=== PATIENT | male | born 1965 | race Caucasian/White ===

== ENCOUNTER → 2017-05-13 14:33 | Outpatient (CLI) | payer BC, SELFPAY ==
--- NOTE | 2017-05-13 14:42 | XR_ITS ---
EXAM: XR lumbar spine min 4V HISTORY: ITS.REASON: LOW BACK PAIN,LUMBAR SPINDYLOSIS ORDERING PHYSICIAN: Fabian John MD PATIENT AGE: 52 years COMPARISON: 10/08/2015 FINDINGS: Interpedicular screws are present at L3 L4 L5 annulus 1 as before with bony hypertrophic changes from the prior fusion. There is minimal lumbar curvature convex left. There are wires present on both sides of the lumbar spine and at the L5-S1 level.. Disc spacers are present at L3-L4 L4-5 and L5-S1. Overall there is been no significant change from 10/08/2015. IMPRESSION: Postsurgical changes as described above overall not significantly changed
--- NOTE | 2017-05-13 14:46 | CT_ITS ---
CT pelvis wo con INDICATION: ITS.REASON: SACROILIAC JOINTS DYSFUNCTION ORDERING PHYSICIAN: Fabian John MD PATIENT AGE: 52 years COMPARISON: Lumbar spine CT of 01/11/2017 TECHNIQUE: Axial images are obtained without contrast. Sagittal and coronal reformatted images are reviewed as well. All CT scans at the facility use one or more dose reduction, viz: automated exposure control; ma/kV adjustment per patient size (including targeted exams where dose is matched to indication; i.e. head); or iterative reconstruction technique. FINDINGS: Postsurgical changes are once again noted at the lumbosacral junction with prior laminectomy and interpedicular screws. Posterior fluid collection is again noted at the lumbosacral junction not significantly changed. There is a wire greater along the posterior aspect of S1 which was present previously connecting to the right and left sides of S1. The sacroiliac joints have an unremarkable appearance. No significant degenerative change or effusion. No lytic or blastic changes. There is a small benign-appearing cystic lesion in the right femoral neck proximally at 10 mm. Minor osteoarthritic changes are present involving both hips. No pelvic mass or abnormal fluid collection. IMPRESSION: 1. Extensive postsurgical changes of the lumbosacral junction as described previously unchanged with a stable fluid collection along the posterior elements at L5 and S1 2. Unremarkable sacroiliac joints. 3. Mild osteoarthritic changes of the hips IMPRESSION:
== END ==
PROVIDERS: Family Provider Internal Medicine; PCP Internal Medicine; Visit Provider Physical Medicine & Rehabilitation
DX: M53.88 Other specified dorsopathies, sacral and sacrococcygeal region (principal); M54.5 Low back pain; M47.816 Spondylosis without myelopathy or radiculopathy, lumbar region
CPT/HCPCS: 72110; 72192

== ENCOUNTER → 2017-05-30 08:40 | Outpatient (CLI) | payer BC, SELFPAY ==
--- NOTE | 2017-05-30 08:45 | NM_ITS ---
NM bone scan whole body CLINICAL INDICATION: Low back pain, prior surgery ITS.REASON: FIXATION HARDWARE IN BACK, LOW BACK PAIN ORDERING PHYSICIAN: Fabian John MD PATIENT AGE: 52 years DOSE: 27.3 mCi technetium MDP FINDINGS: There is mild mid thoracic scoliosis convex right and lumbar scoliosis convex left. There is overall slight increased activity within the lumbar spine which could very well be related to the postsurgical changes. Increased activity noted in the upper sacrum on the frontal view but not demonstrated on the lateral view probably due to summation density and postoperative changes at the S1 level. Degenerative activity is present in the shoulders and sternoclavicular joints as well as the ankles and proximal tibia on the right nonspecific. No evidence of metastatic disease. IMPRESSION: Slight increased activity in the lumbar spine and sacrum likely related to degenerative and postoperative changes. Otherwise negative total body bone scan
== END ==
PROVIDERS: Family Provider Internal Medicine; PCP Internal Medicine; Visit Provider Physical Medicine & Rehabilitation
DX: Z97.8 Presence of other specified devices (principal); M54.5 Low back pain
CPT/HCPCS: 78306; A9503

== ENCOUNTER → 2017-07-04 14:17 | Outpatient (CLI) | payer BC, SELFPAY ==
[2017-07-04 14:54] LABS: Basophils % 0.4 % (0.1-2.0); Eosinophils # 0.1 K/mm3 (0.0-0.4); Eosinophils % 1.8 % (0.1-12.0); Hematocrit 44.9 % (42.0-52.0); Hemoglobin 14.7 g/dL (14.1-18.0); Lymphocytes # 1.7 K/mm3 (0.7-4.5); Lymphocytes % 34.9 K/mm3 (10-50); Mean Corpuscular HGB Conc 32.7 g/dL (31.8-35.4); Mean Corpuscular Hemoglobin 30.4 pg (27.0-31.2); Mean Platelet Volume 7.4 fl (7.4-10.4); Monocytes # 0.3 K/mm3 (0.1-1.0); Monocytes % 5.8 % (1.7-9.3); Neutrophils # 2.8 K/mm3 (1.8-7.8); Neutrophils % 57.1 % (37.0-80.0); Platelet Count 185 K/mm3 (142-424); Red Blood Count 4.83 M/mm3 (4.60-6.20); White Blood Count 4.9 K/mm3 (4.8-10.8)
[2017-07-04 15:21] LABS: Anion Gap 8.7 mEq/L (5-15); Blood Urea Nitrogen 19 mg/dL (7-18); Carbon Dioxide 32 mmol/L (21.0-32.0); Chloride 104 mmol/L (98-107); Creatinine,Serum 1.04 mg/dL (0.70-1.30); Estimated Glomerular Filt Rate 75 ml/min (>60); GFR (African American) 91 ML/MIN (>60); Glucose 92 mg/dL (74-106); Potassium 4.7 mmoL/L (3.5-5.1); Sodium 140 mmol/L (136-145)
== END ==
PROVIDERS: Visit Provider Internal Medicine
DX: Z01.810 Encounter for preprocedural cardiovascular examination (principal); M54.42 Lumbago with sciatica, left side; Z98.890 Other specified postprocedural states
CPT/HCPCS: 36415; 80048; 85025; 93005

== ENCOUNTER → 2017-12-05 09:03 | Outpatient (CLI) | payer BC, SELFPAY ==
[2017-12-07 06:09] LABS: Testosterone,Free 4.6 pg/mL (7.2-24.0)
== END ==
PROVIDERS: PCP Internal Medicine; Visit Provider Internal Medicine
DX: E29.1 Testicular hypofunction (principal)
CPT/HCPCS: 36415; 84402

== ENCOUNTER → 2019-12-21 09:39 | Outpatient (CLI) | payer BC, SELFPAY ==
[2019-12-21 09:47] LABS: Microscopic, Urine URINE MICROSCOPIC (MICROSCOPIC)
--- NOTE | 2019-12-21 10:35 | XR_ITS ---
PROCEDURE: XR CHEST 2V CLINICAL HISTORY: CHEST PAIN COMPARISON: CR CXR CHEST(2 VIEWS-NOT PORTABLE) from 11/11/2014 CT CTAC CTA-CHEST from 01/05/2015 CR CXR CHEST(2 VIEWS-NOT PORTABLE) from 12/01/2015 FINDINGS: The cardiomediastinal silhouette and pulmonary vascularity are within normal limits. No lobar consolidation or collapse. Lungs are clear bilaterally. There is straightening of the thoracic kyphosis and mild thoracic scoliosis convex right. IMPRESSION: No acute findings. Dictated by: Michele Flanagan MD 12/21/2019 11:05 Michele Flanagan MD in [place] 12/21/2019 11:05
[2019-12-21 10:56] LABS: Basophils % 0.4 % (0.1-2.0); Eosinophils # 0.1 K/mm3 (0.0-0.4); Eosinophils % 1.4 % (0.1-12.0); Hematocrit 45.4 % (42.0-52.0); Hemoglobin 14.8 g/dL (14.1-18.0); Lymphocytes # 1.5 K/mm3 (0.7-4.5); Lymphocytes % 30.2 % (10-50); Mean Corpuscular HGB Conc 32.6 g/dL (31.8-35.4); Mean Corpuscular Hemoglobin 30.6 pg (27.0-31.2); Mean Corpuscular Volume 93.8 fl (80-94); Mean Platelet Volume 8.3 fl (7.4-10.4); Monocytes # 0.3 K/mm3 (0.1-1.0); Monocytes % 5.6 % (1.7-9.3); Neutrophils # 3.1 K/mm3 (1.8-7.8); Neutrophils % 62.5 % (37.0-80.0); Platelet Count 182 K/mm3 (142-424); Red Blood Count 4.83 M/mm3 (4.60-6.20); Red Cell Distribution Width 13.8 % (11.5-17.5)
[2019-12-21 11:02] LABS: Appearance,Urine CLEAR (Clear); Bilirubin,Urine Negative (Negative); Blood, Urine Negative (Negative); Color,Urine YELLOW (Yellow); Glucose,Urine (UA) Negative (Negative); Ketones,Urine Negative (Negative); Leukocyte Esterase,Urine Negative (Negative); Nitrate,Urine Negative (Negative); PH,Urine 7.5 (5.0-8.5); Protein,Urine Negative (Negative); Urobilinogen,Urine 0.2 EU/dl (0.2)
[2019-12-21 11:05] LABS: Activated Partial Thrombo Time 26.2 seconds (23.6-34.0); Prothrombin Time 11.1 seconds (9.4-11.8)
[2019-12-21 11:48] LABS: Bacteria,Urine Trace /lpf; Squamous Epithelial Cell,Urine Occasional #/hpf (0-5); WBC,Urine Occasional #/hpf (0-3)
[2019-12-21 12:01] LABS: Alanine Aminotransferase 40 U/L (12-78); Albumin Level 4.4 g/dl (3.5-5.0); Albumin/Globulin Ratio 1.8 (1.1-1.8); Alkaline Phosphatase 68 U/L (38-126); Anion Gap 10.6 mEq/L (5-15); Aspartate Amino Transferase 35 U/L (17-59); Bilirubin,Total 0.9 mg/dl (0.2-1.3); Blood Urea Nitrogen 19 mg/dl (9-20); Calcium 9.8 mg/dl (8.4-10.2); Carbon Dioxide 31 mmol/L (22.0-30.0); Chloride 103 mmol/L (98-107); Estimated Glomerular Filt Rate 88 ml/min (>60); GFR (African American) 107 ML/MIN (>60); Globulin 2.5 g/dL (1.3-3.2); Glucose 100 mg/dl (74-100); Potassium 4.6 mmoL/L (3.5-5.1); Sodium 140 mmol/L (136-145); Total Protein,Serum 6.9 g/dl (6.3-8.2)
--- NOTE | 2019-12-21 12:01 | ECG_ITS ---
APPROVED REPORT Exam: Resting ECG HR:63 bpm ECG Measurements Heart Rate 63 AXES OR 148 P 80 QRSd 82 QRS 69 QT 384 T 57 QTc 392 Conclusion Normal sinus rhythm Normal ECG Electronically signed by : Jeromy Perez, 12/21/2019 18:14:36
== END ==
PROVIDERS: Visit Provider Internal Medicine
DX: R07.9 Chest pain, unspecified; R68.89 Other general symptoms and signs; Z01.818 Encounter for other preprocedural examination; R79.1 Abnormal coagulation profile
CPT/HCPCS: 36415; 71046; 80053; 81001; 85025; 85610; 85730; 93005

== ENCOUNTER → 2020-09-22 11:42 | Outpatient (CLI) | payer BC, SELFPAY ==
[2020-09-22 13:09] LABS: Coronavirus 19 IgG Antibody Negative (Negative)
[2020-09-22 13:10] LABS: Coronavirus 19 IgM Antibody Negative (Negative)
== END ==
PROVIDERS: Visit Provider Internal Medicine
DX: Z11.52 Encounter for screening for COVID-19 (principal)
CPT/HCPCS: 36415; 86328

== ENCOUNTER 2020-10-03 10:30 | Emergency (ER) | payer BC, SELFPAY ==
[2020-10-03] VITALS (7 sets, daily range): BP systolic 132–160; BP diastolic 93–103; PULSE 68–93; RESP 17–25; TEMP 36.8; O2SAT 94–98; BMI 30.4
--- NOTE | 2020-10-03 10:34 | HMH.EDGENADL ---
ED Disposition Clinical Impression: Dizziness Disposition: Home, Self-Care Condition on Discharge: Good Additional Instructions: You were seen in the emergency department for evaluation of dizziness. At this time no further emergent work-up is indicated. If you have worsening symptoms please return to the emergency department. Is important to follow-up with her primary care physician at the know that you were seen in the emergency department. Referrals: Jeromy Perez [Primary Care Provider] - - Critical Care Critical Care Time: No Attestation: On , the high probability of a clinically significant, sudden or life threatening deterioration of the following system(s) required my full and direct attention, intervention and personal management. The time I documented below is in addition to time spent performing reported procedures but includes the following listed in this critical care notation. Medical Decision Making - Cassius Inquiry Pt receiving controlled substance: No Vital Signs: 10/03/20 10:31 10/03/20 12:00 Temperature 98.3 F Temperature Source Oral Pulse Rate 68 Pulse Rate [Right] 93 H Respiratory Rate 18 18 Blood Pressure 139/97 H Blood Pressure [Right Arm] 160/99 H Blood Pressure Mean [Right Arm] 119 02 Sat by Pulse Oximetry 97 95 Oxygen Delivery Method Room Air - Lab Data Lab Results 10/03/20 10:40: WBC 5.9, RBC 5.03, Hgb 14.8, Hct 44.6, MCV 88.6, MCH 29.4, MCHC 33.2, RDW 13.9, Plt Count 199, MPV 8.2, Neut % (Auto) 60.9, Lymph % (Auto) 31.4, [place] % (Auto) 4.8, Eos % (Auto) 2.6, Baso % (Auto) 0.4, Neut # (Auto) 3.6, Lymph # (Auto) 1.9, [place] # (Auto) 0.3, Eos # (Auto) 0.2, Baso # (Auto) 0.0 10/03/20 10:40: Sodium 142, Potassium 3.9, Chloride 103, Carbon Dioxide 32 H, Anion Gap 10.9, BUN 13, Creatinine 0.90, Estimated Creat Clear 150, Estimated GFR 88, Est GFR ( Amer) 106, Glucose 108 H, Calcium 9.0, Total Bilirubin 0.4, AST 28, ALT 23, Alkaline Phosphatase 72, Troponin I < 0.01, Total Protein 7.4, Albumin 4.5, Globulin 2.9, Albumin/Globulin Ratio 1.6 10/03/20 13:43: Troponin I < 0.01 Result diagrams: 10/03/20 10:40 10/03/20 10:40 Orders (Tests/Meds): ED MEDICATIONS Discontinued Medications Generic Name Dose Route Start Last Admin Trade Name Freq PRN Reason Stop Dose Admin Hydrocodone Bitart/Acetaminophen 1 tab 10/03/20 12:06 10/03/20 12:13 Hydrocodone 10mg/Apap 325mg Tab PO 10/03/20 12:07 1 tab ONCE ONE Administration Nitroglycerin 0.4 mg 10/03/20 10:42 Nitroglycerin 0.4mg Sl Tablet SL 10/04/20 10:42 Q5MINP PRN Chest Pain ORDERS Category Date Time Status Troponin I Q3H Lab 10/03/20 16:45 Ordered - ECG Data Tracing #1 ECG initial impression date: 10/03/20 ECG initial impression time: 10:39 ECG normal with no acute: arrhythmias, ischemia, conduction abnormalities, chamber hypertrophy Normal Sinus Rhythm: Yes Medical Decision Narrative: Upon arrival patient is hemodynamically stable afebrile overall nontoxic-appearing. He appears overall well differential diagnosis includes but is not limited to ACS, hypertensive urgency/emergency, arrhythmia, orthostatic hypotension, vasovagal syncope. Patient is currently asymptomatic and symptoms seem to be short-lived he describes a time where he got flushed lightheaded and dizzy more consistent with a vasovagal type event. EKG interpreted dependently overall unremarkable no signs concerning for arrhythmia. His vitals appear to be normal systolic blood pressure 160 he is chest pain-free laboratory work-up was obtained. [place] syncope risk score of -3. Independently overall unremarkable no signs concerning for large cardiomegaly no focal pneumonia no pneumothorax. Laboratory work-up interpreted dependently overall unremarkable no signs concerning for electrolyte abnormality nor anemia. Second troponin was negative patient remained asymptomatic given this no further work-up indicated at th
--- NOTE | 2020-10-03 10:36 | ECG_ITS ---
APPROVED REPORT Exam: Resting ECG HR:91 bpm ECG Measurements Heart Rate 91 AXES NH 148 P 72 QRSd 82 QRS 44 QT 356 T 38 QTc 437 Conclusion Normal sinus rhythm Normal ECG Electronically signed by : Sy Shahid MD 10/03/2020 17:17:11
--- NOTE | 2020-10-03 10:42 | XR_ITS ---
PROCEDURE: XR CHEST 2V CLINICAL HISTORY: chest pain COMPARISON: CR CXR CHEST(2 VIEWS-NOT PORTABLE) from 11/11/2014 CT CTAC CTA-CHEST from 01/05/2015 CR CXR CHEST(2 VIEWS-NOT PORTABLE) from 12/01/2015 CR XR CHEST 2V from 12/21/2019 FINDINGS: The cardiomediastinal silhouette and pulmonary vascularity are within normal limits. The lungs are clear without infiltrates, suspicious nodules, or pleural effusions. No acute bony abnormalities. IMPRESSION: No acute findings. Dictated by: Michele Flanagan MD 10/03/2020 11:16 Michele Flanagan MD in [place] 10/03/2020 11:16
[2020-10-03 10:51] LABS: Basophils % 0.4 % (0.1-2.0); Eosinophils # 0.2 K/mm3 (0.0-0.4); Eosinophils % 2.6 % (0.1-12.0); Hematocrit 44.6 % (42.0-52.0); Hemoglobin 14.8 g/dL (14.1-18.0); Lymphocytes # 1.9 K/mm3 (0.7-4.5); Lymphocytes % 31.4 % (10-50); Mean Corpuscular HGB Conc 33.2 g/dL (31.8-35.4); Mean Corpuscular Hemoglobin 29.4 pg (27.0-31.2); Mean Corpuscular Volume 88.6 fl (80-94); Mean Platelet Volume 8.2 fl (7.4-10.4); Monocytes # 0.3 K/mm3 (0.1-1.0); Monocytes % 4.8 % (1.7-9.3); Neutrophils # 3.6 K/mm3 (1.8-7.8); Neutrophils % 60.9 % (37.0-80.0); Platelet Count 199 K/mm3 (142-424); Red Blood Count 5.03 M/mm3 (4.60-6.20); Red Cell Distribution Width 13.9 % (11.5-17.5); White Blood Count 5.9 K/mm3 (4.8-10.8)
[2020-10-03 10:54] LABS: Chloride 103 mmol/L (98-107); Potassium 3.9 mmoL/L (3.5-5.1); Sodium 142 mmol/L (136-145)
[2020-10-03 10:57] LABS: Alanine Aminotransferase 23 U/L (12-78); Albumin Level 4.5 g/dl (3.5-5.0); Albumin/Globulin Ratio 1.6 (1.1-1.8); Alkaline Phosphatase 72 U/L (38-126); Anion Gap 10.9 mEq/L (5-15); Aspartate Amino Transferase 28 U/L (17-59); Bilirubin,Total 0.4 mg/dl (0.2-1.3); Blood Urea Nitrogen 13 mg/dl (9-20); Carbon Dioxide 32 mmol/L (22.0-30.0); Creatinine Clearance Estimated 150 mL/min (50-200); Estimated Glomerular Filt Rate 88 ml/min (>60); GFR (African American) 106 ML/MIN (>60); Globulin 2.9 g/dL (1.3-3.2); Glucose 108 mg/dl (74-100); Total Protein,Serum 7.4 g/dl (6.3-8.2)
[2020-10-03 11:13] LABS: Troponin I < 0.01 ng/ml (0.00-0.034)
[2020-10-03 14:17] LABS: Troponin I < 0.01 ng/ml (0.00-0.034)
== END 2020-10-03 14:56 | disposition home or self-care (01) ==
PROVIDERS: Emergency Provider Emergency Medicine; PCP Internal Medicine
DX: R42 Dizziness and giddiness (principal); R07.9 Chest pain, unspecified
CPT/HCPCS: 36415; 71046; 80053; 84484; 85025; 93005; 99283

== ENCOUNTER → 2021-03-13 10:05 | Outpatient (CLI) | payer BC, SELFPAY ==
[2021-03-13 10:39] LABS: Basophils % 0.3 % (0.1-2.0); Hematocrit 46.5 % (42.0-52.0); Lymphocytes # 2.2 K/mm3 (0.7-4.5); Lymphocytes % 18.9 % (10-50); Mean Corpuscular HGB Conc 32.2 g/dL (31.8-35.4); Mean Corpuscular Hemoglobin 30.4 pg (27.0-31.2); Mean Corpuscular Volume 94.3 fl (80-94); Mean Platelet Volume 8.6 fl (7.4-10.4); Monocytes # 0.5 K/mm3 (0.1-1.0); Monocytes % 4.1 % (1.7-9.3); Neutrophils # 8.7 K/mm3 (1.8-7.8); Neutrophils % 76.6 % (37.0-80.0); Platelet Count 251 K/mm3 (142-424); Red Blood Count 4.93 M/mm3 (4.60-6.20); Red Cell Distribution Width 13.9 % (11.5-17.5); White Blood Count 11.4 K/mm3 (4.8-10.8)
[2021-03-13 10:52] LABS: Alanine Aminotransferase 23 U/L (12-78); Albumin Level 4.7 g/dl (3.5-5.0); Albumin/Globulin Ratio 1.9 (1.1-1.8); Alkaline Phosphatase 53 U/L (38-126); Anion Gap 13.1 mEq/L (5-15); Aspartate Amino Transferase 25 U/L (17-59); Bilirubin,Total 0.6 mg/dl (0.2-1.3); Blood Urea Nitrogen 26 mg/dl (9-20); Calcium 9.8 mg/dl (8.4-10.2); Carbon Dioxide 29 mmol/L (22.0-30.0); Chloride 102 mmol/L (98-107); Chol/HDL Ratio 4.1 (1-3.5); Cholesterol 272 mg/dl (140-200); Estimated Glomerular Filt Rate 78 ml/min (>60); GFR (African American) 94 ML/MIN (>60); Globulin 2.5 g/dL (1.3-3.2); Glucose 104 mg/dl (74-100); HDL Cholesterol 66 mg/dl (40-60); Potassium 4.1 mmoL/L (3.5-5.1); Sodium 140 mmol/L (136-145); Total Protein,Serum 7.2 g/dl (6.3-8.2); Triglycerides 102 mg/dl (30-150); VLDL Cholesterol 20 mg/dL (0-40)
[2021-03-13 11:03] LABS: Direct LDL Cholesterol 191.04 mg/dL (100-129)
[2021-03-13 11:23] LABS: Prostate Specific Ag, Diagnost 0.215 ng/ml (0.0-4.0)
[2021-03-18 14:18] LABS: Testosterone, Total, LC/MS 177.1 ng/dL (264.0-916.0)
== END ==
PROVIDERS: Visit Provider Internal Medicine
DX: I10 Essential (primary) hypertension (principal); E78.5 Hyperlipidemia, unspecified; E29.1 Testicular hypofunction; N40.1 Benign prostatic hyperplasia with lower urinary tract symptoms
CPT/HCPCS: 36415; 80053; 80061; 84153; 84403; 85025

== ENCOUNTER → 2022-10-01 13:22 | Outpatient (CLI) | payer BC, SELFPAY ==
[2022-10-01 16:06] LABS: Alanine Aminotransferase 25 U/L (12-78); Albumin Level 4.1 g/dl (3.5-5.0); Albumin/Globulin Ratio 1.7 (1.1-1.8); Alkaline Phosphatase 75 U/L (38-126); Aspartate Amino Transferase 29 U/L (17-59); Blood Urea Nitrogen 20 mg/dl (9-20); Calcium 8.5 mg/dl (8.4-10.2); Carbon Dioxide 30 mmol/L (22.0-30.0); Chloride 102 mmol/L (98-107); Chol/HDL Ratio 2.6 (1-3.5); Cholesterol 135 mg/dl (140-200); Creatine Kinase 128 U/L (55-170); Estimated Glomerular Filt Rate 87 ml/min (>60); GFR (African American) 106 ML/MIN (>60); Globulin 2.4 g/dL (1.3-3.2); Glucose 63 mg/dl (74-100); HDL Cholesterol 52 mg/dl (40-60); Sodium 139 mmol/L (136-145); Total Protein,Serum 6.5 g/dl (6.3-8.2); Triglycerides 155 mg/dl (30-150); VLDL Cholesterol 31 mg/dL (0-40)
[2022-10-01 16:17] LABS: Direct LDL Cholesterol 62.45 mg/dL (100-129)
[2022-10-01 16:36] LABS: Thyroid Stimulating Hormone 1.34 uIU/mL (0.465-4.68)
== END ==
PROVIDERS: PCP Internal Medicine; Visit Provider Internal Medicine
DX: M79.10 Myalgia, unspecified site (principal); I10 Essential (primary) hypertension; E78.5 Hyperlipidemia, unspecified; R29.898 Other symptoms and signs involving the musculoskeletal system
CPT/HCPCS: 80053; 80061; 82550; 84443

== ENCOUNTER 2023-08-25 16:12 | Outpatient (CLI) | payer MEDICARE, BC, SELFPAY ==
[2023-08-25 15:42] LABS: Amphetamine/Metha Screen,Urine Negative ng/ml (<1000)
[2023-08-25 15:43] LABS: Barbiturates Screen,Urine Negative ng/ml (<200); Benzodiazepines Screen,Urine Negative ng/ml (<200)
[2023-08-25 15:47] LABS: Cannabinoid Screen,Urine Negative ng/ml (<50); Cocaine Screen,Urine Negative ng/ml (<300)
[2023-08-25 15:48] LABS: Methadone Screen,Urine Negative ng/ml (<300)
[2023-08-25 15:49] LABS: Opiate Screen,Urine Positive ng/ml (<300); Phencyclidine Screen,Urine Negative ng/ml (<25)
== END 2023-08-25 23:59 | disposition home or self-care (01) ==
LOC: LAB.DROPOF 16:12
PROVIDERS: PCP Internal Medicine; Visit Provider Internal Medicine
DX: M54.42 Lumbago with sciatica, left side (principal); Z79.899 Other long term (current) drug therapy
CPT/HCPCS: 80307

== ENCOUNTER 2024-01-27 14:43 | Outpatient (POV) | payer MEDICARE, BC, SELFPAY ==
[2024-01-27 15:20] VITALS: BP 140/87; PULSE 80; RESP 16; O2SAT 94; BMI 32.2
--- NOTE | 2024-01-27 16:03 | EXP.PAIN.OV ---
HPI Data of Consult Patient: new to practice Consult date: 01/27/24 Requesting Physician: Lopez Murray MD Primary Care Provider: Jeromy Perez MD Consult Narrative Reason for consult: Increasing low back pain with lumbar radicular symptoms and previous back s History of present illness: Mr. Martinez is a 58 year old male who has had multiple back surgeries he has had 6 total back surgeries by Dr. Giulia jama at [facility]. He because some increasing low back pain radiating down his left leg. His back does lock up and pop almost every day. He has significant pain in his back down his legs he has had multiple injections including medial branch blocks, RF, epidural steroid injections none of which have given him long-term relief. He has had a spinal cord stimulator which is not functioning appropriately and not giving him any relief. I did talk to him about intrathecal therapy as he has exhausted all other conservative treatments and is no longer surgical candidate. CC: Lopez Murray MD [facility] Disclaimer: The information contained in this section may have been updated after the patient was seen, as this information can be updated by other users. Social History Smoking Status: Never smoker alcohol intake: never current occupational status: other Travel in the last 8 weeks: None Review of Systems Review of Systems Review of systems:: pertinent systems reviewed and negative unless documented below *Musculoskeletal Musculoskeletal: Reports abnormal gait, Reports back pain, Reports limited range of motion, Reports numbness, Reports radiating pain into limb, Reports stiffness and Reports tingling *Neurologic Neurologic: Reports abnormal gait, Reports numbness and Reports tingling Meds Home Medications and Allergies Home Medications ?Medication ?Instructions ?Recorded ?Confirmed ?Type tadalafil 10 mg tablet 10 mg PO DAILY 08/04/23 01/27/24 History baclofen 5 mg tablet 5 mg PO HS #30 tabs 09/13/23 01/27/24 Rx loratadine 10 mg tablet 10 mg PO DAILY #90 tabs 11/23/23 01/27/24 Rx amlodipine 5 mg-benazepril 40 mg 1 cap PO DAILY #90 caps 12/15/23 01/27/24 Rx capsule needle (disp) 23 gauge 23 gauge x #100 ea 12/30/23 01/27/24 Rx 1 (Hypodermic [place]) syringe with needle 3 mL 18 x 1 #2 ea 12/30/23 01/27/24 Rx 1/2 (BD Luer-Michelle Syringe) methylprednisolone 4 mg tablets in See Rx Instructions PO PER PKG DIR 01/04/24 01/27/24 Rx a dose pack #21 tabs rosuvastatin 20 mg tablet 20 mg PO DAILY #90 tabs 01/04/24 01/27/24 Rx testosterone cypionate 200 mg/mL 400 mg (2 mL) IM Q2W #4 mL 01/04/24 01/27/24 Rx intramuscular oil cefdinir 300 mg capsule 300 mg PO BID #20 caps 01/16/24 01/27/24 Rx ibuprofen 800 mg tablet 800 mg PO Q8H PRN fever or pain 01/16/24 01/27/24 Rx #90 tabs hydrocodone 10 mg-acetaminophen See Rx Instructions PO Q6HP PRN 01/24/24 01/27/24 Rx 325 mg tablet pain #150 tabs New Prescriptions to Start Prescriptions: Allergies Allergy/AdvReac Type Severity Reaction Status Date / Time meloxicam (From [employer]) Allergy Mild Verified 01/24/24 11:00 Objective Vital signs: Pulse Resp BP Pulse Ox O2 Del Method 80 16 140/87 94 L Room Air 01/27/24 15:20 01/27/24 15:20 01/27/24 15:20 01/27/24 15:20 01/27/24 15:20 Routine Back/Spine/Pelvis Exam Back/Spine: Present paraspinal tenderness, vertebral tenderness and pain with flexion Pelvis: Present SI joint tenderness Assessment and Plan *Assessment and plan (1) Postlaminectomy syndrome of lumbar region: Status: Acute Category: Medical Code(s): M96.1 - Postlaminectomy syndrome, not elsewhere classified (2) Degenerative joint disease (DJD) of lumbar spine: Status: Acute Qualifiers: Spinal osteoarthritis complication: with radiculopathy Qualified Code(s): M47.26 - Other spondylosis with radiculopathy, lumbar region Category: Medical Code(s): M47.816 - Spondylosis without myelopathy or radiculopathy, lumbar region (3) Lumbar radiculopathy, chronic: Status: Acute Category: Medical Code(s): M54.16 - Radiculopathy, lumbar region Plan This patient has failed all conservative therapy including injections, oral medication, physical therapy. He has not had any recent imaging. Will order new lumbar MRI to discern pathology. Will also send him for psychological evaluation and consideration for intrathecal therapy. Will follow-up with him after his lumbar MRI and psychological evaluation.
== END 2024-01-27 23:59 | disposition home or self-care (01) ==
LOC: SC.PAIN 14:47
PROVIDERS: PCP Internal Medicine; Visit Provider Anesthesiology
DX: M96.1 Postlaminectomy syndrome, not elsewhere classified (principal); M47.26 Other spondylosis with radiculopathy, lumbar region
CPT/HCPCS: 99202; G0463

== ENCOUNTER 2024-03-01 11:30 | Outpatient (CLI) | payer MEDICARE, BC, SELFPAY ==
[2024-03-01 15:19] LABS: Alanine Aminotransferase 42 U/L (12-78); Albumin Level 4.3 g/dl (3.5-5.0); Alkaline Phosphatase 71 U/L (38-126); Anion Gap 9.9 mEq/L (5-15); Aspartate Amino Transferase 38 U/L (17-59); Bilirubin,Total 1.6 mg/dl (0.2-1.3); Blood Urea Nitrogen 20 mg/dl (9-20); Calcium 9.4 mg/dl (8.4-10.2); Carbon Dioxide 30 mmol/L (22.0-30.0); Chloride 103 mmol/L (98-107); Chol/HDL Ratio 2.1 (1-3.5); Cholesterol 148 mg/dl (140-200); Estimated Glomerular Filt Rate 87 ml/min (>60); GFR (African American) 105 ML/MIN (>60); Globulin 2.1 g/dL (1.3-3.2); Glucose 82 mg/dl (74-100); HDL Cholesterol 69 mg/dl (40-60); Potassium 4.9 mmoL/L (3.5-5.1); Sodium 138 mmol/L (136-145); Total Protein,Serum 6.4 g/dl (6.3-8.2); Triglycerides 92 mg/dl (30-150); VLDL Cholesterol 18 mg/dL (0-40)
[2024-03-01 15:29] LABS: Direct LDL Cholesterol 66.06 mg/dL (100-129)
[2024-03-01 15:49] LABS: Prostate Specific Ag Screen 0.3 ng/ml (0.0-4.0)
[2024-03-02 11:24] LABS: Testosterone,Total 190 ng/dL (264-916)
== END 2024-03-01 23:59 | disposition home or self-care (01) ==
LOC: LAB.DROPOF 03-02 08:56
PROVIDERS: PCP Internal Medicine; Visit Provider Internal Medicine
DX: E78.5 Hyperlipidemia, unspecified (principal); R79.89 Other specified abnormal findings of blood chemistry; Z12.5 Encounter for screening for malignant neoplasm of prostate; I10 Essential (primary) hypertension; M54.42 Lumbago with sciatica, left side
CPT/HCPCS: 80053; 80061; 84403; G0103

== ENCOUNTER 2024-03-12 13:38 | Outpatient (POV) | payer MEDICARE, BC, SELFPAY ==
[2024-03-12 16:04] VITALS: BP 158/89; PULSE 89; RESP 14; O2SAT 96; BMI 32.2
--- NOTE | 2024-03-12 16:22 | EXP.PAIN.SOA ---
[facility] Disclaimer: The information contained in this section may have been updated after the patient was seen, as this information can be updated by other users. Social History Smoking Status: Never smoker alcohol intake: never current occupational status: other Travel in the last 8 weeks: None Have you lived/traveled outside [place] in past 30 days?: No Contact w/someone who lives/traveled outside US past 30 days?: No Exposure to someone with infectious disease in past 14 days?: No Do you have a fever (greater than 100.4 F or 38 C)?: No Have you tested positive for COVID-19: No Exposed to someone with COVID-19 in past 14 days?: No Do you have a sore throat?: No Do you have a cough?: No Do you have any weakness?: No Do you have any diarrhea?: No Are you experiencing any unusual bleeding?: No Do you have any muscle aches/pain?: No Do you have any abdominal pain?: No Are you experiencing loss of taste or smell?: No PM Subjective & Objective Subjective Subjective:: Patient is a pleasant 59-year-old male who presents today for follow-up of psychological evaluation. He rates his pain today a 4 out of 10. Patient denies any new trauma or injury. He does state that he continues to have chronic low back pain that is constant and will have occasional sharp stabbing pains at random moments. Patient does have a significant history of lumbar fusion with 6 different surgeries including SI fusion. 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 He states that he will occasionally have sharp shooting pain when he feels like his back locks up in his elbows. Patient does present today wanting to proceed forward with the pump trial. Patient has tried and failed conservative therapy including oral medications, heat and ice, topicals, physical therapy, at home stretching exercise for longer than 12 weeks that was physician guided. He is currently prescribed Irene 10 mg 5 times a day from an outside provider. His Cassius has been reviewed and is appropriate. Review of Systems: General: No recent weight changes, no fever, no sleep disturbances Respiratory: No cough, no shortness of air, no recurring pulmonary infections Cardiovascular/peripheral vascular: No chest pain, no palpitations, no edema, no shortness of breath Gastrointestinal: No new onset incontinence, normal bowel movements reported Genitourinary: No new onset incontinence Musculoskeletal: Low back pain Psychiatric: [Normal mood/affect] Neurological: [Denies weakness in extremities], [denies balance issues] Pain at rest (0-10 scale): 4 Objective Objective:: Physical Exam: General: Alert and oriented x3, no acute distress, pleasant and cooperative Lungs: Respirations even and unlabored, symmetrical chest expansion Eyes: PERRL Musculoskeletal: Flexion and extension of lumbar [spine] somewhat guarded secondary to pain, [antalgic gait noted] Neurological: Speech clear, no gross sensory deficit Has patient had previous pain injection?: No Conservative treatment options previously tried: Home exercise plan Length of treatment: Longer than 12 weeks Meds Home Medications and Allergies Home Medications ?Medication ?Instructions ?Recorded ?Confirmed ?Type baclofen 5 mg tablet 5 mg PO HS #30 tabs 09/13/23 03/12/24 Rx loratadine 10 mg tablet 10 mg PO DAILY #90 tabs 11/23/23 03/12/24 Rx amlodipine 5 mg-benazepril 40 mg 1 cap PO DAILY #90 caps 12/15/23 03/12/24 Rx capsule needle (disp) 23 gauge 23 gauge x #100 ea 12/30/23 03/12/24 Rx 1 (Hypodermic [place]) syringe with needle 3 mL 18 x 1 #2 ea 12/30/23 03/12/24 Rx 1/2 (BD Luer-Michelle Syringe) methylprednisolone 4 mg tablets in See Rx Instructions PO PER PKG DIR 01/04/24 03/12/24 Rx a dose pack #21 tabs rosuvastatin 20 mg tablet 20 mg PO DAILY #90 tabs 01/04/24 03/12/24 Rx cefdinir 300 mg capsule 300 mg PO BID #20 caps 01/16/24 03/12/24 Rx ibuprofen 800 mg tablet 800 mg PO Q8H PRN fever or pain 01/16/24 03/12/24 Rx #90 tabs prednisone 10 mg tablet 10 mg PO DIRECTED #32 tabs 02/13/24 03/12/24 Rx tadalafil 10 mg tablet See Rx Instructions .Route 02/17/24 03/12/24 Rx .COMPLEX #30 tabs hydrocodone 10 mg-acetaminophen See Rx Instructions PO Q6HP PRN 03/02/24 03/12/24 Rx 325 mg tablet pain #150 tabs testosterone cypionate 200 mg/mL 500 mg (2.5 mL) IM Q2W #5 mL 03/02/24 03/12/24 Rx intramuscular oil New Prescriptions to Start Prescriptions: Allergies Allergy/AdvReac Type Severity Reaction Status Date / Time meloxicam (From [email or web address]) Allergy Mild Verified 03/01/24 11:07 Assessment and Plan *Assessment and plan (1) Degenerative joint disease (DJD) of lumbar spine: Status: Acute Qualifiers: Spinal osteoarthritis complication: with radiculopathy Qualified Code(s): M47.26 - Other spondylosis with radiculopathy, lumbar region Category: Medical Code(s): M47.816 - Spondylosis without myelopathy or radiculopathy, lumbar region (2) Postlaminectomy syndrome of lumbar region: Status: Acute Category: Medical Code(s): M96.1 - Postlaminectomy syndrome, not elsewhere classified (3) Lumbar radiculopathy, chronic: Status: Acute Category: Medical Code(s): M54.16 - Radiculopathy, lumbar region Plan Patient was reviewed over his psychological evaluation and was deemed an appropriate candidate for the intrathecal pain pump trial. I did also review over his prior lumbar imaging that did show multilevel degenerative disc disease with lumbar fusion from L3-S1. Patient does have multilevel disc bulge and osteophyte formation. I did review over the risk and benefits of the pump trial and he would like to proceed forward with this plan of care. I will order the patient a compounded cream. Patient will be scheduled for a intrathecal pain pump trial under fluoroscopy. Patient was counseled that we would like to taper down his oral pain medication prior to this procedure. Patient acknowledges understanding and agrees with plan of care. If he does have significant improvement with this trial we will proceed forward with the intrathecal pain pump implant. Patient has been instructed to contact the clinic with any concerns before the next appointment. Dr. Murray has reviewed this note and agrees with this plan of care. This note was dictated using voice recognition software and make contain errors or omissions. All injections are used with Lidocaine, Bupivacaine and Depo Medrol. Occasionally urine drug screen is needed to verify patient's compliance with our office pain contract. This is ordered based off specific treatments related to chronic pain with the potential to abuse certain medications.
== END 2024-03-12 23:59 | disposition home or self-care (01) ==
PROVIDERS: PCP Internal Medicine; Visit Provider Nurse Practitioner Family
DX: M47.26 Other spondylosis with radiculopathy, lumbar region (principal); M96.1 Postlaminectomy syndrome, not elsewhere classified
CPT/HCPCS: 99212; G0463

== ENCOUNTER 2024-03-30 08:05 | Outpatient (CLI) | payer MEDICARE, BC, SELFPAY ==
[2024-03-30 09:10] LABS: Alanine Aminotransferase 30 U/L (12-78); Albumin Level 4.2 g/dl (3.5-5.0); Alkaline Phosphatase 69 U/L (38-126); Aspartate Amino Transferase 23 U/L (17-59); Bilirubin,Direct 0.3 mg/dl (0.0-0.4); Bilirubin,Total 1.3 mg/dl (0.2-1.3); Chol/HDL Ratio 1.9 (1-3.5); Cholesterol 128 mg/dl (140-200); HDL Cholesterol 68 mg/dl (40-60); Triglycerides 63 mg/dl (30-150); VLDL Cholesterol 13 mg/dL (0-40)
[2024-03-31 11:14] LABS: Testosterone,Total 585 ng/dL (264-916)
== END 2024-03-30 23:59 | disposition home or self-care (01) ==
LOC: LAB 08:08
PROVIDERS: Internal Medicine Cardiovascular Disease; PCP Internal Medicine; Visit Provider Internal Medicine
DX: R79.89 Other specified abnormal findings of blood chemistry (principal)
CPT/HCPCS: 36415; 80061; 80076; 84403

== ENCOUNTER 2024-04-29 03:56 | Emergency (ER) | payer MEDICARE, BC, SELFPAY ==
--- NOTE | 2024-04-29 04:04 | HMH.EDGENADL ---
Discharge Plan Disposition Patient Disposition: Home, Self-Care Condition: Good Prescriptions Prescriptions: No Action amlodipine-benazepril 5-40 mg capsule 1 cap PO DAILY Qty: 90 1RF hydrocodone-acetaminophen 10-325 mg tablet See Rx Instructions PO Q6HP PRN (Reason: pain) Qty: 150 0RF Rx Instructions: 1-2 tabs orally every 6 hours as needed PRN; tamsulosin 0.4 mg capsule 0.4 mg PO HS Qty: 90 1RF baclofen 10 mg tablet 10 mg PO HS Qty: 30 2RF rosuvastatin 20 mg tablet 20 mg PO DAILY Qty: 90 1RF loratadine 10 mg tablet 10 mg PO DAILY Qty: 90 1RF (DME) needle (disp) 23 gauge [Hypodermic Vinson] 23 gauge x 1 needle See Rx Instructions .ROUTE .MEDSUPPLY Qty: 100 5RF Rx Instructions: As directed (DME) BD Luer-Michelle Syringe 3 mL 18 x 1 1/2 syringe See Rx Instructions .ROUTE .COMPLEX Qty: 2 5RF Dose Instruction: USE DIRECTED EVERY 2 WEEKS with testosterone injection Rx Instructions: USE DIRECTED EVERY 2 WEEKS with testosterone injection tadalafil 10 mg tablet See Rx Instructions .ROUTE .COMPLEX Qty: 30 2RF Dose Instruction: TAKE ONE TABLET BY MOUTH ONCE DAILY Rx Instructions: TAKE ONE TABLET BY MOUTH ONCE DAILY testosterone cypionate 200 mg/mL oil 500 mg IM Q2W Qty: 5 0RF ibuprofen 800 mg tablet See Rx Instructions .ROUTE .COMPLEX Qty: 90 2RF Dose Instruction: TAKE ONE TABLET BY MOUTH EVERY 8 HOURS NEEDED FOR PAIN OR FEVER --TAKE WITH FOOD-- Rx Instructions: TAKE ONE TABLET BY MOUTH EVERY 8 HOURS NEEDED FOR PAIN OR FEVER --TAKE WITH FOOD-- Referrals Follow up/Referrals: Jeromy Perez MD [Primary Care Provider] - See instructions Activity Restrictions/Add. Instructions Additional Instructions/Restrictions: Please follow-up with your primary care provider. Please return to the emergency department if you develop any new or worsening symptoms or become concerned for your health. Clinical Impressions Clinical Impression: Back pain Qualifiers: Back pain location: low back pain Chronicity: chronic Back pain laterality: midline Instructions Patient Instructions: DI for Low Back Pain Print Language Print Language: Croatian Discharge ED Provider: Matthias Diamond Adult [facility] General Chief complaint: Back Pain/Injury Stated complaint: back pain Time Seen by Provider: 04/29/24 04:04 History of Present Illness HPI narrative: Mr. Martinez is a very pleasant 59-year-old male with history of chronic back pain on opiates presents for continued back pain but ran out of his meds. He was prescribed 150 10 mg tablets of hydrocodone 20 days ago. The prescription sent to take 1-2 tabs every 6 hours as needed for pain. Patient reports that Dr. Perez was supposed to refill his prescription but when he went to the pharmacy there was not a prescription there. Given it is the weekend he is not able to contact Dr. Perez. He denies any new or different symptoms, reports it is consistent with his chronic pain. He is scheduled to follow-up with Dr. Murray for assessment for pain pump placement. Denies any new numbness weakness tingling urinary symptoms etc. Related Data Previous Rx's ?Medication ?Instructions ?Recorded loratadine 10 mg tablet 10 mg PO DAILY #90 tabs 11/23/23 amlodipine 5 mg-benazepril 40 mg 1 cap PO DAILY #90 caps 12/15/23 capsule needle (disp) 23 gauge 23 gauge x #100 ea 12/30/23 1 (Hypodermic Vinson) syringe with needle 3 mL 18 x 1 #2 ea 12/30/23 1/2 (BD Luer-Michelle Syringe) rosuvastatin 20 mg tablet 20 mg PO DAILY #90 tabs 01/04/24 tadalafil 10 mg tablet See Rx Instructions .Route 02/17/24 .COMPLEX #30 tabs testosterone cypionate 200 mg/mL 500 mg (2.5 mL) IM Q2W #5 mL 03/30/24 intramuscular oil hydrocodone 10 mg-acetaminophen See Rx Instructions PO Q6HP PRN 04/09/24 325 mg tablet pain #150 tabs tamsulosin 0.4 mg capsule 0.4 mg PO HS For urinary stream 04/09/24 #90 caps ibuprofen 800 mg tablet See Rx Instructions .Route 04/17/24 .COMPLEX #90 tabs baclofen 10 mg tablet 10 mg PO HS #30 tabs 04/26/24 Allergies Allergy/AdvReac Type Severity Reaction Status Date / Time meloxicam (From [facility]) Allergy Mild Verified 04/26/24 11:01 [facility] Disclaimer: The information contained in this section may have been updated after the patient was seen, as this information can be updated by other users. Social History Smoking Status: Never smoker alcohol intake: never current occupational status: other Travel in the last 8 weeks: None Have you lived/traveled outside [place] in past 30 days?: No Contact w/someone who lives/traveled outside US past 30 days?: No Exposure to someone with infectious disease in past 14 days?: No Do you have a fever (greater than 100.4 F or 38 C)?: No Have you tested positive for COVID-19: No Exposed to someone with COVID-19 in past 14 days?: No Do you have a sore throat?: No Do you have a cough?: No Do you have any weakness?: No Do you have any diarrhea?: No Are you experiencing any unusual bleeding?: No Do you have any muscle aches/pain?: No Do you have any abdominal pain?: No Are you experiencing loss of taste or smell?: No Other Medical History Have you received the Flu Vaccine for this season: No Have you received the Pneumonia Vaccine: Yes ROS Obtained: Yes All systems reviewed & no additional complaints except as documented Physical Exam General General appearance: alert and in no apparent distress Head Head exam: atraumatic and normocephalic Eye Eye exam: Present normal appearance, PERRL and EOMI ENT ENT exam: Present normal oropharynx and normal external ear exam Neck Neck exam: Present normal inspection and full ROM Chest Chest inspection: Present normal inspection and symmetric chest wall rise; Absent tenderness Respiratory Respiratory exam: Present normal lung sounds bilaterally; Absent respiratory distress Cardiovascular Cardiovascular exam: Present regular rate and normal rhythm Abdominal Exam Abdominal exam: Present soft; Absent distention, tenderness or guarding Extremities Exam Extremities exam: Present normal inspection; Absent edema or joint swelling Back Exam Back exam: Present normal inspection and tenderness Neurological Exam Neurological exam: Present alert and oriented X3; Absent motor sensory deficit Psychiatric Psychiatric exam: Present normal affect and normal mood Skin Skin exam: Present warm, dry and normal color Lymphatic Lymphatic Findings: no adenopathy Medical Decision Making Medical Records Medical records reviewed: Yes I reviewed the patient's medical records. Screening: Per USPSTF and CDC recommendations, given the prevalence of disease in our region, it is our hospital?s policy to screen for HIV and viral Hepatitis for all patients aged 18 and over and those with ongoing risk factors. Cassius Inquiry Pt receiving controlled substance: No Cassius was queried for this patient: No Vital Signs: 04/29/24 04:06 04/29/24 04:17 Temperature 98.4 F 98.2 F Temperature Source Oral Oral Pulse Rate 80 Pulse Rate [Right] 76 Respiratory Rate 20 16 Blood Pressure 150/95 H Blood Pressure [Right Arm] 164/110 H Blood Pressure Mean [Right Arm] 128 Blood Pressure Source Automatic Cuff Blood Pressure Source [Right Arm] Automatic Cuff Blood Pressure Position Sitting Blood Pressure Position [Right Arm] Sitting 02 Sat by Pulse Oximetry 95 Oxygen Delivery Method Room Air Room Air Lab Data Lab results reviewed: Yes I reviewed the patient's lab results. Medical Decision Narrative: 59-year-old male with history of chronic back pain on opiates presents with continued back pain after running out of his opiate prescription. History was obtained via interactive discussion with patient, chart review. On arrival, patient is [afebrile, hemodynamically stable, satting appropriately, alert, oriented x4, GCS 15], moving all extremities spontaneously. Full physical exam performed and significant for back tenderness, no evidence of spinal cord pathology Given patient history, exam and workup, patient's presentation most likely represents chronic back pain patient denies any new or different symptoms than normal. I discussed with him that we are not allowed to prescribe opiates for chronic pain and recommended he call Dr. Perez's office for refill. I offered him nonopiate options but patient reports he is already on muscle relaxers, Tylenol and ibuprofen and lidocaine patches do not work for him. Return precautions given. Procedures Risk/Benefits of Procedure(s) Were Explained: Yes Critical Care Critical Care Time Critical Care Time: No
[2024-04-29 04:06] VITALS: BP 164/110; PULSE 76; RESP 20; TEMP 36.9; O2SAT 95; BMI 32.8
[2024-04-29 04:17] VITALS: BP 150/95; PULSE 80; RESP 16; TEMP 36.8; O2SAT 96
== END 2024-04-29 04:26 | disposition home or self-care (01) ==
LOC: ER 04:30
PROVIDERS: Emergency Provider Emergency Medicine; PCP Internal Medicine
DX: M54.50 Low back pain, unspecified (principal)
CPT/HCPCS: 99282

== ENCOUNTER 2024-07-20 12:57 | Outpatient (POV) | payer MEDICARE, BC, SELFPAY ==
--- OUTSIDE RECORDS SUMMARY | 2024-07-20 13:02 | XMS_ITS | Encounter Summary ---
Author Organization Healthcare Address [address] [place] [address] Care Team Providers Care Hot Top Liner Name Role Phone Seven Diop MD Primary Care Provider [phone] Jeromy Perez MD Primary Care Provider [phone] Reason for Referral * Consultation (Routine) - Closed Specialty Diagnoses / Procedures Referred By Contac t Referred To Contact Orthopaedic Surgery Diagnoses Lumbar pain Mich Adams MD [address] [place] [id number] Phone: tel: fax: [facility]opa[facility] Surgery [facility] [address] [place] [address] Phone: tel: fax: Referral ID Status Reason Start Date Expiration Date V isits Requested Visits Authorized [id number] Closed Specialty Services Required 03/01/2022 08/31/2023 1 1 Encounter Details Date Type Department Care Team (Late st Contact Info) Description 03/01/2022 Community [facility] [address] [place] [address] Mich Adams MD [address] [place] [address] Lumbar pain (Primary Dx) Social History Tobacco Use Types Packs/Day Years Used Date Smoking Tobacco: Never Sex and Gender Information Value Date Recorded Sex Assigned at Not on file Legal Sex Male 8:10 PM EDT Gender Identity Not on file Sexual Orientation Not on file documented as of this encounter Plan of Treatment Scheduled Referrals Name Type Priority Associated Diagnoses Order Schedule Ambulatory referral to General Orthopaedics Outpatient Referral Routine Lumbar pain Expected: 03/01/2022 (Approximate), Expires: 08/30/2023 documented as of this encounter Visit Diagnoses Diagnosis Lumbar pain- Primary Lumbago documented in this encounter Care Teams Hot Top Liner Relationship Specialty Start Date End Date Seven Diop MD [address] [place] [id number] PCP - General 06/27/20 03/04/22 Jeromy Perez MD [address] [place] [address] [address] [place] [address] PCP - General 03/05/22 documented as of this encounter
--- OUTSIDE RECORDS SUMMARY | 2024-07-20 13:02 | XMS_ITS | Encounter Summary ---
Author Organization [email or web address] Address [address] [place] [id number] Care Team Providers Care Regional Sales Director Name Role Phone Unavailable Primary Care Provider Unavailabl e Encounter Details Date Type Department Care Team (Late st Contact Info) Description 06/14/2018 Transcribed Document [facility] [place] Family [place] [address] ProviderDina [place] [address] Social History Tobacco Use Types Packs/Day Years Used Date Smoking Tobacco: Never Assessed Sex and Gender Information Value Date Recorded Sex Assigned at Male 08/11/2021 8:10 PM CDT Legal Sex Male 8:10 PM CDT Gender Identity Male 08/11/2021 8:10 PM CDT Sexual Orientation Not on file documented as of this encounter Miscellaneous Notes * Cerner Conversion Note - Dina ProviderMD - 06/14/2018 3:21 PM CDT [facility] Main OR IntraOp Summary Primary Physician: MARIALUISA VIRGEN MD-ORT Finalized Date/Time: 06/14/18 15:56:02 Pt. Name: AD MARTINEZ D.O.B./Sex: 1965 Male Med Rec #: [id number] Physician: MARIALUISA VIRGEN MD-CHANDANA Financial #: [id number] Pt. Type: O Room/Bed: [facility] Admit/Disch: 06/14/18 05:02:00 [place] [facility] [place] Attendance Entry 1 Entry 2 Entry 3 Case Attendee MARIALUISA VIRGEN MD-Jono Aguilera, RN Vlad Cao Role Performed Surgeon/Proceduralist, Emt/Dispatcher, First Scrub, First First Time In 06/14/18 14:55:00 06/14/18 14:55:00 06/14/18 14:55:00 Time Out 06/14/18 15:54:00 06/14/18 15:54:00 06/14/18 15:54:00 Procedure Sacroiliac Joint Fusion Sacroiliac Joint Fusion Sacroiliac Joint Fusion Other Attendee Superficial Wound Closed By: Last Modified By: Jono Zuluaga RN Davis, Aleitha E, Jono Arriaga RN 06/14/18 15:55:54 06/14/18 15:55:54 06/14/18 15:55:54 Entry 4 Entry 5 Entry 6 Case Attendee BRENNEN MOORE, CRUZ CLAUDIO MD Falkowski, Donald J, Double End Tenon Operator Role Performed Physician product safety technical assistant Anesthesiologist Crude Oil Treater Time In 06/14/18 14:55:00 06/14/18 14:55:00 06/14/18 14:55:00 Time Out 06/14/18 15:54:00 06/14/18 15:22:00 06/14/18 15:54:00 Procedure Sacroiliac Joint Fusion Sacroiliac Joint Fusion Sacroiliac Joint Fusion Other Attendee Superficial Wound Closed By: Last Modified By: Jono Zuluaga RN Davis, Aleitha E, Jono Arriaga RN 06/14/18 15:55:54 06/14/18 15:22:51 06/14/18 15:55:54 Entry 7 Entry 8 Case Attendee OTHER, ATTENDEE #1 VONDA ARANDA, AUTO BODY MAN Role Performed Vendor AUTO BODY MAN/Nurse Executive Account Manager Time In 06/14/18 14:55:00 06/14/18 15:21:00 Time Out 06/14/18 15:54:00 06/14/18 15:54:00 Procedure Sacroiliac Joint Fusion Sacroiliac Joint Fusion Other Attendee JIMMY VILLA Superficial Wound Closed By: Last Modified By: Jono Zuluaga RN Davis, Aleitha E, RN 06/14/18 15:12:17 06/14/18 15:55:54 [facility] IntraOp Case Attendance Audit 06/14/18 15:55:54 Batch Still Operator: ALEITHADAVIS Modifier: ALEITHADAVIS 1 <+> Time Out 1 <*> Procedure Sacroiliac Joint Fusion 2 <+> Time Out 2 <*> Procedure Sacroiliac Joint Fusion 3 <+> Time Out 3 <*> Procedure Sacroiliac Joint Fusion 4 <+> Time Out 4 <*> Procedure Sacroiliac Joint Fusion 5 <*> Procedure Sacroiliac Joint Fusion 6 <+> Time Out 6 <*> Procedure Sacroiliac Joint Fusion 7 <+> Time Out 7 <*> Procedure Sacroiliac Joint Fusion 8 <+> Time Out 8 <*> Procedure Sacroiliac Joint Fusion 06/14/18 15:22:51 Batch Still Operator: ALEITHADAVIS Modifier: ALEITHADAVIS 5 <+> Time Out 5 <*> Procedure Sacroiliac Joint Fusion <+> 8 Case Attendee <+> 8 Role Performed <+> 8 Time In <+> 8 Procedure 06/14/18 15:21:18 Batch Still Operator: ALEITHADAVIS Modifier: ALEITHADAVIS <+> 1 Procedure 2 <+> Time In 2 <*> Procedure Sacroiliac Joint Fusion 3 <+> Time In 3 <*> Procedure Sacroiliac Joint Fusion 4 <+> Time In 4 <*> Procedure Sacroiliac Joint Fusion 5 <+> Time In 5 <*> Procedure Sacroiliac Joint Fusion 6 <+> Time In 6 <*> Procedure Sacroiliac Joint Fusion 7 <+> Time In 7 <*> Procedure Sacroiliac Joint Fusion [facility] IntraOp Case Times Entry 1 Patient In Room Time 06/14/18 14:55:00 Out Room Time 06/14/18 15:54:00 Anesthesia Start Time 06/14/18 14:55:00 Stop Time 06/14/18 15:54:00 Anesthesia Ready 06/14/18 14:55:00 Surgery / Procedure Times Start Time 06/14/18 15:21:00 Stop Time 06/14/18 15:50:00 Last Modified By: Jono Zuluaga RN 06/14/18 15:11:21 [facility] IntraOp Case Times Audit 06/14/18 15:55:53 Batch Still Operator: ALEITHADAVIS Modifier: ALEITHADAVIS <+> 1 Out Room Time <+> 1 Stop Time 06/14/18 15:51:59 Batch Still Operator: ALEITHADAVIS Modifier: ALEITHADAVIS <+> 1 Stop Time 06/14/18 15:22:03 Batch Still Operator: ALEITHADAVIS Modifier: ALEITHADAVIS <+> 1 Start Time [facility] IntraOp Communication Entry 1 Communication To Family/Significant other Comment COMMUNICATION BOARD Last Modified By: Jono Zuluaga RN 06/14/18 15:12:26 [facility] IntraOp Counts Verification Entry 1 Procedure Sacroiliac Joint Fusion Count Info Count Type Sponge, Sharps, Miscellaneous Counts Verification Baseline/pre-procedure Sequence Count Results Correct, surgeon notified Counts Performed By Count Performed By Vlad Cao (Scrub) Count Performed By Jono Zuluaga RN (RN) Last Modified By: Jono Zuluaga RN 06/14/18 15:12:36 [facility] IntraOp Counts Final Entry 1 Procedure Sacroiliac Joint Fusion Final Count Info Count Type Sponge, Sharps, Miscellaneous Counts Verification Skin Closure/end of Sequence procedure Count Results Correct, surgeon notified Counts Performed By Count Performed By Vlad Cao (Scrub) Count Performed By Jono Zuluaga RN (RN) Last Modified By: Jono Zuluaga RN 06/14/18 15:12:48 [facility] IntraOp Counts Final Audit 06/14/18 15:37:05 Batch Still Operator: ALEITHADAVIS Modifier: ALEITHADAVIS 1 <*> Procedure Sacroiliac Joint Fusion 1 <*> Count Type Sponge, Sharps, Miscellaneous 1 <*> Count Results Correct, surgeon notified 1 <+> Count Performed By (Scrub) 1 <*> Count Performed By (RN) Jono Zuluaga RN 1 <*> Counts Verification Sequence Skin Closure/end of procedure [facility] IntraOp Departure from OR Entry 1 Integumentary Assessment Integumentary WDL Assessment WDL Transfer/Handoff Transfer to PACU Phase I Post-op Transport Bed (including Via specialty) Patient Transport Jono Zuluaga RN, Accompanied by CRUZ LUZ MD Last Modified By: Jono Zuluaga RN 06/14/18 15:19:26 [facility] IntraOp Dressing and Packing Entry 1 Type Dressing Location LEFT SI Wound Dressing Item Occlusive dressing, Skin Closure Glue Applied By BRENNEN MOORE PA-C Other Comments DERMABOND PHU Last Modified By: Jono Zuluaga RN 06/14/18 15:19:35 [facility] IntraOp Fire Risk Assessment Entry 1 Fire Info Surgical Site or 0- No Incision Above the Xyphoid Open O2 Source 0- No (Mask or Cannula) Available Ignition 1- Yes (ESU, Laser, Light Source) Fire Risk 1 Assessment Score Fire Score Fire Risk Yes Assessment Complete Fire Risk Jono Zuluaga RN Assessment Verified By Fire Risk 06/14/18 14:00:00 Assessment Verified Date/Time Fire Risk Standard Fire Yes Safety Precautions Followed Last Modified By: Jono Zuluaga RN 06/14/18 15:19:43 [facility] IntraOp General Case Emergency Services Dispatcher 1 Case Information OR OR 01 E Case Level 1 Room Verified Yes Wound Class I - Clean Specialty SN Neurosurgery Anesthesia Type General ASA Class 2 Diagnosis Preop Diagnosis LEFT SI PAIN Postop Diagnosis DICTATED BY MD Last Modified By: Jono Zuluaga RN 06/14/18 15:20:09 [facility] IntraOp Implant Log Entry 1 Entry 2 Entry 3 Type Implant (Synthetic) Implant (Synthetic) Implant (Synthetic) Implant Log Implant Type Hardware Hardware Hardware Tissue Implant Type Implant IMP IFUSE 3D IMP IFUSE 3D IMP IFUSE 3D Identification [id number] Description Implant Quantity 1 1 1 Implant Site LEFT SI LEFT SI LEFT SI Implant Identification Model Number Implant Identification Serial Number Implant [id number] Identification Lot Number Implant Si[employer] Si[employer]one [employer]one Inc Identification Senior Living Advisor Name: Implant [id number] Identification Catalog Number Implant Size Implant Has an Yes Yes Yes Expiration Date Implant Expiration 12/20/22 09/23/22 03/11/23 Date Wasted Radioactive Material Time Implanted Tissue Implant Continue for Tissue Implant Documentation Tissue Identification Number Graft Prep Per Senior Living Advisor Instructions: Tissue Preparation Method: Reconstitution Solution: Reconstitution Solution Lot Number Reconstitution Solution Expiration Date: Thawing Solution Thawing Solution Lot Number Thawing Solution Expiration Date Preparation Materials, Other Preparation Materials, Other Lot Number Preparation Materials, Other Expiration Date Tissue Prepared/Processed By Senior Living Advisor Paperwork Completed Implant Type Comment Last Modified By: Jono Zuluaga RN Davis, Aleitha E, RN Davis, Aleitha E, RN 06/14/18 15:20:31 06/14/18 15:20:31 06/14/18 15:20:31 [facility] IntraOp Implant Log Audit 06/14/18 15:36:30 Batch Still Operator: RUPERT Modifier: ALEITHADAVIS <+> 3 Implant Identification Description <+> 3 Implant Identification Lot Number <+> 3 Implant Identification Senior Living Advisor Name: <+> 3 Implant Expiration Date <+> 3 Implant Identification Catalog Number 06/14/18 15:33:04 Batch Still Operator: CORNELLADAVIS Modifier: ALEITHADAVIS <+> 1 Implant Identification Description <+> 1 Implant Identification Lot Number <+> 1 Implant Identification Senior Living Advisor Name: <+> 1 Implant Expiration Date <+> 1 Implant Identification Catalog Number <+> 2 Implant Identification Description <+> 2 Implant Identification Lot Number <+> 2 Implant Identification Senior Living Advisor Name: <+> 2 Implant Expiration Date <+> 2 Implant Identification Catalog Number [facility] IntraOp Intraoperative Assessment Entry 1 Valid History / Yes Physical in Chart Preoperative Yes Checklist Reviewed/Evaluated Allergies Reviewed Yes Patient is Latex No Sensitive Isolation Not applicable Precautions Noted Level of WDL Consciousness (WDL = Alert, Oriented to Person, Place, and Time) Skin Assessment Yes Verified Present Upon IVs Arrival to OR Last Modified By: Jono Zuluaga RN 06/14/18 15:20:35 [facility] IntraOp Intraoperative Equipment Entry 1 Type Equipment Equipment Intraop Monitoring Electrocardiogram Three lead placement (ECG) Electrode Placement Antiembolic Devices Antiembolic Devices Sequential compression device, knee high Antiembolic Device Bilateral Location Scopes Photo/Video Documentation Last Modified By: Jono Zuluaga RN 06/14/18 15:20:43 [facility] IntraOp Medication Admin Entry 1 Medication/Irrigant ANESTHETIC COCKTAIL-LOCKCLARISSE Route of INJECTION Administration Dose Administered By MARIALUISA VIRGEN MD-ORT Procedure Irrigation Last Modified By: Jono Zuluaga RN 06/14/18 15:20:46 [facility] IntraOp Patient Positioning Entry 1 Procedure Sacroiliac Joint Fusion Body Position Prone Left Arm Position Secured on padded arm board Right Arm Position Secured on padded arm board Left Leg Position Uncrossed, parallel Right Leg Position Uncrossed, parallel Feet Uncrossed Yes Pressure Points Yes Checked Positioning Devices Arm Board, Head Rest, Pillows, Safety Strap, Thighs, Gee Table, Alejandro Frame Device Position PRONE VIEW HEAD REST USED BY ANESTHESIA, PILLOWS UNDER LOWER LEGS, GEL PADS UNDER ARMS Positioned By Jono Zuluaga RN, BRENNEN MOORE PA-C, MARIALUISA VIRGEN MD-ORT Position Verified Positioning Yes Verified by Anesthesia Positioning Yes Verified by Surgeon Last Modified By: Jono Zuluaga RN 06/14/18 15:21:00 [facility] IntraOp Sign In Entry 1 Patient, Site, Yes Procedure Identified Surgical Consent Yes Confirmed Relevant Surgical Yes Documents Available Surgical Site Yes Marked by person performing procedure Anesthesia Machine Yes Check Completed Medication Checks Yes Completed Allergies Yes Airway Difficult No Airway/Aspiration Risk Difficult Yes Airway/Aspiration Intervention Equipment Available Blood Loss Risk No Blood Loss Yes Intervention Equipment Prepared and Ready Blood Identifiers Not applicable Verified Per Policy Hypothermia Risk Yes Warming Measures Yes Taken Last Modified By: Jono Zuluaga RN 06/14/18 15:21:07 [facility] Intra Op Sign Out Entry 1 RN Confirmation Surgical Yes Procedure(s) Identified Instrument, Sponge Yes and Sharps Counts Correct/Documented Equipment Problems N/A Documented Specimen Labeled N/A Correctly Urinary Catheter N/A Documented in IView Ahumada Patient Yes Recovery Concerns Reviewed with Anesthesia Provider, Surgeon and RN Ahumada Patient Yes Management Concerns Reviewed with Anesthesia Provider, Surgeon and RN Safety Checklist Yes Elements Complete? RN Sign Out Jono Zuluaga RN Signature RN Sign Out 06/14/18 15:52:00 Signature Date/Time Plan of Care Outcome - Fire Risk OUTCOME STATEMENT: Goal met Patient is free from injury related to surgical fire Plan of Care Outcome - Pt Positioning OUTCOME STATEMENT: Goal met Absence of signs and symptoms of positioning injury. Plan of Care Outcome - Skin Prep OUTCOME STATEMENT: Goal met Intraoperative care is consistent with measures to prevent infection Plan of Care Outcome - Xray/Images OUTCOME STATEMENT: Goal met Absence of observable signs or symptoms of radiation injury Plan of Care Outcome - Counts OUTCOME STATEMENT: Goal met Absence of signs and symptoms of injury related to extraneous objects Last Modified By: Jono Zuluaga RN 06/14/18 15:21:10 [facility] Intra Op Sign Out Audit 06/14/18 15:52:01 Batch Still Operator: RUPERT Modifier: CORNELLADAVIS <+> 1 RN Sign Out Signature Date/Time [facility] IntraOp Skin Prep Entry 1 Procedure Sacroiliac Joint Fusion Prescribed Yes Pre-Surgical Prep Completed Prep Area OPERATIVE SITE Intraop Prep Integumentary WDL Assessment WDL Prep Agents Chloraprep Prep by Jono Zuluaga RN Hair Removal Methods No hair removal performed Last Modified By: Jono Zuluaga RN 06/14/18 15:21:15 [facility] IntraOp Surgical Procedures Entry 1 Procedure Sacroiliac Joint Fusion Additional LEFT SACROILIAC JOINT Procedure FUSION Description Primary Procedure Yes Primary Surgeon MARIALUISA VIRGEN MD-ORT Start 06/14/18 15:21:00 Stop 06/14/18 15:50:00 Anesthesia Type General Specialty SN Neurosurgery Wound Class I - Clean Last Modified By: Jono Zuluaga RN 06/14/18 15:21:17 [facility] IntraOp Surgical Procedures Audit 06/14/18 15:52:01 Batch Still Operator: RUPERT Modifier: ALEITHADAVIS <+> 1 Start <+> 1 Stop [facility] IntraOp Temp Regulation Devices Entry 1 Temp Regulation Temperature Forced Air Warming Regulation Device device Temperature Upper body Regulation Site Temperature CRUZ LUZ MD Regulation Device Applied by Last Modified By: Jono Zuluaga RN 06/14/18 15:21:25 [facility] IntraOp Time Out Entry 1 Procedure to be Sacroiliac Joint Fusion Performed Time Out Time Out Pause Time 06/14/18 15:20:00 All activity Yes suspended (unless life threatening emergency) Team Verbally Correct patient Confirms Information identity, Correct side and site are marked, Consent form is present and accurate, Agreement on the procedure to be done, Correct patient position, Relevant images/results properly labeled/appropriately displayed, Confirm antibiotics have been administered, Confirm the skin prep has dried, Confirm prosthesis/implant/devic e is present, Performed in location of procedure after prepped/draped Antibiotic Yes Prophylaxis Administered Or In Progress Within the Last 60 Minutes Beta Fabi N/A Administered Venous Yes Thromboembolism Prophylaxis Required Anticipated Critical Events Surgeon None expected Anesthesia Provider None expected Nursing Assures Sterility of instruments, Implant Availability Essential Imaging Yes Labeled and Displayed Last Modified By: Jono Zuluaga RN 06/14/18 15:22:23 [facility] IntraOp Time Out Audit 06/14/18 15:22:23 Batch Still Operator: RUPERT Modifier: ALEITHADAVIS 1 <*> Time Out Pause Time 06/14/18 15:21:00 1 <*> Procedure to be Performed Sacroiliac Joint Fusion 06/14/18 15:21:52 Batch Still Operator: RUPERT Modifier: ALEITHADAVIS <+> 1 Beta Fabi Administered <+> 1 Venous Thromboembolism Prophylaxis Required <+> 1 Antibiotic Prophylaxis Administered Or In Progress Within the Last 60 Minutes <+> 1 Surgeon <+> 1 Anesthesia Provider <+> 1 Nursing Assures <+> 1 Essential Imaging Labeled and Displayed [facility] IntraOp X-Ray and Images Entry 1 X-Ray/Imaging Type Fluoroscopy Fluoroscopy Type C-Arm Telephone Information Clerk Name Fabian Andrea, Double End Tenon Operator Protective Devices Yes Used Last Modified By: Jono Zuluaga RN 06/14/18 15:22:12 Case Comments <None> Finalized By: Jono Zuluaga, RN Document Signatures Signed By: Jono Zuluaga RN 06/14/18 15:56 documented in this encounter Plan of Treatment Not on file documented as of this encounter Visit Diagnoses Not on filedocumented in this encounter
--- OUTSIDE RECORDS SUMMARY | 2024-07-20 13:02 | XMS_ITS | Encounter Summary ---
Author Organization [facility] Address [address] [place] [id number] Care Team Providers Care Astrochemist Name Role Phone Unavailable Primary Care Provider Unavailabl e Encounter Details Date Type Department Care Team (Late st Contact Info) Description 06/14/2018 Transcribed Document [facility] Family Medicine [address] [place] [address] ProviderDina MD [address] [place] [address] Social History Tobacco Use Types [...] Conversion Note - Dina ProviderMD - 06/14/2018 8:56 [place] [address] CHEN BANEGASStephen GIL :1965 Visit Time:06/14/2018 Your Visit Summary Your Care Team Admitting Physician - MARIALUISA VIRGEN MD-ORGermán Attending Physician - MARIALUISA VIRGEN MD-ORT Primary Care Physician - HILARIO MONZON (REF)MD-INT Referring Physician - MARIALUISA VIRGEN MD-ORT Your Diagnosis Sacroiliitis, not elsewhere classified, Sacroiliitis, not elsewhere classified These Are Your Goals pain free - Not met (Barriers: Pain) Discharge Vitals Temperature 36.9 ??C Heart Rate (Monitored) 65 Respiratory Rate 16 Blood Pressure 151/94 What to do next Instructions From Your Care Team Discharge Follow Up Instructions: Discharged to my office follow-up in approximately 10-14 days. See intake sheet for date of follow-up., Order Comment: CC sheet from my office which will have follow-up appointment time and date. Activity: 50 %-weightbearing, Discharge Activity: Partial weight bearing, Order Comment: Patient is allowed to sit stand walk lay on the incision. Ice pack when necessary. Diet: Discharge Diet: Regular diet as tolerated Follow-Up Appointments Follow Up with Follow up with surgeon When 06/28/2018 10:00 AM EDT Medications What How Much When Instructions Next Dose acetaminophen-hydrocodone ([place] 10 mg-325 mg oral tablet) 1 Tablet(s) Oral Every 3 Hours sildenafil (sildenafil 20 mg oral tablet) 2 tabs Oral erectile dysfunction tiZANidine 4 Milligram(s) Oral At Bedtime Take your medications faithfully. Do NOT skip medication. Do NOT stop taking medications without the direction of a physician. Carry a list of your medications with you at all times, and take this medication list with you to your first follow up visit. Report any side effects. Avoid herbal remedies unless discussed with your physician. As part of your treatment plan, your physician may have prescribed a limited course of a controlled substance. This medication may be given to help people with moderate or severe pain or for other medical conditions, but there are risks involved with treatment. Common side effects may include nausea, constipation, drowsiness, sweating, itching, dry mouth, and rash. More serious side effects may include cognitive and motor impairment, like problems with thinking, concentrating, alertness, and movement (e.g. slowed reflexes), and driving and operating heavy machinery can be dangerous. It is important for you to talk to your physician if you have these side effects or questions. These controlled substances can produce physical dependence and be habit-forming if taken for an extended period of time, which means that the body has gotten used to them and may experience withdrawal symptoms if they are abruptly stopped. Withdrawal symptoms can include runny nose, sweating, goose bumps, diarrhea, abdominal cramping, rapid heartbeat, difficulty sleeping, and nervousness. Please dispose of unused and medications per your retail pharmacy guidance. Allergies Mobic (severe flushing) Immunizations This Visit No Immunizations Found Education Materials What to expect after the Procedure: After the procedure, it is common to have: ??? Pain and swelling. ??? A small amount of blood or clear fluid coming from your incision for up to 7 days ??? It is normal to have a moderate amount of bleeding from the site of the drain that was pulled on the morning after surgery. You can hold pressure on the area for 3-5 minutes and cover with a bandage as needed. Diet: ??? Resume usual diet ??? No alcoholic beverages while taking pain medication ??? Drink 8-10 glasses of water a day to prevent constipation from pain medication ??? Increase fiber to help prevent constipation. Straining can cause increased pressure and pain in your incision area ??? Increase protein to promote healing Driving: ??? Do not drive until your health care provider approves. Ask your health care provider when it is safe to drive if you have an immobilizer on your knee. ??? Do not drive or operate heavy machinery while taking prescription pain medicine. ??? Do not drive for 24 hours if you received a sedative. Activity: ??? No strenuous activity ??? Avoid high-impact activities, including running, jumping rope, and jumping jacks. ??? Avoid sitting for a long time without moving. Get up and move around at least every few hours. ??? Keep legs elevated while seated and place surgery leg on 2-3 pillows, this will decrease swelling ??? Continue using walker until cleared by physical therapy Back Activity ??? Minimize bending, twisting, and lifting. Bathing: ??? May shower ??? Do not take baths, swim, or use a hot tub for one month after surgery. ??? You must be seated to shower until you are no longer using the walker Other: ??? Use ice therapy for 20-30 minutes at a time and leave off for 20-30 minutes at a time. Always keep a towel or cloth between the ice pack and your skin ??? Continue to use Incentive Spirometer 10 times an hour while awake for one month to help prevent pneumonia Contact a health care provider if: ??? You have more redness, swelling, or pain around your incision. ??? You have more fluid or blood coming from your incision. ??? Your incision or drain site feels warm to the touch. ??? You have pus or a bad smell coming from your incision. ??? You have a fever. ??? Your incision breaks open after your health care provider removes your sutures, skin glue, or adhesive tape. ??? Your prosthesis feels loose. ??? You have knee pain that does not go away. DVT: Blood Clot Blood clots are a common risk after an orthopedic surgery Symptoms: ??? Swelling of your leg or arm, especially if one side is much worse. ??? Warmth and redness of your leg or arm, especially if one side is much worse. ??? Pain in your arm or leg. If the clot is in your leg, symptoms may be more noticeable or worse when you stand or walk. ??? A feeling of pins and needles, if the clot is in the arm. The symptoms of a DVT that has traveled to the lungs (pulmonary embolism, PE) usually start suddenly and include: ??? Shortness of breath while active or at rest. ??? Coughing or coughing up blood or blood-tinged mucus. ??? Chest pain that is often worse with deep breaths. ??? Rapid or irregular heartbeat. ??? Feeling light-headed or dizzy. ??? Fainting. ??? Feeling anxious. ??? Sweating. There may also be pain and swelling in a leg if that is where the blood clot started. How is this prevented? Exercise regularly. For at least 30 minutes every day, engage in: ? Activity that involves moving your arms and legs. ? Activity that encourages good blood flow through your body by increasing your heart rate. ??? Exercise your arms and legs every hour during long-distance travel (over 4 hours). Drink plenty of water and avoid drinking alcohol while traveling. ??? Avoid sitting or lying in bed for long periods of time without moving your legs. ??? Maintain a weight that is appropriate for your height. Ask your health care provider what weight is healthy for you. ??? If you are a woman who is over 35 years of age, avoid unnecessary use of medicines that contain estrogen. These include control pills. ??? Do not smoke, especially if you take estrogen medicines. If you need help quitting, ask your health care provider. ??? Wear compression stockings (if told by your health care provider) to help prevent blood clots from forming. High Fiber/High Protein Diet High fiber foods: To prevent constipation ??? Grains Whole-grain breads. Multigrain cereal. Oats and oatmeal. Brown rice. Barley. Bulgur wheat. Millet. Bran muffins. Popcorn. [place] wafer crackers. ??? Vegetables Sweet potatoes. Spinach. Kale. Artichokes. Cabbage. Broccoli. Green peas. Carrots. Squash. ??? Fruits Berries. Pears. Apples. Oranges. Avocados. Prunes and raisins. Dried figs. ??? Meats and Other Protein Sources Ogden, kidney, dimas, and soy beans. Split peas. Lentils. Nuts and seeds. ??? Dairy Fiber-fortified yogurt. ??? Beverages Fiber-fortified soy milk. Fiber-fortified orange juice. ??? Other Fiber bars. High-protein foods: To promote healing High-protein foods contain 4 grams (4 g) or more of protein per serving. They include: ??? Beef, ground sirloin (cooked) ??? 3 oz have 24 g of protein. ??? Cheese (hard) ??? 1 oz has 7 g of protein. ??? Chicken breast, boneless and skinless (cooked) ??? 3 oz have 13.4 g of protein. ??? Cottage cheese ??? 1/2 cup has 13.4 g of protein. ??? Egg ??? 1 egg has 6 g of protein. ??? Fish, filet (cooked) ??? 1 oz has 6???7 g of protein. ??? Garbanzo beans (canned or cooked) ??? 1/2 cup has 6???7 g of protein. ??? Kidney beans (canned or cooked) ??? 1/2 cup has 6???7 g of protein. ??? Palumbo (cooked) ??? 3 oz has 24 g of protein. ??? Milk ??? 1 cup (8 oz) has 8 g of protein. ??? Nuts (peanuts, pistachios, almonds) ??? 1 oz has 6 g of protein. ??? Peanut butter ??? 1 oz has 7???8 g of protein. ??? Pork tenderloin (cooked) ??? 3 oz has 18.4 g of protein. ??? Pumpkin seeds ??? 1 oz has 8.5 g of protein. ??? Soybeans (roasted) ??? 1 oz has 8 g of protein. ??? Soybeans (cooked) ??? 1/2 cup has 11 g of protein. ??? Soy milk ??? 1 cup (8 oz) has 5???10 g of protein. ??? Soy or vegetable sudhir ??? 1 sudhir has 11 g of protein. ??? Cidra seeds ??? 1 oz has 5.5 g of protein. ??? Tofu (firm) ??? 1/2 cup has 20 g of protein. ??? Tuna (canned in water) ??? 3 oz has 20 g of protein. ??? Yogurt ??? 6 oz has 8 g of protein. Fall Prevention ??? Use night lights. ??? Install grab bars by the toilet and in the tub and shower. Do not use towel bars as grab bars. ??? Use non-skid mats or decals on the floor of the tub or shower. ??? If you need to sit down while you are in the shower, use a plastic, non-slip stool. ??? Keep the floor dry. Immediately clean up any water that spills on the floor. ??? Remove soap buildup in the tub or shower on a regular basis. ??? Remove throw rugs and other tripping hazards from the floor. ??? Place frequently used items in [id number]-wy-[id number] places ??? Keep electrical cables out of the way. ??? Do not leave any items on the stairs. ??? Make sure that there are handrails on both sides of the stairs. Fix handrails that are broken or loose. Make sure that handrails are as long as the stairways. ??? Check any carpeting to make sure that it is firmly attached to the stairs. Fix any carpet that is loose or worn. ??? Avoid having throw rugs at the top or bottom of stairways, or secure the rugs with carpet tape to prevent them from moving. ??? Wear closed-toe shoes that fit well and support your feet. Wear shoes that have rubber soles or low heels. ??? Use mobility aids as needed, such as canes, walkers, scooters, and crutches. ??? Turn on lights if it is dark. Replace any light bulbs that burn out. ??? Set up furniture so that there are clear paths. Keep the furniture in the same spot. ??? Be aware of any and all pets. ??? Review your medicines with your healthcare provider. Some medicines can cause dizziness or changes in blood pressure, which increase your risk of falling. Hand Washing You should wash your hands whenever you think they are dirty. You should also wash your hands: ??? After: ? Working or playing outside. ? Touching an animal or its toys or leash. ? Handling livestock. ? Using the bathroom. ? Using household line service person or toxic chemicals. ? Touching or taking out the garbage. ? Touching anything dirty around your home. ? Handling soiled clothes or rags. ? Taking care of a sick child. This includes touching used tissues, toys, and clothes. ? Sneezing, coughing, or blowing your nose. ? Using public transportation. ? Shaking hands. ? Using a phone, including your mobile phone. ? Touching money. ??? Before and after: ? Preparing food. ? Feeding a baby or young child. ? Eating. ? Visiting or taking care of someone who is sick. ? Changing a diaper. ? Changing a bandage (dressing) or taking care of an injury or wound. ? Giving or taking medicine. If soap and clean water are not available, use an alcohol-based wipe, spray, or hand gel. Use a hand-sanitizing agent that contains at least 60% alcohol. If you are preparing food, hand sanitizers are not recommended as a substitute for hand washing. Walker Use To Walk With a Front-Wheeled Walker: 1. Slide your front-wheeled walker one step-length in front of you. Your toes should be farther forward than the back legs of your walker. 2. Hold on to the walker for support, and step your weaker (surgery) leg into the middle of the walker. 3. Step your stronger leg forward to land next to your weaker leg. 4. Repeat the process for each step. ??? Always keep both feet within the width of the walker's legs or wheels. ??? When using your walker, you should not feel like you need to lean forward or to the side to keep your hands on the handgrips. ??? Make sure you are following any weight-bearing instructions that your health care provider has given you. ??? Be careful not to let the walker get too far ahead of you as you walk. ??? If your walker does not glide well over carpet, consider cutting an X into two tennis balls and placing the balls over the back legs of your walker. How to use a walker on a curb or step To Use a Walker to Step Up: 1. Put all four legs of the walker on the curb or step. 2. Get your feet as close to the curb or step as you can. 3. Test the steadiness of the walker by pressing down on the handgrips. 4. If the walker is steady, press down on it with your hands as you step up with your stronger leg. 5. Step up with your weaker leg. To Use a Walker to Step Down: 1. Put all four legs of the walker on the surface that is lower than the curb or step. 2. Get your feet as close to the curb or step as you can. 3. Test the steadiness of the walker by pressing down on the handgrips. 4. If the walker is steady, press down on it with your hands as you step down with your weaker leg. 5. Step down with your stronger leg. Fall Prevention in the Home Introduction Falls can cause injuries. They can happen to people of all ages. There are many things you can do to make your home safe and to help prevent falls. What can I do on the outside of my home? Regularly fix the edges of walkways and driveways and fix any cracks. ??? Remove anything that might make you trip as you walk through a door, such as a raised step or threshold. ??? Trim any bushes or trees on the path to your home. ??? Use bright outdoor lighting. ??? Clear any walking paths of anything that might make someone trip, such as rocks or tools. ??? Regularly check to see if handrails are loose or broken. Make sure that both sides of any steps have handrails. ??? Any raised decks and porches should have guardrails on the edges. ??? Have any leaves, snow, or ice cleared regularly. ??? Use sand or salt on walking paths during winter. ??? Clean up any spills in your garage right away. This includes oil or grease spills. What can I do in the bathroom? Use night lights. ??? Install grab bars by the toilet and in the tub and shower. Do not use towel bars as grab bars. ??? Use non-skid mats or decals in the tub or shower. ??? If you need to sit down in the shower, use a plastic, non-slip stool. ??? Keep the floor dry. Clean up any water that spills on the floor as soon as it happens. ??? Remove soap buildup in the tub or shower regularly. ??? Attach bath mats securely with double-sided non-slip rug tape. ??? Do nothave throw rugs and other things on the floor that can make you trip. What can I do in the bedroom? Use night lights. ??? Make sure that you have a light by your bed that is easy to reach. ??? Do notuse any sheets or blankets that are too big for your bed. They should not hang down onto the floor. ??? Have a firm chair that has side arms. You can use this for support while you get dressed. ??? Do nothave throw rugs and other things on the floor that can make you trip. What can I do in the kitchen? Clean up any spills right away. ??? Avoid walking on wet floors. ??? Keep items that you use a lot in egvk-yb-rrlgn places. ??? If you need to reach something above you, use a strong step stool that has a grab bar. ??? Keep electrical cords out of the way. ??? Do notuse floor solomon islander or wax that makes floors slippery. If you must use wax, use non-skid floor wax. ??? Do nothave throw rugs and other things on the floor that can make you trip. What can I do with my stairs? Do notleave any items on the stairs. ??? Make sure that there are handrails on both sides of the stairs and use them. Fix handrails that are broken or loose. Make sure that handrails are as long as the stairways. ??? Check any carpeting to make sure that it is firmly attached to the stairs. Fix any carpet that is loose or worn. ??? Avoid having throw rugs at the top or bottom of the stairs. If you do have throw rugs, attach them to the floor with carpet tape. ??? Make sure that you have a light switch at the top of the stairs and the bottom of the stairs. If you do not have them, ask someone to add them for you. What else can I do to help prevent falls? Wear shoes that: ? Do nothave high heels. ? Have rubber bottoms. ? Are comfortable and fit you well. ? Are closed at the toe. Do not wear sandals. ??? If you use a stepladder: ? Make sure that it is fully opened. Do not climb a closed stepladder. ? Make sure that both sides of the stepladder are locked into place. ? Ask someone to hold it for you, if possible. ??? Clearly lena and make sure that you can see: ? Any grab bars or handrails. ? First and last steps. ? Where the edge of each step is. ??? Use tools that help you move around (mobility aids) if they are needed. These include:? Canes. ? Walkers. ? Scooters. ? Crutches. ??? Turn on the lights when you go into a dark area. Replace any light bulbs as soon as they burn out. ??? Set up your furniture so you have a clear path. Avoid moving your furniture around. ??? If any of your floors are uneven, fix them. ??? If there are any pets around you, be aware of where they are. ??? Review your medicines with your doctor. Some medicines can make you feel dizzy. This can increase your chance of falling. Ask your doctor what other things that you can do to help prevent falls. This information is not intended to replace advice given to you by your health care provider. Make sure you discuss any questions you have with your health care provider. Document Released: 11/27/2009 Document Revised: 07/08/2016 Document Reviewed: 03/07/2015 ?? 2017 Elsevier How to walk with a walker The best way to walk with a walker depends on whether you are using a standard walker or a front-wheeled walker. A standard walker has rubber tips on the ends of all four legs. A front-wheeled walker has wheels on the ends of the front legs and rubber tips on the ends of the back legs. ??? Do notuse your walker on stairs or an escalator unless you have been trained by a physical therapist or unless your health care provider approves. To Walk With a Standard Walker: 1. masonry supervisor your walker. Do not slide your standard walker. 2. Set down your walker, one step-length in front of you. Make sure that all four legs of the walker touch the ground at the same time. Your toes should be farther forward than the back legs of your walker. 3. Hold on to the walker for support, and step your weaker leg into the middle of the walker. 4. Step your stronger leg forward to land next to your weaker leg. 5. Repeat this process for each step. To Walk With a Front-Wheeled Walker: 1. Slide your front-wheeled walker one step-length in front of you. Your toes should be farther forward than the back legs of your walker. 2. Hold on to the walker for support, and step your weaker leg into the middle of the walker. 3. Step your stronger leg forward to land next to your weaker leg. 4. Repeat the process for each step. Tips ??? Always keep both feet within the width of the walker's legs or wheels. ??? When using your walker, you should not feel like you need to lean forward or to the side to keep your hands on the handgrips. ??? Make sure you are following any weight-bearing instructions that your health care provider has given you. ??? If you have a standard walker: ? Do notslide your walker when you are moving. ??? If you have a front-wheeled walker: ? Be careful not to let the walker get too far ahead of you as you walk. ? If your walker does not glide well over carpet, consider cutting an X into two tennis balls and placing the balls over the back legs of your walker. How to stand up with a walker 1. Put your walker in front of you. 2. Slide forward in your chair. 3. Position your legs so that your weaker leg is ahead of you and your stronger leg is bent and near your chair. 4. Position your hands. ??? If your chair has armrests, put each hand on an armrest. ??? If there are no armrests, put the hand opposite your weaker leg on the chair seat, and put the other hand on the center of the walker's crossbar. 5. Lean forward and push up from your chair. 6. Rise by straightening your stronger leg. 7. Steady yourself. 8. Carefully move your hands to the handgrips of the walker. Tips ??? Do notpull on the walker when you stand up. This may cause it to tip. ??? Sit in a firm chair whenever you can. A low seat or an overstuffed chair or sofa is hard to get out of. How to sit down with a walker To Sit Down in a Seat That Has Armrests: 1. Back up toward your seat, using your walker, until you feel the back of your legs touch the chair. 2. Carefully reach your hands behind you and put each hand on an armrest. 3. Slowly lower yourself into the seat. To Sit Down in a Seat Without Armrests: 1. Back up toward the side of the seat, using your walker, until you feel the back of your legs touch the chair. 2. Use one hand to hold on to the back of the chair, and use the other hand to hold on to the front of the seat. 3. Slowly lower yourself into the seat. How to use a walker on a curb or step To Use a Walker to Step Up: 1. Put all four legs of the walker on the curb or step. 2. Get your feet as close to the curb or step as you can. 3. Test the steadiness of the walker by pressing down on the handgrips. 4. If the walker is steady, press down on it with your hands as you step up with your stronger leg. 5. Step up with your weaker leg. To Use a Walker to Step Down: 1. Put all four legs of the walker on the surface that is lower than the curb or step. 2. Get your feet as close to the curb or step as you can. 3. Test the steadiness of the walker by pressing down on the handgrips. 4. If the walker is steady, press down on it with your hands as you step down with your weaker leg. 5. Step down with your stronger leg. This information is not intended to replace advice given to you by your health care provider. Make sure you discuss any questions you have with your health care provider. Document Released: 01/31/2006 Document Revised: 06/30/2016 Document Reviewed: 08/15/2015 [email or web address] Patient Education ?? 2017 [employer]. acetaminophen and oxycodone (a SEET a MIN oh fen and OX i KOE done) Endocet 10/325, Endocet 2.5/325, Endocet 5/325, Endocet 7.5/325, Nalocet, Percocet 10/325, Percocet 2.5/325, Percocet 5/325, Percocet 7.5/325, Primalev, Primlev, Roxicet, Xartemis XR What is the most important information I should know about acetaminophen and oxycodone? MISUSE OF OPIOID MEDICINE CAN CAUSE ADDICTION, OVERDOSE, OR . Keep the medication in a place where others cannot get to it. An overdose of acetaminophen can damage your liver or cause . Call your doctor at once if you have pain in your upper stomach, loss of appetite, dark urine, or jaundice (yellowing of your skin or eyes). Taking opioid medicine during may cause life-threatening withdrawal symptoms in the . Fatal side effects can occur if you use opioid medicine with alcohol, or with other drugs that cause drowsiness or slow your breathing. Stop taking this medicine and call your doctor right away if you have skin redness or a rash that spreads and causes blistering and peeling. What is acetaminophen and oxycodone? Oxycodone is an opioid pain medication, sometimes called a narcotic. Acetaminophen is a less potent pain reliever that increases the effects of oxycodone. Acetaminophen and oxycodone is a combination medicine used to relieve moderate to severe pain. Acetaminophen and oxycodone may also be used for purposes not listed in this medication guide. What should I discuss with my healthcare provider before taking acetaminophen and oxycodone? You should not use this medicine if you are allergic to acetaminophen or oxycodone, or if you have: ? severe asthma or breathing problems; or ?? a blockage in your stomach or intestines. Tell your doctor if you have ever had: ? liver disease; ?? a drug or alcohol addiction; ?? kidney disease; ?? a head injury or seizures; ?? urination problems; or ?? problems with your thyroid, pancreas, or gallbladder. If you use opioid medicine while you are , your baby could become dependent on the drug. This can cause life-threatening withdrawal symptoms in the baby after it is born. Babies born dependent on opioids may need medical treatment for several weeks. Do not breast-feed. This medicine can pass into breast milk and cause drowsiness, breathing problems, or in a nursing baby. How should I take acetaminophen and oxycodone? Follow all directions on your prescription label. Never take this medicine in larger amounts, or for longer than prescribed. An overdose can damage your liver or cause . Tell your doctor if the medicine seems to stop working as well in relieving your pain. Never share this medicine with another person, especially someone with a history of drug abuse or addiction. MISUSE CAN CAUSE ADDICTION, OVERDOSE, OR . Keep the medicine in a place where others cannot get to it. Selling or giving away acetaminophen and oxycodone is against the law. Measure liquid medicine carefully. Use the dosing syringe provided, or use a medicine dose-measuring device (not a kitchen spoon). If you need surgery or medical tests, tell the doctor ahead of time that you are using this medicine. You should not stop using this medicine suddenly. Follow your doctor's instructions about tapering your dose. Store at room temperature away from moisture and heat. Keep track of your medicine. You should be aware if anyone is using it improperly or without a prescription. Do not keep leftover opioid medication. Just one dose can cause in someone using this medicine accidentally or improperly. Ask your pharmacist where to locate a drug take-back disposal program. If there is no take-back program, flush the unused medicine down the toilet. What happens if I miss a dose? Since this medicine is used for pain, you are not likely to miss a dose. Skip any missed dose if it is almost time for your next dose. Do not use two doses at one time. What happens if I overdose? Seek emergency medical attention or call the Poison Help line at . An overdose of acetaminophen and oxycodone can be fatal. The first signs of an acetaminophen overdose include loss of appetite, nausea, vomiting, stomach pain, sweating, and confusion or weakness. Later symptoms may include pain in your upper stomach, dark urine, and yellowing of your skin or the whites of your eyes. Overdose can also cause severe muscle weakness, pinpoint pupils, very slow breathing, extreme drowsiness, or coma. What should I avoid while taking acetaminophen and oxycodone? Avoid driving or operating machinery until you know how this medicine will affect you. Dizziness or drowsiness can cause falls, accidents, or severe injuries. Do not drink alcohol. Dangerous side effects or could occur. Ask a doctor or pharmacist before using any other medicine that may contain acetaminophen (sometimes abbreviated as APAP). Taking certain medications together can lead to a fatal overdose. What are the possible side effects of acetaminophen and oxycodone? Get emergency medical help if you have signs of an allergic reaction: hives; difficulty breathing; swelling of your face, lips, tongue, or throat. Opioid medicine can slow or stop your breathing, and may occur. A person caring for you should seek emergency medical attention if you have slow breathing with long pauses, blue colored lips, or if you are hard to wake up. In rare cases, acetaminophen may cause a severe skin reaction that can be fatal. This could occur even if you have taken acetaminophen in the past and had no reaction. Stop taking this medicine and call your doctor right away if you have skin redness or a rash that spreads and causes blistering and peeling. Call your doctor at once if you have: ? noisy breathing, sighing, shallow breathing; ?? a light-headed feeling, like you might pass out; ?? weakness, tiredness, fever, unusual bruising or bleeding; ?? confusion, unusual thoughts or behavior; ?? problems with urination; ?? liver problems--nausea, upper stomach pain, tiredness, loss of appetite, dark urine, jazzmine-colored stools, jaundice (yellowing of the skin or eyes); or ?? low cortisol levels-- nausea, vomiting, loss of appetite, dizziness, worsening tiredness or weakness. Seek medical attention right away if you have symptoms of serotonin syndrome, such as: agitation, hallucinations, fever, sweating, shivering, fast heart rate, muscle stiffness, twitching, loss of coordination, nausea, vomiting, or diarrhea. Serious side effects may be more likely in older adults and those who are overweight, malnourished, or debilitated. Long-term use of opioid medication may affect fertility (ability to have children) in men or women. It is not known whether opioid effects on fertility are permanent. Common side effects include: ? dizziness, drowsiness, feeling tired; ?? feelings of extreme happiness or sadness; ?? nausea, vomiting, stomach pain; ?? constipation; or ?? headache. This is not a complete list of side effects and others may occur. Call your doctor for medical advice about side effects. You may report side effects to FDA at 9-992-FRU-9752. What other drugs will affect acetaminophen and oxycodone? You may have breathing problems or withdrawal symptoms if you start or stop taking certain other medicines. Tell your doctor if you also use an antibiotic, antifungal medication, heart or blood pressure medication, seizure medication, or medicine to treat HIV or hepatitis C. Opioid medication can interact with many other drugs and cause dangerous side effects or . Be sure your doctor knows if you also use: ? cold or allergy medicines, bronchodilator asthma/COPD medication, or a diuretic ('water pill'); ?? medicines for motion sickness, irritable bowel syndrome, or overactive bladder; ?? other narcotic medications--opioid pain medicine or prescription cough medicine; ?? a sedative like Valium--diazepam, alprazolam, lorazepam, Xanax, Klonopin, Versed, and others; ?? drugs that make you sleepy or slow your breathing--a sleeping pill, muscle relaxer, medicine to treat mood disorders or mental illness; ?? drugs that affect serotonin levels in your body--a stimulant, or medicine for depression, Parkinson's disease, migraine headaches, serious infections, or nausea and vomiting. This list is not complete. Other drugs may affect acetaminophen and oxycodone, including prescription and [id number]-xcqdhry medicines, vitamins, and herbal products. Not all possible interactions are listed here. Where can I get more information? Your doctor or pharmacist can provide more information about acetaminophen and oxycodone. Remember, keep this and all other medicines out of the reach of children, never share your medicines with others, and use this medication only for the indication prescribed. Every effort has been made to ensure that the information provided by [employer] ('[employer]') is accurate, up-to-date, and complete, but no guarantee is made to that effect. Drug information contained herein may be time sensitive. [employer] information has been compiled for use by healthcare practitioners and consumers in the [place] and therefore [employer] does not warrant that uses outside of the [place] are appropriate, unless specifically indicated otherwise. [employer] drug information does not endorse drugs, diagnose patients or recommend therapy. [employer] drug information is an informational resource designed to assist licensed healthcare practitioners in caring for their patients and/or to serve consumers viewing this service as a supplement to, and not a substitute for, the expertise, skill, knowledge and judgment of healthcare practitioners. The absence of a warning for a given drug or drug combination in no way should be construed to indicate that the drug or drug combination is safe, effective or appropriate for any given patient. [employer] does not assume any responsibility for any aspect of healthcare administered with the aid of information [employer] provides. The information contained herein is not intended to cover all possible uses, directions, precautions, warnings, drug interactions, allergic reactions, or adverse effects. If you have questions about the drugs you are taking, check with your doctor, nurse or pharmacist. Copyright 0182-3428 [employer]. Version: 18.02. Revision Date: 01/11/2018. Emergency Awareness and Preventative Care STROKE is an EMERGENCY Every Minute Counts Act FAST and Check for these signs: FACE Does the face look uneven? ARM Does one arm drift down? SPEECH Does their speech sound strange? TIME Call at any sign of stroke Stroke Risk Factors Atrial Fibrillation (irregular heartbeat) Diabetes Family history of stroke Heart Disease Heavy alcohol use High Blood Pressure High Cholesterol Physical inactivity and obesity Smoking Cigarette Smoking The facts are clear, cigarette smoking will shorten your life. Smoking can cause many illnesses along the way. As a healthcare provider, we recommend that you stop smoking. Assistance with quitting is available by contacting 7-016-PCHVNOW. This is a free resource providing counseling, support, and referral. Or you may contact your personal physician. National Suicide Prevention Lifeline: The National Suicide Prevention Lifeline is a national network of local crisis centers that provides free and confidential emotional support to people in suicidal crisis or emotional distress 24 hours a day, 7 days a week. Don't Wait! Stop a Heart Attack Before it Starts What is a heart attack? A heart attack is damage or to a part of the heart from severely decreased or lack of blood flow to the heart. Over time, arteries can become narrow from the buildup of fat and cholesterol, which is called plaque. The plaque can rupture causing a blood clot to form. When the blood clot forms, the artery can become severely narrowed or completely blocked, causing a heart attack. Heart attack is the leading cause of in the [place]. 85% of muscle damage occurs within the first 2 hours. Delay in the recognition of heart attack symptoms increases the chances of . Know the early symptoms of a heart attack: Nausea Feeling of fullness in chest Jaw Pain Pain that travels down one or both arms Fatigue/being tired Anxiety Back Pain Chest pressure, squeezing, or discomfort Shortness of breath Sweating, or a cold sweat Feeling of impending doom There are unusual signs of a heart attack, too! Women, the elderly, and diabetics may present with atypical symptoms: Fainting/dizziness Weakness Confusion Risk Factors for a Heart Attack Some heart disease risk factors, such as age and family history, cannot be changed. Others, like smoking and lack of exercise, can be changed. Smoking High Cholesterol High Blood Pressure Family History Obesity Age Gender (Males are at higher risk) Lack of Exercise Diabetes Diet Stress Excessive Alcohol Intake If you or someone you know is experiencing the signs and symptoms of a heart attack, DON???T DELAY. Call immediately and seek help. If someone collapses, perform CPR! Do not attempt to drive if you are having symptoms of heart attack. Hands-Only CPR Why Hands-Only CPR? Hands-Only CPR has been shown to be as effective as conventional CPR for cardiac arrests that occur outside of a hospital. Survival depends on immediately receiving CPR from someone nearby. How do you perform Hands-Only CPR? There are two easy steps: Call 9-1-1 if you see a teen or adult collapse Push hard and fast in the center of the chest at a beat of 100 beats per minute. Save a life! 4 WAYS TO GET AHEAD OF SEPSIS SEPSIS is a MEDICAL EMERGENCY. Time matters! Infections put you and your family at risk for a life-threatening condition called sepsis. Sepsis is the body's extreme response to an infection. It is life-threatening, and without timely treatment, sepsis can rapidly lead to tissue damage, organ failure, and . Sepsis happens when an infection you already have-in your skin, lungs, urinary tract or somewhere else-triggers a chain reaction throughout your body. 1 PREVENT INFECTIONS Take good care of chronic conditions. Talk to your doctor about getting the recommended vaccines. 2 PRACTICE GOOD HYGIENE Wash your hands frequently. Keep cuts or open sores clean and covered until they are healed. 3 KNOW THE SYMPTOMS Confusion or disorientation Shortness of breath High heart rate Fever, shivering, or feeling very cold Extreme pain or discomfort Clammy or sweaty skin 4 ACT FAST Get medical care IMMEDIATELY if you suspect sepsis or if you have an infection that is not getting better or is getting worse. To learn more about sepsis and how to prevent infections, visit www.cdc.gov/sepsis. Patient Portal Reminder: Be sure to sign up for the [facility] patient portal, which gives you 06/09 access to your medical information ??? including these discharge instructions ??? using your computer, smartphone, or tablet. Just go to [employer] to get started. Questions? Call . Test Results Laboratory or Other Results This Visit (last charted value for your 06/14/2018 visit) Hematology 05/29/18 11:08:00 WBC: 5.3 K/uL -- Normal range between ( 3.9 and 10.0 ) RBC: 5.04 Million/uL -- Normal range between ( 4.63 and 6.08 ) Hct: 47.6 % -- Normal range between ( 40.1 and 51.0 ) Hgb: 14.9 Gram/dL -- Normal range between ( 13.7 and 17.5 ) Platelet Count: 172 K/uL -- Normal range between ( 163 and 369 ) MCH: 29.6 pg -- Normal range between ( 25.6 and 32.2 ) MCHC: 31.3 Gram/dL -- Normal range between ( 32.3 and 36.5 ) MCV: 94.4 fL -- Normal range between ( 79.0 and 94.8 ) Slide Review: No Eos %: 1.5 % -- Normal range between ( 1.0 and 7.0 ) Campbell #: 0.47 K/uL -- Normal range between ( 0.24 and 0.82 ) Eos #: 0.08 K/uL -- Normal range between ( 0.04 and 0.54 ) Campbell %: 8.9 % -- Normal range between ( 4.7 and 12.5 ) Baso %: 0.4 % -- Normal range between ( 0.0 and 1.0 ) Baso #: 0.02 K/uL -- Normal range between ( 0.01 and 0.08 ) RDW: 13.3 % -- Normal range between ( 11.6 and 14.4 ) Neut %: 64.6 % -- Normal range between ( 34.0 and 71.0 ) Neut #: 3.42 K/uL -- Normal range between ( 1.56 and 6.13 ) Lymph %: 24.4 % -- Normal range between ( 19.3 and 53.0 ) Lymph #: 1.29 K/uL -- Normal range between ( 1.18 and 3.74 ) MPV: 10.4 fL -- Normal range between ( 9.4 and 12.4 ) IG#: 0 x10(3)/uL IG%: 0 % -- Normal range between ( 0 and 1 ) Urinalysis 05/29/18 11:08:00 Ur RBC: 0-2 /HPF Urine Nitrite: Negative Urine Leukocyte Esterase: Negative Ur Epithelial Cells: 0-2 /HPF Urine Appearance: Clear Urine Glucose Dipstick: Negative Urine Blood Dipstick: Negative Urine Urobilinogen Dipstick: 1.0 EU/dL -- Normal range between ( 0.2 and 1.0 ) Urine Protein Dipstick: Negative Ur Bacteria: Trace Urine Color: Yellow Ur WBC: 0-2 /HPF Urine Ketones Dipstick: Negative Ur Mucous: Trace Urine pH Dipstick: 7.0 -- Normal range between ( 6.0 and 8.0 ) Urine Bilirubin Dipstick: Negative Urine Specific [place]: 1.021 -- Normal range between ( 1.005 and 1.030 ) Urine Type.: U CleanCatch General Chemistry 05/29/18 11:08:00 Creatinine Level: 1.06 mg/dL -- Normal range between ( 0.70 and 1.30 ) Sodium Level: 138 mmol/L -- Normal range between ( 136 and 146 ) Potassium Level: 4.9 mmol/L -- Normal range between ( 3.5 and 5.1 ) Chloride Level: 105 mmol/L -- Normal range between ( 102 and 112 ) Carbon Dioxide Level: 31 mmol/L -- Normal range between ( 21 and 32 ) Anion Gap: 7 -- Normal range between ( 9 and 20 ) Bilirubin Total: 0.6 mg/dL -- Normal range between ( 0.2 and 1.3 ) A/G Ratio: 1.3 -- Normal range between ( 1.1 and 2.5 ) ALT: 26 Units/Liter -- Normal range between ( 12 and 78 ) AST: 17 Units/Liter -- Normal range between ( 5 and 37 ) Globulin: 3.0 Gram/dL -- Normal range between ( 1.5 and 4.5 ) Alk Phos: 84 Units/Liter -- Normal range between ( 27 and 136 ) Bun/Creatinine: 16.0 -- Normal range between ( 8.0 and 20.0 ) Calcium Level: 9.0 mg/dL -- Normal range between ( 8.5 and 10.1 ) eGFR : >60 mL/min/1.73m2 eGFR NonAfrican: >60 mL/min/1.73m2 Glucose Level: 98 mg/dL -- Normal range between ( 74 and 106 ) Blood Urea Nitrogen: 17 mg/dL -- Normal range between ( 7 and 22 ) Protein Total: 7.0 Gram/dL -- Normal range between ( 6.4 and 8.2 ) Albumin Level: 4.0 Gram/dL -- Normal range between ( 3.4 and 5.0 ) Coagulation 05/29/18 11:08:00 INR: 1.0 -- Normal range between ( 0.9 and 1.1 ) PTT: 27.7 Second(s) -- Normal range between ( 24.5 and 30.1 ) PT: 10.3 Second(s) -- Normal range between ( 9.6 and 11.5 ) Diagnostic Radiology 06/14/18 16:02:05 CR Fluoro in OR: CR Fluoro in OR 05/29/18 11:45:00 CR Chest 2 Vws: CR Chest 2 Vws Patient Name:AD BANEGAS I have received and understand this information and was given the opportunity to ask questions. Patient/Mail Processing Equipment Mechanic Name: Patient/Mail Processing Equipment Mechanic Signature: Relationship to Patient: Clinician/Hospital Mail Processing Equipment Mechanic Signature: Date: documented in this encounter Plan of Treatment Not on file documented as of this encounter Visit Diagnoses Not on filedocumented in this encounter
--- OUTSIDE RECORDS SUMMARY | 2024-07-20 13:02 | XMS_ITS | Encounter Summary ---
Author Organization [employer] Address [address] [place] [id number] Care Team Providers Care Card Tender Name Role Phone Unavailable Primary Care Provider Unavailabl e Encounter Details Date Type Department Care Team (Late st Contact Info) Description 12/20/2019 Transcribed Document [facility] [place] [address] [place] [address] ProviderDina MD [address] [place] [address] Social History Tobacco Use Types Packs/Day Years Used Date Smoking Tobacco: Never Assessed Sex and Gender Information Value Date Recorded Sex Assigned at Male 08/11/2021 8:10 PM CDT Legal Sex Male 8:10 PM CDT Gender Identity Male 08/11/2021 8:10 PM CDT Sexual Orientation Not on file documented as of this encounter Miscellaneous Notes * Cerner Conversion Note - Dina ProviderMD - 12/20/2019 10:17 AM ENAMELER UM Authorization Entered On: 12/20/2019 10:20 EST Performed On: 12/20/2019 10:17 EST by ANGELICA BELTRE RN-Utilization Review Primary Insurance Authorization Authorization and Policy Numbers : Insurance 1 Health Plan: [employer] Policy Number: [id number] Authorization Number: Insurance Primary Name [facility] Policy Number: [id number] Authorization Status-Primary : Admit approved Authorization Fax Number-Primary : [phone] Auth/Referral Phone Number-Primary : [phone] Reference Number-Primary : [id number] Authorization Number-Primary : [id number] Number of Days Authorized-Primary : 6 Day(s) Authorized Service Begin Date-Primary : 01/01/2020 EST Authorized Service End Date-Primary : 01/07/2020 EST Authorization Comments-Primary : Daksha approved per Nila for 7 days --- nrd 01/07 fax for d/c date [phone] Historical Authorization Comments-Primary : No Authorization Comments Found ANGELICA BELTRE RN-Utilization Review - 12/20/2019 10:17 EST Electronically signed by [facility], [facility] Conversion Residential Construction Instructor Cerner at 06/01/2022 11:14 PM CDT documented in this encounter Plan of Treatment Not on file documented as of this encounter Visit Diagnoses Not on filedocumented in this encounter
--- OUTSIDE RECORDS SUMMARY | 2024-07-20 13:02 | XMS_ITS | Encounter Summary ---
Author Organization [employer] Address [address] [place] [id number] Care Team Providers Care Plastic Fixture Builder Name Role Phone Unavailable Primary Care Provider Unavailabl e Encounter Details Date Type Department Care Team (Late st Contact Info) Description 01/04/2020 Transcribed Document [facility] [place] [address] [place] [address] ProviderDina MD [address] [place] [address] Social History Tobacco Use Types Packs/Day Years Used Date Smoking Tobacco: Never Assessed Sex and Gender Information Value Date Recorded Sex Assigned at Male 08/11/2021 8:10 PM CDT Legal Sex Male 8:10 PM CDT Gender Identity Male 08/11/2021 8:10 PM CDT Sexual Orientation Not on file documented as of this encounter Miscellaneous Notes * Cerner Conversion Note - Dina ProviderMD - 01/04/2020 4:59 PM COMPLIANCE TESTER On Going Discharge Planning Entered On: 01/04/2020 16:59 EST Performed On: 01/04/2020 16:59 EST by SALENA HENSLEY RN Care Management Progress Note Discharge Arrangements : Patient Post-Acute Information Patient Name: AD BANEGAS Gender: Male : 67 Age: 54 Years No Post-Acute Placement(s) Listed No Post-Acute Service(s) Listed No [place] Referral(s) Listed Discharge Options Discussed with Patient : Discharge transportation, DME Barriers to Discharge Identified : None identified Barriers to Discharge Unresolved : All resolved Does the Patient have a Floor to SNF Benefit? : No Physician Agreeable to Move Forward with D/C Plan? : Yes Did you Attend Multidisciplinary Rounds? : Yes SALENA HENSLEY RN - 01/04/2020 16:59 EST Electronically signed by Favio, [facility] Conversion Zipper Trimmer Hand Cerner at 06/01/2022 11:04 PM CDT documented in this encounter Plan of Treatment Not on file documented as of this encounter Visit Diagnoses Not on filedocumented in this encounter
--- OUTSIDE RECORDS SUMMARY | 2024-07-20 13:02 | XMS_ITS | Encounter Summary ---
Author Organization [employer] Address [address] [place] [address] Care Team Providers Care Bending Shed Worker Name Role Phone Unavailable Primary Care Provider Unavailabl e Encounter Details Date Type Department Care Team (Late st Contact Info) Description 02/28/2018 Transcribed Document [facility] [place] Family Medicine [address] [place] [address] ProviderDina MD [address] [place] [address] Social History Tobacco Use Types Packs/Day Years Used Date Smoking Tobacco: Never Assessed Sex and Gender Information Value Date Recorded Sex Assigned at Male 08/11/2021 8:10 PM CDT Legal Sex Male 8:10 PM CDT Gender Identity Male 08/11/2021 8:10 PM CDT Sexual Orientation Not on file documented as of this encounter Miscellaneous Notes * Cerner Conversion Note - Historical ProviderMD - 02/28/2018 10:33 AM GLAZE GRINDER Patient: AD MARTINEZ Age: 53 years Sex: Male : 1965 Associated Diagnoses: None Author: RYAN CARPIO PA Fluoroscopically guided lumbar puncture was perfomed at the L4-5 level and 12 mls of contrast injected. The patient tolerated the procedure well. Lumbar myelogram was then performed. CT and report to follow. Electronically signed by Stephanie Stahl Conversion Log Handling Equipment Operator María at 06/01/2022 11:18 PM CDT documented in this encounter Plan of Treatment Not on file documented as of this encounter Visit Diagnoses Not on filedocumented in this encounter
--- OUTSIDE RECORDS SUMMARY | 2024-07-20 13:02 | XMS_ITS | Encounter Summary ---
Author Organization [employer] Address [address] [place] [address] Care Team Providers Care Healthcare Liaison Name Role Phone Unavailable Primary Care Provider Unavailabl e Encounter Details Date Type Department Care Team (Late st Contact Info) Description 05/29/2018 Transcribed [place] [facility] [place] [facility] [place] [address] ProviderDina MD [address] [place] [address] Social History Tobacco Use Types Packs/Day Years Used Date Smoking Tobacco: Never Assessed Sex and Gender Information Value Date Recorded Sex Assigned at Male 08/11/2021 8:10 PM CDT Legal Sex Male 8:10 PM CDT Gender Identity Male 08/11/2021 8:10 PM CDT Sexual Orientation Not on file documented as of this encounter Miscellaneous Notes * Cerner Conversion Note - Historical ProviderMD - 05/29/2018 10:52 AM CDT PAT Adult Entered On: 05/29/2018 11:03 EDT Performed On: 05/29/2018 10:52 EDT by Jenna Carroll RN Vital Measurements Temperature Source : Oral Temperature Mode : Fahrenheit Temperature, Fahrenheit : 97 Deg F Clinical Temperature, C : 36.1 Deg C Pulse Method : Non-Invasive BP Device Pulse Source : Radial, Left Peripheral Pulse Rate : 69 bpm Pulse Rhythm : Regular Respiratory Rate : 16 Breaths/Min Blood Pressure Location : Arm, left upper Blood Pressure Source : Non-Invasive BP Device Blood Pressure Position : Sitting Systolic Blood Pressure : 144 mmHg (HI) Diastolic Blood Pressure : 69 mmHg Oxygen Saturation : 98 % Oxygen Therapy Mode : Room air Jenna Carroll RN - 05/29/2018 10:52 EDT Height and Weight, Clinical Dosing Height Source : Stated Height Entry Format : [place] Height, Feet : 6 ft(Converted to: 183 cm, 72 Inch) Height, Inches : 4 Inch(Converted to: 0 ft 4 Inch, 10.16 cm) Clinical Height : 193.04 cm Weight Source : Standing scale Weight Entry Format : [place] Clinical Dosing Weight : 113.64 kg Weight, Pounds : 250 lb Body Surface Area (BSA) : 2.44 m2 Body Mass Index : 30.5 kg/m2 (HI) [place] Body Weight : 86 kg Jenna Carroll RN - 05/29/2018 10:52 EDT Health Histories Smoking Status : Former smoker, quit more than 30 days ago Smokeless Tobacco Status : Former smokeless tobacco user, quit more than 30 days ago 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 yrs ago Smokeless Tobacco Status. (Last Updated: 05/29/2018 11:02:00 EDT by Jenna Carroll RN) yrs ago Smoking Status. yrs ago Smokeless Tobacco Status. (Last Updated: 05/29/2018 11:02:44 EDT by Jenna Carroll RN) Alcohol: Alcohol Use History No. Use in Last 12 Months: No. (Last Updated: 05/29/2018 11:02:58 EDT by Jenna Carroll RN) Substance Abuse: Drug Use Hx: No. Use in Last 12 Months: No. (Last Updated: 05/29/2018 11:03:05 EDT by Jenna Carroll RN) Infectious Disease History Infectious Disease History : None Fever/Chills Last 48 Hours : No Travel To Regions with Travel Advisories : No Travel Outside [place] Within Last 30 Days : No Contact With Traveler to Advisory Region : No Tuberculosis Symptoms : None Jenna Carroll RN - 05/29/2018 10:52 EDT Anesthesia/Transfusion History Family History of Anesthesia Reaction : No prior transfusion(s) Transfusion History : Prior anesthesia without reaction Family History of Anesthesia Reaction : None Jenna Carroll RN - 05/29/2018 10:52 EDT Functional Assessment Functional ADL Evaluation Index EBN Bathing : Independent (2) Dressing : Independent (2) Toileting : Independent (2) Transferring Bed or Chair : Independent (2) Continence : Independent (2) Feeding : Independent (2) Jenna Carroll RN - 05/29/2018 10:52 EDT ADL Index Score : 12 Jenna Carroll RN - 05/29/2018 10:52 EDT Advance Directive Patient has Advance Directive *Q : No, patient refuses Advance Directive information Jenna Carroll RN - 05/29/2018 10:52 EDT Spiritual/Cultural Needs Hoahaoism Preference : Other: Congregation Jenna Carroll RN - 05/29/2018 10:52 EDT Psychosocial History Currently in Unsafe Situation : No Tried to Harm Yourself in the Past? : No Thoughts of Harming/Killing Yourself : No Jenna Carroll RN - 05/29/2018 10:52 EDT Teaching/Learning Assessment Barriers To Learning : None evident Individuals Taught : Patient Readiness to Learn : Cooperative Baseline Knowledge of Topic : Limited Readiness to Learn : Explanation, Printed materials Learning Style Preferences Patient : None Jenna Carroll RN - 05/29/2018 10:52 EDT Education Topics, Periop Preadmission Perioperative Education Grid IV's : Verbalizes understanding NPO Status/Directions : Verbalizes understanding Pain Management : Verbalizes understanding Postoperative Care Preparations : Verbalizes understanding Preprocedure Preparations : Verbalizes understanding Preprocedure Tests/Labs : Verbalizes understanding Remove Body Piercings : Verbalizes understanding Responsible Adult : Verbalizes understanding Take/Hold Medications Pre-Procedure : Verbalizes understanding Jenna Carroll RN - 05/29/2018 10:52 EDT General Info Support Person/Pt Rep Name : Jayne Owen Family/Rep/Phys Notified of Admit : No Emergency Contact #1 : Jayne Martinez Emergency Contact #1 Emergency Contact #1 Relationship : spouse Emergency Contact #2 : . Emergency Contact #2 Phone Number : . Emergency Contact #2 Relationship : . Primary Language : Brazilian Communication Barrier : None Jenna Carroll RN - 05/29/2018 10:52 EDT Edmond Scale Edmond Sensory Perception : No impairment Edmond Moisture : Rarely moist Edmond Activity : Walks frequently Edmond Mobility : Slightly limited Edmond Nutrition : Adequate Edmond Friction and Shear : No apparent problem Edmond Score : 21 Jenna Carroll RN - 05/29/2018 10:52 EDT Sleep Apnea Risk Assmt Hx of Obstructive Sleep Apnea Diagnosis : No Snore Loudly : Yes Tired, Fatigued, or Sleepy During Day : Yes Observed Stopping Breathing During Sleep : No Have/Are Being Treated for Hypertension : No BMI Greater Than 35 kg/m2 : No Age over 50 Years Old : Yes Gender Male : Yes Jenna Carroll RN - 05/29/2018 10:52 EDT documented in this encounter Plan of Treatment Not on file documented as of this encounter Visit Diagnoses Not on filedocumented in this encounter
--- OUTSIDE RECORDS SUMMARY | 2024-07-20 13:02 | XMS_ITS | Encounter Summary ---
Author Organization [employer] Address [address] [place] [address] Care Team Providers Care Duplicate Maker Name Role Phone Unavailable Primary Care Provider Unavailabl e Encounter Details Date Type Department Care Team (Late st Contact Info) Description 06/14/2018 Transcribed Document [facility] [place] [facility] [place] [address] ProviderDnia MD [address] [place] [address] Social History Tobacco Use Types Packs/Day Years Used Date Smoking Tobacco: Never Assessed Sex and Gender Information Value Date Recorded Sex Assigned at Male 08/11/2021 8:10 PM CDT Legal Sex Male 8:10 PM CDT Gender Identity Male 08/11/2021 8:10 PM CDT Sexual Orientation Not on file documented as of this encounter Miscellaneous Notes * Cerner Conversion Note - Historical ProviderMD - 06/14/2018 5:31 PM CDT Admission History, Adult Entered On: 06/14/2018 17:34 EDT Performed On: 06/14/2018 17:31 EDT by Caty Umana RN Advance Directive Patient has Advance Directive *Q : No, patient refuses Advance Directive information Caty Umana RN - 06/14/2018 17:31 EDT Anesthesia/Transfusion History Family History of Anesthesia Reaction : No prior transfusion(s) Transfusion History : Prior anesthesia without reaction Family History of Anesthesia Reaction : None Caty Umana RN - 06/14/2018 17:31 EDT Anticipated Discharge Needs Discharge To, Anticipated : Home Caty Umana RN - 06/14/2018 17:31 EDT Education Topics, Admission Orientation DCP GENERIC CODE Advance Directives : Verbalizes understanding Allergy Band Applied : Verbalizes understanding Assessment/Vital Signs : Verbalizes understanding Bed Control : Verbalizes understanding Call Light : Verbalizes understanding Confidentiality : Verbalizes understanding Diet/Room Service : Verbalizes understanding Fall Prevention : Verbalizes understanding Hand Hygiene : Verbalizes understanding Healthcare Provider Visit : Verbalizes understanding ID Band Applied : Verbalizes understanding Isolation Precautions : Verbalizes understanding Orientation to Room/Bathroom : Verbalizes understanding Patient Bill of Rights : Verbalizes understanding Patient Rights/Responsibilities : Verbalizes understanding Patient Safety : Verbalizes understanding Personal Privacy Code : Verbalizes understanding Rapid Response Initiated by Patient/Family : Verbalizes understanding Rounding : Verbalizes understanding Siderails use/risks : Verbalizes understanding Skin Precautions : Verbalizes understanding Smoking Policy : Verbalizes understanding Telemetry Monitoring : Verbalizes understanding Television/Phone : Verbalizes understanding Visiting Policy : Verbalizes understanding Caty Umana RN - 06/14/2018 17:31 EDT Functional Assessment Living Situation : Home Patient Lives With : Spouse Persons Assisting Patient at Home : Spouse Current Daily Living Assistance : None Sensory Deficits : None Mobility Assistance Prior to Admission : Independent STEELE Hx Falls Immediate/Within 3 Months : No Current Home Treatments : None Caty Umana RN - 06/14/2018 17:31 EDT General Info Arrived From : Home Mode of Arrival on Unit : Ambulatory Legal Guardian : Spouse Support Person/Pt Rep Name : Jayne Owen Family/Rep/Phys Notified of Admit : No Emergency Contact #1 : Jayne Martinez Emergency Contact #1 Emergency Contact #1 Relationship : spouse Emergency Contact #2 : . Emergency Contact #2 Phone Number : . Emergency Contact #2 Relationship : . Primary Language : Palestinian Communication Barrier : None Caty Umana RN - 06/14/2018 17:31 EDT Fall Risk Scales ABCs Fall Injury Risk Identification : Surgery ABC Fall Injury Risk : Moderate to high injury risk Injury Moderate to High Risk Interventions : Bed alarm on, Chair alarm on, High Risk for Fall Injury sign in place per policy, Specialty low bed, Supervise toileting as indicated, Wrist band (fall risk) on per policy STEELE Hx Falls Immediate/Within 3 Months : No Steele Secondary Diagnosis : Yes STEELE Use of Ambulatory Aid : Bed rest/Nurse assist STEELE IV Therapy or IV Access : Yes Steele Gait/Transferring : Weak Steele Mental Status : Oriented to own ability Steele Fall Risk Score : 45 STEELE Fall Scale Risk Level : 25-45 Medium Risk [place] Fall Interventions : Adequate lighting, Assistive devices within reach, Bed in low position, Call device within reach, Fall prevention handout/education per facility policy, Frequent orientation to call device, Frequent orientation to surroundings, Hourly comfort/safety rounds, Non-slip footwear, Personal items within reach, Reinforced to call for assistance before getting out of bed, Room free of clutter/spills, Upper side-rails up, Wheels locked, Wires/Cords secured Caty Umana RN - 06/14/2018 17:31 EDT Fall Risk Education Grid Alarms : Verbalizes understanding Assistive Equipment Use : Verbalizes understanding Bed Height/Stabilization : Verbalizes understanding Call light use : Verbalizes understanding Door Open : Verbalizes understanding Environmental Management : Verbalizes understanding Eyeglasses Use : Verbalizes understanding Fall Community Resources : Verbalizes understanding Fall Contract/Letter : Verbalizes understanding Fall Prevention in the Home : Verbalizes understanding Fall Prevention Protocol : Verbalizes understanding Hearing Aid Use : Verbalizes understanding Home Risk Assessment : Verbalizes understanding Need Constant Observation : Verbalizes understanding Night Light Use : Verbalizes understanding Nonskid Footwear Use : Verbalizes understanding Notification of Staff When Leaving : Verbalizes understanding Orthostatic Hypotension Precautions : Verbalizes understanding Personal Article Availability : Verbalizes understanding Prevention Responsibility Family : Verbalizes understanding Prevention Responsibility Patient : Verbalizes understanding Risk Alert Methods : Verbalizes understanding Risk Factors : Verbalizes understanding Safety Aids : Verbalizes understanding Siderails use/risks : Verbalizes understanding Special Assistive Devices : Verbalizes understanding Staff Responsiveness : Verbalizes understanding Symptom Identification & Action Plan *Q : Verbalizes understanding Symptom Reporting : Verbalizes understanding Toileting Schedule : Verbalizes understanding Transfer/Mobility Techniques : Verbalizes understanding Urinal/Bedpan Availability : Verbalizes understanding Wait for Assistance : Verbalizes understanding Wheelchair Safety : Verbalizes understanding Caty Umana RN - 06/14/2018 17:31 EDT Barriers to Learning : None evident Individuals Taught : Patient Readiness to Learn : Cooperative Baseline Knowledge of Topic : Good Teaching Method : Demonstration Learning Style Preferences Family : Demonstration Learning Style Preferences Patient : Verbal explanation Teaching Evaluation : Verbalizes understanding Fall Risk Scale Calc Temp : 1 Caty Umana RN - 06/14/2018 17:31 EDT Health Histories Smoking Status : Never (less than 100 in lifetime; none in last 30 days), Former smoker, quit more than 30 days ago Smokeless Tobacco Status : Never Implant/Device Type, Hazmat Cdl Driver and Model : metal rods back Caty Umana RN - 06/14/2018 17:31 EDT Social History (As Of: 06/14/2018 17:34:12 EDT) Tobacco: stopped years ago Smoking Status. [...] 05/29/2018 11:03:05 EDT by Jenna Carroll RN) Height and Weight, Clinical Dosing Height Source : Stated Height Entry Format : [place] Height, Feet : 6 ft(Converted to: 183 cm, 72 Inch) Height, Inches : 4 Inch(Converted to: 0 ft 4 Inch, 10.16 cm) Clinical Height : 193.04 cm Weight Source : Standing scale Weight Entry Format : [place] Clinical Dosing Weight : 107.27 kg Weight, Pounds : 236 lb Body Surface Area (BSA) : 2.38 m2 Body Mass Index : 28.8 kg/m2 (HI) [place] Body Weight : 86 kg Caty Umana RN - 06/14/2018 17:31 EDT Infectious Disease History Infectious Disease History : None Active Surveillance Screen Assessment : Patient does not meet any of above criteria Active Surveillance Screen Negative : Yes Fever/Chills Last 48 Hours : No Travel To Regions with Travel Advisories : No Travel Outside [place] Within Last 30 Days : No Contact With Traveler to Advisory Region : No Tuberculosis Symptoms : None Caty Umana RN - 06/14/2018 17:31 EDT Tetanus Immunization Status Previous Tetanus Immunizations : No qualifying data available. Caty Umana RN - 06/14/2018 17:31 EDT Influenza Vaccine Asmt, Adult Previous Vaccines from Immunization Schedule : No qualifying data available. Influenza Immunization, Current Season : No Inactivated Flu Vaccine Contraindications : No contraindications to inactivated influenza vaccine Transplant Workup/Recent Transplant : No Order for Influenza Vaccine : Declined Vaccination Caty Umana RN - 06/14/2018 17:31 EDT Pneumococcal Vaccine Previous Vaccines from Immunization Schedule : No qualifying data available. Pneumonia Immunization Received : Yes Caty Umana RN - 06/14/2018 17:31 EDT Order Details Isolation Precautions Order Detail : Standard Precautions Order Detail : N/A IV Order Detail : 1 Oxygen Order Detail : 0 Nurse Collect Order Detail : 0 Lift/Transfer : Moderate assist Central Line Order Detail : No Room Service : Not Appropriate Arterial Line : No Caty Umana RN - 06/14/2018 17:31 EDT Nutrition History Weight Entry Format Nutrition History : [place] Usual Weight, Pounds : 236 lb Clinical Weight Calculated : 107.27 kg Eating Poorly Due to Decreased Appetite : No Unplanned Weight Loss in Past 3-6 Months : No Malnutrition Screening Tool Total(mal) : 0 Malnutrition Screening Tool Risk Level : Patient not at risk Caty Umana RN - 06/14/2018 17:31 EDT Psychosocial History Currently in Unsafe Situation : No Tried to Harm Yourself in the Past? : No Thoughts of Harming/Killing Yourself : No Caty Umana RN - 06/14/2018 17:31 EDT Sleep Apnea Risk Assmt Hx of Obstructive Sleep Apnea Diagnosis : No Snore Loudly : Yes Tired, Fatigued, or Sleepy During Day : Yes Observed Stopping Breathing During Sleep : No Have/Are Being Treated for Hypertension : No BMI Greater Than 35 kg/m2 : No Age over 50 Years Old : Yes Neck Circumference Greater Than 40 cm : No Gender Male : Yes STOP-BANG Sleep Apnea Risk Level Score : 4 Caty Umana RN - 06/14/2018 17:31 EDT Spiritual/Cultural Needs Any Spiritual/Cultural Needs or Requests : No Hindu Preference : Other: Tenriism Caty Umana RN - 06/14/2018 17:31 EDT Valuables and Belongings Valuables and Belongings : Clothing, Personal items Clothing : Common streetwear Clothing Disposition : With family Personal Items : Cell phone, Wallet Personal Items Disposition : With family Caty Umana RN - 06/14/2018 17:31 EDT Electronically signed by Stephanie Stahl Conversion Freelance Interpreter/Translator Cerner at 06/01/2022 10:59 PM CDT documented in this encounter Plan of Treatment Not on file documented as of this encounter Visit Diagnoses Not on filedocumented in this encounter
--- OUTSIDE RECORDS SUMMARY | 2024-07-20 13:02 | XMS_ITS | Encounter Summary ---
Author Organization [employer] Address [address] [place] [address] Care Team Providers Care Ferryboat Operator Name Role Phone Unavailable Primary Care Provider Unavailabl e Encounter Details Date Type Department Care Team (Late st Contact Info) Description 06/14/2018 Transcribed Document [facility] [place] Family Medicine [address] [place] [address] ProviderDina MD [address] [place] [address] Social History Tobacco Use Types [...] Conversion Note - Dina ProviderMD - 06/14/2018 2:59 PM CDT [facility] OR PreOp Summary Primary Physician: MARIALUISA VIRGEN MD-ORT Finalized Date/Time: 06/14/18 15:10:58 Pt. Name: AD BANEGAS/Sex: 1965 Male Med Rec #: [id number] Physician: MARIALUISA VIRGEN MD-ORT Financial #: [id number] Pt. Type: O Room/Bed: Admit/Disch: 06/14/18 05:02:00 - Institution: [facility] PreOp Case Times Entry 1 In Preop 06/14/18 12:00:00 Ready for Holding n/a Room Patient Ready for 06/14/18 13:02:00 Surgery Patient Out of Preop 06/14/18 14:52:00 Patient Out of n/a Holding Room Last Modified By: AMANDEEP, SHANAE 06/14/18 15:10:56 [facility] PreOp Case Times Audit 06/14/18 15:10:56 Audio Visual Design Engineer: SAYDA Modifier: [email or web address] <+> 1 Patient Out of Preop Finalized By: SHANAE BERNSTEIN Document Signatures Signed By: SHANAE BERNSTEIN 06/14/18 15:10 Electronically signed by Favio [facility] Conversion Hat Blocking Operator Cerner at 06/01/2022 11:01 PM CDT documented in this encounter Plan of Treatment Not on file documented as of this encounter Visit Diagnoses Not on filedocumented in this encounter
--- OUTSIDE RECORDS SUMMARY | 2024-07-20 13:02 | XMS_ITS | Encounter Summary ---
Author Organization [employer] Address [address] [place] [address] Care Team Providers Care Truck Switcher Name Role Phone Unavailable Primary Care Provider Unavailabl e Encounter Details Date Type Department Care Team (Late st Contact Info) Description 06/14/2018 Transcribed Document [facility] [place] Family Medicine [address] [place] [address] ProviderDina MD [address] [place] [address] Social History Tobacco Use Types [...] Dina ProviderMD - 06/14/2018 3:21 PM CDT [facility] OR PACU Summary Primary Physician: MARIALUISA VIRGEN MD-ORT Finalized Date/Time: 06/14/18 17:37:50 Pt. Name: AD BANEGAS/Sex: 1965 Male Med Rec #: [id number] Physician: MARIALUISA VIRGEN MD-ORT Financial #: [id number] Pt. Type: O Room/Bed: [facility]/ Admit/Disch: 06/14/18 05:02:00 - Institution: [facility] OR PACU Case Times Entry 1 In PACU I 06/14/18 15:54:00 Ready for PACU 06/14/18 16:24:00 Discharge Discharge from PACU 06/14/18 17:14:00 I Last Modified By: Ebony Dillard, MERCED 06/14/18 17:36:08 [facility] Main OR PACU Case Times Audit 06/14/18 17:36:08 Back Hoe Operator: JULIO Modifier: [email or web address] <+> 1 Ready for PACU Discharge <+> 1 Discharge from PACU I [facility] OR PACU Acuity Entry 1 Start Time 06/14/18 16:24:00 Stop Time 06/14/18 17:14:00 Acuity Level [facility] PACU Acuity I Last Modified By: Ebony Dillard RN 06/14/18 17:36:32 Finalized By: Ebony Dillard RN Document Signatures Signed By: Ebony Dillard RN 06/14/18 17:37 Electronically signed by Favio [facility] Conversion Bricklayer Sewer Cerner at 06/01/2022 11:16 PM CDT documented in this encounter Plan of Treatment Not on file documented as of this encounter Visit Diagnoses Not on filedocumented in this encounter
--- OUTSIDE RECORDS SUMMARY | 2024-07-20 13:02 | XMS_ITS | Encounter Summary ---
Author Organization [employer] Address [address] [place] [address] Care Team Providers Care Inside Sales Account Executive Name Role Phone Unavailable Primary Care Provider Unavailabl e Encounter Details Date Type Department Care Team (Late st Contact Info) Description 06/14/2018 Transcribed Document [facility] [place] [address] [place] [address] ProviderDina MD [address] [place] [address] Social History Tobacco Use Types [...] Conversion Note - Historical ProviderMD - 06/14/2018 8:36 PM CDT Stroke/Warfarin Instructions Entered On: 06/14/2018 20:36 EDT Performed On: 06/14/2018 20:36 EDT by Wandy Nunez RN Stroke/Warfarin Instructions Stroke/TIA Discharge Ins : N/A Warfarin Discharge Ins : N/A Wandy Nunez RN - 06/14/2018 20:36 EDT documented in this encounter Plan of Treatment Not on file documented as of this encounter Visit Diagnoses Not on filedocumented in this encounter
--- OUTSIDE RECORDS SUMMARY | 2024-07-20 13:02 | XMS_ITS | Clinical Summary ---
Author Organization Healthcare Address [address] [place] [address] Care Team Providers Care Kiln Operator Helper Name Role Phone Jeromy Perez MD Primary Care Provider [phone] Allergies Active Allergy Reactions Criticality Noted Date Comments Meloxicam Rash,Unknown - Patie nt states they do not know rxn details Low 11/13/2007 Pt states his legs turned red Medications loratadine (Claritin) 10 MG tablet Take 10 mg by mouth 1 (one) time each day. 2 Active amLODIPine-carmelita zepril (Lotrel) 5-10 MG capsule Take 1 capsule by mouth 1 (one) time each day. 2 Active atorvastatin (Lipitor) 20 MG tablet Atorvastatin Calcium 20 MG Oral Tablet QTY: 30 Days: 30 Refills: 0 Written: 05/29/21 Patient Instructions: 2 Active HYDROcodone-rj taminophen ([place]) 10-325 MG tablet TAKE 1 TO 2 TABLET(S) BY MOUTH EVERY 6 HOURS NEEDED FOR SEVERE pain MAY CAUSE DROWSINESS 3 Active ibuprofen 800 MG tablet ibuprofen 800 mg tablet 2 Active meclizine (Antivert) 25 MG tablet Take 12.5-25 mg by mouth 3 (three) times a day if needed. 3 Active diclofenac (Voltaren) 75 MG EC tablet diclofenac sodium 75 mg tablet,delayed release 2 Active tiZANidine (Zanaflex) 4 MG tablet tizanidine 4 mg tablet 2 Active traMADol (Ultram) 50 MG tablet Take 50 mg by mouth. Active Family History Medical History Relation Name Comments Cancer Father Fabian Martinez Conversions - Other Father Fabian Martinez Back pro blem Diabetes Father Fabian Martinez Heart attack Father Fabian Martinez Scoliosis Father Fabian Martinez Heart attack Mother Stroke Mother Cancer Other 1 Diabetes Other 2 Conversions - Other Other 3 Headache Syndromes Conversions - Other Other 4 Hyperlip oproteinemia Conversions - Other Other 5 Reported Family History Of Heart Disease Conversions - Other Sibling Back pro blem Relation Name Status Comments Father Fabian Martinez Mother Other 1 Other 2 Other 3 Other 4 Other 5 Sibling Social History Tobacco Use Types Packs/Day Years Used Date Smoking Tobacco: Never Smokeless Tobacco: Former Alcohol Use Standard Drinks/Week Comments Yes 0 (1 standard drink = 0.6 oz pur e alcohol) Very little on rare occasion Sex and Gender Information Value Date Recorded Sex Assigned at Not on file Legal Sex Male 8:10 PM EDT Gender Identity Not on file Sexual Orientation Not on file Last Filed Vital Signs Vital Sign Reading Time Taken Comments Blood Pressure 132/85 06/10/2022 1:45 PM EDT Pulse 73 06/10/2022 1:45 PM EDT Temperature 36.9 C (98.4 F) 04/25/2019 2:15 PM EDT Respiratory Rate 16 04/25/2019 2:15 PM EDT Oxygen Saturation - - Inhaled Oxygen Concentration - - Weight 121 kg (266 lb 12.1 oz) 06/10/2022 1:45 P M EDT Height 193 cm (6' 4 ) 06/10/2022 1:45 PM EDT Body Mass Index 32.47 06/10/2022 1:45 PM EDT Plan of Treatment Health Maintenance Due Date Last Done Comments [facility]-Depression Screening 1965 [facility]-HIV Screening 1965 [facility]-Hepatitis C Screening 1965 [facility]-/Child/Adol SDOH Screenings 1965 [facility]- SDOH Screenings 02/12/1984 [facility]-Adult SDOH Screenings 02/12/1984 [facility]-Hepatitis B Vaccines (1 of 3 - 19+ 3-dose series) 1985 [facility]-DTaP,Tdap,and Td Vaccine s (1 - Tdap) 04/20/1996 04/19/1996 CT Colonography 2011 Colonoscopy 2011 FIT-DNA 2011 FIT 2011 FOBT 2011 Sigmoidoscopy 2011 [facility]-Colorectal Cancer Screening 2011 [facility]-Zoster Vaccines (1 of 2) 02/12/2016 [id number] Vaccine (3 - 2023- season) 2023 11/07/2020, 10/10/2020 [facility]-Influenza Vaccine (Seas[place] n Ended) 2024 [facility]-Pneumococcal Vaccine: 50 + Years Completed 11/06/2021, 11/30/2016 [facility]-Obesity Intervention Completed 023, 04/30/2022 HPV Vaccines Aged Out No longer eligi ble based on patient's age to complete this topic [facility]-HIB Vaccines Aged Out No longer e ligible based on patient's age to complete this topic [facility]-Hepatitis A Vaccines Aged Out No longer eligible based on patient's age to complete this topic [facility]-IPV Vaccines Aged Out No longer e ligible based on patient's age to complete this topic [facility]-Rotavirus Vaccines Aged Out No lo nger eligible based on patient's age to complete this topic Insurance [facility] Care Teams Kiln Operator Helper Relationship Specialty Start Date End Date Jeromy Perez MD [address] [place] [address] PCP - General 03/05/22
--- OUTSIDE RECORDS SUMMARY | 2024-07-20 13:02 | XMS_ITS | Encounter Summary ---
Author Organization Healthcare Address [address] [place] [address] Care Team Providers Care Yeast Tender Name Role Phone Seven Diop MD Primary Care Provider [phone] eJromy Perez MD Primary Care Provider [phone] Encounter Details Date Type Department Care Team (Late st Contact Info) Description 06/09/2020 Orders Only External Location [address] [place] [address] Provider, External Social History Tobacco Use Types Packs/Day Years Used Date Smoking Tobacco: Never Assessed Sex and Gender Information Value Date Recorded Sex Assigned at Not on file Legal Sex Male 8:10 PM EDT Gender Identity Not on file Sexual Orientation Not on file documented as of this encounter Plan of Treatment Not on file documented as of this encounter Procedures Procedure Name Priority Date/Time Associated Diagnosis Comments MR LUMBAR SPINE W AND WO IV CONTRAST 06/09/2020 9:02 AM EDT documented in this encounter Results * MR Lumbar Spine w and wo IV Contrast (06/09/2020 9:02 AM EDT) Anatomical Region Laterality Modality L-spine Magnetic Resonan ce 06/09/2020 9:02 AM EDT us External Provider IMG MRI PROCEDURES Final Resul t documented in this encounter Visit Diagnoses Not on filedocumented in this encounter Care Teams Yeast Tender Relationship Specialty Start Date End Date Seven Diop MD [address] [place] [id number] PCP - General 06/27/20 03/04/22 Jeromy Perez MD [id number] [place] [address] PCP - General 03/05/22 documented as of this encounter
--- OUTSIDE RECORDS SUMMARY | 2024-07-20 13:02 | XMS_ITS | Encounter Summary ---
Author Organization [employer] Address [address] [place] [address] Care Team Providers Care Malt Loader Name Role Phone Unavailable Primary Care Provider Unavailabl e Encounter Details Date Type Department Care Team (Late st Contact Info) Description 06/14/2018 Transcribed Document [facility] [place] Family Medicine [address] [place] [address] ProviderDina MD [address] [place] [address] Social History Tobacco Use Types [...] Historical ProviderMD - 06/14/2018 8:36 PM CDT Nursing Discharge Summary Entered On: 06/14/2018 20:37 EDT Performed On: 06/14/2018 20:36 EDT by Wandy Nunez RN Discharge Documentation Discharge Date/Time : 06/14/2018 21:00 EDT Patient Disposition, General : Discharge Discharge To : Home with ambulatory/outpatient follow-up Mode Of Departure, General Discharge : Private vehicle Accompanied By, Discharge : Spouse IV Discontinued : Yes Personal Belongings With Patient : Yes Prescriptions Given to Patient : Yes Discharge Instructions Reviewed With, Opportunity For Questions Given : Patient, Spouse Patient Education Completed : Yes Number of Prescriptions Given : 1 Teaching Method : Explanation, Printed materials Teaching Evaluation : Verbalizes understanding Wandy Nunez, RN - 06/14/2018 20:36 EDT documented in this encounter Plan of Treatment Not on file documented as of this encounter Visit Diagnoses Not on filedocumented in this encounter
--- OUTSIDE RECORDS SUMMARY | 2024-07-20 13:02 | XMS_ITS | Encounter Summary ---
Author Organization [employer] Address [address] [place] [address] Care Team Providers Care Rod Straightener Name Role Phone Unavailable Primary Care Provider Unavailabl e Encounter Details Date Type Department Care Team (Late st Contact Info) Description 05/29/2018 Transcribed Document [facility] [place] Family Medicine [facility] [place] [address] ProviderDina MD [address] [place] [address] Social History Tobacco Use Types Packs/Day Years Used Date Smoking Tobacco: Never Assessed Sex and Gender Information Value Date Recorded Sex Assigned at Male 08/11/2021 8:10 PM CDT Legal Sex Male 8:10 PM CDT Gender Identity Male 08/11/2021 8:10 PM CDT Sexual Orientation Not on file documented as of this encounter Miscellaneous Notes * Cerner Conversion Note - Dina ProviderMD - 05/29/2018 9:47 AM CDT Patient: AD MARTINEZ Age: 53 Years Sex: Male : 1965 Chief Complaint Left SI Joint Pain Primary Care Provider HILARIO MONZON MD History of Present Illness This patient is a pleasant 53 yo WM who presents with Left SI Joint Pain. The pain has been going on for 10 years but has gotten progressively worse. He describes it as a sharp pain. It is now to the point that it is affecting his ADLs. He has tried narcotics and injections without relief of his pain. He has not fallen. He has not used an assistive device. 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 Pt was offered a Left SI Joint Fusion and agreed to the procedure. Pt has a h/o PE following surgery in 2014. He was on blood thinners for 6 months. NO recurrence. No trouble with anesthesia in the past. No respiratory conditions including COPD/BLAIR/asthma. Review of Systems Constitutional: Neg for fevers or chills. Eyes: Neg for blurry vision or change in vision. ENT: Neg for sore throat, ear pain, or dizziness. Cardiac: Neg for chest pain or dyspnea on exertion. Respiratory: Neg for shortness of breath. Gastrointestinal: Neg for nausea, vomiting, diarrhea, or constipation. Musculoskeletal: Pos for left SI joint pain. Neurologic: Neg for headaches or seizures. Psychiatric: Neg for anxiety and depression. Integumentary: Neg for rash. Vital Signs Vitals Signs (last 24 hrs) Last Charted Minimum Maximum Temp 97 (MAY 29 10:52) 97 (MAY 29 10:52) 97 (MAY 29 10:52) Periph HR 69 (MAY 29 10:52) 69 (MAY 29 10:52) 69 (MAY 29 10:52) Resp Rate 16 (MAY 29 10:52) 16 (MAY 29 10:52) 16 (MAY 29 10:52) SBP H 144 (MAY 29 10:52) H 144 (MAY 29 10:52) H 144 (MAY 29 10:52) DBP 69 (MAY 29 10:52) 69 (MAY 29 10:52) 69 (MAY 29 10:52) SpO2 98 (MAY 29 10:52) 98 (MAY 29 10:52) 98 (MAY 29 10:52) Oxygen Settings (Last) Oxygen Therapy Mode: Room air (05/29/18 10:52:00 EDT) Physical Exam Constitutional: This is a pleasant 53 yo WM in no acute distress. HEENT: Normocephalic, atraumatic. PEERLA. Extraocular muscles intact. Conjunctiva pink without exudate. Oropharynx pink and moist. Neck supple. No JVD. Cardiac: SI, S2. RRR. No M/R/G. Respiratory: Lungs CTA bilaterally. No wheezes, rales, or rhonchi. Abdomen: Soft, nontender, nondistended. Active bowel sounds. No visible masses. Musculoskeletal: Bilateral LE without clubbing, cyanosis or edema. Integumentary: Skin is pink, warm and dry. No rashes. Neurologic: CN II-XII grossly intact. Psychiatric: Judgment and affect appropriate. Assessment/Plan 1. Preoperative Evaluation- Pt underwent preoperative laboratory workup and diagnostic studies. 2. Left SI Joint Pain- Proceed with surgery as scheduled with Dr Sousa on 06/14/2018. 3. H/o PE- Postoperative anticoagulation per Dr Sousa. Problem List/Past Medical History Ongoing Back pain Pneumonia Pulmonary embolism Procedure/Surgical History lumbar fusion, multiple back surgeries, removal of screws and rods. Home Medications (3) Active [place] 10 mg-325 mg oral tablet 1 Tab, Oral, Q3H sildenafil 20 mg oral tablet 2 tabs, Oral, TID tiZANidine 4 mg, Oral, At Bedtime Allergies Mobic (severe flushing) Social History Alcohol Alcohol Use History No. Use in Last 12 Months: No. Substance Abuse Drug Use Hx: No. Use in Last 12 Months: No. Tobacco yrs ago Smoking Status. yrs ago Smokeless Tobacco Status. stopped years ago Smoking Status. yrs ago Smokeless Tobacco Status. Family History Pt mother at 72 from Renal Failure. Pt father at 73 from Lung Cancer. Diagnostic Results EKG- NSR, 62 CXR- NAD Lab Results Test Name Test Result Date/Time Sodium Level 138 mmol/L 05/29/2018 11:08 EDT Potassium Level 4.9 mmol/L 05/29/2018 11:08 EDT Chloride Level 105 mmol/L 05/29/2018 11:08 EDT Carbon Dioxide Level 31 mmol/L 05/29/2018 11:08 EDT Anion Gap 7 (Low) 05/29/2018 11:08 EDT Glucose Level 98 mg/dL 05/29/2018 11:08 EDT Blood Urea Nitrogen 17 mg/dL 05/29/2018 11:08 EDT Creatinine Level 1.06 mg/dL 05/29/2018 11:08 EDT eGFR >60 mL/min/1.73m2 05/29/2018 11:08 EDT eGFR NonAfrican >60 mL/min/1.73m2 05/29/2018 11:08 EDT Bun/Creatinine 16.0 05/29/2018 11:08 EDT Calcium Level 9.0 mg/dL 05/29/2018 11:08 EDT Protein Total 7.0 Gram/dL 05/29/2018 11:08 EDT Albumin Level 4.0 Gram/dL 05/29/2018 11:08 EDT Globulin 3.0 Gram/dL 05/29/2018 11:08 EDT A/G Ratio 1.3 05/29/2018 11:08 EDT Bilirubin Total 0.6 mg/dL 05/29/2018 11:08 EDT Alk Phos 84 Units/Liter 05/29/2018 11:08 EDT AST 17 Units/Liter 05/29/2018 11:08 EDT ALT 26 Units/Liter 05/29/2018 11:08 EDT WBC 5.3 K/uL 05/29/2018 11:08 EDT RBC 5.04 Million/uL 05/29/2018 11:08 EDT Hgb 14.9 Gram/dL 05/29/2018 11:08 EDT Hct 47.6 % 05/29/2018 11:08 EDT MCV 94.4 fL 05/29/2018 11:08 EDT MCH 29.6 pg 05/29/2018 11:08 EDT MCHC 31.3 Gram/dL (Low) 05/29/2018 11:08 EDT Platelet Count 172 K/uL 05/29/2018 11:08 EDT MPV 10.4 fL 05/29/2018 11:08 EDT RDW 13.3 % 05/29/2018 11:08 EDT Neut % 64.6 % 05/29/2018 11:08 EDT Neut # 3.42 K/uL 05/29/2018 11:08 EDT Lymph % 24.4 % 05/29/2018 11:08 EDT Lymph # 1.29 K/uL 05/29/2018 11:08 EDT [place] % 8.9 % 05/29/2018 11:08 EDT [place] # 0.47 K/uL 05/29/2018 11:08 EDT Eos % 1.5 % 05/29/2018 11:08 EDT Eos # 0.08 K/uL 05/29/2018 11:08 EDT Baso % 0.4 % 05/29/2018 11:08 EDT Baso # 0.02 K/uL 05/29/2018 11:08 EDT Slide Review No 05/29/2018 11:08 EDT IG# 0 x10(3)/uL 05/29/2018 11:08 EDT IG% 0 % 05/29/2018 11:08 EDT PT 10.3 Second(s) 05/29/2018 11:08 EDT INR 1.0 05/29/2018 11:08 EDT PTT 27.7 Second(s) 05/29/2018 11:08 EDT Urine Type. U CleanCatch 05/29/2018 11:08 EDT Urine Color YELLOW2 05/29/2018 11:08 EDT Urine Appearance CLEAR2 05/29/2018 11:08 EDT Urine Specific [place] 1.021 05/29/2018 11:08 EDT Urine pH Dipstick 7.0 05/29/2018 11:08 EDT Urine Leukocyte Esterase NEGATIVE2 05/29/2018 11:08 EDT Urine Nitrite NEGATIVE2 05/29/2018 11:08 EDT Urine Protein Dipstick NEGATIVE2 05/29/2018 11:08 EDT Urine Glucose Dipstick NEGATIVE2 05/29/2018 11:08 EDT Urine Ketones Dipstick NEGATIVE2 05/29/2018 11:08 EDT Urine Urobilinogen Dipstick 1.0 (Abnormal) 05/29/2018 11:08 EDT Urine Bilirubin Dipstick NEGATIVE2 05/29/2018 11:08 EDT Urine Blood Dipstick NEGATIVE2 05/29/2018 11:08 EDT Ur RBC 0-2 (Abnormal) 05/29/2018 11:08 EDT Ur WBC 0-2 05/29/2018 11:08 EDT Ur Bacteria Trace (Abnormal) 05/29/2018 11:08 EDT Ur Mucous Trace (Abnormal) 05/29/2018 11:08 EDT Ur Epithelial Cells 0-2 (Abnormal) 05/29/2018 11:08 EDT documented in this encounter Plan of Treatment Not on file documented as of this encounter Visit Diagnoses Not on filedocumented in this encounter
--- OUTSIDE RECORDS SUMMARY | 2024-07-20 13:02 | XMS_ITS | Encounter Summary ---
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 Pain and swelling. ?? A small amount of blood or clear fluid coming from your incision for up to 7 days ?? It is normal to have a moderate amount of bleeding from the site of the drain that was pulled on the morning after surgery. You can hold pressure on the area for 3-5 minutes and cover with a bandage as needed. Diet: ?? Resume usual diet ?? No alcoholic beverages while taking pain medication ?? Drink 8-10 glasses of water a day to prevent constipation from pain medication ?? Increase fiber to help prevent constipation. Straining can cause increased pressure and pain in your incision area ?? Increase protein to promote healing Driving: ?? Do not drive until your health care provider approves. Ask your health care provider when it is safe to drive if you have an immobilizer on your knee. ?? Do not drive or operate heavy machinery while taking prescription pain medicine. ?? Do not drive for 24 hours if you received a sedative. Activity: ?? No strenuous activity ?? Avoid high-impact activities, including running, jumping rope, and jumping jacks. ?? Avoid sitting for a long time without moving. Get up and move around at least every few hours. ?? Keep legs elevated while seated and place surgery leg on 2-3 pillows, this will decrease swelling ?? Continue using walker until cleared by physical therapy Back Activity ?? Minimize bending, twisting, and lifting. Bathing: ?? May shower ?? Do not take baths, swim, or use a hot tub for one month after surgery. ?? You must be seated to shower until you are no longer using the walker Other: ?? Use ice therapy for 20-30 minutes at a time and leave off for 20-30 minutes at a time. Always keep a towel or cloth between the ice pack and your skin ?? Continue to use Incentive Spirometer 10 times an hour while awake for one month to help prevent pneumonia Contact a health care provider if: ?? You have more redness, swelling, or pain around your incision. ?? You have more fluid or blood coming from your incision. ?? Your incision or drain site feels warm to the touch. ?? You have pus or a bad smell coming from your incision. ?? You have a fever. ?? Your incision breaks open after your health care provider removes your sutures, skin glue, or adhesive tape. ?? Your prosthesis feels loose. ?? You have knee pain that does not go away. DVT: Blood Clot Blood clots are a common risk after an orthopedic surgery Symptoms: ?? Swelling of your leg or arm, especially if one side is much worse. ?? Warmth and redness of your leg or arm, especially if one side is much worse. ?? Pain in your arm or leg. If the clot is in your leg, symptoms may be more noticeable or worse when you stand or walk. ?? A feeling of pins and needles, if the clot is in the arm. The symptoms of a DVT that has traveled to the lungs (pulmonary embolism, PE) usually start suddenly and include: ?? Shortness of breath while active or at rest. ?? Coughing or coughing up blood or blood-tinged mucus. ?? Chest pain that is often worse with deep breaths. ?? Rapid or irregular heartbeat. ?? Feeling light-headed or dizzy. ?? Fainting. ?? Feeling anxious. ?? Sweating. There may also be pain and swelling in a leg if that is where the blood clot started. How is this prevented? ?? Exercise regularly. For at least 30 minutes every day, engage in: ? Activity that involves moving your arms and legs. ? Activity that encourages good blood flow through your body by increasing your heart rate. ?? Exercise your arms and legs every hour during long-distance travel (over 4 hours). Drink plenty of water and avoid drinking alcohol while traveling. ?? Avoid sitting or lying in bed for long periods of time without moving your legs. ?? Maintain a weight that is appropriate for your height. Ask your health care provider what weight is healthy for you. ?? If you are a woman who is over 35 years of age, avoid unnecessary use of medicines that contain estrogen. These include control pills. ?? Do not smoke, especially if you take estrogen medicines. If you need help quitting, ask your health care provider. ?? Wear compression stockings (if told by your health care provider) to help prevent blood clots from forming. High Fiber/High Protein Diet High fiber foods: To prevent constipation ?? Grains Whole-grain breads. Multigrain cereal. Oats and oatmeal. Brown rice. Barley. Bulgur wheat. Millet. Bran muffins. Popcorn. [place] wafer crackers. ?? Vegetables Sweet potatoes. Spinach. Kale. Artichokes. Cabbage. Broccoli. Green peas. Carrots. Squash. ?? Fruits Berries. Pears. Apples. Oranges. Avocados. Prunes and raisins. Dried figs. ?? Meats and Other Protein Sources [place], kidney, dimas, and soy beans. Split peas. Lentils. Nuts and seeds. ?? Dairy Fiber-fortified yogurt. ?? Beverages Fiber-fortified soy milk. Fiber-fortified orange juice. ?? Other Fiber bars. High-protein foods: To promote healing High-protein foods contain 4 grams (4 g) or more of protein per serving. They include: ?? Beef, ground sirloin (cooked) - 3 oz have 24 g of protein. ?? Cheese (hard) - 1 oz has 7 g of protein. ?? Chicken breast, boneless and skinless (cooked) - 3 oz have 13.4 g of protein. ?? Cottage cheese - 1/2 cup has 13.4 g of protein. ?? Egg - 1 egg has 6 g of protein. ?? Fish, filet (cooked) - 1 oz has 6-7 g of protein. ?? Garbanzo beans (canned or cooked) - 1/2 cup has 6-7 g of protein. ?? Kidney beans (canned or cooked) - 1/2 cup has 6-7 g of protein. ?? Palumbo (cooked) - 3 oz has 24 g of protein. ?? Milk - 1 cup (8 oz) has 8 g of protein. ?? Nuts (peanuts, pistachios, almonds) - 1 oz has 6 g of protein. ?? Peanut butter - 1 oz has 7-8 g of protein. ?? Pork tenderloin (cooked) - 3 oz has 18.4 g of protein. ?? Pumpkin seeds - 1 oz has 8.5 g of protein. ?? Soybeans (roasted) - 1 oz has 8 g of protein. ?? Soybeans (cooked) - 1/2 cup has 11 g of protein. ?? Soy milk - 1 cup (8 oz) has 5-10 g of protein. ?? Soy or vegetable sudhir - 1 sudhir has 11 g of protein. ?? [place] seeds - 1 oz has 5.5 g of protein. ?? Tofu (firm) - 1/2 cup has 20 g of protein. ?? Tuna (canned in water) - 3 oz has 20 g of protein. ?? Yogurt - 6 oz has 8 g of protein. Fall Prevention ?? Use night lights. ?? Install grab bars by the toilet and in the tub and shower. Do not use towel bars as grab bars. ?? Use non-skid mats or decals on the floor of the tub or shower. ?? If you need to sit down while you are in the shower, use a plastic, non-slip stool. ?? Keep the floor dry. Immediately clean up any water that spills on the floor. ?? Remove soap buildup in the tub or shower on a regular basis. ?? Remove throw rugs and other tripping hazards from the floor. ?? Place frequently used items in [id number] places ?? Keep electrical cables out of the way. ?? Do not leave any items on the stairs. ?? Make sure that there are handrails on both sides of the stairs. Fix handrails that are broken or loose. Make sure that handrails are as long as the stairways. ?? Check any carpeting to make sure that it is firmly attached to the stairs. Fix any carpet that is loose or worn. ?? Avoid having throw rugs at the top or bottom of stairways, or secure the rugs with carpet tape to prevent them from moving. ?? Wear closed-toe shoes that fit well and support your feet. Wear shoes that have rubber soles or low heels. ?? Use mobility aids as needed, such as canes, walkers, scooters, and crutches. ?? Turn on lights if it is dark. Replace any light bulbs that burn out. ?? Set up furniture so that there are clear paths. Keep the furniture in the same spot. ?? Be aware of any and all pets. ?? Review your medicines with your healthcare provider. Some medicines can cause dizziness or changes in blood pressure, which increase your risk of falling. Hand Washing You should wash your hands whenever you think they are dirty. You should also wash your hands: ?? After: ? Working or playing outside. ? Touching an animal or its toys or leash. ? Handling livestock. ? Using the bathroom. ? Using household motion graphics artist or toxic chemicals. ? Touching or taking out the garbage. ? Touching anything dirty around your home. ? Handling soiled clothes or rags. ? Taking care of a sick child. This includes touching used tissues, toys, and clothes. ? Sneezing, coughing, or blowing your nose. ? Using public transportation. ? Shaking hands. ? Using a phone, including your mobile phone. ? Touching money. ?? Before and after: ? Preparing food. ? [...] 4. Repeat the process for each step. ?? Always keep both feet within the width of the walker's legs or wheels. ?? When using your walker, you should not feel like you need to lean forward or to the side to keep your hands on the handgrips. ?? Make sure you are following any weight-bearing instructions that your health care provider has given you. ?? Be careful not to let the walker get too far ahead of you as you walk. ?? If your walker does not glide well [...] 5. Step down with your stronger leg. Orthopedics How to walk with a walker The [...] To Walk With a Standard Walker: 1. supervisor audit clerks your walker. Do not slide your standard [...] each step. To Walk With a Front-Wheeled Walker:1. Slide your front-wheeled walker one step-length in front of you. Your toes should be farther forward than the back legs of your walker. 2. Hold on to the walker for support, and step your weaker leg into the middle of the walker. 3. Step your stronger leg forward to land next to your weaker leg. 4. Repeat the process for each step. Tips??? Always keep both feet within the width [...] hands to the handgrips of the walker. Tips??? Do notpull on the walker when you [...] To Sit Down in a Seat Without Armrests:1. Back up toward the side of the [...] step To Use a Walker to Step Up:1. Put all four legs of the walker [...] 01/31/2006 Document Revised: 06/30/2016 Document Reviewed: 08/15/2015 [employer] Interactive Patient Education ? 2017 [employer] Preventive Medicine Fall Prevention in the Home Introduction Falls [...] items that you use a lot in [id number] places. ??? If you need to reach something above you, use a strong step stool that has a grab bar. ??? Keep electrical cords out of the way. ??? Do notuse floor equatorial guinean or wax that makes floors slippery. If [...] do to help prevent falls? Wear shoes that:? Do nothave high heels. ? Have rubber bottoms. ? Are comfortable and fit you well. ? Are closed at the toe. Do not wear sandals. ??? If you use a stepladder:? Make sure that it is fully opened. Do not climb a closed stepladder. ? Make sure that both sides of the stepladder are locked into place. ? Ask someone to hold it for you, if possible. ??? Clearly lena and make sure that you can see:? Any grab bars or handrails. ? First [...] 11/27/2009 Document Revised: 07/08/2016 Document Reviewed: 03/07/2015 ? 2017 [employer] documented in this encounter Plan of Treatment Not on file documented as of this encounter Visit Diagnoses Not on filedocumented in this encounter
--- OUTSIDE RECORDS SUMMARY | 2024-07-20 13:02 | XMS_ITS | Encounter Summary ---
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 Name Role Phone Unavailable Primary Care Provider Unavailabl e Encounter Details Date Type Department Care Team (Late st Contact Info) Description 06/15/2018 Transcribed Document [facility] [place] [facility] [place] [address] ProviderDina MD [address] [place] [address] Social History Tobacco Use Types Packs/Day Years Used Date Smoking Tobacco: Never Assessed Sex and Gender Information Value Date Recorded Sex Assigned at Male 08/11/2021 8:10 PM CDT Legal Sex Male 8:10 PM CDT Gender Identity Male 08/11/2021 8:10 PM CDT Sexual Orientation Not on file documented as of this encounter Miscellaneous Notes * Cerner Conversion Note - Historical ProviderMD - 06/15/2018 1:42 AM CDT Event Note Entered On: 06/15/2018 1:46 EDT Performed On: 06/15/2018 1:42 EDT by Wandy Nunez RN Event Note Event Date/Time : 06/14/2018 21:00 EDT Description of Event : After getting report on pt I called Dr. Sousa to make sure that it was okay to discharge the pt. After recieving the Ok I proceeded to get his discharge paper work ready. Before the pt left I examined his aquacel dressing to make sure it was clean, dry, and intact. I gave pt an extra aquacel just in case it was needed. I had pt walk down the lugo and back to his room. I removed the pt IV. P was voididing well. He voided twice since I arrived at 1900. I was able to get pt discharged by 2114. I helped pt to his car where his was waiting. I directed his to a 24 hour pharmacy so that the pt could get his pain meds. I told pt he could have another dose of pain meds at 2330. Wandy Nunez RN - 06/15/2018 1:42 EDT documented in this encounter Plan of Treatment Not on file documented as of this encounter Visit Diagnoses Not on filedocumented in this encounter
--- OUTSIDE RECORDS SUMMARY | 2024-07-20 13:02 | XMS_ITS | Encounter Summary ---
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 Name Role Phone Unavailable Primary Care Provider Unavailabl e Encounter Details Date Type Department Care Team (Late st Contact Info) Description 01/04/2020 Transcribed Document [facility] Family Medicine [address] [place] [address] ProviderDina MD [address] [place] [address] Social History Tobacco Use Types [...] Conversion Note - Dina ProviderMD - 01/04/2020 5:07 [place] [address] CHEN BANEGASStephen GIL :1965 Visit Time:01/04/2020 Your Visit Summary Your Care Team Admitting Physician - MARIALUISA VIRGEN MD-ORGermán Attending Physician - MARIALUISA VIRGEN MD-ORT Primary Care Physician - HILARIO MONZON (REF)MD-INT Referring Physician - MARIALUISA VIRGEN MD-ORT Your Diagnosis Pseudarthrosis after fusion or arthrodesis, Pseudarthrosis after fusion or arthrodesis These Are Your Goals to be pain free Discharge Vitals Temperature 36.4 ??C Heart Rate (Monitored) 85 Respiratory Rate 16 Blood Pressure 147/88 What to do next Instructions From Your Care Team Discharge Follow Up Instructions: as per sx. booking sheet/order on chart-my office, [place] office, 10-14 days Activity: , minimize bending, twisting, Walker when necessary safety, Discharge Activity: No strenuous activities Diet: Discharge Diet: Regular diet as tolerated Wound/Incision Care Instructions: Keep operative site/wound clean and dry, patient may shower daily, if has waterproof dressing.Check dressing prior to discharge, if any soiling, change dressing. Showering/Bathing Instructions: May shower, has waterproof dressing. Follow-Up Appointments Follow Up with MARIALUISA VIRGEN MD-ORT When 01/14/2020 01:45 PM EST Where: [address] [place] [address]- Medications What How Much When Instructions Next Dose acetaminophen-hydrocodone (Prentice 10 mg-325 mg oral tablet) 1 Tablet(s) Oral Every 3 Hours as needed sildenafil (sildenafil 20 mg oral tablet) 2 tabs Oral erectile dysfunction as needed Take your medications faithfully. Do NOT skip [...] This Visit No Immunizations Found Education Materials FAQ ??? Patient COVID-19 testing Why do I need a COVID-19 test in the hospital? We are testing patients as part of an overall effort to ensure the safety of our patients, staff and providers, and to limit the spread of the novel coronavirus throughout our community. What happens if I test positive for COVID-19? Any scheduled elective procedure will be postponed and treatment for the coronavirus will follow the protocol that is currently in place. If you are admitted to the hospital, we will use droplet precautions for patients who test positive for COVID-19. If I???m a patient, should I wear a mask? Yes. When you are in your room alone, you may remove your mask. When anyone enters your room, you should put your mask back on. Will I be allowed to have visitors if I am admitted to the hospital with COVID-19? As part of the standard care for COVID-19 patients, visitors will not be allowed to protect them from potential exposure to the novel coronavirus. If you have a health care support person with you during a pending test and the test comes back positive, your visitor will be asked to leave and follow up with their primary care provider. Public health may reach out to them to complete contact tracing. Will my status as COVID-19 positive be reported? Because COVID-19 is a public health threat, all positive cases are reported through the local health department and the [place] Department for Public Health. Those organizations are responsible for monitoring public health threats. What is contact tracing? The public health departments at the state and local levels use contact tracing to prevent the spread of infectious disease. They will work to identify people who have COVID-19 and their contacts who may have been exposed. What does contact tracing involve? Typically, a contact tracer will interview patients with COVID-19 to identify everyone with whom they have had close contact during the time they may have been infectious and then notify those contacts of potential exposure and refer them for testing. They may monitor the contacts for symptoms of COVID-19 and connect the contacts with services they may need during a recommended self-quarantine period. The patient???s name is not revealed to anyone during the contact tracing interviews, even if a contact asks. Who would be considered a ???close contact?? ? According to the CDC, a close contact is defined as someone who was within 6 feet of an infected person for at least 15 minutes, starting from 48 hours before the person began feeling sick until the time the patient was isolated. What can a close contact expect during this process? A contact tracer from the health department will contact that person to inform them they have been exposed to COVID-19. If that happens, the contact should self-quarantine for 14 days, starting from the last date of possible exposure, monitor their health, wear a face covering and maintain social distancing ??? at least 6 feet from others at all times. Should a close contact seek medical care? Close contacts should take their temperature twice a day, watch for COVID-19 symptoms and notify the health department if they develop symptoms. They should also notify people with whom they have had recent close contact if they become ill. They should seek medical care if symptoms worsen or become severe, including trouble breathing, persistent pain or pressure in the chest, confusion, inability to wait or stay awake, or bluish lips or face. Steps to Help Prevent the Spread of COVID-19 if You Are Sick In all cases, follow the guidance of your health care provider and local health department. Your local health department determines the length of time for quarantine and will notify you with detailed information. Monitor your symptoms. Common symptoms of COVID-19 include fever, fatigue, diarrhea/vomiting, loss of taste and smell, and cough. Trouble breathing is a more serious symptom that means you should get medical attention. If you develop emergency warning signs for COVID-19 get medical attention immediately. Emergency warning signs include*: ??? Trouble breathing ??? Persistent pain or pressure in the chest ??? New confusion or inability to arouse ??? Bluish lips or face *This list is not all inclusive. Please consult your medical provider for any other symptoms that are severe or concerning. Call 911 if you have a medical emergency. If you have a medical emergency and need to call 911, notify the escalator operator that you have, or think you might have, COVID-19. If possible, put on a facemask before medical help arrives. Stay home except to get medical care. ??? Stay home: Most people with COVID-19 have mild illness and can recover at home without medical care. Do not leave your home, except to get medical care. Do not visit public areas. ??? Stay in touch with your doctor. Call before you get medical care. Be sure to get care if you have trouble breathing, or have any other emergency warning signs, or if you think it is an emergency. Separate yourself from other people in your home; this is known as home isolation. ??? Stay away from others: As much as possible, stay away from others. You should stay in a specific ???sick room?? if possible, and away from other people in your home. Use a separate bathroom, if available. Call ahead before visiting your doctor. ??? Call ahead: Many medical visits for routine care are being postponed or done by phone or telemedicine. If you have a medical appointment that cannot be postponed, call your doctor's office, and tell them you have or may have COVID-19. This will help the office protect themselves and other patients. If you are sick, wear a facemask in the following situations, if available. ??? If you are sick: You should wear a facemask, if available, when you are around other people (including before you enter a health care provider???s office). ??? If you are caring for others: If the person who is sick is not able to wear a facemask (for example, because it causes trouble breathing), then as their caregiver, you should wear a facemask when in the same room with them. Visitors, other than caregivers, are not recommended. Cover your coughs and sneezes. ??? Cover: Cover your mouth and nose with a tissue when you cough or sneeze. ??? Dispose: Throw used tissues into a lined trash can. ??? Wash hands: Immediately wash your hands with soap and water for at least 20 seconds. If soap and water are not available, clean your hands with an alcohol-based hand land law examiner that contains at least 60% alcohol. Clean your hands often. ??? Wash hands: Wash your hands often with soap and water for at least 20 seconds when visibly dirty. This is especially important after blowing your nose, coughing or sneezing, and going to the bathroom, and before eating or preparing food. ??? Hand land law examiner: Use an alcohol-based hand land law examiner with at least 60% alcohol, covering all surfaces of your hands and rubbing them together until they feel dry. ??? Avoid touching: Avoid touching your eyes, nose and mouth with unwashed hands. Avoid sharing personal household items. ??? Do not share: Do not share dishes, drinking glasses, cups, eating utensils, towels or bedding with other people in your home. ??? Wash thoroughly after use: After using these items, wash them thoroughly with soap and water or put them in the mesh cutter. Clean all high-touch surfaces every day. Clean high-touch surfaces in your isolation area (???sick room?? and bathroom) every day; let a caregiver clean and disinfect high-touch surfaces in other areas of the home. ??? Clean and disinfect: Routinely clean high-touch surfaces in your ???sick room?? and bathroom. Let someone else clean and disinfect surfaces in common areas, but not your bedroom and bathroom. ? If a caregiver or other person needs to clean and disinfect a sick person???s bedroom or bathroom, they should do so on an as-needed basis. The caregiver/other person should wear a mask and wait as long as possible after the sick person has used the bathroom. ? High-touch surfaces include phones, remote controls, counters, tabletops, doorknobs, bathroom fixtures, toilets, keyboards, tablets and bedside tables. ??? Clean and disinfect areas that may have blood, stool, or body fluids on them. ??? Household director search and disinfectants: Clean the area or item with soap and water or another detergent if it is dirty. Then, use a household disinfectant. ??? Be sure to follow the instructions on the label to ensure safe and effective use of the product. Many products recommend keeping the surface wet for several minutes to ensure germs are killed. Many also recommend precautions such as wearing gloves and making sure you have good ventilation during use of the product. ??? Most EPA-registered household disinfectants should be effective. A full list of disinfectants can be found here: https://www.epa.gov/pesticide-registration/euhx-x-wmfiptprscbkd-fvd-suzkrho-bx rs-cov-2 What to expect after the Procedure: After [...] hot tub for one month after surgery. Other: ??? Use ice therapy for 20-30 [...] Barley. Bulgur wheat. Millet. Bran muffins. Popcorn. [place] wafer crackers. ??? Vegetables Sweet potatoes. Spinach. Kale. Artichokes. Cabbage. Broccoli. Green peas. Carrots. Squash. ??? Fruits Berries. Pears. Apples. Oranges. Avocados. Prunes and raisins. Dried figs. ??? Meats and Other Protein Sources [place], kidney, dimas, and soy beans. Split peas. [...] sudhir has 11 g of protein. ??? Heartwell seeds ??? 1 oz has 5.5 g [...] floor. ??? Place frequently used items in xejk-dn-muakm places ??? Keep electrical cables out of [...] ? Using the bathroom. ? Using household director search or toxic chemicals. ? Touching or taking [...] recommended as a substitute for hand washing. diazepam (dye AZ e melanie) Valium What is the most important information I should know about diazepam? You should not use this medicine if you are allergic to diazepam or similar medicines (Klonopin, Xanax, and others), or if you have myasthenia gravis, severe liver disease, narrow-angle glaucoma, a severe breathing problem, or sleep apnea. MISUSE OF THIS MEDICINE CAN CAUSE ADDICTION, OVERDOSE, OR , especially in a child or other person using the medicine without a prescription. Fatal side effects can occur if you use this medicine with opioid medicine, alcohol, or other drugs that cause drowsiness or slow your breathing. Do not give this medication to a child younger than 6 months old. What is diazepam? Diazepam is a benzodiazepine (vuw-iod-qiz-AZE-eh-peen) that is used to treat anxiety disorders, alcohol withdrawal symptoms, or muscle spasms. Diazepam is sometimes used with other medications to treat seizures. Diazepam may also be used for purposes not listed in this medication guide. What should I discuss with my healthcare provider before taking diazepam? You should not use this medicine if you are allergic to diazepam or similar drugs (Klonopin, Xanax, and others), or if you have: ?? myasthenia gravis (a muscle weakness disorder); ?? severe liver disease; ?? a severe breathing problem; ?? sleep apnea (breathing stops during sleep); or ?? alcoholism, or addiction to drugs similar to diazepam. Tell your doctor if you have ever had: ?? glaucoma; ?? asthma, emphysema, bronchitis, chronic obstructive pulmonary disorder (COPD), or other breathing problems; ?? kidney or liver disease; ?? epilepsy or other seizure disorder; ?? a drug or alcohol addiction; or ?? mental illness, depression, or suicidal thoughts or behavior. When treating seizures, do not start or stop taking diazepam during without your doctor's advice. Diazepam may cause harm to an unborn baby, but having a seizure during could harm both the mother and the baby. Tell your doctor right away if you become while taking diazepam for seizures. When treating anxiety, alcohol withdrawal, or muscle spasms: If you take diazepam while you are , your baby could become dependent on the drug. This can cause life-threatening withdrawal symptoms in the baby after it is born. Babies born dependent on habit-forming medicine may need medical treatment for several weeks. Tell your doctor if you are or plan to become . You should not breast-feed while using this medicine. Diazepam is not approved for use by anyone younger than 6 months old. Do not give this medicine to a child without a doctor's advice. How should I take diazepam? Follow all directions on your prescription label and read all medication guides or instruction sheets. Your doctor may occasionally change your dose. Use the medicine exactly as directed. Diazepam may be habit-forming. Misuse can cause addiction, overdose, or . Keep the medication in a place where others cannot get to it. Selling or giving away this medicine is against the law. Measure liquid medicine carefully. Use the dosing syringe provided, or use a medicine dose-measuring device (not a kitchen spoon). Diazepam should be used for only a short time. Do not take this medicine for longer than 4 months without your doctor's advice. Do not stop using diazepam suddenly, even if you feel fine. Stopping suddenly may cause increased seizures. Follow your doctor's instructions about tapering your dose. Call your doctor at once if you feel that this medicine is not working as well as usual, or if you think you need to use more than usual. You will need frequent medical tests. Store at room temperature away from moisture, heat, and light. Keep track of your medicine. Diazepam is a drug of abuse and you should be aware if anyone is using your medicine improperly or without a prescription. Do not keep leftover diazepam. Just one dose can cause in someone using this medicine accidentally or improperly. Ask your pharmacist where to locate a drug take-back disposal program. If there is no take-back program, flush the unused medicine down the toilet. What happens if I miss a dose? Take the medicine as soon as you can, but skip the missed dose if it is almost time for your next dose. Do not take two doses at one time. What happens if I overdose? Seek emergency medical attention or call the Poison Help line at . An overdose of diazepam can be fatal. Overdose symptoms may include extreme drowsiness, loss of balance or coordination, limp or weak muscles, or fainting. What should I avoid while taking diazepam? Do not drink alcohol. Dangerous side effects could occur. Avoid driving or hazardous activity until you know how this medicine will affect you. Dizziness or drowsiness can cause falls, accidents, or severe injuries. Grapefruit may interact with diazepam and lead to unwanted side effects. Avoid the use of grapefruit products. What are the possible side effects of diazepam? Get emergency medical help if you have signs of an allergic reaction: hives; difficult breathing; swelling of your face, lips, tongue, or throat. Diazepam can slow or stop your breathing, and may occur. A person caring for you should seek emergency medical attention if you have slow breathing with long pauses, blue colored lips, or if you are hard to wake up. Call your doctor at once if you have: ?? weak or shallow breathing; ?? severe drowsiness or feeling like you might pass out; ?? depressed mood, thoughts of suicide or hurting yourself; ?? confusion, hallucinations; ?? anxiety, panic attacks, trouble sleeping; ?? hyperactivity, agitation, aggression, hostility; ?? unusual risk-taking behavior; or ?? new or worsening seizures. The sedative effects of diazepam may last longer in older adults. Accidental falls are common in elderly patients who take benzodiazepines. Use caution to avoid falling or accidental injury while you are taking diazepam. Common side effects may include: ?? drowsiness; ?? tired feeling; ?? muscle weakness; or ?? loss of coordination. This is not a complete list of side effects and others may occur. Call your doctor for medical advice about side effects. You may report side effects to FDA at 1-470-BLU-2019. What other drugs will affect diazepam? Taking diazepam with other drugs that make you sleepy or slow your breathing can cause dangerous side effects or . Ask your doctor before taking a sleeping pill, opioid pain medicine, prescription cough medicine, a muscle relaxer, or medicine for anxiety, depression, or seizures. Other drugs may affect diazepam, including prescription and pmbg-ssw-sgqfpas medicines, vitamins, and herbal products. Tell your doctor about all your current medicines and any medicine you start or stop using. Where can I get more information? Your pharmacist can provide more information about diazepam. Remember, keep this and all other medicines out of the reach of children, never share your medicines with others, and use this medication only for the indication prescribed. Every effort has been made to ensure that the information provided by [employer] is accurate, up-to-date, and complete, but no guarantee is made to that effect. Drug information contained herein may be time sensitive. [employer] information has been compiled for use by healthcare practitioners and consumers in the [place] and therefore [employer] does not warrant that uses outside of the [place] are appropriate, unless specifically indicated otherwise. [employer] drug information does not endorse drugs, diagnose patients or recommend therapy. [employer] drug information is an informational resource designed [...] effective or appropriate for any given patient. [employer] does not assume any responsibility for any aspect of healthcare administered with the aid of information [employer] provides. The information contained herein is not intended to cover all possible uses, directions, precautions, warnings, drug interactions, allergic reactions, or adverse effects. If you have questions about the drugs you are taking, check with your doctor, nurse or pharmacist. Copyright 7083-4471 [employer]. Version: 13.06. Revision Date: 02/01/2018. acetaminophen and oxycodone (a SEET a MIN oh fen and OX i KOE done) Endocet 10/325, Endocet 2.5/325, Endocet 5/325, Endocet 7.5/325, Nalocet, Percocet, Primlev What is the most important information I [...] and peeling. What is acetaminophen and oxycodone? Acetaminophen and oxycodone is a combination medicine used to relieve moderate to severe pain. Acetaminophen and oxycodone may also be used for purposes not listed in this medication guide. What should I discuss with my healthcare provider before taking acetaminophen and oxycodone? You should not use this medicine if you are allergic to acetaminophen or oxycodone, or if you have: ?? severe asthma or breathing problems; or ?? a blockage in your stomach or intestines. Tell your doctor if you have ever had: ?? breathing problems, sleep apnea; ?? liver disease; ?? a drug or alcohol [...] medical treatment for several weeks. Do not breastfeed. This medicine can pass into breast milk and cause drowsiness, breathing problems, or in a nursing baby. How should I take acetaminophen and oxycodone? Follow all directions on your prescription label. Never take this medicine in larger amounts, or for longer than prescribed. An overdose can damage your liver or cause . Tell your doctor if you feel an increased urge to use more of this medicine. Never share this medicine with another person, [...] your doctor at once if you have: ?? noisy breathing, sighing, shallow breathing, breathing that stops during sleep; ?? a light-headed feeling, like you might [...] fertility are permanent. Common side effects include: ?? dizziness, drowsiness, feeling tired; ?? feelings of extreme happiness or sadness; ?? nausea, vomiting, stomach pain; ?? constipation; or ?? headache. This is not a complete list of side effects and others may occur. Call your doctor for medical advice about side effects. You may report side effects to FDA at 5-785-PEB-0114. What other drugs will affect acetaminophen and [...] your doctor knows if you also use: ?? cold or allergy medicines, bronchodilator asthma/COPD medication, [...] affect acetaminophen and oxycodone, including prescription and ejqb-eny-mtwxarq medicines, vitamins, and herbal products. Not all [...] to ensure that the information provided by [employer] is accurate, up-to-date, and complete, but no guarantee is made to that effect. Drug information contained herein may be time sensitive. [employer] information has been compiled for use by healthcare practitioners and consumers in the [place] and therefore [employer] does not warrant that uses outside of the [place] are appropriate, unless specifically indicated otherwise. [employer]s drug information does not endorse drugs, diagnose patients or recommend therapy. [employer] drug information is an informational resource designed [...] effective or appropriate for any given patient. [employer] does not assume any responsibility for any aspect of healthcare administered with the aid of information [employer] provides. The information contained herein is not intended to cover all possible uses, directions, precautions, warnings, drug interactions, allergic reactions, or adverse effects. If you have questions about the drugs you are taking, check with your doctor, nurse or pharmacist. Copyright 3823-8942 [employer]. Version: 20.. Revision Date: 03/07/2019. Emergency Awareness and Preventative Care STROKE is [...] Assistance with quitting is available by contacting 4-288-HPKG-NOW. This is a free resource providing counseling, [...] CPR? There are two easy steps: Call if you see a teen or adult [...] and how to prevent infections, visit www.cdc.gov/sepsis. Test Results Laboratory or Other Results This Visit (last charted value for your 01/04/2020 visit) Microbiology 01/01/2020 5:07 PM Novel Coronavirus 2019: Negative Patient Name:MAKENZIEAD JEFFERY I have received and understand this information and was given the opportunity to ask questions. Patient/[employer] Name: Patient/[employer] Signature: Relationship to Patient: Clinician/Hospital [employer] Signature: Date: Electronically signed by Interface, [facility] Conversion Classified Advertising Clerk María at 06/01/2022 10:57 PM CDT documented in this encounter Plan of Treatment Not on file documented as of this encounter Visit Diagnoses Not on filedocumented in this encounter
--- OUTSIDE RECORDS SUMMARY | 2024-07-20 13:02 | XMS_ITS | Encounter Summary ---
Author Organization [employer] Address [address] [place] [id number] Care Team Providers Care Development Technician Name Role Phone Unavailable Primary Care Provider Unavailabl e Encounter Details Date Type Department Care Team (Late st Contact Info) Description 06/14/2018 Transcribed Document [facility] Family Medicine [facility] [place] [address] ProviderDina MD [address] [place] [address] Social History Tobacco Use Types [...] Conversion Note - Dina ProviderMD - 06/14/2018 3:52 PM CDT Patient: AD MARTINEZ Age: 53 years Sex: Male : 1965 Associated Diagnoses: None Author: CISCO VIRGEN MD-ORT Date: June 14, 2018 PROCEDURE: left sacroiliac joint arthrodesis with instrumentation. Using triangular titanium mesh bone ingrowth cage. PREOPERATIVE DIAGNOSIS(ES): left joint osteoarthritis, disorder, disruption.dysfunction, sacroiliitis, arthropathy POSTOPERATIVE DIAGNOSIS(ES): left sacroiliac joint osteoarthritis, disorder, disruption.dysfunction, sacroiliitis, arthropathy SURGEON: Cisco Virgen M.D. CALENDERING SUPERVISOR: Naveen Tapia The duties of the assistant hairstylist are to carefully position the patient onto the table, thereafter during the surgery, to carefully maintain the retractor, to hold the drill guide. The drill guide is directed towards the sacroiliac joint and is off just by a couple of millimeters, this could result in damaging to the neurovascular structures, drilling into the nerve roots, or the structures of the pelvis. Therefore, it is of absolute importance that the assistant hairstylist is present to maintain that in proper position. Assistance with closure, then assisting transfer of patient to the post op. bed. The surgeon does the remainder of the surgery. DVT prophylaxis- yes ANTIBIOTIC:administered TIME-OUT: Performed. ANESTHESIA: General. BLOOD LOSS: Less than 10 Ramires FINDINGS: Sacroiliac joint osteoarthritis. Dysfunction. Sacroiliitis COMPLICATIONS: Negative. Preoperative marking of the surgery site performed. Pathology identified, severe sacroiliac joint osteoarthritis and dysfunction. FLUOROSCOPY: 2.0 minutes The operating surgeon, Dr. Virgen, carefully positioned the fluoroscopic unit, and then managed the fluoroscopic unit in five different planes; pelvic inlet, pelvic outlet, lateral view, oblique view, and AP views, supervising each of these positions. PHYSICIAN QUALITY REPORTING SYSTEM, PAYMENT FOR PERFORMANCE SERVICES Antibiotics was administered with when 1 hour of incision. Antibiotics hdljiz-scbrg-ovpxlfjsln cephalosporin-Ancef discontinuation of antibiotics within 24 hours Mechanical DVT prophylaxis Catheter-no use was required. Tobacco cessation SURGICAL INDICATIONS: Symptoms-Severeleft pain, sacroiliac area. Below L5-S1. Posterior thigh pain, down to the level with knee, anterior thigh pain and leftt groin pain. Pain rated 10 out of 10 with activity, present most of the time, symptoms unbearable, for greater than 12 months, hasn't present much longer, but worse overtime 6 months. Symptom duration at least 6 years, is just in the last year worsening of symptoms. Especially worse getting in and out of a chair, single stance gait, twisting or lifting through the left sacroiliac joint. Unable to stand more than 10 minutes, sit more than 10 minutes on the symptomatic side, cannot do dishes, loading senior it specialist,, laundry, activity around the home. Shopping. Housecleaning, non-nerve root compressive radiculopathy. Nerve root compressive symptoms are not identified. Previous decompression fusion with long lumbar fusion, L4 L5 S1 with instrumentation. Instrumentation removal on the left side does not help. Patient feels crepitus, to the left sacroiliac joint. Treatments-failure with modification of activity, anti-inflammatory medication, cortisone injection, rest, strengthening exercises, pain medication, neuropathic agents. Therapeutic sacroiliac joint injection given temporary relief only. Examination-maximal tenderness at She's point, reproduction of clinical pain with provocative testing including the Klaus test, compression tests shear test distraction, and gaze Karli's maneuver. Plain i-vorz-otidrn multilevel disc degeneration. Sacroiliac joint sclerosis,leftt side. Imaging studies-CT scan sacroiliac joint, confirming sclerosis, osteophytes, reactive bone formation, cyst formation, anterior and posterior osteophytes. Diagnostic injection-fluoroscopic control injection into the sacroiliac joint with local anesthetic, within minutes relieving the patient's symptoms, greater than 90%, and then with the cortisone effect, temporary improvement for several days. Then recurrence of symptoms. Instantaneous relief, with the local anesthetic effect. Alternative pathologies-ruled out, good range of motion in the hip joints, x-rays of the hips looking relatively normal. Lumbar spine MRI does not correlate with the patient's symptoms and diagnostic block-looks solid, and appears to be fused. No nerve root compressive lesions identified. Recommendation. Patient has been encouraged to live with the symptoms. Patient states the symptoms are unbearable. Greatly causing great decrease in function secondary to pain. The source of the symptoms have been identified with imaging studies, diagnostic blocking physical examination. There is a reasonable chance, that with minimal invasive sacroiliac joint arthrodesis on the left side, the symptoms can be treated. Tobacco cessation No tobacco use has been present on the patient over the patient be allowed to use tobacco or tobacco products. Summary of indications-criteria 1. Patient havingsevere unrelenting pain greater than 6 months duration, failure of conservative treatment, including rest, physical therapy, anti-inflammatory medication, exercises, pain medication, hearing healthcare practitioner, injection therapy. 2. Symptoms are localized, to the sacroiliac joint, on the right side. Below L5-S1. 3. Provocative testing, reproduction of clinical pain with all 5 out of 5 sacroiliac provocative test. 4. D-vijm-isiowohfzat all sources of pain, that may be coming from the spine.eliminating other pelvic pathology. Or other sources. 5. MRI study, CT scan, eliminating other sources of pain. Such as lumbar spine. 6. Imaging studies sacroiliac joint-sclerosis, osteophytes, cyst formation, vacuum phenomena, consistent with sacroiliac joint sacroiliitis. 7. Diagnostic SI joint block with local and aesthetic, relieving greater than 80% of the patient's symptoms, for the duration of the local anesthesia. Repeated on several occasions. 8. Therapeutic SI joint block with cortisone, relieving patient's symptomsfor therapeutic effect only. Lasting several days. Not giving long-term relief COMORBIDITIES Chronic pain. 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 general anesthetic was administered. Antibiotics were administered.DVT protocol. The patient was very gently placed prone on the OR table. Preoperative planning required to development of a blueprint. The blueprint was developed The combination of all these pictures allowed me to carefully create a blueprint, for the patients surgery, and then placed this blueprint on paper. The blueprint was then transferred over onto the patient's back using the five-plane fluoroscopy, and laser supervised by the surgeon. Washed and prepped. Sterile draping. Time-out. A lateral incision was made measuring approximately2-3 inches in length.,leftside. The assistant hairstylist carefully retacting and suctioning and myself carefully dissected through the fascia and gluteus muscle on to the ilium, and then carefully locking the retractor down with manual retraction onto the ilium. Through this incision, very careful dissection through the soft tissues,division of the facscia and muscles onto the ilium overlying the SI joint Scraping periosteum, placement of the heavy guide pin through the ileum into the joint, then into the sacrum, followed by drilling with the 6 mm drill. This was confirmed with five-plane fluoroscopy. Then, drilling of the heavy guidewire, through the ilium into the sacroiliac joint. Identification of the sacroiliac joint, then very carefully making certain in all five planes that it was going into the pelvis or into the neurologic structures. It was absolutely imperative, the assistant hairstylist carefully hold the guide and not move it.Then withdirect visualization, placement of the heavy guide pin through the ilium, into the SI joint, and then into the sacrum. Two further pins were placed in the same fashion. These were placed with assistence with the parallel guide, 15 mm apart from each other, drilling through the lateral ilium, into the sacroiliac joint, then the sacrum. Again, we checked in five-plane fluoroscopy. Measuring for implant length. This was followed by drilling with a 6-mm drill bit, through the ilium into the sacroiliac joint into the sacrum. Bone graft harvested and placed int the SI joint bed fusion site, Subsequent to that broaching with the josselyn cox. Fixatiion of the joint with the bio ingrowth fixation pin,checking final position with xray in 5 planes. The two remainder devices were placed in the same fashion. This was done very carefully. Placement of the retractor drill guide, onto the ilium,retracting the muscle, measuring for fixation pin length , elevating the periosteum, drilling across the sacroiliac joint, bone graft harvest and bone grafting the SI joint fusion site. grafting, broaching, and then placement of the bio ingrowth fixation devices. All three devices were placed and carefull confirmation on the x-rays, making certain that they were properly positioned in all five planes. The wounds were washed out. Local infiltration. Deep fascia repaired with #1 Vicryl, subcu with 2-0 Vicryl, skin with dae. Antibiotic dressing. Patient was transferred to Recovery in good condition. Patient will remain in the hospital until stable and ambulatory.and pain controlled. Cisco Virgen M.D. June 14, 2018 1555 Eastern standard time Signature Line documented in this encounter Plan of Treatment Not on file documented as of this encounter Visit Diagnoses Not on filedocumented in this encounter
--- OUTSIDE RECORDS SUMMARY | 2024-07-20 13:02 | XMS_ITS | Encounter Summary ---
Author Organization [employer] Address [address] [place] [id number] Care Team Providers Care Mixing Machine Tender Cork Gasket Name Role Phone Unavailable Primary Care Provider Unavailabl e Encounter Details Date Type Department Care Team (Late st Contact Info) Description 06/14/2018 Transcribed Document [facility] [place] Family Medicine [facility] [address] ProviderDina MD [address] [place] [address] Social History Tobacco Use Types [...] Conversion Note - Historical ProviderMD - 06/14/2018 12:51 PM CDT Pre Procedure Adult Entered On: 06/14/2018 12:58 EDT Performed On: 06/14/2018 12:51 EDT by LAWRENCE WEBSTER RN Height and Weight, Clinical Dosing Height Source : Stated Height Entry Format : [place] Height, Feet : 6 ft(Converted to: 183 cm, 72 Inch) Height, Inches : 4 Inch(Converted to: 0 ft 4 Inch, 10.16 cm) Clinical Height : 193.04 cm Weight Source : Standing scale Weight Entry Format : [place] Clinical Dosing Weight : 107.27 kg Weight, Pounds : 236 lb Body Surface Area (BSA) : 2.38 m2 Body Mass Index : 28.8 kg/m2 (HI) [place] Body Weight : 86 kg LAWRENCE WEBSTER RN - 06/14/2018 12:51 EDT Health Histories Smoking Status : Never (less than 100 in lifetime; none in last 30 days), Former smoker, quit more than 30 days ago Smokeless Tobacco Status : Never Implant/Device Type, Commanding Officer Traffic Division and Model : metal rods back LAWRENCE WEBSTER RN - 06/14/2018 12:51 EDT Social History (As Of: 06/14/2018 12:58:26 EDT) Tobacco: stopped years ago Smoking Status. [...] Region : No Tuberculosis Symptoms : None LAWRENCE WEBSTER RN - 06/14/2018 12:51 EDT Anesthesia/Transfusion History Family History of Anesthesia Reaction : No prior transfusion(s) Transfusion History : Prior anesthesia without reaction Family History of Anesthesia Reaction : None LAWRENCE WEBSTER RN - 06/14/2018 12:51 EDT Functional Assessment Living Situation : Home Patient Lives With : Spouse Persons Assisting Patient at Home : Spouse Current Daily Living Assistance : None Sensory Deficits : None Mobility Assistance Prior to Admission : Independent STEELE Hx Falls Immediate/Within 3 Months : No Current Home Treatments : None LAWRENCE WEBSTER RN - 06/14/2018 12:51 EDT Psychosocial History Currently in Unsafe Situation : No Tried to Harm Yourself in the Past? : No Thoughts of Harming/Killing Yourself : No LAWRENCE WEBSTER RN - 06/14/2018 12:51 EDT Advance Directive Patient has Advance Directive *Q : No, patient refuses Advance Directive information LAWRENCE WEBSTER RN - 06/14/2018 12:51 EDT Spiritual/Cultural Needs Any Spiritual/Cultural Needs or Requests : No Alevism Preference : Other: Pentecostal LAWRENCE WEBSTER RN - 06/14/2018 12:51 EDT Teaching/Learning Assessment Barriers To Learning : None evident Individuals Taught : Patient Readiness to Learn : Cooperative Baseline Knowledge of Topic : Comprehensive Readiness to Learn : Explanation Learning Style Preferences Patient : None LAWRENCE WEBSTER RN - 06/14/2018 12:51 EDT General Info Arrived From : Home Mode of Arrival on Unit : Ambulatory Patient Arrival Date/Time : 06/14/2018 12:00 EDT Legal Guardian : Spouse Support Person/Pt Rep Name : Jayne Owen Family/Rep/Phys Notified of Admit : No Emergency Contact #1 : Jayne Martinez Emergency Contact #1 Emergency Contact #1 Relationship : spouse Emergency Contact #2 : . Emergency Contact #2 Phone Number : . Emergency Contact #2 Relationship : . Primary Language : Algerian Communication Barrier : None LAWRENCE WEBSTER RN - 06/14/2018 12:51 EDT Vital Measurements Temperature Source : Oral Temperature Mode : Fahrenheit Temperature, Fahrenheit : 99.3 Deg F Clinical Temperature, C : 37.4 Deg C Pulse Method : Pulse Oximetry Peripheral Pulse Rate : 60 bpm Pulse Rhythm : Regular Respiratory Rate : 16 Breaths/Min Blood Pressure Location : Arm, right upper Blood Pressure Source : Non-Invasive BP Device Blood Pressure Position : Sitting Systolic Blood Pressure : 133 mmHg Diastolic Blood Pressure : 86 mmHg Oxygen Saturation : 98 % Oxygen Therapy Mode : Room air LAWRENCE WEBSTER RN - 06/14/2018 12:51 EDT Sleep Apnea Risk Assmt Hx of [...] Sleep Apnea Risk Level Score : 4 LAWRENCE WEBSTER RN - 06/14/2018 12:51 EDT Edmond Scale Edmond Sensory Perception : No impairment [place] Moisture : Rarely moist [place]mond Activity : Walks frequently Ed[place] Mobility : No limitation Edmond Nutrition : Excellent Edmond Friction and Shear : No apparent problem Edmond Score : 23 LAWRENCE WEBSTER RN - 06/14/2018 12:51 EDT Oxygen Therapy Oxygen Therapy Mode : Room air Pulse Oximeter Probe Site : Hand, right Oxygen Saturation (%) : 98 % LAWRENCE WEBSTER RN - 06/14/2018 12:51 EDT Pain Assessment Pain Assessment : Initial assessment Pain Scale Used : 0-10 Scale LAWRENCE WEBSTER RN - 06/14/2018 12:51 EDT Fall Risk Scales ABCs Fall Injury Risk Identification : None STEELE Hx Falls Immediate/Within 3 Months : No Steele Secondary Diagnosis : No STEELE Use of Ambulatory Aid : None STEELE IV Therapy or IV Access : Yes Steele Gait/Transferring : Normal, bedrest, immobile Steele Mental Status : Oriented to own ability Steele Fall Risk Score : 20 STEELE Fall Scale Risk Level : 0-24 Low Risk [place] Fall Interventions : Bed in low position, Call device within reach, Hourly comfort/safety rounds, Non-slip footwear, Upper side-rails up, Wheels locked Barriers to Learning : None evident Readiness to Learn : Cooperative Baseline Knowledge of Topic : Comprehensive Teaching Method : Explanation Learning Style Preferences Patient : Verbal explanation Teaching Evaluation : Verbalizes understanding LAWRENCE WEBSTER RN - 06/14/2018 12:51 EDT Education Topics, Day of Surgery DayofSurgery Education Grid Anesthesia/Sedation : Verbalizes understanding IV's : Verbalizes understanding Medication Instructions : Verbalizes understanding Pain Management : Verbalizes understanding LAWRENCE WEBSTER RN - 06/14/2018 12:51 EDT Valuables and Belongings Valuables and Belongings : Clothing, Personal items Clothing : Common streetwear Clothing Disposition : With family Personal Items : Cell phone, Wallet Personal Items Disposition : With family LAWRENCE WEBSTER RN - 06/14/2018 12:51 EDT Pain Scale Intensity : 4 LAWRENCE WEBSTER RN - 06/14/2018 12:51 EDT Image 4 - Images currently included in the form version of this document have not been included in the text rendition version of the form. documented in this encounter Plan of Treatment Not on file documented as of this encounter Visit Diagnoses Not on filedocumented in this encounter
--- OUTSIDE RECORDS SUMMARY | 2024-07-20 13:02 | XMS_ITS | Encounter Summary ---
Author Organization [facility] [employer] [facility] Address [address] [place] [address] Care Team Providers Care Social Work Program Coordinator Name Role Phone Unavailable Primary Care Provider Unavailabl e Encounter Details Date Type Department Care Team (Late st Contact Info) Description 01/04/2020 Transcribed Document [facility] Family Medicine [address] [place] [address] ProviderDina MD [address] [place] [address] Social History Tobacco Use Types Packs/Day Years Used Date Smoking Tobacco: Never Assessed Sex and Gender Information Value Date Recorded Sex Assigned at Male 08/11/2021 8:10 PM CDT Legal Sex Male 8:10 PM CDT Gender Identity Male 08/11/2021 8:10 PM CDT Sexual Orientation Not on file documented as of this encounter Miscellaneous Notes * Cerner Conversion Note - Dina Weaver MD - 01/04/2020 5:05 PM HIDE HOUSE SUPERVISOR Patient Education Materials Follows: FAQ - Patient COVID-19 testing Why do I need [...] patients who test positive for COVID-19. If I'm a patient, should I wear a mask? [...] all positive cases are reported through the [facility] health department and the [place] Department for Public Health. Those organizations are [...] need during a recommended self-quarantine period. The patient's name is not revealed to anyone during the contact tracing interviews, even if a contact asks. Who would be considered a close contact ? According to the CDC, a close [...] a face covering and maintain social distancing - at least 6 feet from others at [...] and need to call 911, notify the feeder switchboard operator that you have, or think you [...] others. You should stay in a specific sick room if possible, and away from other people [...] (including before you enter a health care provider's office). ??? If you are caring for [...] clean your hands with an alcohol-based hand orange peel operator that contains at least 60% alcohol. Clean your hands often. ??? Wash hands: Wash your hands often with soap and water for at least 20 seconds when visibly dirty. This is especially important after blowing your nose, coughing or sneezing, and going to the bathroom, and before eating or preparing food. ??? Hand orange peel operator: Use an alcohol-based hand orange peel operator with at least 60% alcohol, covering all [...] and water or put them in the scheduling administrator. Clean all high-touch surfaces every day. Clean high-touch surfaces in your isolation area ( sick room and bathroom) every day; let a caregiver clean and disinfect high-touch surfaces in other areas of the home. ??? Clean and disinfect: Routinely clean high-touch surfaces in your sick room and bathroom. Let someone else clean and disinfect surfaces in common areas, but not your bedroom and bathroom. ? If a caregiver or other person needs to clean and disinfect a sick person's bedroom or bathroom, they should do so [...] or body fluids on them. ??? Household commercial correspondent and disinfectants: Clean the area or item with soap and water or another detergent if it is dirty. Then, use a household disinfectant. ?? Be sure to follow the instructions on the label to ensure safe and effective use of the product. Many products recommend keeping the surface wet for several minutes to ensure germs are killed. Many also recommend precautions such as wearing gloves and making sure you have good ventilation during use of the product. ?? Most EPA-registered household disinfectants should be effective. A full list of disinfectants can be found here: https://www.epa.gov/pesticide-registration/whxu-n-hbsswldmcmxcy-xbi-qwroucl-kp rs-cov-2 What to expect after the Procedure: [...] ?? Minimize bending, twisting, and lifting. Bathing: ??? May shower ?? Do not take baths, swim, or use a hot tub for one month after surgery. Other: ?? Use ice therapy for 20-30 [...] Barley. Bulgur wheat. Millet. Bran muffins. Popcorn. [place] wafer crackers. ?? Vegetables Sweet potatoes. Spinach. Kale. Artichokes. Cabbage. Broccoli. Green peas. Carrots. Squash. ?? Fruits Berries. Pears. Apples. Oranges. Avocados. Prunes and raisins. Dried figs. ?? Meats and Other Protein Sources [place], kidney, dimas, and soy beans. Split peas. Lentils. Nuts and seeds. ?? Dairy Fiber-fortified yogurt. ?? Beverages Fiber-fortified soy milk. Fiber-fortified orange juice. ?? Other Fiber bars. High-protein foods: To promote healing High-protein foods contain 4 grams (4 g) or more of protein per serving. They include: ??? Beef, ground sirloin (cooked) - 3 oz have 24 g of protein. ??? Cheese (hard) - 1 oz has 7 g of protein. ??? Chicken breast, boneless and skinless (cooked) - 3 oz have 13.4 g of protein. ??? Cottage cheese - 1/2 cup has 13.4 g of protein. ??? Egg - 1 egg has 6 g of protein. ??? Fish, filet (cooked) - 1 oz has 6-7 g of protein. ??? Garbanzo beans (canned or cooked) - 1/2 cup has 6-7 g of protein. ??? Kidney beans (canned or cooked) - 1/2 cup has 6-7 g of protein. ??? Palumbo (cooked) - 3 oz has 24 g of protein. ??? Milk - 1 cup (8 oz) has 8 g of protein. ??? Nuts (peanuts, pistachios, almonds) - 1 oz has 6 g of protein. ??? Peanut butter - 1 oz has 7-8 g of protein. ??? Pork tenderloin (cooked) - 3 oz has 18.4 g of protein. ??? Pumpkin seeds - 1 oz has 8.5 g of protein. ??? Soybeans (roasted) - 1 oz has 8 g of protein. ??? Soybeans (cooked) - 1/2 cup has 11 g of protein. ??? Soy milk - 1 cup (8 oz) has 5-10 g of protein. ??? Soy or vegetable sudhir - 1 sudhir has 11 g of protein. ??? [place] seeds - 1 oz has 5.5 g of protein. ??? Tofu (firm) - 1/2 cup has 20 g of protein. ??? Tuna (canned in water) - 3 oz [...] floor. ?? Place frequently used items in nymu-kz-gacad places ?? Keep electrical cables out of [...] ? Using the bathroom. ? Using household commercial correspondent or toxic chemicals. ? Touching or taking [...] recommended as a substitute for hand washing. Electronically signed by Stephanie Stahl Conversion Arc Welding Machine Operator Cerner at 06/01/2022 11:08 PM CDT documented in this encounter Plan of Treatment Not on file documented as of this encounter Visit Diagnoses Not on filedocumented in this encounter
--- OUTSIDE RECORDS SUMMARY | 2024-07-20 13:02 | XMS_ITS | Encounter Summary ---
Author Organization Healthcare Address [address] [place] [address] Care Team Providers Care Marketing Copywriter Name Role Phone Seven Diop MD Primary Care Provider Jeromy Perez MD Primary Care Provider [phone] Encounter Details Date Type Department Care Team (Late st Contact Info) Description 06/09/2020 Orders Only External Location [address] [place] [address] [facility] Social History Tobacco Use Types Packs/Day Years [...] Procedure Name Priority Date/Time Associated Diagnosis Comments CT LUMBAR SPINE WO IV CONTRAST 06/09/2020 10:44 AM EDT documented in this encounter Results * CT Lumbar Spine wo IV Contrast (06/09/2020 10:44 AM EDT) Anatomical Region Laterality Modality Spine, L-spine Computed Tomogra phy 06/09/2020 10:4 4 AM EDT [facility] IM CT PROCEDURES Final Result documented in this encounter Visit Diagnoses Not on filedocumented in this encounter Care Teams Marketing Copywriter Relationship Specialty Start Date End Date Seven Diop MD [address] [place] [address] PCP - General 5/14/21 1/19/23 Jeromy Perez MD [id number] [place] [address] PCP - General 03/05/22 documented as of this encounter
--- OUTSIDE RECORDS SUMMARY | 2024-07-20 13:02 | XMS_ITS | Referral Summary ---
Author Organization [facility] Address [address] [place] [address] Care Team Providers Care New Accounts Representative Name Role Phone Unavailable Primary Care Provider Unavailabl e Social History Tobacco Use Types Packs/Day Years Used Date Smoking Tobacco: Never Assessed Sex and Gender Information Value Date Recorded Sex Assigned at Male 08/11/2021 8:10 PM CDT Legal Sex Male 8:10 PM CDT Gender Identity Male 08/11/2021 8:10 PM CDT Sexual Orientation Not on file Plan of Treatment Not on file
--- OUTSIDE RECORDS SUMMARY | 2024-07-20 13:02 | XMS_ITS | Encounter Summary ---
Author Organization [employer] [employer] Address [address] [place] [address] Care Team Providers Care Executive Search Consultant Name Role Phone Unavailable Primary Care Provider Unavailabl e Encounter Details Date Type Department Care Team (Late st Contact Info) Description 06/14/[address] [facility] Family Medicine [address] [place] [address] ProviderDina MD [address] [place] [address] Social History Tobacco Use Types [...] Conversion Note - Historical ProviderMD - 06/14/2018 12:40 PM CDT Pediatric Growth Entered On: 06/14/2018 12:40 EDT Performed On: 06/14/2018 12:40 EDT by Mabel Bolden Patient Delicate Fabrics Presser Height and Weight, Clinical Dosing Height Source : Stated Height Entry Format : [place] Height, Feet : 6 ft(Converted to: 183 cm, 72 Inch) Height, Inches : 4 Inch(Converted to: 0 ft 4 Inch, 10.16 cm) Clinical Height : 193.04 cm Weight Source : Standing scale Weight Entry Format : [place] Clinical Dosing Weight : 107.27 kg Weight, Pounds : 236 lb Body Surface Area (BSA) : 2.38 m2 Body Mass Index : 28.8 kg/m2 (HI) [place] Body Weight : 86 kg Mabel Bolden Patient Delicate Fabrics Presser - 06/14/2018 12:40 EDT documented in this encounter Plan of Treatment Not on file documented as of this encounter Visit Diagnoses Not on filedocumented in this encounter
--- OUTSIDE RECORDS SUMMARY | 2024-07-20 13:02 | XMS_ITS | Encounter Summary ---
Author Organization [facility] [facility] Address [address] [place] [address] Care Team Providers Care Tool Room Lathe Operator Name Role Phone Unavailable Primary Care Provider Unavailabl e Encounter Details Date Type Department Care Team (Late st Contact Info) Description 02/28/2018 Transcribed Document [facility] [place] [address] [place] [address] ProviderDina MD [address] [place] [address] Social History Tobacco Use Types [...] Conversion Note - Historical ProviderMD - 02/28/2018 8:38 AM SQL BI DEVELOPER Vital Measurements Entered On: 02/28/2018 8:39 EST Performed On: 02/28/2018 8:38 EST by ALFREDO NICE RN Vital Measurements Temperature, Fahrenheit : 98 Deg F Clinical Temperature, C : 36.7 Deg C Peripheral Pulse Rate : 67 bpm Systolic Blood Pressure : 147 mmHg (HI) Diastolic Blood Pressure : 96 mmHg (HI) Oxygen Saturation : 99 % ALFREDO NICE RN - 02/28/2018 8:38 EST Electronically signed by Stephanie Stahl Conversion Real Estate Executive Assistant Cerner at 06/01/2022 11:19 PM CDT documented in this encounter Plan of Treatment Not on file documented as of this encounter Visit Diagnoses Not on filedocumented in this encounter
--- OUTSIDE RECORDS SUMMARY | 2024-07-20 13:02 | XMS_ITS | Encounter Summary ---
Author Organization [employer] Address [address] [place] [address] Care Team Providers Care Director Of Conservation Name Role Phone Unavailable Primary Care Provider Unavailabl e Encounter Details Date Type Department Care Team (Late st Contact Info) Description 01/04/2020 Transcribed Document [facility] Family Medicine [address] [place] [address] ProviderDina MD [address] [place] [address] Social History Tobacco Use Types Packs/Day Years Used Date Smoking Tobacco: Never Assessed Sex and Gender Information Value Date Recorded Sex Assigned at Male 08/11/2021 8:10 PM CDT Legal Sex Male 8:10 PM CDT Gender Identity Male 08/11/2021 8:10 PM CDT Sexual Orientation Not on file documented as of this encounter Miscellaneous Notes * Cerner Conversion Note - Historical ProviderMD - 01/04/2020 6:37 PM OXYGEN FURNACE OPERATOR Nursing Discharge Summary Entered On: 01/04/2020 18:39 EST Performed On: 01/04/2020 18:37 EST by Ro Shoemaker Rn Discharge Documentation Discharge Date/Time : 01/04/2020 17:37 EST Patient Disposition, General : Discharge Discharge To : Home with ambulatory/outpatient follow-up Mode Of Departure, General Discharge : Private vehicle Accompanied By, Discharge : Spouse IV Discontinued : Yes Personal Belongings With Patient : Yes Pt's Own Supply of Medications Returned : No Prescriptions Given to Patient : Yes Medications Given to Patient : No Discharge Instructions Reviewed With, Opportunity For Questions Given : Spouse Patient Education Completed : Yes Number of Prescriptions Given : 2 Teaching Method : Explanation, Printed materials Teaching Evaluation : Verbalizes understanding Education Comment : Discharge teaching performed, no concerns or complaints noted, the patients IV removed Ro Shoemaker Rn - 01/04/2020 18:37 EST Electronically signed by [facility], [facility] Conversion Landscape Technician Cerner at 06/01/2022 11:08 PM CDT documented in this encounter Plan of Treatment Not on file documented as of this encounter Visit Diagnoses Not on filedocumented in this encounter
--- OUTSIDE RECORDS SUMMARY | 2024-07-20 13:02 | XMS_ITS | Clinical Summary ---
Author Organization [facility] Address [address] [place] [address] Phone Care Team Providers Care Fish Hatchery Worker Name Role Phone Unavailable Primary Care Provider Unavailabl e Allergies Active Allergy Reactions Criticality Noted Date Comments Meloxicam Other (See Comments) Medium 12/29/2022 Legs turned red. Medications diclofenac (VOLTAREN) 75 mg Oral Tablet, Delayed Release (E.C.) 2 Active gabapentin (NEURONTIN) 300 mg Oral Capsule 6 Active loratadine (CLARITIN) 10 mg Oral Tablet TAKE ONE TABLET BY MOUTH EVERY DAY FOR allergies Active amLODIPine-carmelita zepril (LOTREL) 5-20 mg Oral Capsule Take 1 Capsule by mouth daily. 3 Active HYDROcodone-rj taminophen (NORCO) 7.5-325 mg Oral Tablet TAKE 1 AND 1/2 TABLET BY MOUTH EVERY THREE HOURS NEEDED FOR PAIN Active testosterone cypionate (DEPOTESTOTERON E CYPIONATE) 200 mg/mL IM Oil 1 Active meclizine (ANTIVERT) 25 mg Oral Tablet Take 12.5-25 mg by mouth 3 times daily as needed. Active rosuvastatin (CRESTOR) 20 mg Oral Tablet Take 1 Tablet by mouth nightly. 90 Tablet 3 12/30/2022 4:00 PM EST 3 Active ibuprofen (ADVIL;MOTRIN) 800 mg Oral Tablet 800 mg 3 times daily. 2 Active diclofenac (VOLTAREN) 1 % Top Gel Apply topically 4 times daily. Active Active Problems Problem Noted Date Diagnosed Date Chest pain, unspecified type 12/29/2022 Primary hypertension 12/29/2022 Mixed hyperlipidemia 12/29/2022 Chronic low back pain without sciatica 3 Social History Tobacco Use Types Packs/Day Years Used Date Smoking Tobacco: Never Smokeless Tobacco: Never Alcohol Use Standard Drinks/Week Comments Not Currently 0 (1 standard drink = 0.6 oz pur e alcohol) AUDIT-C Answer Date Recorded Q1: How often do you have a drink containing alcohol? Never 12/29/2022 Q2: How many drinks containi ng alcohol do you have on a typical day when you are drinking? Patient does not drink 3 Q3: How often do you have si x or more drinks on one occasion? Never 12/29/2022 Overall Financial Resource Strain (CARDIA) Answe r Date Recorded How hard is it for you to pa y for the very basics like food, housing, medical care, and heating? Not hard at all 12/29/2022 PHQ-2 Answer Date Recorded PHQ-2 Total Score 1 12/29/2022 Exercise Vital Sign Answer Date Recorde d On average, how many days pe r week do you engage in moderate to strenuous exercise (like a brisk walk)? 0 days 12/29/2022 On average, how many minutes do you engage in exercise at this level? 0 min 12/29/2022 Hunger Vital Sign Answer Date Recorded Within the past 12 months, y ou worried that your food would run out before you got the money to buy more. Never true 12/30/19 23 Within the past 12 months, t he food you bought just didn't last and you didn't have money to get more. Never true 12/29/2022 PRAPARE - Transportation Answer Date Re corded In the past 12 months, has l ack of transportation kept you from medical appointments or from getting medications? No 12/15 In the past 12 months, has l ack of transportation kept you from meetings, work, or from getting things needed for daily living? No 12/29/2022 Sex and Gender Information Value Date Recorded Sex Assigned at Not on file Legal Sex Male 8:43 AM EST Gender Identity Not on file Sexual Orientation Not on file Obstetrics History Last Filed Vital Signs Vital Sign Reading Time Taken Comments Blood Pressure 130/82 03/22/2024 1:36 PM EST Pulse 80 03/22/2024 1:36 PM EST Temperature 36.6 C (97.9 F) 12/30/2022 7:54 AM EST Respiratory Rate 16 12/30/2022 3:04 PM EST Oxygen Saturation 98% 03/22/2024 1:36 PM EST Inhaled Oxygen Concentration - - Weight 123.1 kg (271 lb 6.4 oz) 03/22/2024 1:36 PM EST Height 193 cm (6' 4 ) 03/22/2024 1:36 PM EST Body Mass Index 33.04 03/22/2024 1:36 PM EST Plan of Treatment Upcoming Encounters Date Type Department Care Team (Late st Contact Info) Description 10/11/2024 9:10 AM EDT Office Visit [facility] [address] [address] Yosvany Sanz MD [address] [place] [address] [place] [address] Health Maintenance Due Date Last Done Comments Wellness Exam Medicare 1968 Hepatitis B Vaccine (1 of 3 - 19+ 3-dose series) 1985 Cologuard 2011 Colon Cancer Screening 2011 Colonoscopy 2011 FIT 2011 Sigmoidoscopy 2011 Virtual Colonography 2011 Zoster (1 of 2) 02/12/2016 COVID-19 Vaccine (3 - 2023-2 5 season) 2023 11/07/2020, 10/10/2020 Influenza Vaccine (Season Ended) 2024 DTaP/TDaP/Td (2 - Td or Tdap) 12/15/2032, 04/19/1996 Pneumococcal Vaccine 50+ Completed 022, 11/30/2016 Meningococcal B Vaccine Aged Out No l onger eligible based on patient's age to complete this topic Procedures Procedure Name Priority Date/Time Associated Diagnosis Comments SCANNED LABS 04/29/2024 6:01 PM EDT from Last 3 Months Results * SCANNED LABS (04/29/2024 6:01 PM EDT) 04/29/2024 6:01 PM EDT us Unknown Provider HEMATOLOGY ORDERABLES Final Res ult from Last 3 Months Insurance [place] B Advance Directives For more information, please contact: [phone] * Full Code (Latest Code Status on File) Date Activated Date Inactivated Comments 12/29/2022 9:41 PM 12/30/2022 8:33 PM
--- OUTSIDE RECORDS SUMMARY | 2024-07-20 13:02 | XMS_ITS | Data Portability ---
Author Organization JIM KENDAL [facility] Address [address] [facility] [address] [place] [address] Care Team Providers Care Cold Mill Operator Name Role Phone HILARIO MONZON Referring Provider [phone] HILARIO MONZON Primary Care Provider [phone] Assessment Encounter Date Assessment Date Assessment LastModified by Organization Details LastModified Time 02/27/2018 02/27/2018 Mr. Martinez is a 53-year-old gentleman status post L4-S1 fusion. I'm concerned about nonunion at L5-S1. This could also be SI joint dysfunction. I'm going to send him for a lumbar CT myelogram as well as some standing, flexion extension lumbar x-rays. I will see him back after the studies are complete. He retains his MRI of the lumbar spine. This MRI was performed prior to the left sided hardware being removed. Not available 02/27/2018 09:33:39 03/02/2018 03/02/2018 Mr. Martinez is a 53-year-old gentleman status post L3 to sacral fusion. His x-rays and myelogram showed that the left-sided instrumentation has been removed. He has a pseudomeningocele, but no clear communication with the intrathecal space. It is unclear whether the myelogram dye was injected there separately. He is well fused from L3 to sacrum. He definitely describes pain more at the L5/S1 level. It is hard to imagine a pain generator from L3 to sacrum given a solid fusion. I really must question whether he is having SI joint dysfunction causing his pain. We discussed the option of an SI joint fusion. I will make a referral to Dr. Sousa to discuss this option with him. I'm assuming he would need a bilateral SI joint fusion, but we will see what Dr. Sousa says. He will follow up with me on an as-needed basis. Not available 03/02/2018 12:00:56 08/28/2018 08/28/2018 Mr. Martinez is a 53-year-old gentleman status post SI joint fusion. We again went over his imaging from her previous visit, a CT myelogram. He is well fused from L3 to sacrum. He understands that fusion can take up to 9 months to year. I plan on seeing him back in [address] of his lumbar and pelvis. That will be a PA visit. Not available 08/28/2018 10:59:28 03/15/2019 03/15/2019 Mr. Martinez is a 54-year-old male status post multiple lumbar surgeries with a popping sensation an audible pop in his back accompanied by pain which has fluctuated for several years. We were unable to open the imaging disc from the [facility] as it is passed word protected and the patient does not have the past word with him today. His previous imaging including a CT myelogram and the imaging reports from the [facility] were reviewed again. Dr. Stephens discussed with him that the CT myelogram shows good fusion from L3-S1. He thinks it is unlikely that his pain or the audible pop could be coming from the hardware as he appears well fused. We will have him get a CT scan that includes the sacrum to evaluate his SI joint fusion. We will also have him get bending x-rays to confirm there is no movement in the lumbar spine. We will be in touch with these results. Mr. Martinez has an appointment with Dr. Fritz in pain management coming up shortly. [email or web address] Not available 03/15/2019 16:34:59 Plan of Treatment Reminders Order Date Submit Date Provider Last Modified By Organization Details Last Modified Time Details Appointments None recorded. Lab None recorded. Referral None recorded. Procedures None recorded. Surgeries None recorded. Imaging CT, lumbosacral spine, w/o contrast - Attention to SI joints 2019 020 [facility], [address] [facility], [place], [address], 0 08:00:18 XR, lumbosacral spine, 2 or 3 view, bending only - STANDING WITH WEIGHTS 2019 020 MATTHEW [facility]iology [facility], [address] [place], [address], 0 16:52:41 Medication Orders None recorded. Patient TargetsNo targets recorded. Patient InstructionsNo instructions recorded. Reason for Referral None Reported. Results Created Date Observation Date Name Description Value Unit Range Abnormal Flag Note LastModifiedBy Organization Detail LastModifiedTime 02/28/19 19 02/28/2018 CT, myelo gram, lumba r spine No observ ation record ed. [facility] , [place], [address], 03/02/2018 08:15:58 02/28/19 19 02/28/2018 CT, myelo gram, lumba r spine No observ ation record ed. [facility] Central Scheduling [address], [place], [address], 03/02/2018 16:10:12 02/28/19 19 02/28/2018 XR, lumbo sacra l spine , compl ete No observ ation record ed. [facility] Radiology [facility] [address] [place], [address], 03/02/2018 16:10:45 03/01/19 19 05/13/2017 XR, lumbo sacra l spine , 2 or 3 view No observ ation record ed. [facility] Not Available 2018 07:50:33 03/01/19 19 05/13/2017 CT, pelvi s, w/o contr ast No observ ation record ed. [facility] Not Available 2018 07:50:33 03/01/19 19 05/30/2017 NM, whole body scan No observ ation record ed. [facility] Not Available 2018 07:50:33 03/01/19 19 07/19/2016 MRI, lumba r spine , w/wo contr ast No observ ation record ed. [facility] Not Available 2018 07:50:33 04/25/19 19 02/27/2018 XR, lumbo sacra l spine , compl ete [facility] [address] [place] [address] ADDE NDUM #1 Shayy mc Name: AD mc : 1964 Shayy mc Orderi ng Provid er: ELO Rodriguez CHARO EXAM DATE: 2018 EXAM: XR LUMBAR COMPLE TE WITH FLEX/E XT ADDEND UM: The order for this patien t has been correc priyank. This report has been amende d to reflec t the correc t MRN for the patien t. Interp reted By: Rose Lopez MD Electr onical ly Signed By: Rose Lopez MD on 019 12:55 PM ORIGIN AL REPORT Shayy t Name: AD mc : 1964 Shayy mc 13 Orderi ng Provid er: ELO Rodriguez CHARO EXAM DATE: 2018 EXAM: XR LUMBAR COMPLE TE WITH FLEX/E XT CLINIC AL INFORM ATION: Back pain. IMAGES PROVID ED: Comple te radiog raphic series of the lumbar spine with additi onal latera l views in flexio n and extens ion. COMPAR MARIA INES: None. FINDIN GS AND IMPRES TY: Spinal fusion is noted at L3-S1 levels by surgic al hardwa re in the right side. There is hardwa re is satisf actori ly. No abnorm al moveme nt is seen on flexio n or extens ion. Degene rative change s are seen at other levels Interp reted By: Rose Lopez MD Electr onical ly Signed By: Rose Lopez MD on 019 2:21 PM [facility] Radiology [facility] [address] [place] [address], [address], 04/30/2018 11:59:07 03/15/19 20 03/15/2019 XR, lumbo sacra l spine , 2 or 3 view, bendi ng only [facility] [address] [place] [address] [place] [address] Shayy mc Name: AD mc : 1964 Shayy mc Ordermartha ng [facility]: [facility] EXAM: XR LUMBAR SPINE FLEX/E XT ONLY CLINIC AL INFORM ATION: Back pain. IMAGES PROVID ED: Latera l views of the lumbar spine in flexio n and extens ion. COMPAR MARIA INES: Compar maria ines was made with images and report of XR L-spin e 019. FINDIN GS AND IMPRES TY: Spinal fusion is noted at L3-S2 levels with isolat ion of L4 verteb ra. No abnorm al moveme nt is seen in flexio n or extens ion. Other levels appear normal . No instab ility is noted. Interp reted By: Rose Lopez MD Electr onical ly Signed By: Rose Lopez MD on 020 4:47 PM [email or web address] [address], [address], 03/29/2019 09:17:34 03/16/19 20 03/15/2019 CT, lumbo sacra l spine , w/o contr ast [facility] [address] [place] [address] [place] [address] Shayy mc Name: AD mc : 1964 Shayy mc Orderi ng Provid er: [facility]: 2019 EXAM: CT LUMBAR /SACRU M WITHOU T CONTRA ST HISTOR Y: 54-yea r-old male with low back pain. COMPAR MARIA INES: Radiog raph of the same date. Techni que: 1 mm direct axial slices were obtain ed throug h the lumbar spine. Comput er-gen erated axial, sagitt al, and davies l recons tructi ons are also provid ed for interp retati on. FINDIN GS: The shayy t is status post discec sheila, interb renetta graft, automotive heavy mechanic ior fusion and suzy ctomie s from L3 throug h S1. There are right- sided pedicl e screws at the L3, L5, and S1 levels . There is no eviden ce of loosen ing of the hardwa re. There is solid osseou s fusion at these levels . There is mild diffus e levocu rvatur e of the lumbar spine. There is no eviden ce of fractu re. There is mild anteri or margin al osteop hytic spurri ng. No pathol ogic lesion is identi fied in the lumbar spine. There are Schmor l's nodes in the upper lumbar spine. T11-T1 2 and T12-L1 : These interv ertebr al discs are essent ially normal in appear ance. L1-L2: There is minima l disc bulge. There is no centra l canal stenos is. There is no neural forami nal stenos is. L2-L3: There is a mild disc bulge and modera te facet arthro lucie. There is no centra l canal stenos is. There is minima l neural forami nal stenos is. L3-L4: There is prior fusion with residu al endpla te spurri ng and facet arthro lucie. There is no centra l canal stenos is. There is mild bilate ral neural forami nal stenos is. L4-L5: There is prior fusion with residu al endpla te spurri ng and facet arthro lucie. There is no centra l canal stenos is. There is modera te/sev ere bilate ral neural forami nal stenos is. L5-S1: There is prior fusion with residu al endpla te spurri ng and facet arthro lucie. There is no centra l canal stenos is. There is modera te/sev ere right and mild left neural forami nal stenos is. There is prior fusion of the left SI joint. IMPRES TY: 1. The patien t is status post prior fusion from L3 throug h S1. There are remain ing right- sided pedicl e screws in place withou t eviden ce of loosen ing or compli cation . There is also prior fusion of the left SI joint. 2. There is modera te/sev ere bilate ral neural forami nal stenos is at L4-L5, and modera te/sev ere right neural forami nal stenos is at L5-S1. Interp reted By: Ora rosales MD Electr onical ly Signed By: Ora rosales MD on 020 7:55 AM [email or web address] [facility] Radiology [facility] [address] [place], [address], 03/21/2019 15:12:20 Result Notes None recorded. Problems Name Problem SNOMED Code Status Onset Date Resolution Date Notes Provider Name and Address Organization Details Recorded Time Adhesive capsuliti s of left shoulder 401335933474 107 Active 2015 From Automated Load;Prov ider: Ness Li;Statu s: Active Parrish Sheriff [facility] 9 10:41:45 Problem Notes None recorded. Procedures Surgical History Date Name Laterality Status Provider Name and Address Organization Details Recorded Time Back Surgery completed Olya Parker [facility] 02/27/2018 09:11:08 Imaging Results None recorded. Procedure Notes None recorded. Medical Equipment None Reported. Allergies Allergen ID Allergen Name Allergen Category Reaction Reaction Severity Criticality Documentation Date Start Date Code Code System Note Provider Name and Address Organization Details Recorded Time 024176 Mobic medicatio n Not available Not available Not available 01/08/20162015 74189 9 RxNorm Comme nt: Creat ed By: Cardingtoncr aft Murtaza morganCre ated Date: 016 2:16: 57 PM; Parrish Sheriff [facility] 9 10:41:47 605940 Mobic medicatio n Not available Not available Not available 02/27/2018 72877 9 RxNorm Olya Elena [facility] 9 09:11:26 Medications Name Sig Start Date Stop Date Status Note LastModified by Organization Details LastModified Time amoxicillin 500 mg capsule active Not Available Not Available Not Available prednisone 10 mg tablet active Not Available Not Available Not Available oxazepam 10 mg capsule active Not Available Not Available Not Available azithromycin 250 mg tablet active Not Available Not Available Not Available ibuprofen 800 mg tablet active Not Available Not Available Not Available tizanidine 4 mg tablet active Not Available Not Available Not Available prednisone 20 mg tablet active Not Available Not Available Not Available methylprednisolone 4 mg tablet active Not Available Not Available Not Available hydrocodone 10 mg-acetaminophen 325 mg tablet active Not Available Not Availabl e Not Available oxycodone-acetamino phen 5 mg-325 mg tablet active Not Available Not Available Not Available famotidine 20 mg tablet active Not Available Not Available Not Available hydrocodone 7.5 mg-acetaminophen 325 mg tablet active Not Available Not Availabl e Not Available gabapentin 300 mg capsule active Not Available Not Available Not Available diclofenac sodium 75 mg tablet,delayed release active Not Available Not Available Not Available dexamethasone sodium phosphate 4 mg/mL injection solution active Not Available Not Available Not Available testosterone cypionate 200 mg/mL intramuscular oil active Not Available Not Avai lable Not Available oxycodone-acetamino phen 7.5 mg-325 mg tablet active Not Available Not Available Not Available levofloxacin 750 mg tablet active Not Available Not Available Not Available methylprednisolone 4 mg tablets in a dose pack active Not Available Not Available No t Available BD Luer-Michelle Syringe 3 mL 18 x 1 1/2 active Not Available Not Avail able Not Available cefdinir 300 mg capsule active Not Available Not Available Not Available enoxaparin 30 mg/0.3 mL subcutaneous syringe active Not Available Not Available Not Available tadalafil 10 mg tablet active Not Available Not Available Not Available Vitals Date Recorded Body height Body mass index (BMI) Body weight Systolic blood pressure Diastolic blood pressure Provider Name and Address Organization Details Last Updated DateTime 02/27/2018 193.04 cm 31.4 kg/m2 860499.8 3 g 132 mm[Hg] 90 mm[Hg] [facility] 9 09:12:11 Date Recorded Body height Body mass index (BMI) Body weight Provider Name and Address Organization Details Last Updated DateTime 03/02/2018 193.04 cm 31.4 kg/m2 577443.83 g Alice Potter [facility] 03/02/2018 10:39:41 Date Recorded Body height Body mass index (BMI) Body weight Systolic blood pressure Diastolic blood pressure Provider Name and Address Organization Details Last Updated DateTime 03/15/2019 193.04 cm 31.4 kg/m2 918369.8 3 g 120 mm[Hg] 80 mm[Hg] [facility] 0 14:42:01 Date Recorded Body height Body mass index (BMI) Body weight Systolic blood pressure Diastolic blood pressure Provider Name and Address Organization Details Last Updated DateTime 08/28/2018 193.04 cm 31.4 kg/m2 215084.8 3 g 120 mm[Hg] 70 mm[Hg] Olya Parker [facility] 9 10:30:46 Social History Question Answer Notes LastModified by Organizat ion Details LastModified Time Tobacco Smoking Status Former Smoker Olya Parker [facility] 02/27/2018 09:10:58 What Was The Date Of Your Most Recent Tobacco Screening? 08/28/2018 Information n ot available 04/03/2019 Sex: Unknown Functional Status None recorded. Mental Status None recorded. Family History Relationship Description Onset Age of this Age Resolved Age Notes LastModified by Organization Details LastModified Time Unspecified Relation Malignant neoplastic disease [email or web address] Not available 02/27 09:10:37 Unspecified Relation Hypertensive disorder [email or web address] Not available 02/27 09:10:42 Unspecified Relation Myocardial infarction [email or web address] Not available 02/14 09:10:47 Medical History No medical history recorded. Past Encounters Encounter ID Performer Location Encounter Start Date Encounter Closed Date Diagnosis/Indication Diagnosis SNOMED-CT Code Diagnosis ICD10 Code Diagnosis Note [id number] MIKY STEPHENS MD [facility] [address] [place] [address] 02/27/2018 08:45:23 02/28/2018 15:41:09 Mechanical low back pain 508627006 M54.5 [id number] MIKY STEPHENS MD [facility] [address] [place] [address] 03/02/2018 10:16:48 03/06/2018 15:48:29 Low back pain 085925008 M54.5 [id number] MIKY STEPHENS MD [facility] [address] [place] [address] 08/28/2018 09:54:57 08/29/2018 11:30:05 Low back pain 173343262 M54.5 [id number] SOBEIDA MOODY PA-C [facility] [address] [place] [address] 03/15/2019 14:06:19 03/19/2019 11:01:19 Low back pain 462232648 M54.5 Health Concerns Section Related Observation LastModified by Organization Detai ls LastModified Time None Recorded Concern Status LastModified by Organization Details LastModified Time None Recorded Advance Directives Directive None Recorded Payers Insurance Date Sequence Insurance Name Policy Number Policy Mayorga Covered Member ID Mayorga Member ID Guarantor Name 03/19/2019 1 [employer] [id number] Ad Martinez [id number] Ad Martinez Notes Date Note Type Note Provider Name and Address Organization Details Recorded Time 02/27/2018 text/html Mr. Ad Martinez is a 53-year-old gentleman with a history of at L3-4, L4-5 and L5-S1 fusion presenting with severe mechanical low back pain. He originally underwent an L4-[address] Platt and 2007, then subsequently an L5-S1 fusion in 2013. He underwent a L3-S1 fusion up in [place] and 2014. He most recently, July 2017, underwent removal of screws and rods on his left side at the [facility]. He presents with intermittent severe low back pain and left distal lower extremity pain. He describes 7 out of 10 pain with multiple characteristics. The pain is constant. He gets relief with inactivity and ice. The pain is made worse with lifting, bending, crawling or standing on concrete. He describes numbness and tingling in his left leg. No significant weakness. No loss of bowel or bladder control. He is undergone multiple EMG/nerve conduction studies in the past without signs of nerve damage. As exhausted conservative management including physical therapy, chiropractic manipulation, TENS unit, steroid packs, anti-inflammatorie s and hydrocodone back in 2013. He has trialed injections and as mentioned, multiple spine surgeries. MIKY STEPHENS MD [address] [place], [address], [facility] 02/27/2018 09:33:52 03/02/2018 text/html Mr. Martinez follows up today to discuss his CT lumbar myelogram and standing dynamic x-rays. MIKY STEPHENS MD [address] [place], [address], [facility] 03/02/2018 12:01:11 08/28/2018 text/html Mr. Martinez is a 53-year-old gentleman with a history of an L3 through sacral fusion. I've seen him in the past with a CT myelogram. He underwent a SI joint fusion with Dr. Sousa on June 14. He continues to have occasional severe left-sided pain. On August 13 he had a significant pop , followed by sharper pains and pops in his lower lumbar spine. He continues to take Preston tens every 3 hours. He follows up with Dr. Sousa next week. MIKY STEPHENS MD [address] [place], [address], [facility] 08/28/2018 10:59:39 03/15/2019 text/html Mr. Martinez has a complicated spine history. He underwent an L4-[address] Platt in 2007, and L5-S1 fusion with Dr. Platt in 2013, and L3-S1 fusion in [place] in 2014, removal of the left-sided hardware the [facility] in July 2017, and SI joint fusion by Dr. Appiah in June 2018. His chief complaint for several years and the reason for the removal of the left-sided hardware has been severe low back pain if he bends, squats, or leans forward. When this happens he feels and hears a loud pop in his back. He had improvement in this after the SI joint fusion for several months, but in October it worsened again. Since that time he has been to the [facility] where they performed an updated MRI and reviewed his imaging from our office. According to the patient the neurosurgeon there did not recommend any surgery. He follows up again with us today to discuss his symptoms. SOBEIDA MOODY PA-C [address] [place], [address], [facility] 03/15/2019 16:35:23
--- OUTSIDE RECORDS SUMMARY | 2024-07-20 13:02 | XMS_ITS | Encounter Summary ---
Author Organization [employer] Address [address] [place] [address] Care Team Providers Care Forensic Specialist Name Role Phone Unavailable Primary Care Provider Unavailabl e Encounter Details Date Type Department Care Team (Late st Contact Info) Description 01/04/2020 Transcribed Document [facility] Family Medicine [address] [place] [address] ProviderDina MD [address] [place] [address] Social History Tobacco Use Types [...] - Dina ProviderMD - 01/04/2020 4:59 PM BODY CORPORATE MANAGER Final Discharge Planning Entered On: 01/04/2020 17:01 EST Performed On: 01/04/2020 16:59 EST by SALENA HENSLEY RN Final Discharge Planning Discharge Arrangements : Patient Post-Acute Information Patient Name: AD MARTINEZ Gender: Male : [birth year] Age: 54 Years No Post-Acute Placement(s) Listed No Post-Acute Service(s) Listed No [place] Referral(s) Listed Transportation Needs : Family/Friend Follow Up Appointment Scheduled : Yes Is Patient High/Moderate Readmission Risk? : No Is Patient Ready for Discharge? : Yes Physician Notified Patient is Ready for Discharge? : Yes Discharge To Care Management : Home Health Services (Related/SOC within 3 days)- SALENA HENSLEY RN - 01/04/2020 16:59 EST Final Narrative Note Final Narrative Note : Patient discharging home today. No CM needs identified. Pt has walker at home . SALENA HENSLEY RN - 01/04/2020 16:59 EST documented in this encounter Plan of Treatment Not on file documented as of this encounter Visit Diagnoses Not on filedocumented in this encounter
--- OUTSIDE RECORDS SUMMARY | 2024-07-20 13:02 | XMS_ITS | Clinical Summary ---
Author Organization [facility]obi And[facility] Address [address] [place] [address] Care Team Providers Care Section Leader And Machine Setter Name Role Phone Unavailable Primary Care Provider Unavailabl e Allergies Active Allergy Reactions Criticality Noted Date Comments Meloxicam 12/12/2014 Medications HYDROcodone-acet aminophen (NORCO) 10-325 MG per tablet 0 11/27/2014 Activ e cyclobenzaprine (FLEXERIL) 10 MG tablet Take 10 mg by mouth 11/23/2014 Active docusate sodium (COLACE) 100 MG capsule Take 100 mg by mouth 2 times daily Active Social History Tobacco Use Types Packs/Day Years Used Date Smoking Tobacco: Never Alcohol Use Standard Drinks/Week Comments No 0 (1 standard drink = 0.6 oz pur e alcohol) Sex and Gender Information Value Date Recorded Sex Assigned at Not on file Legal Sex Male 3:07 PM EDT Gender Identity Not on file Sexual Orientation Not on file Last Filed Vital Signs Vital Sign Reading Time Taken Comments Blood Pressure 110/70 12/12/2014 11:02 AM EDT Pulse - - Temperature - - Respiratory Rate - - Oxygen Saturation - - Inhaled Oxygen Concentration - - Weight 99.8 kg (220 lb) 12/12/2014 11:02 AM EDT Height 193 cm (6' 4 ) 12/12/2014 11:02 AM EDT Body Mass Index 26.78 12/12/2014 11:02 AM EDT Plan of Treatment Not on file [facility]
--- OUTSIDE RECORDS SUMMARY | 2024-07-20 13:02 | XMS_ITS | Clinical Summary ---
Author Organization [employer] Address [address] [place] [address] Care Team Providers Care Inventory Taker Name Role Phone Unavailable Primary Care Provider [...]
--- OUTSIDE RECORDS SUMMARY | 2024-07-20 13:02 | XMS_ITS | Encounter Summary ---
Author Organization Healthcare Address [address] [place] [address] Care Team Providers Care Automotive Airconditioning Mechanic Name Role Phone Seven Diop MD Primary Care Provider [phone] Jeromy Perez MD Primary Care Provider [phone] Encounter Details Date Type Department Care Team (Late st Contact Info) Description 08/13/2021 Orders Only External Location [address] [place] [address] [facility] Social History Tobacco Use Types [...] Date/Time Associated Diagnosis Comments CT LUMBAR SPINE W IV CONTRAST 08/13/2021 11:42 AM EDT documented in this encounter Results * CT Lumbar Spine w IV Contrast (08/13/2021 11:42 AM EDT) Anatomical Region Laterality Modality Spine, L-spine Computed Tomogra phy 08/13/2021 11:4 2 AM EDT [facility] IM CT PROCEDURES Final Result documented in this encounter Visit Diagnoses Not on filedocumented in this encounter Care Teams Automotive Airconditioning Mechanic Relationship Specialty Start Date End Date Seven Diop MD [address] [place] [address] PCP - General 06/27/20 03/04/22 Jeromy Perez MD [address] [place] [address] PCP - General 03/05/22 documented as of this encounter
--- OUTSIDE RECORDS SUMMARY | 2024-07-20 13:02 | XMS_ITS | Encounter Summary ---
Author Organization [email or web address] Address [address] [place] [address] Care Team Providers Care Corporation Lawyer Name Role Phone Unavailable Primary Care Provider Unavailabl e Encounter Details Date Type Department Care Team (Late st Contact Info) Description 01/04/2020 Transcribed Document [facility] [place] Family Medicine [address] [place] [address] ProviderDina MD [address] [place] [address] Social History Tobacco Use Types [...] Conversion Note - Dina ProviderMD - 01/04/2020 8:45 AM MESS COOK [facility] Main OR PreOp Summary Primary Physician: MARIALUISA VIRGEN MD-ORT Finalized Date/Time: 01/04/20 13:35:48 Pt. Name: AD BANEGAS/Sex: 1965 Male Med Rec #: [id number] Physician: MARIALUISA VIRGEN MD-ORT Financial #: [id number] Pt. Type: I Room/Bed: 403/1 Admit/Disch: 01/04/20 05:33:00 - Institution: [facility] [place] PreOp Case Times Entry 1 In Preop 01/04/20 05:40:00 Ready for Holding n/a Room Patient Ready for 01/04/20 06:49:00 Surgery Patient Out of Preop 01/04/20 08:07:00 Patient Out of n/a Holding Room Last Modified By: SHANAE BERNSTEIN 01/04/20 13:35:46 [facility] PreOp Case Times Audit 01/04/20 13:35:46 Shellfish Bed Worker: BRENDON Modifier: [email or web address] <+> 1 Patient Out of Preop Finalized By: SHANAE BERNSTEIN Document Signatures Signed By: SHANAE BERNSTEIN 01/04/20 13:35 Electronically signed by Favio [facility] Conversion Tracer Bullet Section Supervisor Cerner at 06/01/2022 11:02 PM CDT documented in this encounter Plan of Treatment Not on file documented as of this encounter Visit Diagnoses Not on filedocumented in this encounter
--- OUTSIDE RECORDS SUMMARY | 2024-07-20 13:03 | XMS_ITS | Encounter Summary ---
Author Organization [employer] Address [address] [place] [address] Care Team Providers Care Malt Loader Name Role Phone Unavailable Primary Care Provider Unavailabl e Encounter Details Date Type Department Care Team (Late st Contact Info) Description 02/28/2018 Transcribed Document [facility] [place] [address] [place] [address] ProviderDina MD [address] [place] [address] Social History Tobacco Use Types [...] Conversion Note - Historical ProviderMD - 02/28/2018 8:40 AM TELEVISION NEWSCAST DIRECTOR Nursing Discharge Summary Entered On: 02/28/2018 8:40 EST Performed On: 02/28/2018 8:40 EST by ALFREDO NICE audio visual technician Documentation Discharge Date/Time : 02/28/2018 12:53 EST ALFREDO NICE RN - 02/28/2018 12:53 EST Patient Disposition, General : Discharge Discharge To : Home with ambulatory/outpatient follow-up Mode Of Departure, General Discharge : Ambulatory Accompanied By, Discharge : Spouse IV Discontinued : Not applicable Personal Belongings With Patient : Yes Discharge Instructions Reviewed With, Opportunity For Questions Given : Patient Teaching Method : Explanation Teaching Evaluation : Verbalizes understanding ALFREDO NICE RN - 02/28/2018 8:40 EST Electronically signed by Favio [facility] Conversion Shipper/Receiver Cerner at 06/01/2022 11:16 PM CDT documented in this encounter Plan of Treatment Not on file documented as of this encounter Visit Diagnoses Not on filedocumented in this encounter
--- OUTSIDE RECORDS SUMMARY | 2024-07-20 13:03 | XMS_ITS | Clinical Summary ---
Author Organization [facility] Address [address] [place] [address] Care Team Providers Care Harness Cutter Name Role Phone Leigh Ann Buckley MD, Manjinder Jones Primary Care Prov ider Clifton Melgoza MD Unavailable [phone] Allergies Active Allergy Reactions Criticality Noted Date Comments Meloxicam 09/10/2014 Medications phenylephrine-DM -guaifenesin (MUCINEX FAST-MAX CONGEST-COUGH) 2.5-5-100 mg/5 mL Liquid Take by mouth. Active Hydrocodone-Acet aminophen (NORCO) 10-325 mg per tablet Take 1 Tab by mouth every 6 hours as needed for Pain. 90 Tab 0 11/23/2014 Active cyclobenzaprine (FLEXERIL) 10 mg tablet Take 1 Tab by mouth every 8 hours as needed for muscle spasm (Muscle pain). 60 Tab 0 11/23/2014 Active sulfamethoxazole -trimethoprim (BACTRIM;SEPTRA) 200-40 mg/5 mL suspension Take 5 mL by mouth every 12 hours. 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 L45 L5S1 > L34 FACET > L23 09/12/2014 Chronic low back pain 09/12/2014 Chronic pain syndrome 09/12/2014 Flat back syndrome, postprocedural 09/12/2014 Family History Medical History Relation Name Comments Cancer Father lung Diabetes Father Heart Problems Father Heart Problems Mother Relation Name Status Comments Father Mother Social History Tobacco Use Types Packs/Day Years Used Date Smoking Tobacco: Former Cigarettes Q uit: 11/12/1984 Tobacco Cessation:Counseling Given: No Alcohol Use Standard Drinks/Week Comments Yes 0 (1 standard drink = 0.6 oz pur e alcohol) socially Sex and Gender Information Value Date Recorded Sex Assigned at Not on file Legal Sex Male 1:35 PM EDT Gender Identity Not on file Sexual Orientation Not on file Last Filed Vital Signs Vital Sign Reading Time Taken Comments Blood Pressure 116/67 11/23/2014 7:18 AM EDT Pulse 97 11/23/2014 7:18 AM EDT Temperature 37.1 C (98.8 F) 12/05/2014 10:53 AM EDT Respiratory Rate 16 11/23/2014 7:18 AM EDT Oxygen Saturation 93% 11/23/2014 7:18 AM EDT Inhaled Oxygen Concentration - - Weight 99.8 kg (220 lb) 12/05/2014 10:53 AM EDT Height 193 cm (6' 4 ) 12/05/2014 10:53 AM EDT Body Mass Index 26.78 12/05/2014 10:53 AM EDT Plan of Treatment Health Maintenance Due Date Last Done Comments Cologuard 1965 Colonoscopy 1965 Colorectal Cancer Screening 1965 FIT 1965 Lipid Screening 02/12/1984 Tetanus Vaccination (Every 10 Years) 02/12/1984 Pneumococcal Vaccine: 50+ Years (1 of 1 - PCV) 016 Zoster-RZV(Shingrix) (1 of 2) 02/12/2016 COVID-19 Vaccine (1 - season) 2023 Depression Screening 02/15/2024 Influenza Vaccination (Season Ended) 2024 Medical Devices Implanted Type Area Elderly Companion Device Identifier Shelf Expiration Date Model / Serial / Lot Graft Bone Crush Canc 1-4 20ml Implanted:Qty: 1 on 11/20/2014 by Clifton Melgoza MD at [facility] Spine Lumbar * LIFENET 09/15/2019 PCAN30 14 / / [id number] Graft Block Mastergraft 20cc Implanted:Qty: 1 on 11/20/2014 by Clifton Melgoza MD at [facility] Spine Lumbar * [employer] SOFAMOR DANEK 08/13/2017 [id number] / / [id number] Graft Bone Kt Infuse Med Implanted:Qty: 1 on 11/20/2014 by Clifton Melgoza MD at [facility] Spine Lumbar * [employer] SOFAMOR DANEK 11/15/2015 [id number] / / [id number] Jesse 5.5 Ti Cp4 Ns Curv 100mm Implanted:Qty: 2 on 11/20/2014 by Clifton Melgoza MD at [facility] [place] Spine Lumbar * [employer] [id number] / / Set Scr 5.5 Ti Ns Brk Off Implanted:Qty: 6 on 11/20/2014 by Clifton Melgoza MD at [facility] Spine Lumbar * [employer] [id number] / / Scr 5.5 Mas 7.5x50 Cc Implanted:Qty: 1 on 11/20/2014 by Clifton Melgoza MD at [facility] Spine Lumbar * [employer] [id number] / / Scr 5.5 Mas 7.5x45mm Implanted:Qty: 5 on 11/20/2014 by Clifton Melgoza MD at [facility] Spine Lumbar * [employer] [id number] / / Abebe Implant Spinal Fusion Stimulator - [id number] Implanted:Qty: 1 on 11/20/2014 by Clifton Melgoza MD at [facility] Spine Lumbar * [employer] 08/22/2015 [id number] / [id number] / Graft Bone Posterolateral 10cm - [id number] Implanted:Qty: 1 on 11/20/2014 by Clifton Melgoza MD at [facility] Spine Lumbar * [employer] 07/23/2016 [id number] / [id number] / Graft Block Mastergraft 20cc Implanted:Qty: 1 on 11/20/2014 by Clifton Melgoza MD at [facility] Lumbar * [employer] SOFAMOR DANEK 07/14/2017 [id number] / / [id number] 12degrees X 16mm X 30mm X 24mm Interbody Spacer Implanted:Qty: 1 on 11/20/2014 by Clifton Melgoza MD at [facility] Spine Lumbar * [employer] 01/24/2020 [id number] / / [id number] Insurance * Guarantor: Ad Martinez Account Type Relation to Patient Date of Phone Billing Address Personal/Family Self 1965 [phone] (Work) [address] [place] [address] ANTHEM * Guarantor: Ad Martinez Account Type Relation to Patient Date of Phone Billing Address Personal/Family Self 1965 [phone] (Work) [address] [place] [address] ANTHEM Advance Directives For more information, please contact: [phone] * Full Code (Latest Code Status on File) Date Activated Date Inactivated Comments 11/20/2014 8:47 PM 11/23/2014 6:32 PM Care Teams Harness Cutter Relationship Specialty Start Date End Date Manjinder Beltrán Jr., MD [address] [facility] [address] [place] [address] PCP - General Internal Medicine 09/19/14 Clifton Melgoza MD [address] [facility] [place] [address] 02/21/22
--- OUTSIDE RECORDS SUMMARY | 2024-07-20 13:03 | XMS_ITS | Encounter Summary ---
Author Organization [employer] Address [address] [place] [address] Care Team Providers Care Osteopathic Medicine Teacher Name Role Phone Unavailable Primary Care Provider Unavailabl e Encounter Details Date Type Department Care Team (Late st Contact Info) Description 01/04/[address] [facility] [place] Family Medicine [address] [place] [address] ProviderDina MD [address] [place] [address] Social History Tobacco Use Types [...] - Dina ProviderMD - 01/04/2020 8:45 AM LINK KNITTING MACHINE OPERATOR [facility] Main OR PACU Summary Primary Physician: MARIALUISA VIRGEN MD-ORT Finalized Date/Time: 01/04/20 12:38:55 Pt. Name: AD MARTINEZ/Sex: 1965 Male Med Rec #: [id number] Physician: MARIALUISA VIRGEN MD-ORT Financial #: [id number] Pt. Type: I Room/Bed: 403/1 Admit/Disch: 01/04/20 05:33:00 - Institution: [facility] OR PACU Case Times Entry 1 In PACU I 01/04/20 10:11:00 Ready for PACU 01/04/20 10:41:00 Discharge Discharge from PACU 01/04/20 12:38:00 I Last Modified By: BASHIR Alston 01/04/20 12:38:37 [facility] Main OR PACU Case Times Audit 01/04/20 12:38:37 Insulation Machine Operator: VAN Modifier: RAMEYLL <+> 1 Discharge from PACU I 01/04/20 12:38:33 Insulation Machine Operator: VAN Modifier: RAMEYLL <+> 1 Ready for PACU Discharge [facility] Main OR PACU Acuity Entry 1 Start Time 01/04/20 10:42:00 Stop Time 01/04/20 12:38:00 Acuity Level [facility] PACU Acuity I Last Modified By: BASHIR Alston 01/04/20 12:38:49 Finalized By: BASHIR Alston Document Signatures Signed By: BASHIR Alston 01/04/20 12:38 Electronically signed by Jermaine Stahl Conversion Audience Development Manager Cerner at 06/01/2022 11:16 PM CDT documented in this encounter Plan of Treatment Not on file documented as of this encounter Visit Diagnoses Not on filedocumented in this encounter
--- OUTSIDE RECORDS SUMMARY | 2024-07-20 13:03 | XMS_ITS | Encounter Summary ---
Author Organization [employer] Address [address] [place] [address] Care Team Providers Care Cloth Packer Name Role Phone Unavailable Primary Care Provider Unavailabl e Encounter Details Date Type Department Care Team (Late st Contact Info) Description 01/04/2020 Transcribed Document [facility] [place] [address] [place] [address] ProviderDina MD [address] [place] [address] Social History Tobacco Use Types [...] Conversion Note - Dina ProviderMD - 01/04/2020 4:55 PM LUMBER PILER Initial Discharge Planning Entered On: 01/04/2020 16:58 EST Performed On: 01/04/2020 16:55 EST by SALENA HENSLEY RN Initial Assessment I Previously Documented Living Environment : No qualifying data available. Living Situation : Home Patient Lives With : Spouse Is the Patient a Caregiver at Home? : No Emergency Contact #1 : Jayne Martinez Emergency Contact #1 Emergency Contact #1 Relationship : Emergency Contact #2 : . Emergency Contact #2 Phone Number : . Emergency Contact #2 Relationship : . Enter Doctors Name : HILARIO MONZON MD Does Patient have PCP Listed? : Yes SALENA HENSLEY RN - 01/04/2020 16:55 EST Initial Assessment II Sensory and Motor Deficits : None Current Home Treatments and Equipment : Walker Does the Patient have a Floor to SNF Benefit? : No SALENA HENSLEY RN - 01/04/2020 16:55 EST Discharge Needs I Anticipated Discharge Date : 01/04/2020 EST Current Home Treatment/Equipment : Current Home Treatment/Equipment No qualifying data available. Post Acute/Home Treatments : None Documentation Status Complete : Yes SALENA HENSLEY RN - 01/04/2020 16:55 EST Discharge Needs II Professional Skilled Services : Professional Skilled Services No qualifying data available. Needs Assistance with Transportation : No Discharge Options Discussed with Patient : Discharge transportation, DME SALENA HENSLEY RN - 01/04/2020 16:55 EST Narrative Note Narrative Note : 54y/o w/m s/p Lumbar fusion. Met with patient and to discuss discharge needs. Pt admits to having a walker at home. Pt doesnt need any HH needs. No other CM needs identified. SALENA HENSLEY RN - 01/04/2020 16:55 EST documented in this encounter Plan of Treatment Not on file documented as of this encounter Visit Diagnoses Not on filedocumented in this encounter
--- OUTSIDE RECORDS SUMMARY | 2024-07-20 13:03 | XMS_ITS | Encounter Summary ---
Author Organization [employer] Address [address] [place] [address] Care Team Providers Care Match Marker Name Role Phone Unavailable Primary Care Provider Unavailabl e Encounter Details Date Type Department Care Team (Late st Contact Info) Description 02/28/2018 Transcribed Document [facility] [place] [facility] [place] [address] ProviderDina MD [facility] [place] [address] Social History Tobacco Use Types Packs/Day Years Used Date Smoking Tobacco: Never Assessed Sex and Gender Information Value Date Recorded Sex Assigned at Male 08/11/2021 8:10 PM CDT Legal Sex Male 8:10 PM CDT Gender Identity Male 08/11/2021 8:10 PM CDT Sexual Orientation Not on file documented as of this encounter Miscellaneous Notes * Cerner Conversion Note - Dina ProviderMD - 02/28/2018 12:41 PM [place]GER [place] [address] Patient Copy Patient Information: Name: AD MARTINEZ Current Date: 02/28/2018 12:41:42 : 1965 Patient Address: [address] [place] [id number] Patient Attending Physician: MIKY MANCILLA MD-[facility] Primary Care Provider: HILARIO MONZON MD Primary Care Provider Discharge Diagnosis: Comment: Follow-up Instructions: With: Address: When: MIKY MANCILLA [address] [facility] [place] [address] Business (1) Within As needed Discharge Instructions: Diet after Discharge: Regular diet as tolerated Activity after Discharge: Rest and relax today Driving after Discharge: May drive today Showering/Bathing:May shower Wound/Incision Care after Discharge: Keep operative site/wound site clean and dry Immunizations Documented During Stay: No Immunizations Found Heart Failure Discharge Instructions (if any): Stroke Related Discharge Instructions (if any): Warfarin Related Discharge Instructions (if any): Final Medication List: Other Medications acetaminophen-hydrocodone (Winfield 10 mg-325 mg oral tablet) 1 Tablet(s) Oral every 3 Hours. diclofenac 75 Milligram(s) Oral Two Times A Day. predniSONE Oral Every Day. tiZANidine 4 Milligram(s) Oral At Bedtime. Patient Allergies: Mobic Medication Instructions: Take your medications faithfully. Do NOT skip [...] cramping, rapid heartbeat, difficulty sleeping, and nervousness. Patient education materials: Myelogram, Care After Introduction Refer to this sheet in the next few weeks. These instructions provide you with information about caring for yourself after your procedure. Your health care provider may also give you more specific instructions. Your treatment has been planned according to current medical practices, but problems sometimes occur. Call your health care provider if you have any problems or questions after your procedure. What can I expect after the procedure? After the procedure, it is common to have:??? Soreness at your injection site. ??? A mild headache. Follow these instructions at home: ??? Drink enough fluid to keep your urine clear or pale yellow. This will help flush out the dye (contrast material) from your spine. ??? Rest as told by your health care provider. Lie flat with your head slightly raised (elevated) to reduce the risk of headache. ??? Do notbend, lift, or do any strenuous activity for 24?48 hours or as told by your health care provider. ??? Take ebxn-ocr-diwyidl and prescription medicines only as told by your health care provider. ??? Take care of and remove your bandage (dressing) as told by your health care provider. ??? Bathe or shower as told by your health care provider. Contact a health care provider if: ??? You have a fever. ??? You have a headache that lasts longer than 24 hours. ??? You feel nauseous or vomit. ??? You have a stiff neck or numbness in your legs. ??? You are unable to urinate or have a bowel movement. ??? You develop a rash, itching, or sneezing. Get help right away if: ??? You have new symptoms or your symptoms get worse. ??? You have a seizure. ??? You have trouble breathing. This information is not intended to replace advice given to you by your health care provider. Make sure you discuss any questions you have with your health care provider. Document Released: 02/27/2016 Document Revised: 07/08/2016 Document Reviewed: 11/13/2015 ? 2017 Elsevier CIGARETTE SMOKING: The facts are clear, cigarette smoking will shorten your life. Smoking can cause many illnesses along the way. As a healthcare provider, we recommend that you stop smoking. Assistance with quitting is available by contacting 7-535-ISVJ-NOW. This is a free resource providing counseling, support, and referral. Or you may contact your personal physician. STROKE is an EMERGENCY Every [employer] ACT F.A.S.T! FACE ?? Facial droop ?? Uneven smile ARM ?? Arm numbness ?? Arm weakness SPEECH ?? Slurred speech ?? Difficulty speaking or understanding TIME ?? Call 911 and get to the hospital immediately Have the ambulance go to the nearest stroke center. STROKE Risk Factors High blood pressure High cholesterol Heart Disease Diabetes Smoking Heavy alcohol use Physical inactivity and obesity Atrial Fibrillation (irregular heartbeat) Family history of stroke Reminder: Be sure to sign up for the [employer] patient portal, which gives you 06/09 access to your medical information ??? including these discharge instructions ??? using your computer, smartphone, or tablet. Just go to [employer] to get started. Questions? Call . [facility] would like to thank you for allowing us to assist you with your healthcare needs. KING Fletcher TROY LEE, (or construction representative) have received the above patient education materials/instructions and have verbalized understanding: Patient Signature _ Date/Time Patient Consumer Loan Processor Signature (if needed) Date/Time Clinician/Hospital Consumer Loan Processor Signature (if needed) Date/Time documented in this encounter Plan of Treatment Not on file documented as of this encounter Visit Diagnoses Not on filedocumented in this encounter
--- OUTSIDE RECORDS SUMMARY | 2024-07-20 13:03 | XMS_ITS | Encounter Summary ---
Author Organization [employer] Address [address] [place] [address] Care Team Providers Care Manager Money Name Role Phone Unavailable Primary Care Provider Unavailabl e Encounter Details Date Type Department Care Team (Late st Contact Info) Description 02/28/2018 Transcribed Document [facility] [place] Family Medicine [address] [place] [address] ProviderDina MD [address] [place] [address] Social History Tobacco Use Types [...] - Historical ProviderMD - 02/28/2018 8:40 AM FIRER LOW PRESSURE Discharge Instructions Entered On: 02/28/2018 8:41 EST Performed On: 02/28/2018 8:40 EST by ALFREDO NICE RN DC Instructions HWD Stroke/TIA Discharge Ins : N/A Heart Failure Discharge Ins : N/A Warfarin Discharge Ins : N/A Diet After Discharge : Regular diet as tolerated Activity After Discharge : Rest and relax today Driving After Discharge : May drive today Showering/Bathing : May shower Wound/Incision Care After Discharge : Keep operative site/wound site clean and dry ALFREDO NICE RN - 02/28/2018 8:40 EST documented in this encounter Plan of Treatment Not on file documented as of this encounter Visit Diagnoses Not on filedocumented in this encounter
--- OUTSIDE RECORDS SUMMARY | 2024-07-20 13:03 | XMS_ITS | Encounter Summary ---
Author Organization [employer] Address [address] [place] [address] Care Team Providers Care Screw Machine Tender Name Role Phone Unavailable Primary Care Provider Unavailabl e Encounter Details Date Type Department Care Team (Late st Contact Info) Description 01/04/2020 Transcribed Document [facility] [place] Family Medicine [address] [place] [address] ProviderDina MD [address] [place] [address] Social History Tobacco Use Types [...] Conversion Note - Historical ProviderMD - 01/04/2020 5:07 PM HALL MONITOR Stroke/Warfarin Instructions Entered On: 01/04/2020 17:07 EST Performed On: 01/04/2020 17:07 EST by Jeannine Lopez RN Stroke/Warfarin Instructions Stroke/TIA Discharge Ins : N/A Warfarin Discharge Ins : N/A Jeannine Lopez RN - 01/04/2020 17:07 EST documented in this encounter Plan of Treatment Not on file documented as of this encounter Visit Diagnoses Not on filedocumented in this encounter
--- OUTSIDE RECORDS SUMMARY | 2024-07-20 13:03 | XMS_ITS | Encounter Summary ---
Author Organization [employer] Address [address] [place] [address] Care Team Providers Care Test Car Driver Name Role Phone Unavailable Primary Care Provider Unavailabl e Encounter Details Date Type Department Care Team (Late st Contact Info) Description 01/04/2020 Transcribed Document [facility] [place] Family Medicine [address] [place] [address] ProviderDina MD [address] [place] [address] Social History Tobacco Use Types [...] Conversion Note - Dina ProviderMD - 01/04/2020 3:38 PM BATH TESTER [facility] Authorization Entered On: 01/04/2020 15:38 EST Performed On: 01/04/2020 15:38 EST by Melisa Morales Rn-Utilization Review Primary Insurance Authorization Authorization and Policy Numbers : Insurance 1 Health Plan: [facility] Policy Number: [id number] Authorization Number: [id number] Insurance Primary Name : [facility] Policy Number: [id number] Authorization Status-Primary : Admit approved Authorization Fax Number-Primary : [phone] Auth/Referral Phone Number-Primary : [phone] Reference Number-Primary : [id number] Authorization Number-Primary : [id number] Number of Days Authorized-Primary : 6 Day(s) Authorized Service Begin Date-Primary : 01/01/2020 EST Authorized Service End Date-Primary : 01/07/2020 EST Historical Authorization Comments-Primary : Comment 1: [place] approved per Nila for 7 days --- nrd 01/07 fax for d/c date [phone] (ANGELICA BELTRE, RN-Utilization Review 12/20/2019 10:17) Melisa Morales Rn-Utilization Review - 01/04/2020 15:38 EST documented in this encounter Plan of Treatment Not on file documented as of this encounter Visit Diagnoses Not on filedocumented in this encounter
--- OUTSIDE RECORDS SUMMARY | 2024-07-20 13:03 | XMS_ITS | Encounter Summary ---
Author Organization [employer] Address [address] [place] [address] Care Team Providers Care Tiler Name Role Phone Unavailable Primary Care Provider Unavailabl e Encounter Details Date Type Department Care Team (Late st Contact Info) Description 02/28/2018 Transcribed Document [facility] [place] Family Medicine [facility] [place] [address] ProviderDina MD [facility] [place] [address] Social History Tobacco Use Types [...] Conversion Note - Dina ProviderMD - 02/28/2018 12:07 [place] [address] Patient Copy Patient Information: Name: AD MARTINEZ Current Date: 02/28/2018 12:07:31 : 1965 Patient Address: [address] [place] [id number] Patient Attending Physician: MIKY MANCILLA MD-[facility] Primary Care Provider: HILARIO MONZON MD Primary Care Provider Discharge Diagnosis: Comment: Follow-up Instructions: With: Address: When: MIKY MANCILLA [address] [facility], [address] [place] [address] Business (1) Within As needed Discharge Instructions: [...] any): Final Medication List: Other Medications acetaminophen-hydrocodone ([place] 10 mg-325 mg oral tablet) 1 Tablet(s) [...] by your health care provider. ??? Take tiwe-opb-zaecsrt and prescription medicines only as told by [...] Assistance with quitting is available by contacting 3-497-SSLZ-NOW. This is a free resource providing counseling, [...] Be sure to sign up for the [employer] patient portal, which gives you 06/09 access to your medical information ??? including these discharge instructions ??? using your computer, smartphone, or tablet. Just go to [employer] to get started. Questions? Call . [facility] would like to thank you for allowing us to assist you with your healthcare needs. KING Fletcher TROY LEE, (or loan representative) have received the above patient education materials/instructions and have verbalized understanding: Patient Signature _ Date/Time Patient Pump House Engineer Signature (if needed) Date/Time Clinician/Hospital Pump House Engineer Signature (if needed) Date/Time documented in this encounter Plan of Treatment Not on file documented as of this encounter Visit Diagnoses Not on filedocumented in this encounter
--- OUTSIDE RECORDS SUMMARY | 2024-07-20 13:03 | XMS_ITS | Encounter Summary ---
Author Organization [employer] Address [address] [place] [address] Care Team Providers Care Boat Camp Operator Name Role Phone Unavailable Primary Care Provider Unavailabl e Encounter Details Date Type Department Care Team (Late st Contact Info) Description 01/04/2020 Transcribed Document [facility] [place] [facility] [place] [address] ProviderDina MD [address] [place] [address] Social History Tobacco Use Types [...] Conversion Note - Historical ProviderMD - 01/04/2020 6:42 AM SALESPERSON FLOWERS Pre Procedure Adult Entered On: 01/04/2020 6:48 EST Performed On: 01/04/2020 6:42 EST by MARILYN SAWANT RN Height and Weight, Clinical Dosing Height Source : Stated Height Entry Format : [place] Height, Feet : 6 ft(Converted to: 183 cm, 72 Inch) Height, Inches : 4 Inch(Converted to: 0 ft 4 Inch, 10.16 cm) Clinical Height : 193.04 cm Weight Source : Standing scale Weight Entry Format : Nye Clinical Dosing Weight : 108.64 kg Weight, Pounds : 239 lb Body Surface Area (BSA) : 2.39 m2 Body Mass Index : 29.2 kg/m2 (HI) [place] Body Weight : 86 kg MARILYN SAWANT RN - 01/04/2020 6:42 EST Health Histories Smoking Status : Never (less than 100 in lifetime; none in last 30 days) Smokeless Tobacco Status : Never Implant/Device Type, Shear Operator and Model : metal rods back MARILYN SAWANT RN - 01/04/2020 6:42 EST Social History (As Of: 01/04/2020 06:48:08 EST) Tobacco: stopped years ago Smoking Status. yrs [...] by Jenna Carroll RN) Infectious Disease History Has the patient ever been tested for COVID-19? : Yes, Patient stated results Negative Where are the test results? : In EMR Results Date of COVID-19 test known? : Yes Date of COVID-19 Test : 01/01/2020 EST Does patient have symptoms of COVID-19? : No COVID19 Screening : No Experiencing Infectious Disease Symptoms : No symptoms Physical contact outside [place] in the last 30 days : No Infectious Disease History : None Tuberculosis Symptoms : None MARILYN SAWANT RN - 01/04/2020 6:42 EST COVID19 PreProcedure Screening Is this an Emergent or Add on Procedure? : No Date PreProcedure COVID-19 test known? : Yes Date of PreProcedure COVID-19 : 01/01/2020 EST Has patient been isolated since the test : Yes Exposed to COVID19 symptoms since test? : No MARILYN SAWANT RN - 01/04/2020 6:42 EST Anesthesia/Transfusion History Family History of Anesthesia Reaction : No prior transfusion(s) Blood Transfusion Acceptable to Patient : Yes Transfusion History : Prior anesthesia without reaction Family History of Anesthesia Reaction : None MARILYN SAWANT RN - 01/04/2020 6:42 EST Functional Assessment Living Situation : Home Patient Lives With : Spouse Persons Assisting Patient at Home : Spouse Current Daily Living Assistance : None Sensory Deficits : None STEEEL Hx Falls Immediate/Within 3 Months : No Current Home Treatments : None MARILYN SAWANT RN - 01/04/2020 6:42 EST [place] Suicide Severity Rating Scale (C-SSRS) CSSRS Past Month Wish to be : No CSSRS Past Month Suicidal Thoughts : No CSSRS Lifetime Suicide Behavior : No Suicide Severity Rating Score : 0 Suicide Severity Rating : No Additional Care Required at this time MARILYN SAWANT RN - 01/04/2020 6:42 EST Psychosocial History Currently in Unsafe Situation : No MARILYN SAWANT RN - 01/04/2020 6:42 EST Advance Directive Patient has Advance Directive *Q : No, patient refuses Advance Directive information MARILYN SAWANT RN - 01/04/2020 6:42 EST General Info Arrived From : Home Mode of Arrival on Unit : Ambulatory Legal Guardian : Unaccompanied Support Person/Pt Rep Name : Jayne Owen Family/Rep/Phys Notified of Admit : No Emergency Contact #1 : Jayne Martinez Emergency Contact #1 Emergency Contact #1 Relationship : Emergency Contact #2 : . Emergency Contact #2 Phone Number : . Emergency Contact #2 Relationship : . Information Obtained From : Patient Primary Language : Nam[place]ian Communication Barrier : None Hand Tufter Needed : No MARILYN SAWANT RN - 01/04/2020 6:42 EST Sleep Apnea Risk Assmt Hx of Obstructive Sleep Apnea Diagnosis : No Snore Loudly : No Tired, Fatigued, or Sleepy During Day : No Observed Stopping Breathing During Sleep : No Have/Are Being Treated for Hypertension : No BMI Greater Than 35 kg/m2 : No Age over 50 Years Old : Yes Neck Circumference Greater Than 40 cm : No Gender Male : Yes STOP-BANG Sleep Apnea Risk Level Score : 2 MARILYN SAWANT RN - 01/04/2020 6:42 EST Edmond Scale Edmond Sensory Perception : No impairment [place] Moisture : Rarely moist [place]mond Activity : Walks occasionally Edmond Mobility : Slightly limited [place] Nutrition : Adequate [place]mond Friction and Shear : No apparent problem Edmond Score : 20 MARILYN SAWANT RN - 01/04/2020 6:42 EST Fall Risk Scales ABCs Fall Injury Risk Identification : None STEELE Hx Falls Immediate/Within 3 Months : No Steele Secondary Diagnosis : Yes STEELE Use of Ambulatory Aid : None STEELE IV Therapy or IV Access : Yes Steele Gait/Transferring : Normal, bedrest, immobile Steele Mental Status : Oriented to own ability Steele Fall Risk Score : 35 STEELE Fall Scale Risk Level : 25-45 Medium Risk [place] Fall Interventions : Adequate lighting, Bed in low position, Call device within reach, Non-slip footwear, Personal items within reach, Reinforced to call for assistance before getting out of bed, Room free of clutter/spills, Upper side-rails up, Wheels locked, Wires/Cords secured MARILYN SAWANT RN - 01/04/2020 6:42 EST Education Topics, Day of Surgery DayofSurgery Education Grid Anesthesia/Sedation : Verbalizes understanding Fall Risks : Verbalizes understanding Family Instructions : Verbalizes understanding Infection Control : Verbalizes understanding IV's : Verbalizes understanding Plan of Care : Verbalizes understanding Responsible Adult : Verbalizes understanding MARILYN SAWANT RN - 01/04/2020 6:42 EST Valuables and Belongings Valuables and Belongings : Clothing, Personal items Clothing : Common streetwear Clothing Disposition : Sent to locker Personal Items : Cell phone, Wallet Personal Items Disposition : Sent to locker MARILYN SAWANT RN - 01/04/2020 6:42 EST documented in this encounter Plan of Treatment Not on file documented as of this encounter Visit Diagnoses Not on filedocumented in this encounter
--- OUTSIDE RECORDS SUMMARY | 2024-07-20 13:03 | XMS_ITS | Encounter Summary ---
Author Organization [employer] Address [address] [place] [address] Care Team Providers Care Agricultural Crop Farm Manager Name Role Phone Unavailable Primary Care Provider Unavailabl e Encounter Details Date Type Department Care Team (Late st Contact Info) Description 02/28/2018 Transcribed Document [facility] [place] Family Medicine [facility] [place] [address] ProviderDina MD [facility] [place] [address] Social History Tobacco Use Types [...] Conversion Note - Dina ProviderMD - 02/28/2018 12:53 [place] [address] Patient Copy Patient Information: Name: AD MARTINEZ Current Date: 02/28/2018 12:53:41 : 1965 Patient Address: [address] [place] [id number] Patient Attending Physician: MIKY MANCILLA MD-[facility] Primary Care Provider: HILARIO MONZON MD Primary Care Provider Discharge Diagnosis: Comment: Follow-up Instructions: With: Address: When: MIKY MANCILLA [address] [facility], [address] [place] [address] Business (1) Within As needed Discharge Instructions: [...] any): Final Medication List: Other Medications acetaminophen-hydrocodone ([place] 10 mg-325 mg oral tablet) 1 Tablet(s) [...] by your health care provider. ??? Take xigc-pol-iaidyyl and prescription medicines only as told by [...] Assistance with quitting is available by contacting 5-037-QSGS-NOW. This is a free resource providing counseling, [...] Be sure to sign up for the [employer] patient portal, which gives you 06/09 access to your medical information ??? including these discharge instructions ??? using your computer, smartphone, or tablet. Just go to [employer] to get started. Questions? Call . [facility] would like to thank you for allowing us to assist you with your healthcare needs. KING Fletcher TROY LEE, (or group sales representative) have received the above patient education materials/instructions and have verbalized understanding: Patient Signature _ Date/Time Patient Product Promoter Retail Pet Signature (if needed) Date/Time Clinician/Hospital Product Promoter Retail Pet Signature (if needed) Date/Time documented in this encounter Plan of Treatment Not on file documented as of this encounter Visit Diagnoses Not on filedocumented in this encounter
--- OUTSIDE RECORDS SUMMARY | 2024-07-20 13:03 | XMS_ITS | Encounter Summary ---
Author Organization [employer] Address [address] [place] [address] Care Team Providers Care Jointer Submarine Cable Name Role Phone Unavailable Primary Care Provider Unavailabl e Encounter Details Date Type Department Care Team (Late st Contact Info) Description 01/04/2020 Transcribed Document [facility] Family Medicine [address] [place] [address] ProviderDina MD [address] [place] [address] Social History Tobacco Use Types [...] - Dina ProviderMD - 01/04/2020 8:45 AM CLAM GROWER [facility] Main OR IntraOp Summary Primary Physician: MARIALUISA VIRGEN MD-ORT Finalized Date/Time: 01/04/20 10:09:44 Pt. Name: AD MARTINEZ/Sex: 1965 Male Med Rec #: [id number] Physician: MARIALUISA VIRGEN MD-ORT Financial #: [id number] Pt. Type: I Room/Bed: [facility]/ Admit/Disch: 01/04/20 05:33:00 - [place] [facility] Case Attendance Entry 1 Entry 2 Entry 3 Case Attendee MARIALUISA VIRGEN MD-ORT RENFROE, REBECCA, SNELLING, LAUREL, PA-C CATERPILLAR MECHANIC-ANS Role Performed Surgeon/Proceduralist, CATERPILLAR MECHANIC/Nurse Material Assistant Physician physician office assistant First Time In 01/04/20 08:07:00 01/04/20 08:07:00 01/04/20 08:07:00 Time Out 01/04/20 10:09:00 01/04/20 10:09:00 01/04/20 10:09:00 Procedure Lumbar Fusion Lumbar Fusion Lumbar Fusion Posterior(Left) Posterior(Left) Posterior(Left) Other Attendee Superficial Wound Closed By: Last Modified By: Faiza Asher RN Kiebler, Rachael A, Faiza Arcos, MERCED 01/04/20 10:09:35 01/04/20 10:09:35 01/04/20 10:09:35 Entry 4 Entry 5 Entry 6 Case Attendee Faiza Asher RN Crofts, Amber L, OTHER, ATTENDEE #1 Rn Clinical Documentation Role Performed Power Engineer, First Power Brake Rebuilder Other Time In 01/04/20 08:07:00 01/04/20 08:07:00 01/04/20 08:07:00 Time Out 01/04/20 10:09:00 01/04/20 10:09:00 01/04/20 10:09:00 Procedure Lumbar Fusion Lumbar Fusion Lumbar Fusion Posterior(Left) Posterior(Left) Posterior(Left) Other Attendee rafia plughast neuro monitor Superficial Wound Closed By: Last Modified By: Faiza Asher RN Faiza Asher, Faiza Arcos, MERCED 01/04/20 10:09:35 01/04/20 10:09:35 01/04/20 08:48:15 Entry 7 Entry 8 Case Attendee OTHER, ATTENDEE #2 Nettie Ramirez, Certified Substance Abuse Counselor Role Performed Vendor Scrub, First Time In 01/04/20 08:07:00 01/04/20 08:07:00 Time Out 01/04/20 10:09:00 01/04/20 10:09:00 Procedure Lumbar Fusion Lumbar Fusion Posterior(Left) Posterior(Left) Other Attendee pearl appiah Superficial Wound Closed By: Last Modified By: Faiza Asher RN Kiebler, Rachael A, MERCED 01/04/20 08:48:15 01/04/20 10:09:35 [facility] IntraOp Case Attendance Audit 01/04/20 10:09:35 Supervisor Scouring Pads: [id number] Modifier: [id number] <+> Time Out 1 <*> Procedure Lumbar Fusion Posterior(Left) 2 <+> Time Out 2 <*> Procedure Lumbar Fusion Posterior(Left) 3 <+> Time Out 3 <*> Procedure Lumbar Fusion Posterior(Left) 4 <+> Time Out 4 <*> Procedure Lumbar Fusion Posterior(Left) 5 <+> Time Out 5 <*> Procedure Lumbar Fusion Posterior(Left) 6 <+> Time Out 6 <*> Procedure Lumbar Fusion Posterior(Left) 7 <+> Time Out 7 <*> Procedure Lumbar Fusion Posterior(Left) 8 <+> Time Out 8 <*> Procedure Lumbar Fusion Posterior(Left) 01/04/20 08:51:25 Supervisor Scouring Pads: [id number] Modifier: [id number] <+> 1 Procedure 2 <*> Procedure Lumbar Fusion Posterior(Left) 3 <*> Procedure Lumbar Fusion Posterior(Left) 4 <*> Procedure Lumbar Fusion Posterior(Left) 5 <*> Procedure Lumbar Fusion Posterior(Left) 6 <*> Procedure Lumbar Fusion Posterior(Left) 7 <*> Procedure Lumbar Fusion Posterior(Left) 8 <+> Time In 8 <*> Procedure Lumbar Fusion Posterior(Left) 01/04/20 08:49:43 Supervisor Scouring Pads: [id number] Modifier: [id number] <+> 1 Time In 2 <+> Time In 2 <*> Procedure Lumbar Fusion Posterior(Left) 3 <+> Time In 3 <*> Procedure Lumbar Fusion Posterior(Left) 4 <+> Time In 4 <*> Procedure Lumbar Fusion Posterior(Left) 5 <+> Time In 5 <*> Procedure Lumbar Fusion Posterior(Left) 6 <+> Time In 6 <*> Procedure Lumbar Fusion Posterior(Left) 7 <+> Time In 7 <*> Procedure Lumbar Fusion Posterior(Left) <+> 8 Case Attendee <+> 8 Role Performed <+> 8 Procedure [facility] IntraOp Case Times Entry 1 Patient In Room Time 01/04/20 08:07:00 Out Room Time 01/04/20 10:09:00 Anesthesia Start Time 01/04/20 08:07:00 Stop Time 01/04/20 10:09:00 Anesthesia Ready 01/04/20 08:07:00 Surgery / Procedure Times Start Time 01/04/20 08:45:00 Stop Time 01/04/20 10:08:00 Last Modified By: Faiza Asher RN 01/04/20 08:48:38 [facility] IntraOp Case Times Audit 01/04/20 10:09:33 Supervisor Scouring Pads: [id number] Modifier: [id number] <+> 1 Out Room Time 01/04/20 10:09:24 Supervisor Scouring Pads: [id number] Modifier: [id number] <+> 1 Stop Time 01/04/20 10:08:26 Supervisor Scouring Pads: [id number] Modifier: [id number] <+> 1 Stop Time [facility] IntraOp Communication Entry 1 Communication To Family/Significant other Comment start Communication By Faiza Asher RN Last Modified By: Faiza Asher RN 01/04/20 08:49:17 [facility] IntraOp Counts Verification Entry 1 Procedure Lumbar Fusion Posterior(Left) Count Info Count Type Sponge, Sharps, Miscellaneous Counts Verification Baseline/pre-procedure Sequence Counts Performed By Count Performed By Lacey Ferrera, (Scrub) Rn Clinical Documentation Count Performed By Faiza Asher RN (RN) Last Modified By: Faiza Asher RN 01/04/20 08:49:58 [facility] IntraOp Counts Final Entry 1 Procedure Lumbar Fusion Posterior(Left) Final Count Info Count Type Sponge, Sharps, Miscellaneous Counts Verification Skin Closure/end of Sequence procedure Count Results Correct, surgeon notified Counts Performed By Count Performed By Nettie Ramirez, (Scrub) Certified Substance Abuse Counselor Count Performed By Faiza Asher RN (RN) Last Modified By: Faiza Asher RN 01/04/20 09:53:10 [facility] IntraOp Delays Entry 1 Delay Reason Other Duration 15 Minute(s) Comment WAITING FOR PATIENT CONSENTS TO BE SIGNED/FILLED OUT BY PREOP NURSES Last Modified By: Faiza Asher RN 01/04/20 08:51:13 [facility] IntraOp Departure from OR Entry 1 Integumentary Assessment Integumentary WDL Assessment WDL Transfer/Handoff Transfer to PACU Phase I Handoff Method Bedside/Face to face Post-op Transport Bed (including Via specialty) Patient Transport Faiza Asher RN, Accompanied by CLIFTON COOPER CRNA-ANS Last Modified By: Faiza Asher RN 01/04/20 08:51:17 [facility] IntraOp Dressing and Packing Entry 1 Type Dressing Wound Dressing Item Occlusive dressing, Skin Closure Glue Applied By DANIELA HOPPER PA-C Other Comments AQUACEL AND COVADERM DRESSINGS APPLIED, DERMABOND PRINEO APPLIED Last Modified By: Faiza Asher RN 01/04/20 08:51:23 [facility] IntraOp Fire Risk Assessment Entry 1 Fire Info Surgical Site or 0- No Incision Above the Xyphoid Open O2 Source 0- No (Mask or Cannula) Available Ignition 1- Yes (ESU, Laser, Light Source) Fire Risk 1 Assessment Score Fire Score Fire Risk Yes Assessment Complete Fire Risk Faiza Asher RN Assessment Verified By Fire Risk 01/04/20 08:00:00 Assessment Verified Date/Time Fire Risk Standard Fire Yes Safety Precautions Followed Last Modified By: Faiza Asher RN 01/04/20 08:51:33 [facility] IntraOp General Case Junior Estimator 1 Case Information OR OR 01 [facility] Case Level 1 Room Verified Yes Wound Class I - Clean Specialty SN Neurosurgery Anesthesia Type General ASA Class 2 Diagnosis Preop Diagnosis LOWER BACK PAIN Postop Same As Preop No Postop Diagnosis SEE MD NOTES Last Modified By: Faiza Asher RN 01/04/20 08:52:53 [facility] IntraOp Implant Log Entry 1 Entry 2 Entry 3 Type Tissue Implant Tissue Implant Implant (Synthetic) (Biologic) (Biologic) Implant Log Implant Type Other Hardware Tissue Implant Type Bone Bone Implant BONE VIVIGEN FORMABLE INFUSION SET BONE MIS BRIANNA PLY SCRW SET Identification -[id number] [facility]-[id number] Description Implant Quantity 1 1 2 Implant Site L5-S1 L5-S1 L5-S1 Implant Identification Model Number Implant Identification Serial Number Implant [id number] Identification Lot Number Implant Identification Ssis Ssrs Developer Name: Implant Identification Catalog Number Implant Size Implant Has an Yes Yes No Expiration Date Implant Expiration 12/13/20 03/16/20 Date Wasted Radioactive Material Time Implanted Tissue Implant Continue for Tissue Implant Documentation Tissue Identification Number Graft Prep Per Yes Yes Ssis Ssrs Developer Instructions: Tissue Preparation Thawed N/A Method: Reconstitution Solution: Reconstitution Solution Lot Number Reconstitution Solution Expiration Date: Thawing Solution NS Thawing Solution [id number] Lot Number Thawing Solution 04/14/22 Expiration Date Preparation Materials, Other Preparation Materials, Other Lot Number Preparation Materials, Other Expiration Date Tissue Antrobus, Nettie, Antrobus, Nettie, Prepared/Processed Certified Substance Abuse Counselor Certified Substance Abuse Counselor By Ssis Ssrs Developer Yes Yes Paperwork Completed Implant Type Comment Last Modified By: Faiza Asher RN Kiebler, Rachael A, RN Kiebler, Rachael A, RN 01/04/20 10:00:58 01/04/20 10:00:58 01/04/20 10:00:58 Entry 4 Entry 5 Type Implant (Synthetic) Implant (Synthetic) Implant Log Implant Type Hardware Hardware Tissue Implant Type Implant SCREW VPR POLY EMELY SPINE VIPER Identification [id number] Description Implant Quantity 2 1 Implant Site L5-S1 L5-S1 Implant Identification Model Number Implant Identification Serial Number Implant Identification Lot Number Implant Identification Ssis Ssrs Developer Name: Implant Identification Catalog Number Implant Size Implant Has an No No Expiration Date Implant Expiration Date Wasted Radioactive Material Time Implanted Tissue Implant Continue for Tissue Implant Documentation Tissue Identification Number Graft Prep Per Ssis Ssrs Developer Instructions: Tissue Preparation Method: Reconstitution Solution: Reconstitution Solution Lot Number Reconstitution Solution Expiration Date: Thawing Solution Thawing Solution Lot Number Thawing Solution Expiration Date Preparation Materials, Other Preparation Materials, Other Lot Number Preparation Materials, Other Expiration Date Tissue Prepared/Processed By Ssis Ssrs Developer Paperwork Completed Implant Type Comment Last Modified By: Faiza Asher RN Kiebler, Rachael A, RN 01/04/20 10:00:58 01/04/20 10:00:58 [facility] Implant Log Audit 01/04/20 10:00:58 Supervisor Scouring Pads: [id number] Modifier: [id number] <*> Implant Identification Description BONE VIVIGEN FORMABLE [id number] <*> Implant Identification Lot Number [id number] <*> Implant Expiration Date 12/13/20 1 <*> Implant Site L5-S1 1 <*> Implant Quantity 1 1 <*> Implant Type Other 1 <*> Tissue Implant Type Bone 1 <*> Graft Prep Per Ssis Ssrs Developer Yes Instructions: 1 <*> Tissue Preparation Method: Thawed 1 <*> Thawing Solution NS 1 <*> Thawing Solution Lot Number [id number] 1 <*> Thawing Solution Expiration Date 04/14/22 1 <*> Tissue Prepared/Processed By Nettie Ramirez, Certified Substance Abuse Counselor 1 <*> Ssis Ssrs Developer Paperwork Completed Yes 1 <*> Implant Has an Expiration Date Yes 1 <*> Type Tissue Implant (Biologic) 2 <*> Implant Identification Description INFUSION SET BONE [id number] <*> Implant Identification Lot Number [id number] <*> Implant Expiration Date 03/16/20 2 <*> Implant Site L5-S1 2 <*> Implant Quantity 1 2 <*> Tissue Implant Type Bone 2 <*> Graft Prep Per Ssis Ssrs Developer Yes Instructions: 2 <*> Tissue Preparation Method: N/A 2 <*> Tissue Prepared/Processed By Nettie Ramirez, Certified Substance Abuse Counselor 2 <*> Ssis Ssrs Developer Paperwork Completed Yes 2 <*> Implant Has an Expiration Date Yes 2 <*> Type Tissue Implant (Biologic) <+> 3 Implant Identification Description <+> 3 Implant Site <+> 3 Implant Quantity <+> 3 Implant Type <+> 3 Implant Has an Expiration Date <+> 3 Type <+> 4 Implant Identification Description <+> 4 Implant Site <+> 4 Implant Quantity <+> 4 Implant Type <+> 4 Implant Has an Expiration Date <+> 4 Type <+> 5 Implant Identification Description <+> 5 Implant Site <+> 5 Implant Quantity <+> 5 Implant Type <+> 5 Implant Has an Expiration Date <+> 5 Type [facility] IntraOp Intraoperative Assessment Entry 1 Handoff Method Bedside/Face to face Valid History / Yes Physical in Chart Preoperative Yes Checklist Reviewed/Evaluated Allergies Reviewed Yes Patient is Latex No Sensitive Isolation Not applicable Precautions Noted Level of WDL Consciousness (WDL = Alert, Oriented to Person, Place, and Time) Skin Assessment Yes Verified Present Upon IVs Arrival to OR Last Modified By: Faiza Asher RN 01/04/20 08:52:03 [facility] IntraOp Intraoperative Equipment Entry 1 Type Equipment Equipment Equipment Katie Suction System ID Number [id number] Setting HIGH Intraop Monitoring Electrocardiogram Three lead placement (ECG) Electrode Placement Blood Pressure Non-Invasive BP Device Source Blood Pressure Arm, left upper Location Pulse Oximeter Hand, right Probe Site Antiembolic Devices Antiembolic Devices Sequential compression device, knee high Antiembolic Device Bilateral Location Antiembolic Device [id number] ID Number Scopes Photo/Video Documentation Photo Yes Video No Last Modified By: Faiza Asher RN 01/04/20 08:54:19 [facility] IntraOp Medication Admin Entry 1 Medication/Irrigant ANESTHETIC COCKTAIL-PROMISE Route of INJECTION Administration Dose Unit of Measure ml Volume 75 Administered By MARIALUISA VIRGEN MD-ORT Procedure Irrigation Last Modified By: Faiza Asher RN 01/04/20 08:54:38 [facility] IntraOp Patient Positioning Entry 1 Procedure Lumbar Fusion Posterior(Left) Body Position Prone Left Arm Position Secured on padded arm board Right Arm Position Secured on padded arm board Left Leg Position Uncrossed, parallel Right Leg Position Uncrossed, parallel Feet Uncrossed Yes Pressure Points Yes Checked Positioning Devices Gee Table, Alejandro Frame, Arm Board, Safety Strap, Leg(s), Pillows, Head Rest Device Position PRONE VIEW HEAD REST USED BY ANESTHESIA, GEL PADS TO BOTH ARMS, PILLOWS UNDER LOWER LEGS Positioned By Faiza Asher RN, CLIFTON COOPER, AIDEE-ANS, DANIELA HOPPER PA-C Position Verified Positioning Yes Verified by Anesthesia Positioning Yes Verified by Surgeon Last Modified By: Faiza Asher RN 01/04/20 08:54:48 [facility] IntraOp Sign In Entry 1 Patient, [...] Warming Measures Yes Taken Last Modified By: Faiza Asher RN 01/04/20 08:54:54 [facility] Intra Op Sign Out Entry 1 RN Confirmation Surgical Yes Procedure(s) Identified Instrument, Sponge Yes and Sharps Counts Correct/Documented Equipment Problems N/A Documented Specimen Labeled Yes Correctly Urinary Catheter N/A Documented in IView Safety Checklist Yes Elements Complete? RN Sign Out Faiza Asher RN Signature RN Sign Out 01/04/20 10:08:00 Signature Date/Time Plan of Care Outcome - [...] related to extraneous objects Last Modified By: Faiza Asher RN 01/04/20 10:08:47 [facility] IntraOp Skin Prep Entry 1 Procedure Lumbar Fusion Posterior(Left) Prescribed Yes Pre-Surgical Prep Completed Prep Area OPERATIVE SITE Intraop Prep Integumentary WDL Assessment WDL Prep Agents Chloraprep Prep by Faiza Asher RN Hair Removal Methods No hair removal performed Last Modified By: Faiza Asher RN 01/04/20 08:55:04 [facility] IntraOp Surgical Procedures Entry 1 Procedure Lumbar Fusion Posterior Modifiers Left Additional LT SIDED L5-S1 EXCISION Procedure AND EXPLORATION OF Description PSEUDOARTHOSIS; POSTERIOR LUMBAR FUSION OF L5-S1 WITH BONE GRAFT Primary Procedure Yes Primary Surgeon MARIALUISA VIRGEN MD-ORT Start 01/04/20 08:45:00 Stop 01/04/20 10:08:00 Anesthesia Type General Specialty SN Neurosurgery Wound Class I - Clean Last Modified By: Faiza Asher RN 01/04/20 08:51:24 [facility] IntraOp Surgical Procedures Audit 01/04/20 10:08:30 Supervisor Scouring Pads: [id number] Modifier: [id number] <+> 1 Stop [facility] IntraOp Temp Regulation Devices Entry 1 Temp Regulation Temperature Forced Air Warming Regulation Device device Temperature Upper body Regulation Site Temperature CLIFTON COOPER, Regulation Device CATERPILLAR MECHANIC-ANS Applied by Last Modified By: Faiza Asher RN 01/04/20 08:54:22 [facility] IntraOp Time Out Entry 1 Procedure to be Lumbar Fusion Performed Posterior(Left) Time Out Time Out Pause Time 01/04/20 08:44:00 All activity Yes suspended (unless life threatening [...] present, Performed in location of procedure after prepped/draped, Performed before each procedure if multiple procedures Antibiotic Yes Prophylaxis Administered Or In Progress Within the Last 60 Minutes Beta Fabi N/A Administered Venous Yes Thromboembolism Prophylaxis Required Anticipated Critical Events Surgeon None expected Anesthesia Provider None expected Nursing Assures Sterility of instruments, Equipment concerns or issues, Implant Availability Essential Imaging Yes Labeled and Displayed Last Modified By: Fazia Asher RN 01/04/20 08:52:02 [facility] IntraOp X-Ray and Images Entry 1 X-Ray/Imaging Type Fluoroscopy Fluoroscopy Type C-Arm Site OPERATIVE SITE Microsoft Bi Architect Name Lacey Ferrera, Rn Clinical Documentation Protective Devices Yes Used Last Modified By: Faiza Asher RN 01/04/20 08:55:26 Case Comments <None> Finalized By: Faiza Asher RN Document Signatures Signed By: Faiza Asher RN 01/04/20 10:09 Electronically signed by Favio [facility] Conversion Glue Sprayer Cerner at 06/01/2022 11:11 PM CDT documented in this encounter Plan of Treatment Not on file documented as of this encounter Visit Diagnoses Not on filedocumented in this encounter
--- OUTSIDE RECORDS SUMMARY | 2024-07-20 13:03 | XMS_ITS | Encounter Summary ---
Author Organization [employer] Address [address] [place] [address] Care Team Providers Care Theater Usher Name Role Phone Unavailable Primary Care Provider Unavailabl e Encounter Details Date Type Department Care Team (Late st Contact Info) Description 01/04/2020 Transcribed Document [facility] Family Medicine [address] [place] [address] ProviderDina MD [address] [place] [address] Social History Tobacco Use Types [...] Conversion Note - Historical ProviderMD - 01/04/2020 5:30 AM SERVICE DELIVERY ANALYST Admission History, Adult Entered On: 01/04/2020 13:38 EST Performed On: 01/04/2020 12:40 EST by Ro Shoemaker Rn Advance Directive Patient has Advance Directive *Q : No, patient refuses Advance Directive information Ro Shoemaker Rn - 01/04/2020 13:19 EST Anesthesia/Transfusion History Family History of Anesthesia Reaction : No prior transfusion(s) Blood Transfusion Acceptable to Patient : Yes Transfusion History : Prior anesthesia without reaction Family History of Anesthesia Reaction : None Ro Shoemaker Rn - 01/04/2020 13:19 EST Anticipated Discharge Needs Discharge To, Anticipated : Home Ro Shoemaker Rn - 01/04/2020 13:19 EST Education Topics, Admission Orientation DCP GENERIC CODE [...] Verbalizes understanding Visiting Policy : Verbalizes understanding Ro Shoemaker Rn - 01/04/2020 13:19 EST Functional Assessment Living Situation : Home Patient Lives With : Spouse Persons Assisting Patient at Home : Spouse Current Daily Living Assistance : None Current Home Treatments : None Ro Shoemaker Rn - 01/04/2020 13:19 EST General Info Arrived From : Home Mode of Arrival on Unit : Ambulatory Patient Arrival Date/Time : 01/04/2020 12:40 EST Legal Guardian : Unaccompanied Support Person/Pt Rep Name : Jayne Owen Family/Rep/Phys Notified of Admit : No Emergency Contact #1 : Jayne Martinez Emergency Contact #1 Emergency Contact #1 Relationship : Emergency Contact #2 : . Emergency Contact #2 Phone Number : . Emergency Contact #2 Relationship : . Information Obtained From : Patient Primary Language : Peruvian Communication Barrier : None Separator Operator Shellfish Meats Needed : No Ro Shoemaker Rn - 01/04/2020 13:19 EST Fall Risk Scales ABCs Fall Injury [...] Scale Risk Level : 25-45 Medium Risk Maryneal Fall Interventions : Adequate lighting, Assistive devices within reach, Bed in low position, Call device within reach, Fall prevention handout/education per facility policy, Frequent orientation to call device, Frequent orientation to surroundings, Hourly comfort/safety rounds, Non-slip footwear, Personal items within reach, Reinforced to call for assistance before getting out of bed, Room free of clutter/spills, Upper side-rails up, Wheels locked, Wires/Cords secured Ro Shoemaker Rn - 01/04/2020 13:19 EST Health Histories Smoking Status : Never (less than 100 in lifetime; none in last 30 days) Smokeless Tobacco Status : Never Implant/Device Type, Signs Sales Representative and Model : metal rods back Ro Shoemaker Rn - 01/04/2020 13:19 EST Social History (As Of: 01/04/2020 13:38:38 EST) Tobacco: stopped years ago Smoking Status. [...] Source : Stated Height Entry Format : [place] Height, Feet : 6 ft(Converted to: 183 cm, 72 Inch) Height, Inches : 4 Inch(Converted to: 0 ft 4 Inch, 10.16 cm) Clinical Height : 193.04 cm Weight Source : Standing scale Weight Entry Format : [place] Clinical Dosing Weight : 108.64 kg Weight, Pounds : 239 lb Body Surface Area (BSA) : 2.39 m2 Body Mass Index : 29.2 kg/m2 (HI) [place] Body Weight : 86 kg Ro Shoemaker Rn - 01/04/2020 13:19 EST Infectious Disease History Has the patient ever [...] History : None Tuberculosis Symptoms : None Ro Shoemaker Rn - 01/04/2020 13:19 EST Tetanus Immunization Status Previous Tetanus Immunizations : No qualifying data available. Ro Shoemaker Rn - 01/04/2020 13:19 EST Influenza Vaccine Asmt, Adult Previous Vaccines from Immunization Schedule : No qualifying data available. Influenza Immunization, Current Season : No Inactivated Flu Vaccine Contraindications : No contraindications to inactivated influenza vaccine Transplant Workup/Recent Transplant : No Order for Influenza Vaccine : Declined Vaccination Ro Shoemaker Rn - 01/04/2020 13:19 EST Pneumococcal Vaccine Previous Vaccines from Immunization Schedule : No qualifying data available. Pneumonia Immunization Received : Yes Pneumonia Immunization Date : 02/14/2018 Ro Higgins Rn - 01/04/2020 13:19 EST Order Details Transport Mode Order Detail : Stretcher/Gurney Isolation Precautions Order Detail : Standard Precautions Order Detail : N/A IV Order Detail : 1 Oxygen Order Detail : 0 Nurse Collect Order Detail : 0 Central Line Order Detail : No Arterial Line : No Patient Needs Meds Crushed/Liquid : No Ro Shoemaker Rn - 01/04/2020 13:19 EST Nutrition History Eating Poorly Due to Decreased Appetite : Yes Unplanned Weight Loss in Past 3-6 Months : No Malnutrition Screening Tool Total(mal) : 1 Malnutrition Screening Tool Risk Level : Patient not at risk Ro Shoemaker Rn - 01/04/2020 13:19 EST [place] Suicide Severity Rating Scale (C-SSRS) CSSRS Past Month Wish to be : No CSSRS Past Month Suicidal Thoughts : No CSSRS Lifetime Suicide Behavior : No Suicide Severity Rating Score : 0 Suicide Severity Rating : No Additional Care Required at this time Ro Shoemaker Rn - 01/04/2020 13:19 EST Psychosocial History Does Someone Depend on You for Care? : No Currently in Unsafe Situation : No Ro Shoemaker Rn - 01/04/2020 13:19 EST Sleep Apnea Risk Assmt Hx of [...] Sleep Apnea Risk Level Score : 2 Ro Shoemaker Rn - 01/04/2020 13:19 EST Valuables and Belongings Valuables and Belongings : Clothing, Personal items Clothing : Common streetwear Clothing Disposition : Bedside, With patient Personal Items : Cell phone, Wallet Personal Items Disposition : Bedside, With patient Ro Shoemaker Rn - 01/04/2020 13:19 EST Electronically signed by Favio [facility] Conversion Delivery Crew Member Cerner at 06/01/2022 11:17 PM CDT documented in this encounter Plan of Treatment Not on file documented as of this encounter Visit Diagnoses Not on filedocumented in this encounter
--- OUTSIDE RECORDS SUMMARY | 2024-07-20 13:03 | XMS_ITS | Encounter Summary ---
Author Organization [employer] Address [address] [place] [id number] Care Team Providers Care Engagement Manager Name Role Phone Unavailable Primary Care Provider Unavailabl e Encounter Details Date Type Department Care Team (Late st Contact Info) Description 01/04/2020 Transcribed Document [facility] [address] [place] [address] ProviderDina MD [address] [place] [address] Social History Tobacco Use Types [...] Note - Dina Weaver MD - 01/04/2020 8:06 AM SUPERVISOR SMOKE CONTROL Patient: AD MARTINEZ Age: 54 years Sex: Male : 1965 Associated Diagnoses: None Author: MARIALUISA VIRGEN MD-ORT Operative Report DATE January 04, 2020 PROCEDURE: Previous lumbar fusion L4 L5 S1. Left side having pain at the L5-S1 level Popping sensation at L5-S1 Is a little exam, L5-S1 left side as were the symptoms are. The patient had popped out, he was taken to the x-ray department, local anesthetic was applied to the area of L5-S1 along the lateral side, and similarly relieving his symptoms suggestive that this is where the source of the pain is coming from. Imaging studies showing a large defect, L5-S1 left side, between L5 and the S1 screw, else is a fluid collection there, and evidence of pseudoarthrosis. Patient is fused interbody L5-S1. Left sacroiliac joint has been diffuse which helps some other than his pain, but not severe popping pain. This will be explored, . Then using the high-speed bur, enlarging this, This was extremely tedious, required extra work. Repeat instrumentation. PROCEDURE: Exploration of pseudoarthrosis left side L5-S1. Excision of pseudoarthrosis left side L5-S1. Thereafter exploration of fusion mass, L5-S1 [id number] -exploration of spinal fusion, L5-S1 -Excision pseudoarthrosis, previous fusion, L4-5, interbody. [id number], posterior, [id number] level, segmental instrumentation, L5-S1, Posterior lateral fusion, L5-S1 with bone graft. BMP. [id number]-[id number] graft harvest for spine surgery, autograft, right iliac crest, structural graft. Left side, from pelvis 55575-[id number], structural bone graft, for spine surgery. PREOPERATIVE DIAGNOSIS(ES): Previous spinal fusion L5-S1 area Pseudoarthrosis L5-S1. SURGEON: Marialuisa Virgen MD. BLOCKING MACHINE TENDER: Beth The duties of the assistant child care teacher are to assist in transferring the patient in the preoperative stretcher, onto the operating room table. Carefully positioning the patient, padding, During surgery, assisting with careful retraction, suctioning, allowing for safe visualization of the neurovascular structures. At the end of surgery, assistance with closure, and then transfer the patient off the operating room table onto the postoperative stretcher. ANESTHESIA: General. ESTIMATED BLOOD LOSS: Less than 20 mL COMPLICATIONS: None. Intraoperative EMG nerve conduction studies normal FINDINGS: Pseudoarthrosis left side L5-S1. L5-S1 meningocele SURGICAL INDICATORS: Previous fusion L4 L5 S1. Severe pain, popping sensation, L5-S1 left side Successful left SI joint fusion helping the SI joint pain but not help in the popping pain. IMAGING STUDIES P-kwtz-kbledgumfx fusion, L4 L5 S1. Instrumentation right side. Instrumentation removed on the left side. Disc degeneration above MRI study-probable pseudoarthrosis, left L5-S1. Defect identified. CT gyzs-ixefzd-wpflwipfs defect L5-S1 left side. Diagnostics/therapeutic epidural L3 for no improvement. Diagnostic/therapeutic pseudoarthrosis injection left side, relieving symptoms instantly. PATIENT STATUS TODAY Severe pain. Left side. Right beside the posterior superior iliac spine, L5-S1. Marking on the skin exactly where his symptoms are today preoperatively, confirmation in surgery with fluoroscopy, that this is the source. RECOMMENDATION: Continued conservative management, patient states this is not an option. Exploration pseudoarthrosis site Excision Meningocele-may need repair Bone grafting Bone graft harvest Repeat instrumentation RISKS Risk will be minimized. These were reviewed with the patient, minimize sedation of risk with the following, not limited just these. Infection-sterile technique, superficial surgical technique, antibiotics. Antibiotic dressing antibiotic and wounds. Nerve damage-use of x-ray to identify correct level, biplane, EMG nerve conduction studies. 4 power magnification were needed. Repeat surgery-minimized that using minimal invasive surgical techniques, to minimize the chance of damaging structural support. Bleeding and transfusion-rarely occurs with this operation. Meticulous hemostasis. Nonunion-delayed union-patient will avoid any type of tobacco products, and nonsteroidals. CSF leakage-staying away as much as possible from the dural structures. Careful retraction. FLUOROSCOPY TIME- PHYSICIAN QUALITY REPORTING SYSTEM,/PAYMENT FOR PERFORMANCE SERVICES. Antibiotics administered within 1 hour of incision Antibiotics krpath-yfvwy-tmhumjmxpc cephalosporin, Ancef Antibiotics are discontinued within 24 hours of surgery Mechanical DVT prophylaxis Catheter not placed. COMORBIDITIES History of pulmonary embolism and anticoagulation within 24 hours of surgery, and mechanical DVT prophylaxis intraoperative. Deep venous thrombosis Osteoarthritis Chronic back pain DESCRIPTION OF PROCEDURE: Patient brought into the operating room. General anesthesia. DVT protocol. Teds and sequential compression devices legs. The patient was transferred onto the operating table onto the Alejandro frame. Very carefully, padding all pressure areas. With the patient appropriate position, 2 plane fluoroscopy was brought into the operating room. Preoperative MRI and imaging evaluation, creating blueprint for the patient. This blueprint, with 2 plane fluoroscopy was carefully transferred onto the patient skin. Marketing surgery site. Wash and prep. Sterile draping. Or 0.0 magnification. Timeout., antibiotics Local filtration, side, L5-S1. [id number] -Excision of pseudoarthrosis L5-S1 exploration of spinal fusion. Pseudoarthrosis. Marked on skin and left side preop. As surgery, repeat marking Pseudoarthrosis, was identified using radiography. Carefully marking on the skin. 2 plane fluoroscopy, triangulation technique, incision, placement of Jamshidi needle, down pedicle left side L5, down pedicle left side S1. This was extremely tedious, as previous landmarks had been removed by the previous surgery. They concerned that the EMG nerve conduction studies are normal. Patient was not paralyzed. Placement of the guidewires down the damaged Jamshidi needles and careful stabilization of the guidewires. Confirmation with x-ray. Skin incision was made between the guidewires. Very carefully followed with the guidewire down to the S1 pedicle, the L5 pedicle, on the left side. Retractor carefully placed. Pseudoarthrosis, was identified. The scar tissue present, between the pedicle of S1 and the pedicle of L5 left side. This was carefully curettaged. And then came down to the L5 pedicle, to identify the or 5 facet joint, and the L5-S1 facet joint. The L4-5 facet joint was not fused. I try to identify the pedicle of L4, using fluoroscopy, would be unsafe to place a pedicle screw at L4. I elected not to put a note out L4 pedicle screw in. Removal of the pseudoarthrosis, using curette, pituitary, Kerrison punches. Carrying this up above the L4-5 facet joint. Decortication of the facet joint with a high-speed bur. Decortication of the bed. Posterior lateral fusion, The bone graft bed was then examined. This included the sacral alar, TO the transverse process of L5, and carrying this up above the facet joint at L4-5, with Careful decortication. Defect was identified below the transverse process of interpedicular screw of L5. Careful decortication with a high-speed bur. Then placement of the BMP onto the surface of the bed followed with bone graft, and then graft foot caster and allograft autograft. This was carefully placed into the pedicle screw tulips. L5 and S1 and above the facet joint. +[id number]-Mhkxtkiuc harvest iliac crest right side- Separate incision was made over the posterior superior iliac crest. -Right side. Through this small incision, carefully dissecting onto the posterior suprailiac spine. Osteotomizing the posterior superior iliac spine. Incision made right iliac crest. Posterior superior spine. Through this small incision, using dowel bone harvest technique, taking both dowels of bone graft, for the posterior suprailiac spine, and then bone marrow from with cancellus bone graft, from between the 2 tables. This was mixed, with revision, graft foot caster.. + allograft preparation, structural bone graft The allograft, was open. This is rehydrated. Then on the back table, to this adding combination of the old graft harvested from the right iliac crest, making a auto allograft mixture. This was used to be placed into the disc, to allow for the disc fusion to take place between the bone. Follow-up with compact bone grafting. Posterior instrumentation L5-S1 Identification of the previous screw holes. With the screw holes previous identify, confirming that were the correct position. EMG nerve conduction studies. Screws and placed into L5, S1, confirmed with x-ray. Locking the screws down making certain that the bone grafts on either side of the screw, mediolaterally superiorly and inferiorly. Jesse length was then measured, and then very carefully placement of the jesse into the tulip heads, and then locking these down in position. Confirmation with direct visualization, and with fluoroscopy. The jesse then was very carefully placed to 5 S1 with direct visualization, an fluoroscopy. Torquing the set screws down in position, with a torque wrench and counter rotating wrench, snug. Wound closure The wound was closed in the standard fashion. This was done by first irrigation of the wound with antibiotic solution. Deep fascia repaired with #1 Vicryl subcutaneous tissue with 2 Vicryl. The skin was closed, with dae, followed by antibiotic ointment, and antibiotic dressing.Wound sealed with dermabond. Sponge count was correct. Postoperative x-ray showing placement of the interbody spacer, rods and screws, decompression. Transferred to recovery room The patient was very gently transferred on postop recovery bed, and to recovery room. Sincerely, Dr. Marialuisa Virgen, January 04, 2020 documented in this encounter Plan of Treatment Not on file documented as of this encounter Visit Diagnoses Not on filedocumented in this encounter
--- OUTSIDE RECORDS SUMMARY | 2024-07-20 13:03 | XMS_ITS | Encounter Summary ---
Author Organization [employer] Address [address] [place] [address] Care Team Providers Care Media Producer Name Role Phone Unavailable Primary Care Provider Unavailabl e Encounter Details Date Type Department Care Team (Late st Contact Info) Description 01/04/2020 Transcribed Document [facility] [place] [address] [place] [address] ProviderDina MD [address] [place] [address] Social History Tobacco Use Types [...] Conversion Note - Historical ProviderMD - 01/04/2020 12:55 PM DRAW BENCH OPERATOR HELPER Evaluation, Physical Therapy Entered On: 01/04/2020 14:41 EST Performed On: 01/04/2020 14:27 EST by Romi Garcias Student-Physical Therapist General Information, PT Visit Type, PT : Initial evaluation Patient Orders : Order Date Order Ordering MD 01/04/2020 12:55 PT Evaluation and Treatment Ordered By: MARIALUISA VIRGEN MD-ORT Active Diagnoses : No Qualifying Diagnoses Therapy Diagnosis, PT : aftercare following L4-S1 fusion Admission Date : 01/04/2020 05:33 Personal Devices : Personal Devices No Devices Recorded Assistive Devices : Assistive Devices No Devices Recorded General Information Comment, PT : pt being seen s/p posterior lateral fusion to L4-S1 Romi Garcias Student-Physical Therapist - 01/04/2020 14:27 EST General Status Patient Received Status : Up in chair, Chair alarm activated, Other: IV Treatment Start Time : 01/04/2020 14:10 EST Patient Left Status : Up in chair, Chair alarm activated, RN/PCT informed, All needs met and within reach RN/PCT Informed Comment : [facility] ok'd PT Treatment End Time : 01/04/2020 14:25 EST Treatment Time : 15 Minute(s) Romi Garcias StudentPhysical Therapist - 01/04/2020 14:27 EST History and Environment Living Situation, Therapy : Home Patient Lives With : Spouse Persons Assisting Patient at Home : Spouse Persons Providing Information : Patient Home Equipment Therapy, PT : Commode, Walker Commode : Toilet seat, elevated Walker : Walker, front wheel Home Setup : One story Stairs : Yes Stair Location(s) : Outside Outside Stairs, Number of Steps : 2 Railing Outside : No Romi Garcias StudentPhysical Therapist - 01/04/2020 14:27 EST Prior Level of Function PT GRID Prior LOF Ambulation, Household : Independent Prior LOF Ambulation, Community : Independent Prior LOF Bed Mobility : Independent Prior LOF Toileting : Independent Prior LOF Transfer : Independent Romi Garcias StudentPhysical Therapist - 01/04/2020 14:27 EST Upper Extremity Upper Extremity Dominance : Right Right UE Active ROM : WFL Right UE Strength : WFL Left UE Active ROM : WFL Left UE Strength : WFL Right UE Strength : WFL Left UE Strength : WFL Romi Garcias StudentPhysical Therapist - 01/04/2020 14:27 EST Lower Extremity RLE Active ROM : WFL Right LE Strength : WFL LLE Active ROM : WFL Left LE Strength : WFL Lower Extremity Comment : No formal testing performed secondary to acuity of condition Romi Garcias StudentPhysical Therapist - 01/04/2020 14:27 EST Functional Mobility Mobility Grid Sit to Stand : Rehab Modified independence Stand to Sit : Rehab Modified independence Romi Garcias StudentPhysical Therapist - 01/04/2020 14:27 EST Stand to Sit Device : Belt, gait Functional MobilityComment : pt modified independent and capable of doing all functional mobility tasks Romi Garcias StudentPhysical Therapist - 01/04/2020 14:27 EST Gait Training/Assessment, PT Gait Assistance Level : Supervision Walking Distance : 30ft Ambulatory Devices : Gait belt Gait Deviations : Yes Left Lower Gait Deviation : Kizzy, decreased Right Lower Gait Deviation : Kizzy, decreased Stair(s) Ascend/Descend Training : Yes Number of Stairs : 2 Stair(s) Assist Devices : Gait belt Stair Assist : Supervision Stair Training Comment : Overall steady and safe, no unsteadiness, LOB or safety concerns Romi Garcias Student-Physical Therapist - 01/04/2020 14:27 EST Neuromuscular Reeducation, PT Balance Comment : Good static and dynamic- no saftey concerns at this time GOOD PASTOR, PT - 01/04/2020 14:49 EST Neurological/Sensory Overall Sensory Response : Intact Response to Pain : Intact Romi Garcias Student-Physical Therapist - 01/04/2020 14:27 EST Cognition Assessment, PT Orientation : Oriented x 4 Safety/Judgment Comment : Intact Attention Assessment : Present Romi Garcias Student-Physical Therapist - 01/04/2020 14:27 EST Edu Topics Physical Therapy Education Grid Home Program/Exercises : Verbalizes understanding Home Safety : Verbalizes understanding, Returns demonstration Stair Training : Verbalizes understanding, Returns demonstration Romi Garcias Student-Physical Therapist - 01/04/2020 14:27 EST Indication Assesessment, PT Physical Therapy Indicated : No Potential Barriers To Therapy : None evident Rehabilitation Potential : Good Romi Garcias Student-Physical Therapist - 01/04/2020 14:27 EST Plan of Care, PT PT Tx Plan/Goals Established w Patient : Yes Romi Garcias Student-Physical Therapist - 01/04/2020 14:27 EST Treatment Note Subjective Comment : pt UIC and agreeable to therapy Patient's Response to Treatment : Great! Additional Objective Information : See eval above pt left UIC with HEP HEP was explained and pt verbally agreed he understood. Assessment : pt is functionally safe to discharge home once he is medically stable and cleared for discharge. He will not require further skilled PT [facility]. Romi Garcias Student-Physical Therapist - 01/04/2020 14:27 EST Plan for Treatment : One time only Read and agreed with above: Good Pastor, PT, DPT GOOD PASTOR, PT - 01/04/2020 14:49 EST Pain Assessment Pain Scaled Used : 0-10 Pain scale Pain Score Pre-Intervention : 3 Pain Score During-Intervention : 3 Pain Score Post-Intervention. : 3 Pain Comment : Left sided, I have a pretty high tolerance though RN aware Romi Garcias, Student-Physical Therapist - 01/04/2020 14:27 EST Image 1 - Images currently included in the form version of this document have not been included in the text rendition version of the form. Anticipated Discharge Needs, OT/PT Anticipated Discharge to : Home, with family care Romi Garcias Student-Physical Therapist - 01/04/2020 14:27 EST [facility] [facility] Charges PT Eval Low Complexity : 1 Romi Garcias Student-Physical Therapist - 01/04/2020 14:27 EST Electronically signed by Favio [facility] Conversion Drum Straightener Cerner at 06/01/2022 11:08 PM CDT documented in this encounter Plan of Treatment Not on file documented as of this encounter Visit Diagnoses Not on filedocumented in this encounter
--- OUTSIDE RECORDS SUMMARY | 2024-07-20 13:03 | XMS_ITS | Encounter Summary ---
Author Organization [employer] Address [address] [place] [address] Care Team Providers Care Tea Plantation Worker Name Role Phone Unavailable Primary Care Provider Unavailabl e Encounter Details Date Type Department Care Team (Late st Contact Info) Description 02/28/2018 Transcribed Document [facility] [place] [address] [place] [address] ProviderDina MD [address] [place] [address] Social History Tobacco Use Types [...] - Dina ProviderMD - 02/28/2018 12:41 PM TRANSPORT COMPANY MANAGER Patient Education Materials Follows: Myelogram, Care After Introduction Refer to this [...] by your health care provider. ??? Take hwvt-aur-dhppgmt and prescription medicines only as told by [...] 07/08/2016 Document Reviewed: 11/13/2015 ? 2017 [employer] documented in this encounter Plan of Treatment Not on file documented as of this encounter Visit Diagnoses Not on filedocumented in this encounter
--- OUTSIDE RECORDS SUMMARY | 2024-07-20 13:05 | XMS_ITS | Clinical Summary ---
Author Organization [facility] Address [address] [place] [address] Phone Care Team Providers Care Stem Dryer Maintainer Name Role Phone Hector HAYNES, [phone] Conditions or Problems Problem Name Problem Code Onset Date Status Entry Date Provider Comment Standard Description Annotate ARTHRODESIS STATUS 271423682 (SNOMED CT) 08/09 Active 08/09 Becki Molina H/O: arthrodesis LUMBOSACRAL RADICULOPATHY 1573507 (SNOMED CT) 07/25 Active 07/28 Chettiar Lumbosacral radiculopathy BREAKDOWN (MECHANICAL) OF INTERNAL FIXATION DEVICE OF VERTEBRAE, INITIAL ENCOUNTER T84.216A (ICD-10-CM ) 07/25 Active 07/28a Chettiar Breakdown (mechanical) of internal fixation device of vertebrae, initial encounter OTHER MECHANICAL COMPLICATION OF OTHER BONE DEVICES, IMPLANTS AND GRAFTS, INITIAL ENCOUNTER T84.398A (ICD-10-CM ) 06/23 Active 07/13 Malena Milian MA Other mechanical complication of other bone devices, implants and grafts, initial encounter BREAKDOWN (MECHANICAL) OF INTERNAL FIXATION DEVICE OF OTHER BONES, INITIAL ENCOUNTER T84.218A (ICD-10-CM ) 06/23 Active 07/13 Malena Milian MA Breakdown (mechanical) of internal fixation device of other bones, initial encounter FIXATION HARDWARE IN BACK AND NECK 803235263 (SNOMED CT) 05/23 Active 05/23 Krystal Cartwright MA 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 493527751 (SNOMED CT) 03/11 Active 03/11 Krystal Cartwright MA Lumbar post-laminecto my syndrome SACROILIAC JOINT DYSFUNCTION 626968713 (SNOMED CT) 03/11 Active 03/11 Krystal Cartwright MA Sacroiliac disorder OVERWEIGHT 966181784 (SNOMED CT) 09/13 Resolved 09/13 Krystal Cartwright MA Overweight OVERWEIGHT 541999608 (SNOMED CT) 03/11 Active 03/11 Adina Dowd Overweight LUMBAR RADICULOPATHY, L1-L5 M54.16 (ICD-10-CM ) 04/04 Active 04/04 Sun Christopher MA Radiculopathy, lumbar region LUMBAR RADICULOPATHY 776651165 (SNOMED CT) 03/01 Active 03/01 Sun Christopher [place] Lumbar radiculopathy LOW BACK PAIN 608198198 (SNOMED CT) 09/13 Active 09/13 Goran Patricio MD Low back pain LUMBAR SPONDYLOSIS, L1-L5 M47.816 (ICD-10-CM ) 09/13 Active 09/13 Goran Patricio MD Spondylosis without myelopathy or radiculopathy, lumbar region CHRONIC PAIN SYNDROME (LBP) 852549457 (SNOMED CT) 09/13 Active 09/13 Goran Patricio MD Chronic pain syndrome OVERWEIGHT 174560081 (SNOMED CT) 09/13 Removed 09/13 Goran Patricio MD Overweight Medications Medication Instructions Start Date Stop Date Generic Name NDC Provider DICLOFENAC SODIUM 75 MG TBEC 1 po BID DICLOFENAC SODIUM 09289619947 Manjinder Smith MD TIZANIDINE 4MG 1 po q6h prn muscle spasm TIZANIDINE 4MG Meredith Vanessa NORCO 10-325 MG ORAL TABLET Non[place] HYDROCODONE-ACETAMIN OPHEN 78100595874 Meredith Mendez MEDROL 4 MG TBPK take as directed METHYLPREDNISOLONE 02684799816 Manjinder Smith MD HYDROCODONE-AC ETAMINOPHEN 10-325 MG TABS Non-[place] HYDROCODONE-ACETAMIN OPHEN 44569228462 Adelaidemedardo Cantuuitjesusita COYNE MEDROL 4 MG TABS 1 tab daily METHYLPREDNISOLONE 25099992165 Adelaide Peralta MA NORCO 10-325 MG ORAL TABLET 1 po q 4-6 prn pain HYDROCODONE-ACETAMIN OPHEN 01495677554 Adelaide Peralta MA MEDROL 4 MG TBPK take as directed METHYLPREDNISOLONE 70468519364 Adelaide Peralta MA NORCO 5-325 MG ORAL TABLET Take 1 tab q 4-6 hrs prn pain HYDROCODONE-ACETAMIN OPHEN 43210860694 Adelaide Peralta MA PERCOCET 5-325 MG TABS 1-2 tabs po q 4-6 h prn OXYCODONE-ACETAMINOP HEN 96002721829 Adelaide Peralta MA LOVENOX 30 MG/0.3ML SUBCUTANEOUS SOLUTION Inject SQ bid ENOXAPARIN SODIUM 83361929980 Adelaide Peralta MA HEPARIN 5000U 5000U SQ BID for 2 weeks HEPARIN 5000U Adelaide Peralta MA PERCOCET 5-325 MG TABS ONE TABLET PO Q 4-6 HOURS PRN PAIN OXYCODONE-ACETAMINOP HEN 72933660803 Adelaide Peralta MA HYDROCODONE-AC ETAMINOPHEN TABS Non-[place] HYDROCODONE-ACETAMIN OPHEN TABS 39218051781 Adelaide Peralta MA MEDROL 4 MG TABS 1 tab daily METHYLPREDNISOLONE 69958405189 Manjinder Smith MD NORCO 10-325 MG ORAL TABLET 1 po q 4-6 prn pain HYDROCODONE-ACETAMIN OPHEN 15401450744 Manjinder Smith MD NORCO 10-325 MG ORAL TABLET 1 po q 4-6 prn pain 08/22 HYDROCODONE-ACETAMIN OPHEN 78636179022 Sarita Singleton INFORMATION ANALYST NORCO 10-325 MG ORAL TABLET 1 po q 4-6 prn pain 08/12 HYDROCODONE-ACETAMIN OPHEN 68033544235 Manjinder Smith MD NORCO 5-325 MG ORAL TABLET Take 1 tab q 4-6 hrs prn pain HYDROCODONE-ACETAMIN OPHEN 93901744656 Manjinder Smith MD MEDROL 4 MG TBPK take as directed METHYLPREDNISOLONE 65661733286 Manjinder Smith MD NORCO 5-325 MG ORAL TABLET Take 1-2 tab q 4-6 hrs prn pain 08/09 HYDROCODONE-ACETAMIN OPHEN 01565166211 Manjinder Smith MD PERCOCET 5-325 MG TABS 1-2 tabs po q 4-6 h prn 06/05 OXYCODONE-ACETAMINOP HEN 79505605721 Manjinder Smith MD LOVENOX 30 MG/0.3ML SUBCUTANEOUS SOLUTION Inject SQ bid ENOXAPARIN SODIUM 41231724130 Manjinder Smith MD HEPARIN 5000U 5000U SQ BID for 2 weeks HEPARIN 5000U Manjinder Smith MD PERCOCET 5-325 MG TABS ONE TABLET PO Q 4-6 HOURS PRN PAIN 06/05 OXYCODONE-ACETAMINOP HEN 70565490537 Manjinder Smith MD TIZANIDINE 4MG 1 po q6h prn muscle spasm 03/22 TIZANIDINE 4MG Manjinder Smith MD DICLOFENAC SODIUM [facility] 03/11 DICLOFENAC SODIUM TBEC 49567620183 Adina Dowd DICLOFENAC SODIUM TBEC [facility] 03/11 DICLOFENAC SODIUM TBEC 19515118538 Goran Patricio MD HYDROCODONE-AC ETAMINOPHEN TABS -[place] HYDROCODONE-ACETAMIN OPHEN TABS 32308030758 Goran Patricio MD Medications Administered No information available. Allergies, Adverse Reactions, Alerts Allergy Name Reaction Description Start Date Severity Statu s Provider [facility] Critical Goran cruz MD Results No information available. Plan of Care Type Date Detail Pending order X-Ray Scoliosis - Side Bends Pending order X-Ray Lumbar Fle xion-Extension Pending order X-Ray Lumbar AP and Lateral Pending order CBC Pending order EKG Pending order Renal function p alise with BUN Pending order Bone Scan Pending order Bone Scan Pending order X-Ray Lumbosacra l AP & Lateral Pending order X-Ray Lumbosacra l Flexion/Extension Pending order SI Joint Belt Pending order #3 SI Joint Inje ction (Diagnostic) Pending order CT Pelvis; witho ut contrast *SI Protocol* Pending order CT Pelvis; witho ut contrast *SI Protocol* Pending order #2 SI Joint Inje ction (Diagnostic) Pending order EMG Left Leg Pending order X-Ray Pelvis AP Pending order X-Ray Sacroiliac joint, 2 views Pending order X-Ray Lumbar AP- Lat and Flex/Extension Pending order #1 SI Joint Inje ction with Provocation & PMR F/U Pending order CT Lumbar withou t contrast Pending order CT Lumbar withou t contrast Patient education lumbar%20radic ulopathy Patient education back%20pain Patient education weight%20manag ement Patient education weight%20manag ement Patient education back%20pain Patient education back%20pain Patient education lumbar%20disc% 20herniation Patient education osteoarthritis Patient education back%20pain Patient education weight%20manag ement Patient education weight%20manag ement Patient education back%20pain Patient education back%20pain Patient education lumbar%20disc% 20herniation Patient education osteoarthritis Patient education back%20pain Patient education weight%20manag ement Patient education weight%20manag ement Patient education back%20pain Patient education back%20pain Patient education lumbar%20disc% 20herniation Patient education osteoarthritis Patient education back%20pain Patient education weight%20manag ement Patient education weight%20manag ement Patient education back%20pain Patient education back%20pain Patient education lumbar%20disc% 20herniation Patient education osteoarthritis Patient education back%20pain Patient education weight%20manag ement Patient education weight%20manag ement Patient education back%20pain Patient education back%20pain Patient education lumbar%20disc% 20herniation Patient education osteoarthritis Patient education back%20pain Patient education weight%20manag ement Patient education weight%20manag ement Patient education back%20pain Patient education back%20pain Patient education lumbar%20disc% 20herniation Patient education osteoarthritis Patient education back%20pain Patient education weight%20manag ement Patient education weight%20manag ement Patient education back%20pain Patient education back%20pain Patient education lumbar%20disc% 20herniation Patient education osteoarthritis Procedures Code Procedure Name Date Entry Date [facility]-[id number] Flu Shot Declined 9 [id number] Flu Shot Declined 6 05914 EMG w/ NCS, Complete, 1 Extremity CPT-139 86 0629/01/18 10915 Nerve Conduction Study (3-4 studies) CPT- 04921 15361 X-Ray Sacroiliac joint, 2 views 6 16535[place] [address] X-Ray Lumbar AP-Lat and Flex/Extension 20 01/01/16 Vital Signs Date Name Value Unit Description Height 76 [in_us] height E&M BMI (Body Mass Index) 31.04 kg/m2 Bod y Mass Index (Ratio) BP Diastolic 99 mm[Hg] blood pressu re, diastolic BP Systolic 154 mm[Hg] blood pressur e, systolic Heart Rate 66 /min pulse rate Weight Measured 255 [lb_av] weight E& M Weight Measured 255 [lb_av] weight E& M Body Temperature 97.7 [degF] temperat ure E&M Respiratory Rate 14 /min respirat ory rate E&M Immunizations No information available. Advance Directives No information available.
--- OUTSIDE RECORDS SUMMARY | 2024-07-20 13:05 | XMS_ITS | Encounter Summary ---
Author Organization [facility] Address [facility] [place] [address] Care Team Providers Care Contractor General Engineering Name Role Phone Nonstaff, Referring Primary Care Provider [phone] Leigh Ann Buckley MD, Manjinder Jones Primary Care Prov ider Clifton Melgoza MD Unavailable [phone] Encounter Details Date Type Department Care Team (Late st Contact Info) Description 09/10/2014 Abstract [facility] Physicians - Spine Surgery, [place] [address] 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 Social History Tobacco Use Types Packs/Day Years Used Date Smoking Tobacco: Never Tobacco Cessation:Counseling Given: No Alcohol Use Standard Drinks/Week Comments Yes 0 (1 standard drink = 0.6 oz pur e alcohol) Sex and Gender Information Value Date Recorded Sex Assigned at Not on file Legal Sex Male 1:35 PM EDT Gender Identity Not on file Sexual Orientation Not on file documented as of this encounter Last Filed Vital Signs Vital Sign Reading Time Taken Comments Blood Pressure - - Pulse - - Temperature - - Respiratory Rate - - Oxygen Saturation - - Inhaled Oxygen Concentration - - Weight 99.8 kg (220 lb) 09/10/2014 10:20 AM EDT Height 193 cm (6' 4 ) 09/10/2014 10:20 AM EDT Body Mass Index 26.78 09/10/2014 10:20 AM EDT documented in this encounter Plan of Treatment Not on file documented as of this encounter Visit Diagnoses Not on filedocumented in this encounter Care Teams Contractor General Engineering Relationship Specialty Start Date End Date Payal Madrid MD [address] [facility] PCP - General Family Medicine 09/06/14 09/18/14 Manjinder Beltrán Jr., MD [address] [place] [address] [address] [place] [address] PCP - General Internal Medicine 09/19/14 Clifton Melgoza MD [address] [facility] [place] [address] 02/21/22 documented as of this encounter
--- OUTSIDE RECORDS SUMMARY | 2024-07-20 13:05 | XMS_ITS | Encounter Summary ---
Author Organization [facility] Address [address] [place] [address] Care Team Providers Care Marine Equipment Preservation Inspector Name Role Phone Unavailable Primary Care Provider Unavailabl e Encounter Details Date Type Department Care Team (Late st Contact Info) Description 02/28/2018 Transcribed Document [facility] Family Medicine [facility] [place] [address] ProviderDina MD [facility] [place] [address] Social History Tobacco Use Types [...] Conversion Note - Dina ProviderMD - 02/28/2018 8:41 [place] [address] Patient Copy Patient Information: Name: AD MARTINEZ Current Date: 02/28/2018 08:41:28 : 1965 Patient Address: [address] [place] [address] Patient Attending Physician: MIKY MANCILLA MD-[facility] Primary Care Provider: HILARIO MONZON MD Primary Care Provider Discharge Diagnosis: Comment: Follow-up Instructions: With: Address: When: MIKY MANCILLA [address] [facility] [place] [address] Business (1) Within As needed Discharge Instructions: [...] any): Final Medication List: Other Medications acetaminophen-hydrocodone (Adolphus 10 mg-325 mg oral tablet) 1 Tablet(s) [...] by your health care provider. ??? Take allm-gsr-xuzgkam and prescription medicines only as told by [...] Assistance with quitting is available by contacting 7-027-USFG-NOW. This is a free resource providing counseling, [...] Be sure to sign up for the [employer] patient portal, which gives you 06/09 access to your medical information ??? including these discharge instructions ??? using your computer, smartphone, or tablet. Just go to [facility] to get started. Questions? Call . [facility] would like to thank you for allowing us to assist you with your healthcare needs. KING Fletcher TROY LEE, (or medical field representative) have received the above patient education materials/instructions and have verbalized understanding: Patient Signature _ Date/Time Patient Identity Management Consultant Signature (if needed) Date/Time Clinician/Hospital Identity Management Consultant Signature (if needed) Date/Time documented in this encounter Plan of Treatment Not on file documented as of this encounter Visit Diagnoses Not on filedocumented in this encounter
--- OUTSIDE RECORDS SUMMARY | 2024-07-20 13:05 | XMS_ITS | Data Portability ---
Author Organization [facility] Address [address] [place] [address] Care Team Providers Care Detective Sergeant Name Role Phone HILARIO MONZON Primary Care Provider [phone] MARIALUISA VIRGEN Referring Provider Assessment Encounter Date Assessment Date Assessment LastModified by Organization Details LastModified Time 11/13/2018 11/13/2018 This is a 53-year-old gentleman seen todayfor evaluation and treatment related to low back pain. He has a previous history of L3-S1 fusion status post hardware removal on the left side. This was complicated by CSF leak. 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 He also had left SI joint fusion. Pain is described over the lower lumbar spine on the left side. This is worse with palpation of the lumbar facet joints in with extension and lateral rotation. Pain is worse with lumbar extension. Eventually when pain is at its worst he finds benefit with popping his back which he does with lumbar extension and facet loading maneuvers. 1. CT myelogram shows instrumentation from right L3-5. There is posterior slippage of L2-3 resulting in lateral recess stenosis. Injection therapy has included SI joint injections in the distant past. Medication management has included Suffern 10/325 as prescribed by his PCP. His PCP we'll continue this medication. His ORT score is 0 representing low risk. UDS is positive for opiates and benzodiazepines. Benzodiazepines is unexpected and this will be sent to the lab for confirmation testing to establish a baseline in the event that we're asked to take over medication prescribing. Presentation is most consistent with lumbar spondylosis. His pain is very specifically over the L4-5 and L5-S1 facet joints. It should be noted that his hardware has been removed from the left side. I recommend left L2-5 MBB with progression to RFA if diagnostic. bgish Not available 11/13/2018 15:14:57 Plan of Treatment Reminders Order Date Submit Date Provider Last Modified By Organization Details Last Modified Time Details Appointments None recorded . Lab drug confirma tion, urine [email or web address] [facility], [facility], [address] [place] [address], [place], [address], 09:08:02 drug screen, urine bgish [facility], [facility] [address], [place], [address], 9 15:15:11 Referral None recorded . Procedures None recorded . Surgeries medial branch block, lumbar (SURG) [email or web address] Not available 13:06:40 Imaging None recorded . Medication Orders None recorded . Patient TargetsNo targets recorded. Patient InstructionsNo instructions recorded. Reason for Referral None Reported. Results Created Date Observation Date Name Description Value Unit Range Abnormal Flag Note LastModifiedBy Organization Detail LastModifiedTime 11/14/19 19 11/13/2018 drug scree n, urine THC: negati ve Not Available [place] [facility] [address], [place], [address], 11/13/2018 14:38:40 11/14/19 19 11/13/2018 drug scree n, urine Buprenorphin e: negati ve Not Available [place] [address], [place], [address], 11/13/2018 14:38:40 11/14/19 19 11/13/2018 drug scree n, urine TCA: negati ve Not Available [facility] [address], [place], [address], 11/13/2018 14:38:40 11/14/19 19 11/13/2018 drug scree n, urine Barbiturates : negati ve Not Available [place] [address], [place], [address], 11/13/2018 14:38:40 11/14/19 19 11/13/2018 drug scree n, urine Benzodiazepi markie: positi ve Not Available [address], [place], [address], 11/13/2018 14:38:40 11/14/19 19 11/13/2018 drug scree n, urine Methadone: negati ve Not Available [address], [place], [address], 11/13/2018 14:38:40 11/14/1911/13/2018 drug scree n, urine Amphetamines : negati ve Not Available [address], [place], [address], 11/13/2018 14:38:40 11/14/1911/13/2018 drug scree n, urine Morphine/Opi ates: positi ve Not Available [address], [place], [address], 11/13/2018 14:38:40 11/14/1911/13/2018 drug scree n, urine Oxycodone: negati ve Not Available [address], [place], [address], 11/13/2018 14:38:40 11/14/1911/13/2018 drug scree n, urine MDMA: negati ve Not Available [address], [place], [address], 11/13/2018 14:38:40 11/14/1911/13/2018 drug scree n, urine Cocaine: negati ve Not Available [address], [place], [address], 11/13/2018 14:38:40 11/14/1911/13/2018 drug scree n, urine Methamphetam ine: negati ve Not Available [place] [address], [place], [address], 11/13/2018 14:38:40 11/15/19 19 11/14/2018 6-Mon oacet ylmor phine (6-MA M), QN, urine 6-acetylmorp romeo Negati ve NG/mL 5 normal Negat crys-E xpect ed Not Available [facility] [address], [address], 11/18/2018 20:08:37 11/15/19 19 11/14/2018 6-Mon oacet ylmor phine (6-MA M), QN, urine 7-aminoclona zepam Negati ve NG/mL 5 normal Negat crys-E xpect ed Not Available [address], [address], 11/18/2018 20:08:37 11/15/19 19 11/14/2018 6-Mon oacet ylmor phine (6-MA M), QN, urine alpha-hydrox yalprazolam Negati ve NG/mL 5 normal Negat crys-E xpect ed Not Available [address], [address], 11/18/2018 20:08:37 11/15/19 19 11/14/2018 6-Mon oacet ylmor phine (6-MA M), QN, urine alprazolam Negati ve NG/mL 5 normal Negat crys-E xpect ed Not Available [address], [address], 11/18/2018 20:08:37 11/15/19 19 11/14/2018 6-Mon oacet ylmor phine (6-MA M), QN, urine amitriptylin e Negati ve NG/mL 10 normal Negat crys-E xpect ed Not Available [facility] [address], [address], 11/18/2018 20:08:37 11/15/19 19 11/14/2018 6-Mon oacet ylmor phine (6-MA M), QN, urine benzoylecgon ine Negati ve NG/mL 20 normal Negat crys-E xpect ed Not Available [facility] [address], [address], 11/18/2018 20:08:37 11/15/19 19 11/14/2018 6-Mon oacet ylmor phine (6-MA M), QN, urine buprenorphin e Negati ve NG/mL 5 normal Negat crys-E xpect ed Not Available [facility] [address], [address], 11/18/2018 20:08:37 11/15/19 19 11/14/2018 6-Mon oacet ylmor phine (6-MA M), QN, urine carisoprodol Negati ve NG/mL 10 normal Negat crys-E xpect ed Not Available [facility] [address], [address], 11/18/2018 20:08:37 11/15/19 19 11/14/2018 6-Mon oacet ylmor phine (6-MA M), QN, urine clonazepam Negati ve NG/mL 5 normal Negat crys-E xpect ed Not Available [facility] [address], [address], 11/18/2018 20:08:37 11/15/19 19 11/14/2018 6-Mon oacet ylmor phine (6-MA M), QN, urine codeine Negati ve NG/mL 50 normal Negat crys-E xpect ed Not Available [facility] [address], [address], 11/18/2018 20:08:37 11/15/19 19 11/14/2018 6-Mon oacet ylmor phine (6-MA M), QN, urine EDDP Negati ve NG/mL 100 normal Negat crys-E xpect ed Not Available [facility] - [address], [address], 11/18/2018 20:08:37 11/15/19 19 11/14/2018 6-Mon oacet ylmor phine (6-MA M), QN, urine fentanyl Negati ve NG/mL 1 normal Negat crys-E xpect ed Not Available [facility] [address], [address], 11/18/2018 20:08:37 11/15/19 19 11/14/2018 6-Mon oacet ylmor phine (6-MA M), QN, urine gabapentin Negati ve NG/mL 1000 abnormal Negat crys-U nexpe cted Not Available [address], [address], 11/18/2018 20:08:37 11/15/19 19 11/14/2018 6-Mon oacet ylmor phine (6-MA M), QN, urine hydrocodone 2610 NG/mL 5 high Posit crys-E xpect ed Not Available [facility] [address], [address], 11/18/2018 20:08:37 11/15/19 19 11/14/2018 6-Mon oacet ylmor phine (6-MA M), QN, urine hydromorphon e 994 NG/mL 5 high Posit crys-E xpect ed Not Available [facility] [address] [place], [address], 11/18/2018 20:08:37 11/15/19 19 11/14/2018 6-Mon oacet ylmor phine (6-MA M), QN, urine ketamine Negati ve NG/mL 2 normal Negat crys-E xpect ed Not Available [facility] [address], [address], 11/18/2018 20:08:37 11/15/19 19 11/14/2018 6-Mon oacet ylmor phine (6-MA M), QN, urine lorazepam Negati ve NG/mL 10 normal Negat crys-E xpect ed Not Available [facility] [address], [address], 11/18/2018 20:08:37 11/15/19 19 11/14/2018 6-Mon oacet ylmor phine (6-MA M), QN, urine mda Negati ve NG/mL 10 normal Negat crys-E xpect ed Not Available [facility] [address], [address], 11/18/2018 20:08:37 11/15/19 19 11/14/2018 6-Mon oacet ylmor phine (6-MA M), QN, urine mdea Negati ve NG/mL 5 normal Negat crys-E xpect ed Not Available [facility] [address], [address], 11/18/2018 20:08:37 11/15/19 19 11/14/2018 6-Mon oacet ylmor phine (6-MA M), QN, urine MDMA Negati ve NG/mL 10 normal Negat crys-E xpect ed Not Available [facility] [address], [address], 11/18/2018 20:08:37 11/15/19 19 11/14/2018 6-Mon oacet ylmor phine (6-MA M), QN, urine mdpv Negati ve NG/mL 5 normal Negat crys-E xpect ed Not Available [facility] [place] [address] [place], [address], 11/18/2018 20:08:37 11/15/19 19 11/14/2018 6-Mon oacet ylmor phine (6-MA M), QN, urine meperidine Negati ve NG/mL 2 normal Negat crys-E xpect ed Not Available [facility] - [address], [address], 11/18/2018 20:08:37 11/15/19 19 11/14/2018 6-Mon oacet ylmor phine (6-MA M), QN, urine meprobamate Negati ve NG/mL 100 normal Negat crys-E xpect ed Not Available [facility] - [address], [address], 11/18/2018 20:08:37 11/15/19 19 11/14/2018 6-Mon oacet ylmor phine (6-MA M), QN, urine methadone Negati ve NG/mL 50 normal Negat crys-E xpect ed Not Available [facility] - [address], [address], 11/18/2018 20:08:37 11/15/19 19 11/14/2018 6-Mon oacet ylmor phine (6-MA M), QN, urine methylone Negati ve NG/mL 10 normal Negat crys-E xpect ed Not Available [facility] [address], [address], 11/18/2018 20:08:37 11/15/19 19 11/14/2018 6-Mon oacet ylmor phine (6-MA M), QN, urine methylphenid ate Negati ve NG/mL 50 normal Negat crys-E xpect ed Not Available [facility] - [address], [address], 11/18/2018 20:08:37 11/15/19 19 11/14/2018 6-Mon oacet ylmor phine (6-MA M), QN, urine mitragynine Negati ve NG/mL 5 normal Negat crys-E xpect ed Not Available [facility] - [address], [address], 11/18/2018 20:08:37 11/15/19 19 11/14/2018 6-Mon oacet ylmor phine (6-MA M), QN, urine morphine Negati ve NG/mL 50 normal Negat crys-E xpect ed Not Available [facility] - [address], [address], 11/18/2018 20:08:37 11/15/19 19 11/14/2018 6-Mon oacet ylmor phine (6-MA M), QN, urine naloxone Negati ve NG/mL 10 normal Negat crys-E xpect ed Not Available [facility] - [address], [address], 11/18/2018 20:08:37 11/15/19 19 11/14/2018 6-Mon oacet ylmor phine (6-MA M), QN, urine N-desmethylt apentadol Negati ve NG/mL 25 normal Negat crys-E xpect ed Not Available [facility] [address], [address], 11/18/2018 20:08:37 11/15/19 19 11/14/2018 6-Mon oacet ylmor phine (6-MA M), QN, urine norbuprenorp romeo Negati ve NG/mL 5 normal Negat crys-E xpect ed Not Available [facility] - [place] [address] [place], [address], 11/18/2018 20:08:37 11/15/19 19 11/14/2018 6-Mon oacet ylmor phine (6-MA M), QN, urine nordiazepam Negati ve NG/mL 5 normal Negat crys-E xpect ed Not Available [facility] [place] [address] [place] [address], [address], 11/18/2018 20:08:37 11/15/19 19 11/14/2018 6-Mon oacet ylmor phine (6-MA M), QN, urine norfentanyl Negati ve NG/mL 2 normal Negat crys-E xpect ed Not Available [facility] [place] [address] [place] [address], [address], 11/18/2018 20:08:37 11/15/19 19 11/14/2018 6-Mon oacet ylmor phine (6-MA M), QN, [place] 3[address] NG/mL 10 high Posit crys-E xpect ed Not Available [facility] - [address], [address], 11/18/2018 20:08:37 11/15/19 19 11/14/2018 6-Mon oacet ylmor phine (6-MA M), QN, urine norketamine Negati ve NG/mL 2 normal Negat crys-E xpect ed Not Available [facility] - [address], [address], 11/18/2018 20:08:37 11/15/19 19 11/14/2018 6-Mon oacet ylmor phine (6-MA M), QN, urine oxazepam 2111 NG/mL 10 high Posit crys-E xpect ed Not Available [facility] [address], [address], 11/18/2018 20:08:37 11/15/19 19 11/14/2018 6-Mon oacet ylmor phine (6-MA M), QN, urine oxymorphone Negati ve NG/mL 10 normal Negat crys-E xpect ed Not Available [facility] [address], [address], 11/18/2018 20:08:37 11/15/19 19 11/14/2018 6-Mon oacet ylmor phine (6-MA M), QN, urine phencyclidin e Negati ve NG/mL 5 normal Negat crys-E xpect ed Not Available [facility] [address], [address], 11/18/2018 20:08:37 11/15/19 19 11/14/2018 6-Mon oacet ylmor phine (6-MA M), QN, urine pregabalin Negati ve NG/mL 500 normal Negat crys-E xpect ed Not Available [facility] [address], [address], 11/18/2018 20:08:37 11/15/19 19 11/14/2018 6-Mon oacet ylmor phine (6-MA M), QN, urine propoxyphene Negati ve NG/mL 10 normal Negat crys-E xpect ed Not Available [facility] [address], [address], 11/18/2018 20:08:37 11/15/19 19 11/14/2018 6-Mon oacet ylmor phine (6-MA M), QN, urine tapentadol Negati ve NG/mL 2 normal Negat crys-E xpect ed Not Available [facility] - [address], [address], 11/18/2018 20:08:37 11/15/19 19 11/14/2018 6-Mon oacet ylmor phine (6-MA M), QN, urine temazepam Negati ve NG/mL 10 normal Negat crys-E xpect ed Not Available [facility] - [address], [address], 11/18/2018 20:08:37 11/15/19 19 11/14/2018 6-Mon oacet ylmor phine (6-MA M), QN, urine thca Negati ve NG/mL 25 normal Negat crys-E xpect ed Not Available [facility] - [address], [address], 11/18/2018 20:08:37 11/15/19 19 11/14/2018 6-Mon oacet ylmor phine (6-MA M), QN, urine tramadol Negati ve NG/mL 25 normal Negat crys-E xpect ed Not Available [facility] - [address], [address], 11/18/2018 20:08:37 11/15/19 19 11/14/2018 6-Mon oacet ylmor phine (6-MA M), QN, urine zolpidem Negati ve NG/mL 1 normal Negat crys-E xpect ed Not Available [facility] - [address], [address], 11/18/2018 20:08:37 11/15/19 19 11/14/2018 6-Mon oacet ylmor phine (6-MA M), QN, urine noroxycodone Negati ve NG/mL 50 normal Negat crys-E xpect ed Not Available [facility] - [address], [address], 11/18/2018 20:08:37 11/15/19 19 11/14/2018 6-Mon oacet ylmor phine (6-MA M), QN, urine oxycodone Negati ve NG/mL 50 normal Negat crys-E xpect ed Not Available [facility] - [address], [address], 11/18/2018 20:08:37 11/15/19 19 11/14/2018 6-Mon oacet ylmor phine (6-MA M), QN, urine creatinine 157.94 mg/L normal In Range Not Available [facility] - [address], [address], 11/18/2018 20:08:37 11/15/19 19 11/14/2018 6-Mon oacet ylmor phine (6-MA M), QN, urine oxidant 0 ug/mL normal In Range Not Available [facility] - [address], [address], 11/18/2018 20:08:37 11/15/19 19 11/14/2018 6-Mon oacet ylmor phine (6-MA M), QN, urine pH 7.7 none normal In Range Not Available [facility] - [address], [address], 11/18/2018 20:08:37 11/15/19 19 11/14/2018 6-Mon oacet ylmor phine (6-MA M), QN, urine specific gravity 1.022 none normal In Range Not Available [facility] - [address], [address], 11/18/2018 20:08:37 11/15/19 19 11/14/2018 6-Mon oacet ylmor phine (6-MA M), QN, urine synthetic cannabinoids Negati ve NG/mL 20 normal Negat crys-E xpect ed Not Available [facility] [place] [address] [place], [address], 11/18/2018 20:08:37 11/15/19 19 11/14/2018 6-Mon oacet ylmor phine (6-MA M), QN, urine methamphetam ine Negati ve NG/mL 50 normal Negat crys-E xpect ed Not Available [facility] - [address], [address], 11/18/2018 20:08:37 11/15/19 19 11/14/2018 6-Mon oacet ylmor phine (6-MA M), QN, urine dextrorphan Negati ve NG/mL 5 normal Negat crys-E xpect ed Not Available [facility] - [address], [address], 11/18/2018 20:08:37 11/15/19 19 11/14/2018 6-Mon oacet ylmor phine (6-MA M), QN, urine dextromethor goldstein Negati ve NG/mL 5 normal Negat crys-E xpect ed Not Available [facility] - [address], [address], 11/18/2018 20:08:37 11/15/19 19 11/14/2018 6-Mon oacet ylmor phine (6-MA M), QN, urine acetylfentan yl Negati ve NG/mL 2 normal Negat crys-E xpect ed Not Available [facility] [address], [address], 11/18/2018 20:08:37 11/15/19 19 11/14/2018 6-Mon oacet ylmor phine (6-MA M), QN, urine acetylnorfen tanyl Negati ve NG/mL 5 normal Negat crys-E xpect ed Not Available [facility] [place] [address] [place], [address], 11/18/2018 20:08:37 11/15/19 19 11/14/2018 6-Mon oacet ylmor phine (6-MA M), QN, urine acrylfentany l Negati ve NG/mL 2 normal Negat crys-E xpect ed Not Available [facility] - [address], [address], 11/18/2018 20:08:37 11/15/19 19 11/14/2018 6-Mon oacet ylmor phine (6-MA M), QN, urine butyrylfenta nyl Negati ve NG/mL 10 normal Negat crys-E xpect ed Not Available [facility] - [address], [address], 11/18/2018 20:08:37 11/15/19 19 11/14/2018 6-Mon oacet ylmor phine (6-MA M), QN, urine butyrylnorfe ntanyl Negati ve NG/mL 10 normal Negat crys-E xpect ed Not Available [facility] [address], [address], 11/18/2018 20:08:37 11/15/19 19 11/14/2018 6-Mon oacet ylmor phine (6-MA M), QN, urine carboxyzolpi dem Negati ve NG/mL 10 normal Negat crys-E xpect ed Not Available [facility] [address], [address], 11/18/2018 20:08:37 11/15/19 19 11/14/2018 6-Mon oacet ylmor phine (6-MA M), QN, urine carfentanil Negati ve NG/mL 5 normal Negat crys-E xpect ed Not Available [facility] [address], [address], 11/18/2018 20:08:37 11/15/19 19 11/14/2018 6-Mon oacet ylmor phine (6-MA M), QN, urine qrg-6-hjfdqs fentanyl Negati ve NG/mL 10 normal Negat crys-E xpect ed Not Available [facility] [address], [address], 11/18/2018 20:08:37 11/15/19 19 11/14/2018 6-Mon oacet ylmor phine (6-MA M), QN, urine eyd-0-pqgclp norfentanyl Negati ve NG/mL 10 normal Negat crys-E xpect ed Not Available [facility] [address], [address], 11/18/2018 20:08:37 11/15/19 19 11/14/2018 6-Mon oacet ylmor phine (6-MA M), QN, urine diazepam Negati ve NG/mL 5 normal Negat crys-E xpect ed Not Available [facility] [address], [address], 11/18/2018 20:08:37 11/15/19 19 11/14/2018 6-Mon oacet ylmor phine (6-MA M), QN, urine furanylfenta nyl Negati ve NG/mL 2 normal Negat crys-E xpect ed Not Available [facility] [address], [address], 11/18/2018 20:08:37 11/15/19 19 11/14/2018 6-Mon oacet ylmor phine (6-MA M), QN, urine N-desmethylc italopram Negati ve NG/mL 10 normal Negat crys-E xpect ed Not Available [facility] [address], [address], 11/18/2018 20:08:37 11/15/19 19 11/14/2018 6-Mon oacet ylmor phine (6-MA M), QN, urine N-desmethyl- [id number] Negati ve NG/mL 5 normal Negat crys-E xpect ed Not Available [facility] [address], [address], 11/18/2018 20:08:37 11/15/19 19 11/14/2018 6-Mon oacet ylmor phine (6-MA M), QN, urine norcarfentan il Negati ve NG/mL 5 normal Negat crys-E xpect ed Not Available [facility] [address], [address], 11/18/2018 20:08:37 11/15/19 19 11/14/2018 6-Mon oacet ylmor phine (6-MA M), QN, urine O-desmethylt ramadol Negati ve NG/mL 100 normal Negat crys-E xpect ed Not Available [facility] [address], [address], 11/18/2018 20:08:37 11/15/19 19 11/14/2018 6-Mon oacet ylmor phine (6-MA M), QN, urine [id number] Negati ve NG/mL 5 normal Negat crys-E xpect ed Not Available [facility] [address], [address], 11/18/2018 20:08:37 Result Notes None recorded. Problems Name Problem SNOMED Code Status Onset Date Resolution Date Notes Provider Name and Address Organization Details Recorded Time Low back pain 823184255 Active 019 JIM Mcmanus [facility] 11/13/2018 14:11:58 Problem Notes None recorded. Procedures Surgical History Date Name Laterality Status Provider Name and Address Organization Details Recorded Time Posterior Spinal Fusion completed Lissa FERNANDEZ [facility] 11/13/2018 14:12:53 Imaging Results None recorded. Procedure Notes None recorded. Medical Equipment None Reported. Allergies Allergen ID Allergen Name Allergen Category Reaction Reaction Severity Criticality Documentation Date Start Date Code Code System Note Provider Name and Address Organization Details Recorded Time 876128 Mobic medicatio n Not available Not available Not available 11/13/2018 35083 9 RxNorm JIM Mcmanus [facility] 9 14:09:32 Medications Name Sig Start Date Stop Date Status Note LastModified by Organization Details LastModified Time amoxicillin 500 mg capsule 11/13 completed Not Available Not Available Not Available prednisone 10 mg tablet 11/13 completed Not Available Not Available Not Available oxazepam 10 mg capsule active Not Available Not Available Not Available azithromycin 250 mg tablet 11/13 completed Not Available Not Available Not Available ibuprofen 800 mg tablet active Not Available Not Available Not Available tizanidine 4 mg tablet active Not Available Not Available Not Available prednisone 20 mg tablet 11/13 completed Not Available Not Available Not Available methylprednisolo ne 4 mg tablet 11/13 completed Not Available Not Available Not Available hydrocodone 10 mg-acetaminophen 325 mg tablet active Not Available Not Availabl e Not Available famotidine 20 mg tablet active Not Available Not Available Not Available hydrocodone 7.5 mg-acetaminophen 325 mg tablet 11/13 completed Not Available Not Available Not Available gabapentin 300 mg capsule active Not Available Not Available N ot Available diclofenac sodium 75 mg tablet,delayed release active Not Available Not Available Not Available testosterone cypionate 200 mg/mL intramuscular oil active Not Available Not Available Not Available oxycodone-acetam inophen 7.5 mg-325 mg tablet 11/13 completed Not Available Not Available Not Available levofloxacin 750 mg tablet active Not Available Not Available No t Available methylprednisolo ne 4 mg tablets in a dose pack 11/13 completed Not Available Not Available Not Available cefdinir 300 mg capsule 11/13 completed Not Available Not Available Not Available tadalafil 10 mg tablet active Not Available Not Available Not Available Vitals Date Recorded Body weight Body mass index (BMI) Body height Oxygen saturation Oxygen saturation in Arterial blood by Pulse oximetry Heart rate Systolic blood pressure Diastolic blood pressure Provider Name and Address Organization Details Last Updated DateTime 9 416886. 72 g 29.9 kg/m2 193.04 cm 97 % 97 % 54 /min 139 mm[Hg] 118 mm[Hg] Lissa Nunez [facility] 9 14:08:59 Social History Question Answer Notes LastModified by Endorphin Details LastModified Time Tobacco Smoking Status Former Smoker Lissa Nunez [facility] 11/13/2018 14:12:05 What Is Your Level Of Caffeine Consumption? Heavy [email or web address] Information not available 11/13/2018 Are You Deaf Or Do You Have Serious Difficulty Hearing? No [email or web address] Information not available 11/13/2018 Which Illicit Or Recreational Drugs Have You Used? None [email or web address] Information not available 11/13/2018 Hard Of Hearing Or Deaf In One Or Both Ears? No [email or web address] Information not available 11/13/2018 Prescription Drug Abuse No Information not available 11/13/2018 Marital Status [email or web address] Informatio n not available 11/13/2018 How Much Tobacco Do You Smoke? 0.25 PPD [email or web address] Information not available 11/13/2018 General Stress Level Medium [email or web address] Information not available 11/13/2018 Do You Have Difficulty Walking Or Climbing Stairs? No Information not available 11/13/2018 Sex: Unknown Functional Status Question Answer Note LastModified by Endorphin Details LastModified Time What is your level of alcohol consumption? Occasional [email or web address] Information not available 11/13/2018 Are you able to walk? YESWOREST [email or web address] Information not available 11/13/2018 Do you have difficulty doing errands alone? No [email or web address] Information not available 11/13/2018 Do you have difficulty dressing or bathing? Yes [email or web address] Information not available 11/13/2018 What is your exercise level? Occasional Information not available 11/13/2018 Mental Status Question Answer Note LastModified by Organization D etails LastModified Time Do you have difficulty concentrating, remembering or making decisions? No Information no t available 11/13/2018 Family History Relationship Description Onset Age of this Age Resolved Age Notes LastModified by Organization Details LastModified Time Father Heart disease [email or web address] Not available 2018 14:09:05 Mother Heart disease Not available 2018 14:09:05 Mother Rheumatoid arthritis [email or web address] Not available 2018 14:09:05 Medical History Condition Response Bipolar Disease N Coronary Artery Disease N Seizure Disorder N Gout N Thyroid Disease N Atrial Fibrillation N Head Trauma/Injury N Hernia N Depression N COPD N Anxiety Disorder N Acid Reflux (GERD) N Cancer N Stroke N Skin Disorder N High Cholesterol N Liver Disease N Rheumatoid Arthritis N Fibromyalgia N Headaches N Kidney Disease N Autoimmune Disease N Osteoarthritis N Neurosurgery Y DVT N Anemia N Heart Attack (SD) N Diabetes N Cardiomyopathy N Bleeding Disorder N CHF N AIDS/HIV N Inflammatory Bowel Disease N Dementia N Asthma N Substance Abuse N Sleep Apnea N Hepatitis N Heart Disease N Pulmonary Embolism Y Chronic Low Back Pain Y Hypertension N Osteoporosis N Past Encounters Encounter ID Performer Location Encounter Start Date Encounter Closed Date Diagnosis/Indication Diagnosis SNOMED-CT Code Diagnosis ICD10 Code Diagnosis Note [id number] Ernie Somers MD [place] [address] [facility] [address] [place] [address] 11/13/2018 12:58:50 11/13/2018 15:07:01 Low back pain 163625993 M54.5 Interverte bral disc disorder 04385927 M51.27 Long-term drug therapy [id number] Z79.818 The urine sample is being sent for quantitati ve LCMS analysis of illicit drugs (Cocaine, Methamphet amine, Heroin, Fentanyl, THC, Synthetic Cannabinoi ds, Kratom, MDMA, PCP, and Synthetic Stimulants ), Opiates (Codeine, Hydrocodon e, Hydromorph one, and Morphine), Oxycodone, Oxymorphon e, Methadone, Synthetic Opioids (Fentanyl, Methadone, Tramadol, Tapentadol , and Buprenorph ine), Benzodiaze pines (Alprazola m, Clonazepam , Diazepam, Nordazepam , Oxazepam, and Temazepam) and Amphetamin e, as this patient is being seen for the first time at this practice. The purpose of this analysis is to confirm the patients stated medication usage and to establish baseline medication and metabolite quantities . Lumbosacra l spondylosis without myelopathy [id number] M47.817 Medication monitoring 39 [id number] Z79.899 Health Concerns Section Related Observation LastModified by Organization Detai ls LastModified Time None Recorded Concern Status LastModified by Organization Details LastModified Time None Recorded Advance Directives Directive None Recorded Payers Insurance Date Sequence Insurance Name Policy Number Policy Mayorga Covered Member ID Mayorga Member ID Guarantor Name 11/10/2018 1 [place] [id number] Ad Martinez [id number] Ad Martinez Notes Date Note Type Note Provider Name and Address Organization Details Recorded Time 11/13/2018 text/html Low back painReported bypatient.Onset:6 years Location:left paraspinal; radiating down the left lower extremity to the buttock; Patient states there is pain in his left heel . Context:started without cause Quality:aching; burning; gnawing; stabbing; throbbing; frequent Severity:current pain level: 3/10; worst pain level: 9/10 Alleviating Factors:ice Aggravating Factors:lifting; twisting; bending/squatting; pushing/pulling; ROM Timing:worse during the workday Associated Symptoms:numbness; tingling;popping/c licking Prior Imaging:MRI; CT scan; [facility] in [place] Previous Lumbar Surgery:lumbar spinal fusion:; SI fusion in 06/[address] Lars Stephens Spinal fusion L4/L5, L5/S1 Dr Clifton Melgoza, [place], [place] Previous Injections:SI joint injections; helped temporarily; SI joint injection in [facility] in [place], [place] and [facility] Previous PT:completed PT; more than 6weeks of PT completed; response to therapy: no improvement in pain; [facility] in [place], [place] Medications History:NSAIDs: (Ibuprofen help Diclofenac somewhat); muscle relaxants: (Tizandine no relief); neuropathics: (Gabapentin somewhat); opioid pain medications: (Hydrocodone helps) Work Related:no Working:regular duty Prior Pain Management:yes:; Dr Miguel Ryan in [place] Ernie Somers MD [address] [place] [address], [phone], [facility]ly [facility] 11/13/2018 15:15:15
--- NOTE | 2024-07-20 13:39 | A.OFFVIS_ITS ---
[facility] Disclaimer: The information contained in this section may have been updated after the patient was seen, as this information can be updated by other users. Social History Smoking Status: Never smoker alcohol intake: never current occupational status: other Travel in the last 8 weeks?: None Have you lived/traveled outside US in past 30 days?: No Contact w/someone who lives/traveled outside US past 30 days?: No Exposure to someone with infectious disease in past 14 days?: No Do you have a fever (greater than 100.4 F or 38 C)?: No Have you tested positive for COVID-19?: No Exposed to someone with COVID-19 in past 14 days?: No Do you have a sore throat?: No Do you have a cough?: No Do you have any weakness?: No Do you have any diarrhea?: No Are you experiencing any unusual bleeding?: No Do you have any muscle aches/pain?: No Do you have any abdominal pain?: No Are you experiencing loss of taste or smell?: No PM Subjective & Objective Subjective Subjective:: This patient is to discuss intrathecal pump trial. He is currently taking hydrocodone 10 mg every 3-4 hours. He is not able to come off of his hydrocodone for the intrathecal pump trial. I did tell him that we cannot do a narcotic trial we will have to do the intrathecal bupivacaine pain pump trial and the day of the trial I will need him not to take any of his pain medicine. This will indicate success of the trial. Our goal is that if he does do successful with the intrathecal bupivacaine pain pump trial once we implanted bupivacaine pain pump he will need to wean down on his medication. Patient is agreeable to this. He has failed all previous conservative treatments including injections. He has failed previous surgery. He has had a successful psychological evaluation. Pain at rest (0-10 scale): 8 Objective Objective:: Alert and oriented x 3 no acute distress. Patient does have antalgic gait. Motor strength of lower extremities is 5/5. There is no gross sensory deficit. Has patient had previous pain injection?: Yes Percent improvement in pain since last injection: none Conservative treatment options previously tried: NSAIDS Length of treatment: year and Prescription medications Length of treatment: year Meds Home Medications and Allergies Home Medications ?Medication ?Instructions ?Recorded ?Confirmed ?Type needle (disp) 23 gauge 23 gauge x #100 ea 12/30/2304/10 Rx 1 (Hypodermic Pioneer) syringe with needle 3 mL 18 x 1 #2 ea 12/30/23 5 Rx 1/2 (BD Luer-Michelle Syringe) tadalafil 10 mg tablet See Rx Instructions .Route 0 02/17/24 07/16/24 Rx .COMPLEX #30 tabs tamsulosin 0.4 mg capsule 0.4 mg PO HS For urinary str eam 04/09/24 07/16/24 Rx #90 caps ibuprofen 800 mg tablet See Rx Instructions .Route 0 04/17/24 07/16/24 Rx .COMPLEX #90 tabs baclofen 10 mg tablet 10 mg PO HS #30 tabs 5 07/16/24 Rx meclizine 12.5 mg tablet See Rx Instructions PO TID P RN 05/17/24 07/16/24 Rx dizziness #60 tabs methylprednisolone 4 mg tablets in See Rx Instructions PO PER PKG DIR 05/30/24 07/16/24 Rx a dose pack #21 tabs amlodipine 5 mg-benazepril 40 mg 1 cap PO DAILY #90 ca ps 06/21/24 07/16/24 Rx capsule loratadine 10 mg tablet 10 mg PO DAILY #90 tabs 0510/0807/16/24 Rx testosterone cypionate 200 mg/mL 500 mg (2.5 mL) IM Q2 W #6 mL 06/21/24 07/16/24 Rx intramuscular oil rosuvastatin 20 mg tablet See Rx Instructions .Route 0 06/25/24 07/16/24 Rx .COMPLEX #90 tabs hydrocodone 10 mg-acetaminophen See Rx Instructions PO Q6HP PRN 07/16/24 07/16/24 Rx 325 mg tablet pain #150 tabs methylprednisolone 4 mg tablets in See Rx Instructions PO PER PKG DIR 07/16/24 07/16/24 Rx a dose pack #21 tabs New Prescriptions to Start Prescriptions: Allergies Allergy/AdvReac Type Severity Reaction Status Date / Time meloxicam (From [facility]) Allergy Mild Verified 07/16/24 11:54 Assessment and Plan *Assessment and plan (1) Postlaminectomy syndrome of lumbar region: Status: Acute Category: Medical Code(s): M96.1 - Postlaminectomy syndrome, not elsewhere classified (2) Degenerative joint disease (DJD) of lumbar spine: Status: Chronic Qualifiers: Spinal osteoarthritis complication: with radiculopathy Qualified Code(s): M47.26 - Other spondylosis with radiculopathy, lumbar region Category: Medical Code(s): M47.816 - Spondylosis without myelopathy or radiculopathy, lumbar region (3) Lumbar radiculopathy, chronic: Status: Acute Category: Medical Code(s): M54.16 - Radiculopathy, lumbar region Plan Patient can remain on his oral hydrocodone provided by Dr. Perez. We will plan on an intrathecal bupivacaine pain pump trial. This will be with intrathecal bupivacaine 2 mg. Success will be determined by the patient being able to stay off of his pain medication throughout the duration of the trial which will be 8 to 12 hours. Will plan on seeing him next month for his single shot intrathecal bupivacaine pain pump trial.
[2024-07-20 13:41] VITALS: BP 151/76; BP 151/79; PULSE 63; RESP 14; O2SAT 96; BMI 32.2
== END 2024-07-20 23:59 | disposition home or self-care (01) ==
LOC: SC.PAIN 13:00
PROVIDERS: PCP Internal Medicine; Visit Provider Anesthesiology
DX: M96.1 Postlaminectomy syndrome, not elsewhere classified (principal); M47.26 Other spondylosis with radiculopathy, lumbar region; Z79.891 Long term (current) use of opiate analgesic
CPT/HCPCS: 99212; G0463

== ENCOUNTER 2024-10-18 12:52 | Outpatient (CLI) | payer MEDICARE, BC, SELFPAY ==
--- OUTSIDE RECORDS SUMMARY | 2024-10-11 09:10 | XMS_ITS | Encounter Summary ---
Author Organization [place] [address] Care Team Providers Care Sow Farm Barn Technician Name Role Phone Unavailable Primary Care Provider Unavailabl e Reason for Visit * Reason Comments Follow-up 6m Encounter Details Date Type Department Care Team (Latest Contact Info) Description 10/11/2024 9:10 AM EDT Office Visit [facility] [place] [address] [place] [address] Yosvany Sanz MD [address] [place] [address] Primary hypertension (Primary Dx); Mixed hyperlipidemia; Pure hypercholesterolemia Social History Tobacco Use Types Packs/Day Years [...] you are drinking? Patient does not drink Q3: How often do you have si [...] Sign Reading Time Taken Comments Blood Pressure 120/80 10/11/2024 9:14 AM EDT Pulse 74 10/11/2024 9:14 AM EDT Temperature - - Respiratory Rate - - Oxygen Saturation 98% 10/11/2024 9:14 AM EDT Inhaled Oxygen Concentration - - Weight 123 kg (271 lb 3.2 oz) 10/11/2024 9:14 AM EDT Height 193 cm (6' 4 ) 10/11/2024 9:14 AM EDT Body Mass Index 33.01 10/11/2024 9:14 AM EDT documented in this encounter Functional Status * Is the person deaf or does he/she have serious difficulty hearing? Answer Date of Assessment Author No 12/30/2022 3:48 PM Waldo Bonilla RN * Is the person blind or does he/she have serious difficulty seeing even when wearing glasses? Answer Date of Assessment Author No 12/30/2022 3:48 PM Waldo Bonilla RN * Does this person have serious difficulty walking or climbing stairs? Answer Date of Assessment Author No 12/30/2022 3:48 PM Waldo Bonilla RN * Does this person have difficulty dressing or bathing? Answer Date of Assessment Author No 12/30/2022 3:48 PM Waldo Bonilla RN * Because of a physical, mental or emotional condition, does this person have difficulty doing errands alone such as visiting a doctor's office or shopping? Answer Date of Assessment Author No 12/30/2022 3:48 PM Waldo Bonilla RN documented as of this encounter Mental Status * Because of a physical, mental or emotional condition, does this person have serious difficulty concentrating, remembering or making decisions? Answer Entry Date Author No 12/30/2022 3:48 PM Waldo Bonilla RN documented in this encounter Progress Notes * Yosvany Sanz MD - 10/11/2024 9:10 AM EDT PATIENT: Ad Martinez, :1965, , CSN: [id number] PCP: No primary care provider on file. Date:10/11/2024 at 9:23 AM HPI: Patient is a 59 y.o. male. Patient has past medical history significant for hyperlipidemia hypertension.. Patient seen in follow-up today. Patient seems to be doing okay. Does report back pain arthritis leg pain. Limited in activity level. Denies any chest pain Social history: Patient does not smoke does drink is Family history: Father [place] in his 50s mother also had heart disease CARD.SURG: None CARD. RISK FACTORS: Patient is not diabetic is hypertensive ROS ROS All other review of systems was negative or noncontributory , Please see review of systems sheet Pulse 74 Ht 6' 4 (1.93 m) Wt 271 lb 3.2 oz (123 kg) SpO2 98% BMI 33.01 kg/m?? , General: The patient appears in no apparent distress. HEENT: patient is normocephalic and atraumatic. The eyes are anicteric eyelids and conjunctiva werenormal. Mucous membranes moist Neck: Supple no JVD or bruits. Skin: Warm and dry Heart: Regular rate rhythm negative S3-S4 no murmurs rub Lungs: Clear Back: No significant kyphosis Abdomen: Positive bowel sounds soft nontender. Extremities: no cyanosis clubbing or edema Neuro: Patient alert and oriented Mood: Fine Motor tone: Moving all extremities Pulses: Radial 2+ posterior tibialis 1+ and symmetrical Above physical exam performed by me today. Changes made when appropriate Assessment and Plan Labs, Telemetry, ECG, VS and Medication reviewed 1. Chest pain. Stress test negative. Unfortunately patient high risk. CT calcium score negative. Patient told what to watch for. 2. Hyperlipidemia. Elevated cholesterol. Being treated. Recheck cholesterol and LFTs. 3. Hypertension. Patient also has problems with hypotension. Blood pressure was high b rechecked okay. Will continue current treatment. . 4. Back problems. 5. Risk factor modification encouraged to get more active CBC Chem-7 cholesterol reviewed by me see labs below Last echo No results found for this or any previous visit. Results for orders placed during the hospital encounter of 02/25/23 EC ECHOCARDIOGRAM COMPLETE W DOPPLER AND COLOR FLOW MAPPING Impression Conclusions * Left ventricular chamber dimension is normal. * Left ventricular function is mildly reduced with an estimated ejection fraction of 55%. * The left ventricular diastolic function is normal. * Right ventricular systolic function is normal. * Estimated pulmonary artery systolic pressure is 21 mmHg. * There is mild pulmonic regurgitation. No results found for this or any previous visit. Last vascular study No results found for this or any previous visit. No valid procedures specified. Last stress No results found for this or any previous visit. Results for orders placed during the hospital encounter of 12/29/22 ST STRESS TEST EXERCISE Impression [facility] Test Date: 2022-12-30 Pat Name: AD MARTINEZ Department: DE[facility] Room: 2126 Gender: Male Mail Carrier Technician: NANCY Fang : 1965 Requested By: DEEPAK DE LEON Order Number: [id number] Bo MD: Goran Thayer MD Interpretive Statements Stress Test Exercise Ordering Diagnosis: Chest pain Resting HR: 80 Peak HR: 153 Resting B/P: 108/77 Peak B/P: 183/59 1. METS achieved: 8.8 2. Walked__8:00 minutes on Full Darvin Protocol 3. Target HR achieved __x__yes____no 4. Termination of test due to: SOB, fatigue 5. Symptoms: Baseline, none. During test, SOB and fatigue. Pt developed 2/10 CP in recovery - spoke to RS, - he spoke to pt and said CP likely muscle related and ok to disconnect from monitor. 6. Imaging reported separately.__x__Nuclear____Echo____No Imaging Physician Interpretation Resting ECG:sinus late rwave transition Arrhythmias:none Blood Pressure Response:ok Exercise Capacity:fair Conclusion: Negative GXT EKG, sharp cps with stress worse with deep breathing. Electronically Signed On 12-30-2022 10:30:32 EST by Goran Thayer MD Last Holter No results found for this or any previous visit. Last [facility] No results found for this or any previous visit. Vitals: Vitals: 10/11/24 0914 Pulse: 74 SpO2: 98% Weight: 271 lb 3.2 oz (123 kg) Height: 6' 4 (1.93 m) 24HR INTAKE/OUTPUT: @IOBRIEF@ Lab Results Component Value Date WBC 5.9 12/29/2022 HGB 17.0 12/29/2022 HCT 52.3 (H) 12/29/2022 MCV 94.2 12/29/2022 PLT 222 12/29/2022 Lab Results Component Value Date CREATININE 1.21 12/30/2022 BUN 27 (H) 12/30/2022 NA 136 12/30/2022 K 4.3 12/30/2022 CL 98 12/30/2022 CO2 29 12/30/2022 Chemistry Component Value Date/Time NA 136 12/30/2022 0551 K 4.3 12/30/2022 0551 CL 98 12/30/2022 0551 CO2 29 12/30/2022 0551 BUN 27 (H) 12/30/2022 0551 CREATININE 1.21 12/30/2022 0551 GLU 96 12/30/2022 0551 Component Value Date/Time CALCIUM 9.4 12/30/2022 0551 ALKPHOS 63 01/27/2023 1022 AST 24 01/27/2023 1022 ALT 27 01/27/2023 1022 Lab Results Component Value Date CHOLESTEROL 123 01/27/2023 CHOLESTEROL 223 (H) 12/30/2022 Lab Results Component Value Date HDL 51 01/27/2023 HDL 45 12/30/2022 Lab Results Component Value Date LDLCALC 57 01/27/2023 LDLCALC 152 (H) 12/30/2022 Lab Results Component Value Date TRIG 77 01/27/2023 TRIG 145 12/30/2022 No results found for: CHOLHDL Scheduled Meds: Continuous Infusions: History reviewed. No pertinent past medical history. History reviewed. No pertinent surgical history. History reviewed. No pertinent family history. Social History Tobacco Use Smoking status: Never Smokeless tobacco: Never Substance Use Topics Alcohol use: Not Currently Current Outpatient Medications on File Prior to Visit Medication Sig Dispense Refill amLODIPine-benazepril (LOTREL) 5-20 mg Oral Capsule Take 1 Capsule by mouth daily. diclofenac (VOLTAREN) 75 mg Oral Tablet, Delayed Release (E.C.) gabapentin (NEURONTIN) 300 mg Oral Capsule HYDROcodone-acetaminophen (NORCO) 7.5-325 mg Oral Tablet TAKE 1 AND 1/2 TABLET BY MOUTH EVERY THREEHOURS NEEDED FOR PAIN ibuprofen (ADVIL;MOTRIN) 800 mg Oral Tablet 800 mg 3 times daily. loratadine (CLARITIN) 10 mg Oral Tablet TAKE ONE TABLET BY MOUTH EVERY DAY FOR allergies meclizine (ANTIVERT) 25 mg Oral Tablet Take 12.5-25 mg by mouth 3 times daily as needed. rosuvastatin (CRESTOR) 20 mg Oral Tablet Take 1 Tablet by mouth nightly. 90 Tablet 3 testosterone cypionate (DEPOTESTOTERONE CYPIONATE) 200 mg/mL IM Oil No current facility-administered medications on file prior to visit. Current Outpatient Medications Medication Sig Dispense Refill amLODIPine-benazepril (LOTREL) 5-20 mg Oral Capsule Take 1 Capsule by mouth daily. diclofenac (VOLTAREN) 75 mg Oral Tablet, Delayed Release (E.C.) gabapentin (NEURONTIN) 300 mg Oral Capsule HYDROcodone-acetaminophen (NORCO) 7.5-325 mg Oral Tablet TAKE 1 AND 1/2 TABLET BY MOUTH EVERY THREEHOURS NEEDED FOR PAIN ibuprofen (ADVIL;MOTRIN) 800 mg Oral Tablet 800 mg 3 times daily. loratadine (CLARITIN) 10 mg Oral Tablet TAKE ONE TABLET BY MOUTH EVERY DAY FOR allergies meclizine (ANTIVERT) 25 mg Oral Tablet Take 12.5-25 mg by mouth 3 times daily as needed. rosuvastatin (CRESTOR) 20 mg Oral Tablet Take 1 Tablet by mouth nightly. 90 Tablet 3 testosterone cypionate (DEPOTESTOTERONE CYPIONATE) 200 mg/mL IM Oil No current facility-administered medications for this visit. Allergies Allergen Reactions Mobic [Meloxicam] Other (See Comments) Legs turned red. Signed: Yosvany Sanz MD 10/11/2024 9:23 AM This chart was completed using voice recognition technology and may contain unintended errors documented in this encounter Plan of Treatment Upcoming Encounters Date Type Department Care Team (Late st Contact Info) Description 04/18/2025 9:20 AM EST Office Visit [facility] [place] [address] Yosvany Sanz MD [address] [place] [address] Scheduled Orders Name Type Priority Associated Diagnoses Orde r Schedule LIPID SCREEN Lab Routine Primary hypertension Mixed hyperlipidemia Pure hypercholesterolemia 1 Occurrences starting 10/11/2024 until 10/11/2025 HEPATIC FUNCTION PANEL Lab Routine Primary hypertension Mixed hyperlipidemia Pure hypercholesterolemia 1 Occurrences starting 10/11/2024 until 10/11/2025 documented as of this encounter Visit Diagnoses Diagnosis Primary hypertension- Primary Unspecified essential hypertension Mixed hyperlipidemia Pure hypercholesterolemia documented in this encounter Discontinued Medications Medication Sig Discontinue Reason Start Date End Da te diclofenac (VOLTAREN) 1 % Top Gel Apply topically 4 times daily. DELETE- Entered in Error 10/11/2024 documented as of this encounter Additional Health Concerns Assessment Noted Time PHQ-9 Depression Total Score: 1 12/30/19 9:15 PM EST PHQ-2 Depression Total Score: 1 12/30/19 9:15 PM EST documented as of this encounter
--- OUTSIDE RECORDS SUMMARY | 2024-10-18 12:57 | XMS_ITS | Referral Summary ---
Author Organization [facility] ([place], [place], [place], [place]) Address [address] [place] [address] Care Team Providers Care Head Setter Name Role Phone Unavailable Primary Care [...]
--- OUTSIDE RECORDS SUMMARY | 2024-10-18 12:57 | XMS_ITS | Encounter Summary ---
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 Authorization Entered On: 12/20/2019 10:20 EST Performed On: 12/20/2019 10:17 EST by ANGELICA BELTRE RN-Utilization Review Primary Insurance Authorization Authorization and Policy Numbers : Insurance 1 [facility] Policy Number: [id number] Authorization Number: Insurance Primary Name : [facility] Policy Number: [id number] Authorization Status-Primary : Admit approved Authorization Fax Number-Primary : [phone] Auth/Referral Phone Number-Primary : [phone] Reference Number-Primary : [id number] Authorization Number-Primary : [id number] Number of Days Authorized-Primary : 6 Day(s) Authorized Service Begin Date-Primary : 01/01/2020 EST Authorized Service End Date-Primary : 01/07/2020 EST Authorization Comments-Primary : Daksha approved per Nila for 7 days --- nrd 01/07 fax for d/c date [phone] Historical Authorization Comments-Primary : No Authorization Comments Found ANGELICA BELTRE RN-Utilization Review - 12/20/2019 10:17 EST Electronically signed by [facility] Conversion Manager Spring Cerner at 06/01/2022 11:14 PM CDT documented in this encounter Plan of Treatment Not on file documented as of this encounter Visit Diagnoses Not on filedocumented in this encounter
--- OUTSIDE RECORDS SUMMARY | 2024-10-18 12:57 | XMS_ITS | Encounter Summary ---
Author Organization [employer] ([place], [place], [place], [place]) Address [address] [place] [address] Care Team Providers Care Rice Farmer Name Role Phone Unavailable Primary Care Provider Unavailabl e Encounter Details Date Type Department Care Team (Late st Contact Info) Description 01/04/2020 Transcribed Document [facility] [place] [address] [place] [address] ProviderDina MD [address] [place] [address] Social History Tobacco Use Types [...] Conversion Note - Historical ProviderMD - 01/04/2020 4:59 PM TRAVEL MED SURG RN On Going Discharge Planning Entered On: 01/04/2020 [...] you Attend Multidisciplinary Rounds? : Yes SALENA HENSLEY, MERCED - 01/04/2020 16:59 EST Electronically signed by [facility] Conversion Pulp And Paper Tester Cerner at 06/01/2022 11:04 PM CDT documented in this encounter Plan of Treatment Not on file documented as of this encounter Visit Diagnoses Not on filedocumented in this encounter
--- OUTSIDE RECORDS SUMMARY | 2024-10-18 12:57 | XMS_ITS | Encounter Summary ---
Author Organization [employer] ([place], [place], [place], [place]) Address [address] [place] [address] Care Team Providers Care In Store Marketing Associate Name Role Phone Unavailable Primary Care Provider Unavailabl e Encounter Details Date Type Department Care Team (Late st Contact Info) Description 01/04/2020 Transcribed Document [facility] [place] [address] [place] [address] ProviderDina MD [address] [place] [address] Social History Tobacco Use Types [...] - Dina ProviderMD - 01/04/2020 5:07 PM HOP GROWER [address] [address] CHEN BANEGASStephen GIL :1965 Visit Time:01/04/2020 Your Visit Summary Your Care Team Admitting Physician - MARIALUISA VIRGEN MD-ORT Attending Physician - MARIALUISA VIRGEN MD-ORT Primary [...] per sx. booking sheet/order on chart-my office, [place] office, 10-14 days Activity: , minimize bending, [...] MD-ORT When 01/14/2020 01:45 PM EST Where: [address] [place] [address]- Medications What How Much When Instructions Next Dose acetaminophen-hydrocodone (Hazard 10 mg-325 mg oral tablet) 1 Tablet(s) [...] through the local health department and the [place] Department for Public Health. Those organizations are [...] and need to call 911, notify the barrel dedenting machine operator that you have, or think you [...] clean your hands with an alcohol-based hand solderer that contains at least 60% alcohol. Clean your hands often. ??? Wash hands: Wash your hands often with soap and water for at least 20 seconds when visibly dirty. This is especially important after blowing your nose, coughing or sneezing, and going to the bathroom, and before eating or preparing food. ??? Hand solderer: Use an alcohol-based hand solderer with at least 60% alcohol, covering all [...] and water or put them in the traffic court referee. Clean all high-touch surfaces every day. Clean [...] or body fluids on them. ??? Household infection control manager and disinfectants: Clean the area or item [...] list of disinfectants can be found here: https://www.epa.gov/pesticide-registration/fhwg-c-qqqjxewqesmdf-pcl-chfcosh-ja rs-cov-2 What to expect after the Procedure: [...] Barley. Bulgur wheat. Millet. Bran muffins. Popcorn. [place] wafer crackers. ??? Vegetables Sweet potatoes. Spinach. Kale. Artichokes. Cabbage. Broccoli. Green peas. Carrots. Squash. ??? Fruits Berries. Pears. Apples. Oranges. Avocados. Prunes and raisins. Dried figs. ??? Meats and Other Protein Sources [place], kidney, dimas, and soy beans. Split peas. [...] sudhir has 11 g of protein. ??? [place] seeds ??? 1 oz has 5.5 g [...] floor. ??? Place frequently used items in bpuc-ua-ptjca places ??? Keep electrical cables out of [...] ? Using the bathroom. ? Using household infection control manager or toxic chemicals. ? Touching or taking [...] What is diazepam? Diazepam is a benzodiazepine (bpf-axp-mft-AZE-eh-peen) that is used to treat anxiety disorders, [...] may report side effects to FDA at 4-405-REU-2093. What other drugs will affect diazepam? Taking diazepam with other drugs that make you sleepy or slow your breathing can cause dangerous side effects or . Ask your doctor before taking a sleeping pill, opioid pain medicine, prescription cough medicine, a muscle relaxer, or medicine for anxiety, depression, or seizures. Other drugs may affect diazepam, including prescription and spfu-hnp-fyozifz medicines, vitamins, and herbal products. Tell your [...] to ensure that the information provided by [employer]. ('Multum') is accurate, up-to-date, and complete, but no guarantee is made to that effect. Drug information contained herein may be time sensitive. [employer] information has been compiled for use by healthcare practitioners and consumers in the [place] and therefore [employer] does not warrant that uses outside of the [place] are appropriate, unless specifically indicated otherwise. [employer] drug information does not endorse drugs, diagnose patients or recommend therapy. [employer] drug information is an informational resource designed [...] effective or appropriate for any given patient. [employer] does not assume any responsibility for any aspect of healthcare administered with the aid of information [employer] provides. The information contained herein is not intended to cover all possible uses, directions, precautions, warnings, drug interactions, allergic reactions, or adverse effects. If you have questions about the drugs you are taking, check with your doctor, nurse or pharmacist. Copyright 4138-0051 Ring. Version: 13.06. Revision Date: 02/01/2018. acetaminophen and [...] may report side effects to FDA at 2-945-ISB-2281. What other drugs will affect acetaminophen and [...] affect acetaminophen and oxycodone, including prescription and tzdw-jwu-oacuqnv medicines, vitamins, and herbal products. Not all [...] to ensure that the information provided by Ring. ('Multum') is accurate, up-to-date, and complete, but no guarantee is made to that effect. Drug information contained herein may be time sensitive. [employer] information has been compiled for use by healthcare practitioners and consumers in the [place] and therefore [employer] does not warrant that uses outside of the [place] are appropriate, unless specifically indicated otherwise. [employer]'s drug information does not endorse drugs, diagnose patients or recommend therapy. [employer] drug information is an informational resource designed [...] effective or appropriate for any given patient. [employer] does not assume any responsibility for any aspect of healthcare administered with the aid of information [employer] provides. The information contained herein is not intended to cover all possible uses, directions, precautions, warnings, drug interactions, allergic reactions, or adverse effects. If you have questions about the drugs you are taking, check with your doctor, nurse or pharmacist. Copyright 7626-4479 Ring. Version: 20.. Revision Date: 03/07/2019. Emergency Awareness [...] Assistance with quitting is available by contacting 5-169-LHJJ-NOW. This is a free resource providing counseling, [...] 5:07 PM Novel Coronavirus 2019: Negative Patient Name:KING AD JEFFERY I have received and understand this information and was given the opportunity to ask questions. Patient/Senior Power Scheduler Name: Patient/Senior Power Scheduler Signature: Relationship to Patient: Clinician/Hospital Senior Power Scheduler Signature: Date: Electronically signed by Favio, [facility] Conversion Rn Liaison María at 06/01/2022 10:57 PM CDT documented in this encounter Plan of Treatment Not on file documented as of this encounter Visit Diagnoses Not on filedocumented in this encounter
--- OUTSIDE RECORDS SUMMARY | 2024-10-18 12:57 | XMS_ITS | Clinical Summary ---
Author Organization [facility] Address [address], [address] [place] [address] Care Team Providers Care Surgical Nurse Name Role Phone Unavailable Primary Care Provider [...] Plan of Treatment Not on file Insurance [place] BC[place]
--- OUTSIDE RECORDS SUMMARY | 2024-10-18 12:57 | XMS_ITS | Encounter Summary ---
Author Organization [employer] ([place], [place], [place], [place]) Address [address] [place] [address] Care Team Providers Care Identification Clerk Name Role Phone Unavailable Primary Care Provider Unavailabl e Encounter Details Date Type Department Care Team (Late st Contact Info) Description 01/04/2020 Transcribed Document [facility] [place] [address] [place] [address] ProviderDina MD [address] [place] [address] Social History Tobacco Use Types [...] Conversion Note - Dina ProviderMD - 01/04/2020 5:05 PM BRUSH MATERIAL PREPARER Patient Education Materials Follows: FAQ - Patient [...] all positive cases are reported through the [facility] health department and the [place] Department [...] and need to call 911, notify the crawler crane operator that you have, or think you [...] clean your hands with an alcohol-based hand product development worker that contains at least 60% alcohol. Clean your hands often. ??? Wash hands: Wash your hands often with soap and water for at least 20 seconds when visibly dirty. This is especially important after blowing your nose, coughing or sneezing, and going to the bathroom, and before eating or preparing food. ??? Hand product development worker: Use an alcohol-based hand product development worker with at least 60% alcohol, covering all [...] and water or put them in the drug abuse treatment specialist. Clean all high-touch surfaces every day. Clean [...] or body fluids on them. ??? Household brattice builder and disinfectants: Clean the area or item [...] list of disinfectants can be found here: https://www.epa.gov/pesticide-registration/bgwa-e-dhisjtjtlqjta-gsz-gwgniue-gv rs-cov-2 What to expect after the Procedure: [...] Barley. Bulgur wheat. Millet. Bran muffins. Popcorn. [place] wafer crackers. ?? Vegetables Sweet potatoes. Spinach. Kale. Artichokes. Cabbage. Broccoli. Green peas. Carrots. Squash. ?? Fruits Berries. Pears. Apples. Oranges. Avocados. Prunes and raisins. Dried figs. ?? Meats and Other Protein Sources [place], kidney, dimas, and soy beans. Split peas. [...] sudhir has 11 g of protein. ??? [place] seeds - 1 oz has 5.5 g [...] floor. ?? Place frequently used items in lbsn-qa-izbtw places ?? Keep electrical cables out of [...] ? Using the bathroom. ? Using household brattice builder or toxic chemicals. ? Touching or taking [...] washing. Electronically signed by Stephanie Stahl Conversion Mud Analysis Well Logging Operator Cerner at 06/01/2022 11:08 PM CDT documented in this encounter Plan of Treatment Not on file documented as of this encounter Visit Diagnoses Not on filedocumented in this encounter
--- OUTSIDE RECORDS SUMMARY | 2024-10-18 12:57 | XMS_ITS | Encounter Summary ---
Author Organization [employer] ([place], [place], [place], [place]) Address [address] [place] [address] Care Team Providers Care Tire Repairer Name Role Phone Unavailable Primary Care Provider Unavailabl e Encounter Details Date Type Department Care Team (Late st Contact Info) Description 06/15/2018 Transcribed Document [facility] [place] [facility] [place] [address] ProviderDina MD [address] [place] [address] Social History Tobacco Use Types [...] Performed On: 06/15/2018 1:42 EDT by Wandy Nunez, RN Event Note Event Date/Time : 06/14/2018 [...]
--- OUTSIDE RECORDS SUMMARY | 2024-10-18 12:58 | XMS_ITS | Encounter Summary ---
Author Organization [employer] ([place], [place], [place], [place]) Address [address] [place] [address] Care Team Providers Care Pace Analyst Name Role Phone Unavailable Primary Care Provider Unavailabl e Encounter Details Date Type Department Care Team (Late st Contact Info) Description 02/28/2018 Transcribed Document [facility] [place] [address] [place] [address] ProviderDina MD [address] [place] [address] Social History Tobacco Use Types [...] - Historical ProviderMD - 02/28/2018 10:33 AM HYDRAULIC ENGINEER Patient: AD BANEGAS Age: 53 years Sex: Male : 1965 Associated Diagnoses: None Author: RYAN CARPIO PA Fluoroscopically guided lumbar puncture was perfomed at the L4-5 level and 12 mls of contrast injected. The patient tolerated the procedure well. Lumbar myelogram was then performed. CT and report to follow. documented in this encounter Plan of Treatment Not on file documented as of this encounter Visit Diagnoses Not on filedocumented in this encounter
--- OUTSIDE RECORDS SUMMARY | 2024-10-18 12:58 | XMS_ITS | Encounter Summary ---
Author Organization [employer] ([place], [place], [place], [place]) Address [address] [place] [address] Care Team Providers Care Architect Marine Name Role Phone Unavailable Primary Care Provider Unavailabl e Encounter Details Date Type Department Care Team (Late st Contact Info) Description 02/28/2018 Transcribed Document [facility] [place] [address] [place] [address] ProviderDina MD [address] [place] [address] Social History Tobacco Use Types [...] - Historical ProviderMD - 02/28/2018 8:38 AM GEAR NICKER Vital Measurements Entered On: 02/28/2018 8:39 EST Performed On: 02/28/2018 8:38 EST by ALFREDO NICE RN Vital Measurements Temperature, Fahrenheit : 98 Deg F Clinical Temperature, C : 36.7 Deg C Peripheral Pulse Rate : 67 bpm Systolic Blood Pressure : 147 mmHg (HI) Diastolic Blood Pressure : 96 mmHg (HI) Oxygen Saturation : 99 % ALFREDO NICE RN - 02/28/2018 8:38 EST documented in this encounter Plan of Treatment Not on file documented as of this encounter Visit Diagnoses Not on filedocumented in this encounter
--- OUTSIDE RECORDS SUMMARY | 2024-10-18 12:58 | XMS_ITS | Encounter Summary ---
Author Organization [employer] ([place], [place], [place], [place]) Address [address] [place] [address] Care Team Providers Care Archery Equipment Repairer Name Role Phone Unavailable Primary Care Provider Unavailabl e Encounter Details Date Type Department Care Team (Late st Contact Info) Description 06/14/2018 Transcribed Document [facility] [place] [address] [place] [address] ProviderDina MD [address] [place] [address] Social History Tobacco Use Types [...] Dina ProviderMD - 06/14/2018 8:56 PM CDT [place] [id number] CHEN BANEGASStephen GIL :1965 Visit Time:06/14/2018 Your Visit Summary Your Care Team Admitting Physician - MARIALUISA VIRGEN MD-ORT Attending Physician - MARIALUISA VIRGEN MD-CHANDANA Primary Care Physician - HILARIO MONZON (REF)MD-ROM Referring Physician - MARIALUISA VIRGEN MD-ORT Your [...] How Much When Instructions Next Dose acetaminophen-hydrocodone ([place]icero 10 mg-325 mg oral tablet) 1 Tablet(s) [...] Barley. Bulgur wheat. Millet. Bran muffins. Popcorn. [place] wafer crackers. ??? Vegetables Sweet potatoes. Spinach. Kale. Artichokes. Cabbage. Broccoli. Green peas. Carrots. Squash. ??? Fruits Berries. Pears. Apples. Oranges. Avocados. Prunes and raisins. Dried figs. ??? Meats and Other Protein Sources [place], kidney, dimas, and soy beans. Split peas. [...] sudhir has 11 g of protein. ??? [place] seeds ??? 1 oz has 5.5 g [...] floor. ??? Place frequently used items in tvcl-ly-znryq places ??? Keep electrical cables out of [...] ? Using the bathroom. ? Using household coloring room man or toxic chemicals. ? Touching or taking [...] items that you use a lot in uitp-mg-itgvo places. ??? If you need to reach something above you, use a strong step stool that has a grab bar. ??? Keep electrical cords out of the way. ??? Do notuse floor micronesian or wax that makes floors slippery. If [...] To Walk With a Standard Walker: 1. prepress supervisor your walker. Do not slide your [...] 01/31/2006 Document Revised: 06/30/2016 Document Reviewed: 08/15/2015 [employer] Interactive Patient Education ?? 2017 Knock Knock. acetaminophen and oxycodone (a SEET a MIN [...] may report side effects to FDA at 2-144-DZE-7549. What other drugs will affect acetaminophen and [...] affect acetaminophen and oxycodone, including prescription and kfli-lcr-grgqlnm medicines, vitamins, and herbal products. Not all [...] to ensure that the information provided by [employer]. ('Multum') is accurate, up-to-date, and complete, but no guarantee is made to that effect. Drug information contained herein may be time sensitive. [employer] information has been compiled for use by healthcare practitioners and consumers in the [place] and therefore [employer] does not warrant that uses outside of the [place] are appropriate, unless specifically indicated otherwise. [employer] drug information does not endorse drugs, diagnose patients or recommend therapy. [employer] drug information is an informational resource designed [...] effective or appropriate for any given patient. [employer] does not assume any responsibility for any aspect of healthcare administered with the aid of information [employer] provides. The information contained herein is not intended to cover all possible uses, directions, precautions, warnings, drug interactions, allergic reactions, or adverse effects. If you have questions about the drugs you are taking, check with your doctor, nurse or pharmacist. Copyright 4779-9259 [employer]. Version: 18.02. Revision Date: 01/11/2018. Emergency Awareness [...] Assistance with quitting is available by contacting 2-377-QSCZNOW. This is a free resource providing counseling, support, and referral. Or you may contact your personal physician. [place] Suicide Prevention Lifeline: The National Suicide Prevention [...] Be sure to sign up for the [facility] patient portal, which gives you 06/09 access to your medical information ??? including these discharge instructions ??? using your computer, smartphone, or tablet. Just go to [facility] to get started. Questions? Call . Test [...] range between ( 1.0 and 7.0 ) [place] #: 0.47 K/uL -- Normal range between ( 0.24 and 0.82 ) [place] #: 0.08 K/uL -- Normal range between ( 0.04 and 0.54 ) [place] %: 8.9 % -- Normal range between [...] ) Urine Bilirubin Dipstick: Negative Urine Specific [place]: 1.021 -- Normal range between ( 1.005 [...] was given the opportunity to ask questions. Patient/Sales Agent Business Services Name: Patient/Sales Agent Business Services Signature: Relationship to Patient: Clinician/Hospital Sales Agent Business Services Signature: Date: documented in this encounter Plan of Treatment Not on file documented as of this encounter Visit Diagnoses Not on filedocumented in this encounter
--- OUTSIDE RECORDS SUMMARY | 2024-10-18 12:58 | XMS_ITS | Encounter Summary ---
Author Organization [facility] Address [address] [place] [address] Care Team Providers Care Remote Sensing Technologist Name Role Phone Seven Diop MD Primary Care Provider [phone] Jeromy Perez MD Primary Care Provider [phone] Encounter Details Date Type Department Care Team (Late st Contact Info) Description 06/09/2020 Orders Only External Location [address] [place] [address] Provider, External Social History Tobacco Use Types [...] on filedocumented in this encounter Care Teams Remote Sensing Technologist Relationship Specialty Start Date End Date Seven Diop MD [address] [place] [id number] PCP - General 06/27/20 03/04/22 Jeromy Perez MD [id number] [place] [address] PCP - General 03/05/22 documented as of this encounter
--- OUTSIDE RECORDS SUMMARY | 2024-10-18 12:58 | XMS_ITS | Encounter Summary ---
Author Organization [employer] ([place], [place], [place], [place]) Address [address] [place] [address] Care Team Providers Care Chain Builder Loom Control Name Role Phone Unavailable Primary Care Provider Unavailabl e Encounter Details Date Type Department Care Team (Late st Contact Info) Description 01/04/2020 Transcribed Document [facility] [place] [address] [place] [address] ProviderDina MD [address] [place] [address] Social History Tobacco Use Types [...] - Historical ProviderMD - 01/04/2020 6:37 PM LEAD DATA ENTRY OPERATOR Nursing Discharge Summary Entered On: 01/04/2020 [...] - 01/04/2020 18:37 EST Electronically signed by Interface, [facility] Conversion Diesel Trailer Mechanic Cerner at 06/01/2022 11:08 PM CDT documented in this encounter Plan of Treatment Not on file documented as of this encounter Visit Diagnoses Not on filedocumented in this encounter
--- OUTSIDE RECORDS SUMMARY | 2024-10-18 12:58 | XMS_ITS | Encounter Summary ---
Author Organization [employer] ([place], [place], [place], [place]) Address [address] [place] [address] Care Team Providers Care Import/Export Agent Name Role Phone Unavailable Primary Care Provider Unavailabl e Encounter Details Date Type Department Care Team (Late st Contact Info) Description 01/04/2020 Transcribed Document [facility] [place] Family Medicine [address] [place] [address] ProviderDina MD [address] [place] [address] Social History Tobacco Use Types [...] - Dina ProviderMD - 01/04/2020 8:45 AM AFFILIATE MANAGER MARIFER Main OR PreOp Summary Primary Physician: MARIALUISA VIRGEN MD-ORT Finalized Date/Time: 01/04/20 13:35:48 Pt. Name: AD BANEGAS/Sex: 1965 Male Med Rec #: [id number] Physician: MARIALUISA VIRGEN MD-ORT Financial #: [id number] Pt. Type: I Room/Bed: 403/1 Admit/Disch: 01/04/20 05:33:00 - [place] [facility] [place] Case Times Entry 1 In Preop 01/04/20 05:40:00 Ready for Holding n/a Room Patient Ready for 01/04/20 06:49:00 Surgery Patient Out of Preop 01/04/20 08:07:00 Patient Out of n/a Holding Room Last Modified By: SHANAE BERNSTEIN 01/04/20 13:35:46 SJE PreOp Case Times Audit 01/04/20 13:35:46 [facility] Nurse Practitioner: BRENDON Modifier: [email or web address] <+> 1 Patient Out of Preop Finalized By: SHANAE BERNSTEIN Document Signatures Signed By: SHANAE BERNSTEIN 01/04/20 13:35 Electronically signed by Favio [facility] Conversion Slot Floor Attendant Cerner at 06/01/2022 11:02 PM CDT documented in this encounter Plan of Treatment Not on file documented as of this encounter Visit Diagnoses Not on filedocumented in this encounter
--- OUTSIDE RECORDS SUMMARY | 2024-10-18 12:58 | XMS_ITS | Encounter Summary ---
Author Organization [employer] ([place], [place], [place], [place]) Address [address] [place] [address] Care Team Providers Care Ethnic Origins Teacher Name Role Phone Unavailable Primary Care Provider Unavailabl e Encounter Details Date Type Department Care Team (Late st Contact Info) Description 02/28/2018 Transcribed Document [facility] [place] Family Medicine [address] [place] [address] ProviderDina MD [address] [place] [address] Social History Tobacco Use Types [...] - Dina ProviderMD - 02/28/2018 12:07 PM BAR FINISH OPERATOR [place] [id number] Patient Copy Patient Information: Name: AD MARTINEZ Current Date: 02/28/2018 12:07:31 : 1965 Patient Address: [address] [address] Patient Attending Physician: MIKY MANCILLA MD-[facility] Primary Care Provider: HILARIO MONZON MD Primary Care Provider Discharge Diagnosis: Comment: Follow-up Instructions: With: Address: When: MIKY MANCILLA [address] [facility], [address] [place] [phone] Business (1) Within As needed Discharge Instructions: [...] any): Final Medication List: Other Medications acetaminophen-hydrocodone ([place] 10 mg-325 mg oral tablet) 1 Tablet(s) [...] by your health care provider. ??? Take akbg-aeh-nfsigpr and prescription medicines only as told by [...] Assistance with quitting is available by contacting 4-594-TSEF-NOW. This is a free resource providing counseling, [...] Be sure to sign up for the [employer] patient portal, which gives you 06/09 access to your medical information ??? including these discharge instructions ??? using your computer, smartphone, or tablet. Just go to Crowdf[employer] to get started. Questions? Call . [facility] would like to thank you for allowing us to assist you with your healthcare needs. KING Fletcher TROY LEE, (or housing management representative) have received the above patient education materials/instructions and have verbalized understanding: Patient Signature _ Date/Time Patient Dental Lab Technician Signature (if needed) Date/Time Clinician/Hospital Dental Lab Technician Signature (if needed) Date/Time documented in this encounter Plan of Treatment Not on file documented as of this encounter Visit Diagnoses Not on filedocumented in this encounter
--- OUTSIDE RECORDS SUMMARY | 2024-10-18 12:58 | XMS_ITS | Encounter Summary ---
Author Organization [employer] ([place], [place], [place], [place]) Address [address] [place] [address] Care Team Providers Care Carpet Installer Name Role Phone Unavailable Primary Care Provider Unavailabl e Encounter Details Date Type Department Care Team (Late st Contact Info) Description 05/29/2018 Transcribed Document [facility] [place] [facility] [place] [address] ProviderDina MD [address] [place] [address] Social History Tobacco Use Types [...] Conversion Note - Dina Weaver MD - 05/29/2018 9:47 AM CDT Patient: AD [...] screws and rods. Home Medications (3) Active [place] 10 mg-325 mg oral tablet 1 Tab, [...] Lymph # 1.29 K/uL 05/29/2018 11:08 EDT [place] % 8.9 % 05/29/2018 11:08 EDT [place] # 0.47 K/uL 05/29/2018 11:08 EDT Eos [...] Appearance CLEAR2 05/29/2018 11:08 EDT Urine Specific [place] 1.021 05/29/2018 11:08 EDT Urine pH Dipstick [...] Epithelial Cells 0-2 (Abnormal) 05/29/2018 11:08 EDT Electronically signed by Favio, [facility] Conversion Percussion Tuner Cerner at 06/01/2022 11:09 PM CDT documented in this encounter Plan of Treatment Not on file documented as of this encounter Visit Diagnoses Not on filedocumented in this encounter
--- OUTSIDE RECORDS SUMMARY | 2024-10-18 12:58 | XMS_ITS | Encounter Summary ---
Author Organization [employer] ([place], [place], [place], [place]) Address [address] [place] [address] Care Team Providers Care Logging Truck Driver Name Role Phone Unavailable Primary Care Provider Unavailabl e Encounter Details Date Type Department Care Team (Late st Contact Info) Description 01/04/2020 Transcribed Document [facility] [place] [address] [place] [address] ProviderDina MD [address] [place] [address] Social History Tobacco Use Types [...] - Historical ProviderMD - 01/04/2020 12:55 PM SALES ACCOUNT LEADER Evaluation, Physical Therapy Entered On: 01/04/2020 14:41 [...] and within reach RN/PCT Informed Comment : RN ok'd PT Treatment End Time : 01/04/2020 [...] Prior LOF Transfer : Independent [facility] 01/04/2020 14:27 EST Upper Extremity Upper Extremity Dominance : Right Right UE Active ROM : WFL Right UE Strength : WFL Left UE Active ROM : WFL Left UE Strength : WFL Right UE Strength : WFL Left UE Strength : WFL [facility] - 01/04/2020 14:27 EST Lower Extremity [...] [facility] Romi Garcias Student-Physical Therapist - 01/04/2020 14:27 [...] pretty high tolerance though RN aware Romi Garcias Student-Physical Therapist - 01/04/2020 14:27 EST Image 1 - Images currently included in the form version of this document have not been included in the text rendition version of the form. Anticipated Discharge Needs, OT/PT Anticipated Discharge to : Home, with family care Romi Garcias Student-Physical Therapist - 01/04/2020 14:[address] [facility] PT Charges PT Eval Low Complexity : 1 Romi Garcias Student-Physical Therapist - 01/04/2020 14:27 EST Electronically signed by Favio [facility] Conversion Hammerer Helper Cerner at 06/01/2022 11:08 PM CDT documented in this encounter Plan of Treatment Not on file documented as of this encounter Visit Diagnoses Not on filedocumented in this encounter
--- OUTSIDE RECORDS SUMMARY | 2024-10-18 12:58 | XMS_ITS | Encounter Summary ---
Author Organization [employer] ([place], [place], [place], [place]) Address [address] [place] [address] Care Team Providers Care Molding Manager Name Role Phone Unavailable Primary Care Provider Unavailabl e Encounter Details Date Type Department Care Team (Late st Contact Info) Description 01/04/2020 Transcribed Document [facility] [place] Family Medicine [address] [place] [address] ProviderDina MD [address] [place] [address] Social History Tobacco Use Types [...] - Historical ProviderMD - 01/04/2020 6:42 AM CONE CLEANER Pre Procedure Adult Entered On: 01/04/2020 6:48 EST Performed On: 01/04/2020 6:42 EST by MARILYN SAWANT RN Height and Weight, Clinical Dosing Height Source : Stated Height Entry Format : [place] Height, Feet : 6 ft(Converted to: 183 cm, 72 Inch) Height, Inches : 4 Inch(Converted to: 0 ft 4 Inch, 10.16 cm) Clinical Height : 193.04 cm Weight Source : Standing scale Weight Entry Format : [place] Clinical Dosing Weight : 108.64 kg Weight, Pounds : 239 lb Body Surface Area (BSA) : 2.39 m2 Body Mass Index : 29.2 kg/m2 (HI) [place] Body Weight : 86 kg MARILYN SAWANT RN - 01/04/2020 6:42 EST Health Histories Smoking Status : Never (less than 100 in lifetime; none in last 30 days) Smokeless Tobacco Status : Never Implant/Device Type, Teletray Operator and Model : metal rods back [...] Assistance : None Sensory Deficits : None STEELE Hx Falls Immediate/Within 3 Months : No Current Home Treatments : None MARILYN SAWANT RN - 01/04/2020 6:42 EST [place] Suicide Severity Rating Scale (C-SSRS) CSSRS Past [...] Obtained From : Patient Primary Language : Occitan Communication Barrier : None Cat Scan Tech Needed : No MARILYN SAWANT RN - [...] Scale Risk Level : 25-45 Medium Risk [place] Fall Interventions : Adequate lighting, Bed in [...] MARILYN SAWANT RN - 01/04/2020 6:42 EST Electronically signed by Stephanie Stahl Conversion Assistant Professor Of Psychology Cerner at 06/01/2022 11:14 PM CDT documented in this encounter Plan of Treatment Not on file documented as of this encounter Visit Diagnoses Not on filedocumented in this encounter
--- OUTSIDE RECORDS SUMMARY | 2024-10-18 12:58 | XMS_ITS | Encounter Summary ---
Author Organization [employer] ([place], [place], [place], [place]) Address [address] [place] [address] Care Team Providers Care New Account Interviewer Name Role Phone Unavailable Primary Care Provider Unavailabl e Encounter Details Date Type Department Care Team (Late st Contact Info) Description 01/04/2020 Transcribed Document [facility] [place] Family Medicine [address] [place] [address] ProviderDina MD [address] [place] [address] Social History Tobacco Use Types [...] Conversion Note - Dina ProviderMD - 01/04/2020 8:06 AM CAR DRYER Patient: AD MARTINEZ Age: 54 years Sex: [...] L5-S1. Thereafter exploration of fusion mass, L5-S1 22098-60 -exploration of spinal fusion, L5-S1 -Excision pseudoarthrosis, previous fusion, L4-5, interbody. 74784-fpikvsaphsljulq, posterior, [id number] level, segmental instrumentation, L5-S1, Posterior lateral fusion, L5-S1 with bone graft. BMP. 11673-meao graft harvest for spine surgery, autograft, right iliac crest, structural graft. Left side, from pelvis 98307-mldxbobee, structural bone graft, for spine surgery. PREOPERATIVE DIAGNOSIS(ES): Previous spinal fusion L5-S1 area Pseudoarthrosis L5-S1. SURGEON: Marialuisa Virgen MD. RUG RENOVATOR: Beth The duties of the public services assistant are to assist in transferring the patient [...] help in the popping pain. IMAGING STUDIES P-ceyr-bqvtebcpcf fusion, L4 L5 S1. Instrumentation right side. Instrumentation removed on the left side. Disc degeneration above MRI study-probable pseudoarthrosis, left L5-S1. Defect identified. CT enld-cvsrrk-gzxngmopj defect L5-S1 left side. Diagnostics/therapeutic epidural L3 [...] administered within 1 hour of incision Antibiotics ryudyw-nicyu-dlatfvyofd cephalosporin, Ancef Antibiotics are discontinued within 24 [...] magnification. Timeout., antibiotics Local filtration, side, L5-S1. 79659-81 -Excision of pseudoarthrosis L5-S1 exploration of spinal [...] followed with bone graft, and then graft miner and allograft autograft. This was carefully placed into the pedicle screw tulips. L5 and S1 and above the facet joint. +67486-Nulnykrhl harvest iliac crest right side- Separate incision [...] tables. This was mixed, with revision, graft miner.. + allograft preparation, structural bone graft The [...] Sincerely, Dr. Marialuisa Virgen, January 04, 2020 Electronically signed by Stephanie Stahl Conversion Sales Promotion Representative María at 06/01/2022 11:15 PM CDT documented in this encounter Plan of Treatment Not on file documented as of this encounter Visit Diagnoses Not on filedocumented in this encounter
--- OUTSIDE RECORDS SUMMARY | 2024-10-18 12:58 | XMS_ITS | Encounter Summary ---
Author Organization [employer] ([place], [place], [place]) Address [address] [place] [address] Care Team Providers Care Soccer Coach Name Role Phone Unavailable Primary Care Provider Unavailabl e Encounter Details Date Type Department Care Team (Late st Contact Info) Description 01/04/2020 Transcribed Document [facility] [place] [address] [place] [address] ProviderDina MD [address] [place] [address] Social History Tobacco Use Types [...] - Historical ProviderMD - 01/04/2020 5:30 AM INSTANT PRINT OPERATOR Admission History, Adult Entered On: 01/04/2020 13:38 [...] Unaccompanied Support Person/Pt Rep Name : Jayne Owne Family/Rep/Phys Notified of Admit : No Emergency Contact #1 : Jayne Martinez Emergency Contact #1 Emergency Contact #1 Relationship : Emergency Contact #2 : . Emergency Contact #2 Phone Number : . Emergency Contact #2 Relationship : . Information Obtained From : Patient Primary Language : Upper Sorbian Communication Barrier : None Beater Machine Operator Needed : No Ro Shoemaker Rn - [...] Scale Risk Level : 25-45 Medium Risk [place] Fall Interventions : Adequate lighting, Assistive devices [...] Smokeless Tobacco Status : Never Implant/Device Type, Hvac Controls Technician and Model : metal rods back Ro [...] Body Mass Index : 29.2 kg/m2 (HI) [place] Body Weight : 86 kg Ro Shoemaker [...] Level : Patient not at risk Ro [place] Rn - 01/04/2020 13:19 EST [place] Suicide Severity Rating Scale (C-SSRS) CSSRS Past [...] - 01/04/2020 13:19 EST Electronically signed by [facility] Conversion Clinical Documentation Improvement Specialist Cerner at 06/01/2022 11:17 PM CDT documented in this encounter Plan of Treatment Not on file documented as of this encounter Visit Diagnoses Not on filedocumented in this encounter
--- OUTSIDE RECORDS SUMMARY | 2024-10-18 12:58 | XMS_ITS | Encounter Summary ---
Author Organization [employer] ([place], [place], [place], [place]) Address [address] [place] [address] Care Team Providers Care Weather Anchor Name Role Phone Unavailable Primary Care Provider Unavailabl e Encounter Details Date Type Department Care Team (Late st Contact Info) Description 01/04/2020 Transcribed Document [facility] [place] Family Medicine [address] [place] [address] ProviderDina MD [address] [place] [address] Social History Tobacco Use Types [...] - Dina ProviderMD - 01/04/2020 3:38 PM CAKE TESTER UM Authorization Entered On: 01/04/2020 15:38 EST Performed On: 01/04/2020 15:38 EST by Melisa Morales Rn-Utilization Review Primary Insurance Authorization Authorization and Policy Numbers : Insurance 1 Health Plan: [facility] Policy Number: [id number] Authorization Number: [id number] Insurance Primary Name : [facility] Policy Number: [id number] Authorization Status-Primary : Admit approved Authorization Fax Number-Primary : [phone] Auth/Referral Phone Number-Primary : [phone] Reference Number-Primary : [id number] Authorization Number-Primary : [id number] Number of Days Authorized-Primary : 6 Day(s) Authorized Service Begin Date-Primary : 01/01/2020 EST Authorized Service End Date-Primary : 01/07/2020 EST Historical Authorization Comments-Primary : Comment 1: [place] approved per Nila for 7 days --- nrd 01/07 fax for d/c date [phone] (ANGELICA BELTRE, RN-Utilization Review 12/20/2019 10:17) Melisa Morales Rn-Utilization Review - 01/04/2020 15:38 EST documented in this encounter Plan of Treatment Not on file documented as of this encounter Visit Diagnoses Not on filedocumented in this encounter
--- OUTSIDE RECORDS SUMMARY | 2024-10-18 12:58 | XMS_ITS | Encounter Summary ---
Author Organization [employer] ([place], [place], [place], [place]) Address [address] [place] [address] Care Team Providers Care Construction Mgr Name Role Phone Unavailable Primary Care Provider Unavailabl e Encounter Details Date Type Department Care Team (Late st Contact Info) Description 02/28/2018 Transcribed Document [facility] Family Medicine [address] [place] [address] ProviderDina MD [address] [place] [address] Social History Tobacco Use Types [...] - Historical ProviderMD - 02/28/2018 8:40 AM MACHINE CANDLE MOLDER Nursing Discharge Summary Entered On: 02/28/2018 8:40 EST Performed On: 02/28/2018 8:40 EST by ALFREDO NICE global marketing specialist Documentation Discharge Date/Time : 02/28/2018 12:53 EST [...] - 02/28/2018 8:40 EST Electronically signed by [facility] Conversion Primer Inspector Cerner at 06/01/2022 11:16 PM CDT documented in this encounter Plan of Treatment Not on file documented as of this encounter Visit Diagnoses Not on filedocumented in this encounter
--- OUTSIDE RECORDS SUMMARY | 2024-10-18 12:58 | XMS_ITS | Encounter Summary ---
Author Organization [facility] Address [address] [place] [address] Care Team Providers Care Charge Aide Name Role Phone Seven Diop MD Primary Care Provider [phone] Jeromy Perez MD Primary Care Provider [phone] Encounter Details Date Type Department Care Team (Late st Contact Info) Description 06/09/2020 Orders Only External Location [address] [place] [address] [employer] Sousa Social History Tobacco Use Types [...] on filedocumented in this encounter Care Teams Charge Aide Relationship Specialty Start Date End Date Seven Diop MD [address] [place] [address] PCP - General 5/14/21 1/19/23 Jeromy Perez MD [address] [id number] [place] [address] PCP - General 03/05/22 documented as of this encounter
--- OUTSIDE RECORDS SUMMARY | 2024-10-18 12:58 | XMS_ITS | Encounter Summary ---
Author Organization [employer] ([place], [place], [place], [place]) Address [address] [place] [address] Care Team Providers Care Wet Mixer Name Role Phone Unavailable Primary Care Provider Unavailabl e Encounter Details Date Type Department Care Team (Late st Contact Info) Description 02/28/2018 Transcribed Document [facility] [place] [address] [place] [address] ProviderDina MD [address] [place] [address] Social History Tobacco Use Types [...] - Dina ProviderMD - 02/28/2018 12:53 PM COGNOS BI ADMINISTRATOR [place] [id number] Patient Copy Patient Information: Name: AD MARTINEZ Current Date: 02/28/2018 12:53:41 : 1965 Patient Address: [address] [place] [address] Patient Attending Physician: MIKY MANCILLA MD-[facility] Primary Care Provider: HILARIO MONZON MD Primary Care Provider Discharge Diagnosis: Comment: Follow-up Instructions: With: Address: When: MIKY MANCILLA [address] [facility], [address] [place] [phone] Business (1) Within As needed Discharge Instructions: [...] any): Final Medication List: Other Medications acetaminophen-hydrocodone ([place] 10 mg-325 mg oral tablet) 1 Tablet(s) [...] by your health care provider. ??? Take artf-loo-tfhisfd and prescription medicines only as told by [...] Assistance with quitting is available by contacting 6-254-OQVB-NOW. This is a free resource providing counseling, [...] Be sure to sign up for the [employer] patient portal, which gives you 06/09 access to your medical information ??? including these discharge instructions ??? using your computer, smartphone, or tablet. Just go to [employer] to get started. Questions? Call . [facility] would like to thank you for allowing us to assist you with your healthcare needs. KING Fletcher TROY LEE, (or community health program representative) have received the above patient education materials/instructions and have verbalized understanding: Patient Signature _ Date/Time Patient Quality Assurance/R&D Lab Technician Signature (if needed) Date/Time Clinician/Hospital Quality Assurance/R&D Lab Technician Signature (if needed) Date/Time documented in this encounter Plan of Treatment Not on file documented as of this encounter Visit Diagnoses Not on filedocumented in this encounter
--- OUTSIDE RECORDS SUMMARY | 2024-10-18 12:58 | XMS_ITS | Encounter Summary ---
Author Organization [employer] ([place], [place], [place], [place]) Address [address] [place] [address] Care Team Providers Care Associate Professor Of Automation Name Role Phone Unavailable Primary Care Provider Unavailabl e Encounter Details Date Type Department Care Team (Late st Contact Info) Description 01/04/2020 Transcribed Document [facility] [place] Family Medicine [address] [place] [address] ProviderDina MD [address] [place] [address] Social History Tobacco Use Types [...] Conversion Note - Historical ProviderMD - 01/04/2020 4:55 PM AIRPORT SALES AGENT Initial Discharge Planning Entered On: 01/04/2020 16:58 EST Performed On: 01/04/2020 16:55 EST by SALENA HENSLEY RN Initial Assessment I Previously Documented Living Environment : No qualifying data available. Living Situation : Home Patient Lives With : Spouse Is the Patient a Caregiver at Home? : No Emergency Contact #1 : Jayne Juan Emergency Contact #1 Emergency Contact #1 Relationship [...]
--- OUTSIDE RECORDS SUMMARY | 2024-10-18 12:58 | XMS_ITS | Encounter Summary ---
Author Organization [employer] ([place], [place], [place], [place]) Address [address] [place] [address] Care Team Providers Care Grab Operator Name Role Phone Unavailable Primary Care Provider Unavailabl e Encounter Details Date Type Department Care Team (Late st Contact Info) Description 01/04/2020 Transcribed Document [facility] [place] [address] [place] [address] ProviderDina MD [address] [place] [address] Social History Tobacco Use Types [...] - Historical ProviderMD - 01/04/2020 5:07 PM CHINESE TEACHER Stroke/Warfarin Instructions Entered On: 01/04/2020 17:07 EST Performed On: 01/04/2020 17:07 EST by Jeannine Lopez RN Stroke/Warfarin Instructions Stroke/TIA Discharge Ins : N/A Warfarin Discharge Ins : N/A Jeannine Lopez RN - 01/04/2020 17:07 EST Electronically signed by Favio [facility] Conversion Sheet Folder Cerner at 06/01/2022 11:18 PM CDT documented in this encounter Plan of Treatment Not on file documented as of this encounter Visit Diagnoses Not on filedocumented in this encounter
--- OUTSIDE RECORDS SUMMARY | 2024-10-18 12:58 | XMS_ITS | Encounter Summary ---
Author Organization [employer] ([place], [place], [place], [place]) Address [address] [place] [address] Care Team Providers Care Scrap Collector Name Role Phone Unavailable Primary Care Provider Unavailabl e Encounter Details Date Type Department Care Team (Late st Contact Info) Description 06/14/2018 Transcribed Document [facility] [place] [place] [facility] [address] [place] [address] ProviderDina MD [address] [place] [address] Social History Tobacco Use Types [...] 06/14/2018 3:21 PM CDT [facility] Main OR PACU Summary Primary Physician: MARIALUISA VIRGEN MD-ORT Finalized Date/Time: 06/14/18 17:37:50 Pt. Name: AD BANEGAS/Sex: 1965 Male Med Rec #: [id number] Physician: MARIALUISA VIRGEN MD-ORT Financial #: [id number] Pt. Type: O Room/Bed: [facility]/1 Admit/Disch: 06/14/18 05:02:00 - Institution: [facility] OR PACU Case Times Entry 1 In PACU I 06/14/18 15:54:00 Ready for PACU 06/14/18 16:24:00 Discharge Discharge from PACU 06/14/18 17:14:00 I Last Modified By: Ebony Dillard RN 06/14/18 17:36:08 [facility] Main OR PACU Case Times Audit 06/14/18 17:36:08 Putty Mixer: JULIO Modifier: HELFEP <+> 1 Ready for PACU Discharge <+> 1 Discharge from PACU I [facility] Main OR PACU Acuity Entry 1 Start Time 06/14/18 16:24:00 Stop Time 06/14/18 17:14:00 Acuity Level [facility] PACU Acuity I Last Modified By: Ebony Dillard RN 06/14/18 17:36:32 Finalized By: Ebony Dillard RN Document Signatures Signed By: Ebony Dillard RN 06/14/18 17:37 Electronically signed by Favio [facility] Conversion Kennel Helper Cerner at 06/01/2022 11:16 PM CDT documented in this encounter Plan of Treatment Not on file documented as of this encounter Visit Diagnoses Not on filedocumented in this encounter
--- OUTSIDE RECORDS SUMMARY | 2024-10-18 12:58 | XMS_ITS | Encounter Summary ---
Author Organization [employer] ([place], [place], [place], [place]) Address [address] [place] [address] Care Team Providers Care Environmental Systems Coordinator Name Role Phone Unavailable Primary Care Provider Unavailabl e Encounter Details Date Type Department Care Team (Late st Contact Info) Description 01/04/2020 Transcribed Document [facility] [place] Family Medicine [address] [place] [address] ProviderDina MD [address] [place] [address] Social History Tobacco Use Types [...] - Dina ProviderMD - 01/04/2020 8:45 AM WHITE SHOE EXAMINER [facility] Main OR PACU Summary Primary Physician: MARIALUISA VIRGEN MD-ORT Finalized Date/Time: 01/04/20 12:38:55 Pt. Name: AD MARTINEZ/Sex: 1965 Male Med Rec #: [id number] Physician: MARIALUISA VIRGEN MD-ORT Financial #: [id number] Pt. Type: I Room/Bed: [facility]/1 Admit/Disch: 01/04/20 05:33:00 - Institution: [facility] OR PACU Case Times Entry 1 In PACU I 01/04/20 10:11:00 Ready for PACU 01/04/20 10:41:00 Discharge Discharge from PACU 01/04/20 12:38:00 I Last Modified By: BASHIR Alston 01/04/20 12:38:37 [facility] Main OR PACU Case Times Audit 01/04/20 12:38:37 Aboriginal Education Teacher: VAN Modifier: RAMEYLL <+> 1 Discharge from PACU I 01/04/20 12:38:33 Aboriginal Education Teacher: VAN Modifier: RAMEYLL <+> 1 Ready for PACU Discharge [facility] Main OR PACU Acuity Entry 1 Start Time 01/04/20 10:42:00 Stop Time 01/04/20 12:38:00 Acuity Level [facility] PACU Acuity I Last Modified By: BASHIR Alston 01/04/20 12:38:49 Finalized By: BASHIR Alston Document Signatures Signed By: BASHIR Alston 01/04/20 12:38 documented in this encounter Plan of Treatment Not on file documented as of this encounter Visit Diagnoses Not on filedocumented in this encounter
--- OUTSIDE RECORDS SUMMARY | 2024-10-18 12:58 | XMS_ITS | Encounter Summary ---
Author Organization [employer] ([place], [place], [place], [place]) Address [address] [place] [address] Care Team Providers Care Shot Dropper Name Role Phone Unavailable Primary Care Provider Unavailabl e Encounter Details Date Type Department Care Team (Late st Contact Info) Description 02/28/2018 Transcribed Document [facility] [place] [facility] [address] [place] [address] ProviderDina MD [address] [place] [address] Social History Tobacco Use Types [...] - Dina ProviderMD - 02/28/2018 12:41 PM STAFF DEVELOPMENT COORDINATOR Patient Education Materials Follows: Myelogram, Care After [...] by your health care provider. ??? Take wztu-trc-hpidkkn and prescription medicines only as told by [...]
--- OUTSIDE RECORDS SUMMARY | 2024-10-18 12:58 | XMS_ITS | Encounter Summary ---
Author Organization [employer] ([place], [place], [place], [place]) Address [address] [place] [address] Care Team Providers Care Tire Cord Weaver Name Role Phone Unavailable Primary Care Provider Unavailabl e Encounter Details Date Type Department Care Team (Late st Contact Info) Description 06/14/2018 Transcribed Document [facility] [place] Family Medicine [address] [place] [address] ProviderDina MD [address] [place] [address] Social History Tobacco Use Types [...] MD-ORT Finalized Date/Time: 06/14/18 15:56:02 Pt. Name: KING ADStephen GIL /Sex: 1965 Male Med Rec #: [id number] Physician: MARIALUISA VIRGEN MD-ORT Financial #: [id number] Pt. Type: O Room/Bed: Admit/Disch: 06/14/18 05:02:00 - Institution: [facility] IntraOp Case Attendance Entry 1 Entry 2 Entry 3 Case Attendee MARIALUISA VIRGEN MD-ORT Davis, Aleitha E, RN Vlda Cao Role Performed Surgeon/Proceduralist, Assistant Head Cashier, First Scrub, First First Time In 06/14/18 [...] MOORE, CRUZ CLAUDIO MD Falkowski, Donald J, Distance Learning Technician Role Performed Physician care assistant Anesthesiologist System Administration Manager Time In 06/14/18 14:55:00 06/14/18 14:55:00 06/14/18 14:55:00 Time Out 06/14/18 15:54:00 06/14/18 15:22:00 06/14/18 15:54:00 Procedure Sacroiliac Joint Fusion Sacroiliac Joint Fusion Sacroiliac Joint Fusion Other Attendee Superficial Wound Closed By: Last Modified By: Jono Zuluaga RN Davis, Aleitha E, RN Davis, Aleitha E, RN 06/14/18 15:55:54 06/14/18 15:22:51 06/14/18 15:55:54 Entry 7 Entry 8 Case Attendee OTHER, ATTENDEE #1 VONDA ARANDA, SUPPLY CHAIN BUSINESS ANALYST Role Performed Vendor SUPPLY CHAIN BUSINESS ANALYST/Nurse Brief Writer Time In 06/14/18 14:55:00 06/14/18 15:21:00 Time Out 06/14/18 15:54:00 06/14/18 15:54:00 Procedure Sacroiliac Joint Fusion Sacroiliac Joint Fusion Other Attendee JIMMY VILLA Superficial Wound Closed By: Hudson Modified By: Jono Zuluaga RN Davis, Aleitha E, RN 06/14/18 15:12:17 06/14/18 15:55:54 [facility] IntraOp Case Attendance Audit 06/14/18 15:55:54 Counter Professional: ALEITHADAVIS Modifier: ALEITHADAVIS 1 <+> Time Out [...] <*> Procedure Sacroiliac Joint Fusion 06/14/18 15:22:51 Counter Professional: ALEITHADAVIS Modifier: ALEITHADAVIS 5 <+> Time Out 5 <*> Procedure Sacroiliac Joint Fusion <+> 8 Case Attendee <+> 8 Role Performed <+> 8 Time In <+> 8 Procedure 06/14/18 15:21:18 Counter Professional: ALEITHADAVIS Modifier: ALEITHADAVIS <+> 1 Procedure 2 [...] [facility] IntraOp Case Times Audit 06/14/18 15:55:53 Counter Professional: CORNELLADAEVER Modifier: ALEITHADAVIS <+> 1 Out Room Time <+> 1 Stop Time 06/14/18 15:51:59 Counter Professional: ALEITHADAVIS Modifier: ALEITHADAVIS <+> 1 Stop Time 06/14/18 15:22:03 Counter Professional: ALEITHADAVIS Modifier: ALEITHADAVIS <+> 1 Start Time [...] [facility] IntraOp Counts Final Audit 06/14/18 15:37:05 Counter Professional: ALEITHADAVIS Modifier: ALEITHADAVIS 1 <*> Procedure Sacroiliac [...] RN 06/14/18 15:19:43 [facility] IntraOp General Case Elementary Tutor 1 Case Information OR OR 01 [facility] Case Level 1 Room Verified Yes Wound Class I - Clean Specialty SN Neurosurgery Anesthesia Type General ASA Class 2 Diagnosis Preop Diagnosis LEFT SI PAIN Postop Diagnosis DICTATED BY Last Modified By: Jono Zuluaga RN 06/14/18 15:20:09 [facility] IntraOp Implant Log Entry 1 Entry 2 Entry 3 Type Implant (Synthetic) Implant (Synthetic) Implant (Synthetic) Implant Log Implant Type Hardware Hardware Hardware Tissue Implant Type Implant IMP IFUSE 3D IMP IFUSE 3D IMP IFUSE 3D Identification [id number] Description Implant Quantity 1 1 1 Implant Site LEFT SI LEFT SI LEFT SI Implant Identification Model Number Implant Identification Serial Number Implant [id number] Identification Lot Number Implant Si-Bone Inc Si-Bone Inc Si-Bone Inc Identification Rd Mechanical Engineer Name: Implant [id number] Identification Catalog Number Implant Size Implant Has an Yes Yes Yes Expiration Date Implant Expiration 12/20/22 09/23/22 03/11/23 Date Wasted Radioactive Material Time Implanted Tissue Implant Continue for Tissue Implant Documentation Tissue Identification Number Graft Prep Per Rd Mechanical Engineer Instructions: Tissue Preparation Method: Reconstitution Solution: Reconstitution Solution Lot Number Reconstitution Solution Expiration Date: Thawing Solution Thawing Solution Lot Number Thawing Solution Expiration Date Preparation Materials, Other Preparation Materials, Other Lot Number Preparation Materials, Other Expiration Date Tissue Prepared/Processed By Rd Mechanical Engineer Paperwork Completed Implant Type Comment Last Modified By: Jono Zuluaga RN Davis, Aleitha E, RN Davis, Aleitha E, RN 06/14/18 15:20:31 06/14/18 15:20:31 06/14/18 15:20:31 [facility] IntraOp Implant Log Audit 06/14/18 15:36:30 Counter Professional: RUPERT Modifier: ALEITHADAVIS <+> 3 Implant Identification Description <+> 3 Implant Identification Lot Number <+> [address] Mechanical Engineer Name: <+> 3 Implant Expiration Date <+> 3 Implant Identification Catalog Number 06/14/18 15:33:04 Counter Professional: RUPERT Modifier: ALEITHADAVIS <+> 1 Implant Identification Description <+> 1 Implant Identification Lot Number <+> [address] Mechanical Engineer Name: <+> 1 Implant Expiration Date <+> 1 Implant Identification Catalog Number <+> 2 Implant Identification Description <+> 2 Implant Identification Lot Number <+> [address] Mechanical Engineer Name: <+> 2 Implant Expiration Date <+> [...] ANESTHETIC COCKTAIL-PROMISE Route of INJECTION Administration Dose Administered By [...] Intra Op Sign Out Audit 06/14/18 15:52:01 Counter Professional: RUPERT Modifier: ALEITHADAVIS <+> 1 RN Sign Out Signature Date/Time [...] [facility] IntraOp Surgical Procedures Audit 06/14/18 15:52:01 Counter Professional: RUPERT Modifier: CORNELLADAVIS <+> 1 Start <+> 1 Stop S[facility] [...] [facility] IntraOp Time Out Audit 06/14/18 15:22:23 Counter Professional: RUPERT Modifier: ALEITHADAVIS 1 <*> Time Out Pause Time 06/14/18 15:21:00 1 <*> Procedure to be Performed Sacroiliac Joint Fusion 06/14/18 15:21:52 Counter Professional: RUPERT Modifier: CORNELLADAVIS <+> 1 Beta Fabi Administered <+> 1 Venous Thromboembolism Prophylaxis Required <+> 1 Antibiotic Prophylaxis Administered Or In Progress Within the Last 60 Minutes <+> 1 Surgeon <+> 1 Anesthesia Provider <+> 1 Nursing Assures <+> 1 Essential Imaging Labeled and Displayed [facility] IntraOp X-Ray and Images Entry 1 X-Ray/Imaging Type Fluoroscopy Fluoroscopy Type C-Arm Organic Chemistry Teacher Name Fabian Andrea, Distance Learning Technician Protective Devices Yes Used Last Modified By: Jono Zuluaga RN 06/14/18 15:22:12 Case Comments <None> Finalized By: Jono Zuluaga RN Document Signatures Signed By: Jono Zuluaga RN 06/14/18 15:56 documented in this encounter Plan of Treatment Not on file documented as of this encounter Visit Diagnoses Not on filedocumented in this encounter
--- OUTSIDE RECORDS SUMMARY | 2024-10-18 12:58 | XMS_ITS | Clinical Summary ---
Author Organization Healthcare Address [address] [place] [address] Care Team Providers Care Cobol Programmer Name Role Phone Jeromy Perez MD Primary Care Provider [phone] Allergies Active Allergy Reactions Criticality Noted Date [...] 05/29/21 Patient Instructions: 2 Active HYDROcodone-rj taminophen (Celina) 10-325 MG tablet TAKE 1 TO 2 [...] [facility]-HIV Screening 1965 [facility]-Hepatitis C Screening 1965 [facility]-Infant/Child/Adol SDOH Screenings 1965 [facility]- SDOH Screenings 02/12/1984 [facility]-Adult SDOH Screenings 02/12/1984 [facility]-Hepatitis B Vaccines (1 of 3 - 19+ 3-dose series) 1985 [facility]-DTaP,Tdap,and Td Vaccine s (1 - Tdap) 04/20/1996 04/19/1996 CT Colonography 2011 Colonoscopy 2011 FIT-DNA 2011 FIT 2011 FOBT 2011 Sigmoidoscopy 2011 [facility]-Colorectal Cancer Screening 2011 [facility]-Zoster Vaccines (1 of 2) 02/12/2016 [id number] Vaccine (3 - 2023- season) 2023 11/07/2020, 10/10/2020 [facility]-Influenza Vaccine (#1) 2024 [facility]-Pneumococcal Vaccine: 50 + Years Completed [...] patient's age to complete this topic Insurance NICHO Care Teams Cobol Programmer Relationship Specialty Start Date End Date Jeromy Perez MD [address] [facility] [address] [place] [address] PCP - General 03/05/22
--- OUTSIDE RECORDS SUMMARY | 2024-10-18 12:58 | XMS_ITS | Encounter Summary ---
Author Organization [employer] ([place], [place], [place], [place]) Address [address] [place] [address] Care Team Providers Care Cardiology Nurse Practitioner Name Role Phone Unavailable Primary Care Provider Unavailabl e Encounter Details Date Type Department Care Team (Late st Contact Info) Description 06/14/2018 Transcribed Document [facility] [place] Family Medicine [address] [place] [address] ProviderDina MD [address] [place] [address] Social History Tobacco Use Types [...] Source : Stated Height Entry Format : [place] Height, Feet : 6 ft(Converted to: 183 cm, 72 Inch) Height, Inches : 4 Inch(Converted to: 0 ft 4 Inch, 10.16 cm) Clinical Height : 193.04 cm Weight Source : Standing scale Weight Entry Format : [place]is Clinical Dosing Weight : 107.27 kg Weight, Pounds : 236 lb Body Surface Area (BSA) : 2.38 m2 Body Mass Index : 28.8 kg/m2 (HI) [place] Body Weight : 86 kg LAWRENCE WEBSTER RN - 06/14/2018 12:51 EDT Health Histories Smoking Status : Never (less than 100 in lifetime; none in last 30 days), Former smoker, quit more than 30 days ago Smokeless Tobacco Status : Never Implant/Device Type, Filtering Machine Tender Helper and Model : metal rods back LAWRENCE [...] Any Spiritual/Cultural Needs or Requests : No Synagogue Preference : Other: Denominational LAWRENCE WEBSTER RN - 06/14/2018 12:51 EDT [...] #2 Relationship : . Primary Language : Kenyan Communication Barrier : None LAWRENCE WEBSTER RN [...] Scale Risk Level : 0-24 Low Risk [place] Fall Interventions : Bed in low position, [...]
--- OUTSIDE RECORDS SUMMARY | 2024-10-18 12:58 | XMS_ITS | Clinical Summary ---
Author Organization [facility] Address [address] [place] [address] Care Team Providers Care Order Dispatcher Chief Name Role Phone Leigh Ann Buckley MD, Manjinder Jones Primary Care Prov ider Clifton Melgoza MD Unavailable [phone] Allergies Active Allergy Reactions Criticality Noted Date [...] PCV) 016 Zoster-RZV(Shingrix) (1 of 2) 02/12/2016 Depression Screening 02/15/2024 COVID-19 Vaccine ( season) 2024 Influenza Vaccination (#1) 2024 Medical Devices Implanted Type Area Underlay Stitcher Device Identifier Shelf Expiration Date Model / Serial / Lot Graft Bone Crush Canc 1-4 20ml Implanted:Qty: 1 on 11/20/2014 by Clifton Melgoza MD at [facility] Spine Lumbar * LIFENET 09/15/2019 [id number] [id number] / / [id number] Graft Block Mastergraft 20cc Implanted:Qty: 1 on 11/20/2014 by Clifton Melgoza MD at [facility] Spine Lumbar * MEDTRONIC SOFAMOR DANEK 08/13/2017 [id number] / / [id number] Graft Bone Kt Infuse Med Implanted:Qty: 1 on 11/20/2014 by Clifton Melgoza MD at [facility] Spine Lumbar * MEDTRONIC SOFAMOR DANEK 11/15/2015 [id number] / / [id number] Jesse 5.5 Ti Cp4 Ns Curv 100mm Implanted:Qty: 2 on 11/20/2014 by Clifton Melgoza MD at [facility] Spine Lumbar * MEDTRONIC [id number] / / Set Scr 5.5 Ti Ns Brk Off Implanted:Qty: 6 on 11/20/2014 by Clifton Melgoza MD at [facility] Spine Lumbar * MEDTRONIC [id number] / / Scr 5.5 Mas 7.5x50 Cc Implanted:Qty: 1 on 11/20/2014 by Clifton Melgoza MD at [facility] Spine Lumbar * MEDTRONIC [id number] / / Scr 5.5 Mas 7.5x45mm Implanted:Qty: 5 on 11/20/2014 by Clifton Melgoza MD at [facility] Spine Lumbar * MEDTRONIC [id number] / / Abebe Implant Spinal Fusion Stimulator - [id number] Implanted:Qty: 1 on 11/20/2014 by Clifton Melgoza MD at [facility] Spine Lumbar * [employer] 08/22/2015 [id number] / [id number] / Graft Bone Posterolateral 10cm - [id number] Implanted:Qty: 1 on 11/20/2014 by Clifton Melgoza MD at [facility] Spine Lumbar * OST[employer]ag[employer] 07/23/2016 [id number] / [id number] / Graft Block Mastergraft 20cc Implanted:Qty: 1 on 11/20/2014 by Clifton Melgoza MD at [facility] Spine Lumbar * MEDTRONIC SOFAMOR DANEK 07/14/2017 [id number] / / [id number] 12degrees X 16mm X 30mm X 24mm Interbody Spacer Implanted:Qty: 1 on 11/20/2014 by Clifton Melgoza MD at [facility] Spine Lumbar * MEDTRONIC 01/24/2020 [id number] / / [id number] Insurance * Guarantor: Ad Martinez Account Type Relation to Patient Date of Phone Billing Address Personal/Family Self 1965 [phone] (Work) [address] [place] [address] ANTHEM * Guarantor: Ad Martinez Account Type Relation to Patient Date of Phone Billing Address Personal/Family Self 1965 [phone] (Work) [address] [place] [address] ANTHEM Advance Directives For more information, please contact: [phone] * Full Code (Latest Code Status on File) Date Activated Date Inactivated Comments 11/20/2014 8:47 PM 11/23/2014 6:32 PM Care Teams Order Dispatcher Chief Relationship Specialty Start Date End Date Manjinder Beltrán Jr., MD [address] [facility] [address] [place] [address] PCP - General Internal Medicine 09/19/14 Clifton Melgoza MD [address] [facility] [place] [address] 02/21/22
--- OUTSIDE RECORDS SUMMARY | 2024-10-18 12:58 | XMS_ITS | Encounter Summary ---
Author Organization [facility] Address [address] [place] [address] Care Team Providers Care Care Professionals Name Role Phone Seven Diop MD Primary Care Provider [phone] Jeromy Perez MD Primary Care Provider [phone] Encounter Details Date Type Department Care Team (Late st Contact Info) Description 08/13/2021 Orders Only External Location [address] [place] [address] [employer] Social History Tobacco Use Types [...] on filedocumented in this encounter Care Teams Care Professionals Relationship Specialty Start Date End Date Seven Diop MD [address] [place] [address] PCP - General 06/27/20 03/04/22 Jeromy Perez MD [address] [place] [address] PCP - General 03/05/22 documented as of this encounter
--- OUTSIDE RECORDS SUMMARY | 2024-10-18 12:58 | XMS_ITS | Clinical Summary ---
Author Organization [facility] Address [address] [place] [address] Care Team Providers Care Grinder Hand Name Role Phone Jeromy Perez MD Primary Care Provider [phone] Allergies Active Allergy Reactions Criticality Noted Date Comments Meloxicam Rash Low 12/11/2020 Medications HYDROcodone-rj taminophen (NORCO) 10-325 MG per tablet 1 tablet Every 4 (Four) Hours As Needed. 1 Active tiZANidine (ZANAFLEX) 4 MG tablet every night at bedtime. 1 Active Testosterone Cypionate (DEPOTESTOTERON E CYPIONATE) 200 MG/ML injection Every 30 (Thirty) Days. 1 Active tadalafil (CIALIS) 10 MG tablet Take 10 mg by mouth Daily As Needed for Erectile Dysfunction. Active loratadine (CLARITIN) 10 MG tablet Take 1 tablet by mouth Daily. For allergies 2 Active amLODIPine-carmelita zepril (LOTREL 5-10) 5-10 MG per capsule TAKE ONE CAPSULE BY MOUTH EVERY DAY 90 capsule 3 3 Active chlorthalidone (HYGROTON) 25 MG tablet Take 1 tablet by mouth Daily. 90 tablet 3 3 Active Family History Medical History Relation Name Comments Heart attack Father Heart disease Father Hyperlipidemia Father Hypertension Father Heart disease Mother Hypertension Mother Relation Name Status Comments Father Mother Social History Tobacco Use Types Packs/Day Years Used Date Smoking Tobacco: Former Cigarettes Q uit: 02/1989 Smokeless Tobacco: Former Quit: 1999 Tobacco Cessation:Counseling Given: Not Answered Alcohol Use Standard Drinks/Week Comments Not Currently 0 (1 standard drink = 0.6 oz pur e alcohol) Abuse Screen Answer Date Recorded Unsafe at Home or Work/School Not on file Feels Threatened by Someone? Not on file Does Anyone Keep You from Co ntacting Others or Doint Things Outside the Home? Not on file 11/26/2022 Physical Sign of Abuse Present Not on file 1 Housing Stability Answer Date Recorded Current Living Arrangements Not on file 11/14 Potentially Unsafe Housing Conditions Not on nadja e 11/26/2022 Family and Community Support Answer Eric e Recorded Help with Day-to-Day Activities Not on file 11/26/2022 Lonely or Isolated Not on file 11/26/2022 Employment Answer Date Recorded Do you want help finding or keeping work or a vin b? Not on file 11/26/2022 Disabilities Answer Date Recorded Concentrating, Remembering, or Making Decisions Difficulty Not on file 11/26/2022 Doing Errands Independently Difficulty Not on fi le 11/26/2022 Education Answer Date Recorded Help with school or training? Not on file Preferred Language Not on file 11/26/2022 Sex and Gender Information Value Date Recorded Sex Assigned at Not on file Legal Sex Male 11:07 AM EDT Gender Identity Not on file Sexual Orientation Not on file Last Filed Vital Signs Vital Sign Reading Time Taken Comments Blood Pressure 148/80 12/24/2021 10:17 AM EST Pulse 82 12/24/2021 10:17 AM EST Temperature - - Respiratory Rate - - Oxygen Saturation 96% 12/24/2021 10:17 AM EST Inhaled Oxygen Concentration - - Weight 122 kg (270 lb) 12/24/2021 10:17 AM EST Height 193 cm (6' 4 ) 12/24/2021 10:17 AM EST Body Mass Index 32.87 12/24/2021 10:17 AM EST Plan of Treatment Health Maintenance Due Date Last Done Comments TDAP/TD VACCINES (1 - Tdap) 1985 COLOGUARD 2011 COLON CANCER SCREENING 5 YEA R SIGMOIDOSCOPY 2011 COLONOSCOPY 2011 COLORECTAL CANCER SCREENING 2011 CT COLONOGRAPHY 2011 FECAL OCCULT BLOOD TEST 2011 FIT Testing (1 year) 2011 Pneumococcal Vaccine 50+ (1 of 1 - PCV) 02/12/2016 ZOSTER VACCINE (1 of 2) 02/12/2016 ANNUAL PHYSICAL 12/10/2020 HEPATITIS C SCREENING 12/10/2020 COVID-19 Vaccine ( - season) 2023 LIPID PANEL 12/31/2023 12/30/2022, 12/30/2022 INFLUENZA VACCINE 11/14/2024 Insurance [facility] PPO Care Teams Grinder Hand Relationship Specialty Start Date End Date Jeromy Perez MD [address] [facility] [address] [place] [address] PCP - General Internal Medicine 12/11/20
--- OUTSIDE RECORDS SUMMARY | 2024-10-18 12:58 | XMS_ITS | Encounter Summary ---
Author Organization [employer] ([place], [place], [place], [place]) Address [address] [place] [address] Care Team Providers Care Buffing Turner And Counter Name Role Phone Unavailable Primary Care Provider Unavailabl e Encounter Details Date Type Department Care Team (Late st Contact Info) Description 06/14/2018 Transcribed Document [facility] [place] [address] [place] [address] ProviderDina MD [address] [place] [address] Social History Tobacco Use Types [...] Barley. Bulgur wheat. Millet. Bran muffins. Popcorn. [place] wafer crackers. ?? Vegetables Sweet potatoes. Spinach. Kale. Artichokes. Cabbage. Broccoli. Green peas. Carrots. Squash. ?? Fruits Berries. Pears. Apples. Oranges. Avocados. Prunes and raisins. Dried figs. ?? Meats and Other Protein Sources Heeia, kidney, dimas, and soy beans. Split peas. [...] sudhir has 11 g of protein. ?? Gregory seeds - 1 oz has 5.5 g [...] floor. ?? Place frequently used items in kjga-lw-hbkmf places ?? Keep electrical cables out of [...] ? Using the bathroom. ? Using household faculty physician or toxic chemicals. ? Touching or taking [...] Walk With a Standard Walker: 1. supervisor doping your walker. Do not slide your standard [...] 01/31/2006 Document Revised: 06/30/2016 Document Reviewed: 08/15/2015 Elsevier Interactive Patient Education ? 2017 [employer] Preventive Medicine Fall Prevention in the [...] items that you use a lot in ycdc-go-vtshq places. ??? If you need to reach something above you, use a strong step stool that has a grab bar. ??? Keep electrical cords out of the way. ??? Do notuse floor romansh or wax that makes floors slippery. If [...] 07/08/2016 Document Reviewed: 03/07/2015 ? 2017 Elsevier Electronically signed by Stephanie Stahl Conversion Thermit Welding Machine Operator Cerner at 06/01/2022 11:09 PM CDT documented in this encounter Plan of Treatment Not on file documented as of this encounter Visit Diagnoses Not on filedocumented in this encounter
--- OUTSIDE RECORDS SUMMARY | 2024-10-18 12:58 | XMS_ITS | Encounter Summary ---
Author Organization [employer] ([place], [place], [place], [place]) Address [address] [place] [address] Care Team Providers Care Compliance Officer Name Role Phone Unavailable Primary Care Provider Unavailabl e Encounter Details Date Type Department Care Team (Late st Contact Info) Description 06/14/2018 Transcribed Document [facility] [place] Family Medicine [address] [place] [address] ProviderDina MD [address] [place] [address] Social History Tobacco Use Types [...] Finalized Date/Time: 06/14/18 15:10:58 Pt. Name: AD MARTINEZ/Sex: 1965 Male Med Rec #: [id number] Physician: MARIALUISA VIRGEN MD-ORT Financial #: [id number] Pt. Type: O Room/Bed: Admit/Disch: 06/14/18 05:02:00 - [place] [facility] [place] PreOp Case Times Entry 1 In Preop 06/14/18 12:00:00 Ready for Holding n/a Room Patient Ready for 06/14/18 13:02:00 Surgery Patient Out of Preop 06/14/18 14:52:00 Patient Out of n/a Holding Room Last Modified By: SHANAE BERNSTEIN 06/14/18 15:10:56 [facility] PreOp Case Times Audit 06/14/18 15:10:56 Clip Riveter: SAYDA Modifier: [email or web address] <+> 1 Patient Out of Preop Finalized By: SHANAE BERNSTEIN Document Signatures Signed By: SHANAE BERNSTEIN 06/14/18 15:10 Electronically signed by Favio [facility] Conversion Reproduction Production Manager Cerner at 06/01/2022 11:01 PM CDT documented in this encounter Plan of Treatment Not on file documented as of this encounter Visit Diagnoses Not on filedocumented in this encounter
--- OUTSIDE RECORDS SUMMARY | 2024-10-18 12:58 | XMS_ITS | Encounter Summary ---
Author Organization [employer] ([place], [place], [place], [place]) Address [address] [place] [address] Care Team Providers Care Rate Inserter Name Role Phone Unavailable Primary Care Provider Unavailabl e Encounter Details Date Type Department Care Team (Late st Contact Info) Description 06/14/2018 Transcribed Document [facility] [place] [address] [place] [address] ProviderDina MD [address] [place] [address] Social History Tobacco Use Types [...] 06/14/2018 12:40 EDT by Mabel Bolden Patient Freight Claim Investigator Height and Weight, Clinical Dosing Height Source : Stated Height Entry Format : [place] Height, Feet : 6 ft(Converted to: 183 cm, 72 Inch) Height, Inches : 4 Inch(Converted to: 0 ft 4 Inch, 10.16 cm) Clinical Height : 193.04 cm Weight Source : Standing scale Weight Entry Format : [place] Clinical Dosing Weight : 107.27 kg Weight, Pounds : 236 lb Body Surface Area (BSA) : 2.38 m2 Body Mass Index : 28.8 kg/m2 (HI) [employer] Body Weight : 86 kg Mabel Bolden Patient Freight Claim Investigator - 06/14/2018 12:40 EDT Electronically signed by Favio [facility] Conversion Driver Wheelchair Cerner at 06/01/2022 11:02 PM CDT documented in this encounter Plan of Treatment Not on file documented as of this encounter Visit Diagnoses Not on filedocumented in this encounter
--- OUTSIDE RECORDS SUMMARY | 2024-10-18 12:58 | XMS_ITS | Clinical Summary ---
Author Organization [employer] ([place], [place], [place], [place]) Address [address] [place] [address] Care Team Providers Care Paper Wood Cutter Name Role Phone Unavailable Primary Care Provider [...]
--- OUTSIDE RECORDS SUMMARY | 2024-10-18 12:58 | XMS_ITS | Encounter Summary ---
Author Organization [employer] ([place], [place], [place], [place]) Address [address] [place] [address] Care Team Providers Care Farm Crops Teacher Name Role Phone Unavailable Primary Care Provider Unavailabl e Encounter Details Date Type Department Care Team (Late st Contact Info) Description 02/28/2018 Transcribed Document [facility] [place] Family Medicine [address] [place] [address] ProviderDina MD [address] [place] [address] Social History Tobacco Use Types [...] - Historical ProviderMD - 02/28/2018 8:40 AM MEDICAL ILLUSTRATOR Discharge Instructions Entered On: 02/28/2018 8:41 EST [...] operative site/wound site clean and dry ALFREDO NICE, RN - 02/28/2018 8:40 EST Electronically signed by Favio [facility] Conversion Children'S Literature Professor Cerner at 06/01/2022 11:10 PM CDT documented in this encounter Plan of Treatment Not on file documented as of this encounter Visit Diagnoses Not on filedocumented in this encounter
--- OUTSIDE RECORDS SUMMARY | 2024-10-18 12:58 | XMS_ITS | Encounter Summary ---
Author Organization Healthcare Address [address] [place] [address] Care Team Providers Care Bookstore Manager Name Role Phone Seven Diop MD Primary Care Provider [phone] Jeromy Perez MD Primary Care Provider [phone] Reason for Referral * Consultation (Routine) - Closed Specialty Diagnoses / Procedures Referred By Contac t Referred To Contact Orthopaedic Surgery Diagnoses Lumbar pain Mich Adams MD [address] [place] [address] Phone: tel: fax: [facility] [address] [place] [address] Phone: tel: fax: Referral ID Status Reason Start Date Expiration Date V isits Requested Visits Authorized [id number] Closed Specialty Services Required 03/01/2022 08/31/2023 1 1 Encounter Details Date Type Department Care Team (Late st Contact Info) Description 03/01/2022 Community [facility] Community Practice [address] [place] [address] Mich Adams MD [address] [place] [address] Lumbar pain (Primary Dx) Social History Tobacco [...] Lumbago documented in this encounter Care Teams Bookstore Manager Relationship Specialty Start Date End Date Seven Diop MD [address] [place] [address] PCP - General 06/27/20 03/04/22 Jeromy Perez MD [address] [place] [address] [address] [place] [address] PCP - General 03/05/22 documented as of this encounter
--- OUTSIDE RECORDS SUMMARY | 2024-10-18 12:58 | XMS_ITS | Encounter Summary ---
Author Organization [employer] ([place], [place], [place], [place]) Address [address] [place] [address] Care Team Providers Care Board Design Engineer Name Role Phone Unavailable Primary Care Provider Unavailabl e Encounter Details Date Type Department Care Team (Late st Contact Info) Description 05/29/2018 Transcribed Document [facility] [place] [address] [place] [address] ProviderDina MD [address] [place] [address] Social History Tobacco Use Types [...] Source : Stated Height Entry Format : [place] Height, Feet : 6 ft(Converted to: 183 cm, 72 Inch) Height, Inches : 4 Inch(Converted to: 0 ft 4 Inch, 10.16 cm) Clinical Height : 193.04 cm Weight Source : Standing scale Weight Entry Format : [place] Clinical Dosing Weight : 113.64 kg Weight, Pounds : 250 lb Body Surface Area (BSA) : 2.44 m2 Body Mass Index : 30.5 kg/m2 (HI) [place] Body Weight : 86 kg Jenna Carroll RN - 05/29/2018 10:52 EDT Health Histories Smoking Status : Former smoker, quit more than 30 days ago Smokeless Tobacco Status : Former smokeless tobacco user, quit more than 30 days ago Implant/Device Type, Plastic Tool Maker and Model : metal rods back Jenna [...] RN - 05/29/2018 10:52 EDT Spiritual/Cultural Needs Anabaptist Preference : Other: Orthodoxy Jenna Carroll RN - 05/29/2018 10:52 EDT Psychosocial History Currently in Unsafe Situation : No Tried to Harm Yourself in the Past? : No Thoughts of Harming/Killing Yourself : No Jenna aCrroll RN - 05/29/2018 10:52 EDT Teaching/Learning Assessment [...] #2 Relationship : . Primary Language : Omani Communication Barrier : None Jenna Carroll RN [...]
--- OUTSIDE RECORDS SUMMARY | 2024-10-18 12:58 | XMS_ITS | Encounter Summary ---
Author Organization [employer] ([place], [place], [place], [place]) Address [address] [place] [address] Care Team Providers Care Fur Floor Worker Name Role Phone Unavailable Primary Care Provider Unavailabl e Encounter Details Date Type Department Care Team (Late st Contact Info) Description 06/14/2018 Transcribed Document [facility] [place] Medicine [address] [place] [address] ProviderDina MD [address] [place] [address] Social History Tobacco Use Types [...] materials Teaching Evaluation : Verbalizes understanding Wandy Nunez RN - 06/14/2018 20:36 EDT Electronically signed by Favio [facility] Conversion Handicraft Or Hobby Shop Manager María at 06/01/2022 11:07 PM CDT documented in this encounter Plan of Treatment Not on file documented as of this encounter Visit Diagnoses Not on filedocumented in this encounter
--- OUTSIDE RECORDS SUMMARY | 2024-10-18 12:58 | XMS_ITS | Encounter Summary ---
Author Organization [employer] ([place], [place], [place], [place]) Address [address] [place] [address] Care Team Providers Care Government Affairs Manager Name Role Phone Unavailable Primary Care Provider Unavailabl e Encounter Details Date Type Department Care Team (Late st Contact Info) Description 06/14/2018 Transcribed Document [facility] [place] [address] [place] [address] ProviderDina MD [address] [place] [address] Social History Tobacco Use Types [...]
--- OUTSIDE RECORDS SUMMARY | 2024-10-18 12:58 | XMS_ITS | Encounter Summary ---
Author Organization [employer] ([place], [place], [place], [place]) Address [address] [place] [address] Care Team Providers Care Natural Resource Specialist Name Role Phone Unavailable Primary Care Provider Unavailabl e Encounter Details Date Type Department Care Team (Late st Contact Info) Description 01/04/2020 Transcribed Document [facility] [place] [address] [place] [address] ProviderDina MD [address] [place] [address] Social History Tobacco Use Types [...] - Dina ProviderMD - 01/04/2020 4:59 PM MANAGED CARE COORDINATOR Final Discharge Planning Entered On: 01/04/2020 17:01 [...]
--- OUTSIDE RECORDS SUMMARY | 2024-10-18 12:58 | XMS_ITS | Clinical Summary ---
Author Organization [facility] Address [address] [place] [address] Care Team Providers Care Environmental Health Technologist Name Role Phone Sy Shahid MD Primary Care Provider [phone] Source Comments This information has been disclosed to you from confidential records protectedfrom disclosure by state law. You shall make no further disclosure of thisinformation without the specific, written, and informed release of theindividual to whom it pertains, or as otherwise permitted by law. A generalauthorization for the release of medical or other information is not sufficientfor the purposes of therelease of HIV test results or diagnoses. [id number] Allergies Active Allergy Reactions Criticality Noted Date Comments Meloxicam Rash Low 09/16/2015 Pt states his legs turned red Medications GUAIFEN/PHENYLEPH /ACETAMINOPHN (MUCINEX FAST-MAX COLD-SINUS ORAL) Take by mouth. Active gabapentin (NEURONTIN) 300 MG capsuleIndication s:Lumbar degenerative disc disease One to Two tablets per day for three weeks and then increase to two to three per day 120 capsule 4 6 Active HYDROcodone-aceta minophen (NORCO) 7.5-325 mg per tablet One PO Q 6-8 hours msh-gdip-peam must last 40 days with no exceptions 120 tablet 0 6 Active lidocaine (LIDODERM) 5 %Indications:Lumb ar degenerative disc disease,Scoliosis (and kyphoscoliosis), idiopathic,Pseudo arthrosis of lumbar spine,Pelvic obliquity,Chronic low back pain,Lumbar spine pain Place 1 patch onto the skin 2 times a day. Apply patch for 12 hours and then remove patch and leave off for 12 hours. 60 patch 5 6 Active pregabalin (LYRICA) 150 MG capsule Take 150 mg by mouth 2 times a day. Active traMADol (ULTRAM) 50 mg tablet Take 50 mg by mouth every 6 hours as needed for Pain. Active ketorolac (TORADOL) 10 mg tablet Take 1 tablet (10 mg total) by mouth every 6 hours as needed for Pain. 20 tablet 0 6 Active Active Problems Problem Noted Date Diagnosed Date Chronic narcotic use 01/19/2016 Pelvic obliquity L 03/07/2015 Lumbar degenerative disc disease L34 L45 L5S1 Pseudoarthrosis of lumbar spine L5S1 L45 015 Chronic low back pain 01/29/2015 Scoliosis (and kyphoscoliosis), idiopathic 01/29 Social History Tobacco Use Types Packs/Day Years Used Date Smoking Tobacco: Never Smokeless Tobacco: Never Alcohol Use Standard Drinks/Week Comments No 0 (1 standard drink = 0.6 oz pur e alcohol) Sex and Gender Information Value Date Recorded Sex Assigned at Not on file Legal Sex Male 11:58 AM EDT Gender Identity Not on file Sexual Orientation Not on file Last Filed Vital Signs Vital Sign Reading Time Taken Comments Blood Pressure 110/89 09/16/2015 6:00 PM EDT Pulse 86 09/16/2015 6:00 PM EDT Temperature 36.7 C (98.1 F) 10/01/2015 2:14 PM EDT Respiratory Rate 21 09/16/2015 6:00 PM EDT Oxygen Saturation 98% 09/16/2015 6:00 PM EDT Inhaled Oxygen Concentration 98% 09/16/2015 6 :00 PM EDT Weight 99.8 kg (220 lb) 05/10/2016 3:13 PM EDT Height 193 cm (6' 4 ) 05/10/2016 3:13 PM EDT Body Mass Index 26.78 05/10/2016 3:13 PM EDT Plan of Treatment Not on file Insurance BLUE ACCESS Care Teams Environmental Health Technologist Relationship Specialty Start Date End Date Sy Shahid MD PCP - General Internal Medicine 01/29/15
--- OUTSIDE RECORDS SUMMARY | 2024-10-18 12:58 | XMS_ITS | Encounter Summary ---
Author Organization [facility] [place] [address] Care Team Providers Care Geodetic Surveyor Technologist Name Role Phone Unavailable Primary Care Provider Unavailabl e Encounter Details Date Type Department Care Team (Latest Contact Info) Description 10/06/2024 Travel Social History Tobacco Use Types Packs/Day Years [...] on file documented as of this encounter Functional Status * Is the [...] Waldo Bonilla RN documented in this encounter Plan of Treatment Upcoming Encounters Date Type Department Care Team (Late st Contact Info) Description 04/18/2025 9:20 AM EST Office Visit [facility] [address] [address] Yosvany Sanz MD [address] [place] [address] DR GARCIA [facility] [place] [address] documented as of this encounter Visit Diagnoses Not on filedocumented in this encounter Additional Health Concerns Assessment Noted Time PHQ-9 Depression Total Score: 1 12/30/19 23 9:15 PM EST PHQ-2 Depression Total Score: 1 12/30/19 23 9:15 PM EST documented as of this encounter
--- OUTSIDE RECORDS SUMMARY | 2024-10-18 12:58 | XMS_ITS | Encounter Summary ---
Author Organization [employer] ([place], [place], [place], [place]) Address [address] [place] [address] Care Team Providers Care Electronic Tester Name Role Phone Unavailable Primary Care Provider Unavailabl e Encounter Details Date Type Department Care Team (Late st Contact Info) Description 02/28/2018 Transcribed Document [facility] [place] [address] [place] [address] ProviderDina MD [address] [place] [address] Social History Tobacco Use Types [...] - Dina ProviderMD - 02/28/2018 12:41 PM PEDIATRIC SPEECH LANGUAGE PATHOLOGIST [place] [id number] Patient Copy Patient Information: Name: AD MARTINEZ Current Date: 02/28/2018 12:41:42 : 1965 Patient Address: [address] [address] Patient Attending Physician: MIKY MANCILLA MD-[facility] Primary Care Provider: HILARIO MONZON MD Primary Care Provider Discharge Diagnosis: Comment: Follow-up Instructions: With: Address: When: MIKY MANCILLA [address], [address] [place] [phone] Business (1) Within As needed Discharge Instructions: [...] any): Final Medication List: Other Medications acetaminophen-hydrocodone ([place] 10 mg-325 mg oral tablet) 1 Tablet(s) [...] by your health care provider. ??? Take wgrj-hab-gbgaxzu and prescription medicines only as told by [...] Assistance with quitting is available by contacting 7-945-EGFL-NOW. This is a free resource providing counseling, [...] Be sure to sign up for the [employer] patient portal, which gives you 06/09 access to your medical information ??? including these discharge instructions ??? using your computer, smartphone, or tablet. Just go to [employer] to get started. Questions? Call . [facility] would like to thank you for allowing us to assist you with your healthcare needs. KING Fletcher TROY LEE, (or passenger relations representative) have received the above patient education materials/instructions and have verbalized understanding: Patient Signature _ Date/Time Patient Supervisor [place] Signature (if needed) Date/Time Clinician/Hospital Supervisor [place] Signature (if needed) Date/Time documented in this encounter Plan of Treatment Not on file documented as of this encounter Visit Diagnoses Not on filedocumented in this encounter
--- OUTSIDE RECORDS SUMMARY | 2024-10-18 12:58 | XMS_ITS | Clinical Summary ---
Author Organization [facility] Address [address] [place] [address] Phone Care Team Providers Care Billing Auditor Name Role Phone Unavailable Primary Care Provider [...] 800 mg 3 times daily. 2 Active Active Problems Problem Noted Date Diagnosed Date Chest pain, unspecified type 12/29/2022 Primary hypertension 12/29/2022 Mixed hyperlipidemia 12/29/2022 Chronic low back pain without sciatica 3 Encounters Date Type Department Care Team Description 10/11/2024 9:10 AM EDT Office [place] [address] Yosvany Sanz MD Primary hypertension (Primary Dx); Mixed hyperlipidemia; Pure hypercholesterolemia 10/06/2024 Travel from Last 3 Months Social History Tobacco Use Types Packs/Day Years [...] money to buy more. Never true 12/30/19 Within the past 12 months, t he [...] Pulse 74 10/11/2024 9:14 AM EDT Temperature 36.6 C (97.9 F) 12/30/2022 7:54 AM EST Respiratory Rate 16 12/30/2022 3:04 PM EST Oxygen Saturation 98% 10/11/2024 9:14 AM EDT Inhaled Oxygen Concentration - - Weight 123 kg (271 lb 3.2 oz) 10/11/2024 9:14 AM EDT Height 193 cm (6' 4 ) 10/11/2024 9:14 AM EDT Body Mass Index 33.01 10/11/2024 9:14 AM EDT Plan of Treatment Upcoming Encounters Date Type Department Care Team (Late st Contact Info) Description 04/18/2025 9:20 AM EST Office [place] [address] Yosvany Sanz MD [address] [place] [address] Health Maintenance Due Date Last Done Comments Wellness Exam Medicare 1968 Hepatitis B Vaccine (1 of 3 - 19+ 3-dose series) 1985 Cologuard 2011 Colon Cancer Screening 2011 Colonoscopy 2011 FIT 2011 Sigmoidoscopy 2011 Virtual Colonography 2011 Zoster (1 of 2) 02/12/2016 COVID-19 Vaccine (3 - 2024-2 6 season) 2024 11/07/2020, 10/10/2020 Influenza Vaccine (#1) 2024 DTaP/TDaP/Td (2 - Td or Tdap) 12/15/2032, 04/19/1996 Pneumococcal Vaccine 50+ Completed 022, 11/30/2016 Meningococcal B Vaccine Aged Out No l onger eligible based on patient's age to complete this topic Insurance [place] [facility] MEDICARE [place] PART A AND B Advance Directives For more information, please contact: [phone] * Full Code (Latest Code Status on File) Date Activated Date Inactivated Comments 12/29/2022 9:41 PM 12/30/2022 8:33 PM
--- OUTSIDE RECORDS SUMMARY | 2024-10-18 12:58 | XMS_ITS | Encounter Summary ---
Author Organization [employer] ([place], [place], [place], [place]) Address [address] [place] [address] Care Team Providers Care Equine Dentist Name Role Phone Unavailable Primary Care Provider Unavailabl e Encounter Details Date Type Department Care Team (Late st Contact Info) Description 06/14/2018 Transcribed Document [facility] [place] [facility] [place] [address] ProviderDina MD [address] [place] [address] Social History Tobacco Use Types [...] Associated Diagnoses: None Author: MARIALUISA VIRGEN MD-ORT Date: June 14, 2018 PROCEDURE: left sacroiliac joint arthrodesis with instrumentation. Using triangular titanium mesh bone ingrowth cage. PREOPERATIVE DIAGNOSIS(ES): left joint osteoarthritis, disorder, disruption.dysfunction, sacroiliitis, arthropathy POSTOPERATIVE DIAGNOSIS(ES): left sacroiliac joint osteoarthritis, disorder, disruption.dysfunction, sacroiliitis, arthropathy SURGEON: Marialuisa Virgen M.D. SHREDDER TENDER: Naveen Tapia The duties of the financial administrative assistant are to carefully position the patient onto [...] it is of absolute importance that the financial administrative assistant is present to maintain that in proper [...] with when 1 hour of incision. Antibiotics fvlzvd-ygovi-ohdvnbfhcb cephalosporin-Ancef discontinuation of antibiotics within 24 hours [...] the symptomatic side, cannot do dishes, loading human resources compliance manager,, laundry, activity around the home. Shopping. Housecleaning, [...] test distraction, and gaze Karli's maneuver. Plain y-zwkk-dfdaov multilevel disc degeneration. Sacroiliac joint sclerosis,leftt side. [...] physical therapy, anti-inflammatory medication, exercises, pain medication, pet care worker, injection therapy. 2. Symptoms are localized, to the sacroiliac joint, on the right side. Below L5-S1. 3. Provocative testing, reproduction of clinical pain with all 5 out of 5 sacroiliac provocative test. 4. S-mytd-dpewdncqagl all sources of pain, that may be [...] made measuring approximately2-3 inches in length.,leftside. The financial administrative assistant carefully retacting and suctioning and myself carefully [...] neurologic structures. It was absolutely imperative, the financial administrative assistant carefully hold the guide and not move [...] hospital until stable and ambulatory.and pain controlled. Marialuisa Virgen M.D. June 14, 2018 1555 Eastern standard time Signature Line documented in this encounter Plan of Treatment Not on file documented as of this encounter Visit Diagnoses Not on filedocumented in this encounter
--- OUTSIDE RECORDS SUMMARY | 2024-10-18 12:58 | XMS_ITS | Clinical Summary ---
Author Organization [facility] Address [address] [place] [address] Phone Care Team Providers Care Dean Of Student Services Name Role Phone Hector HAYNES, [phone] Conditions or Problems Problem Name Problem Code Onset Date Status Entry Date Provider Comment Standard Description Annotate ARTHRODESIS STATUS 263367350 (SNOMED CT) 08/09 Active 08/09 Becki Molina H/O: arthrodesis LUMBOSACRAL RADICULOPATHY 6043614 (SNOMED CT) 07/25 Active 07/28 Chettiar Lumbosacral [...] encounter FIXATION HARDWARE IN BACK AND NECK 423814685 (SNOMED CT) 05/23 Active 05/23 Krystal Cartwright MA 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 726010883 (SNOMED CT) 03/11 Active 03/11 Krystal Cartwright MA Lumbar post-laminecto my syndrome SACROILIAC JOINT DYSFUNCTION 545489313 (SNOMED CT) 03/11 Active 03/11 Krystal Cartwright MA Sacroiliac disorder OVERWEIGHT 861104898 (SNOMED CT) 09/13 Resolved 09/13 Krystal Cartwright MA Overweight OVERWEIGHT 022406190 (SNOMED CT) 03/11 Active 03/11 Adina Dowd Overweight LUMBAR RADICULOPATHY, L1-L5 M54.16 (ICD-10-CM ) 04/04 Active 04/04 Sun Christopher MA Radiculopathy, lumbar region LUMBAR RADICULOPATHY 155376432 (SNOMED CT) 03/01 Active 03/01 Sun Christopher [place] Lumbar radiculopathy LOW BACK PAIN 029851067 (SNOMED CT) 09/13 Active 09/13 Goran Patricio MD Low back pain LUMBAR SPONDYLOSIS, L1-L5 M47.816 (ICD-10-CM ) 09/13 Active 09/13 Goran Patricio MD Spondylosis without myelopathy or radiculopathy, lumbar region CHRONIC PAIN SYNDROME (LBP) 797007711 (SNOMED CT) 09/13 Active 09/13 Goran Patricio MD Chronic pain syndrome OVERWEIGHT 251573965 (SNOMED CT) 09/13 Removed 09/13 Goran Patricio MD Overweight Medications Medication Instructions Start Date Stop Date Generic Name NDC Provider DICLOFENAC SODIUM 75 MG TBEC 1 po BID DICLOFENAC SODIUM 74329921062 Manjinder Smith MD TIZANIDINE 4MG 1 po q6h prn muscle spasm TIZANIDINE 4MG Meredith Vanessa NORCO 10-325 MG ORAL TABLET Non-[place] HYDROCODONE-ACETAMIN OPHEN 34961993072 Meredith Mendez MEDROL 4 MG TBPK take as directed METHYLPREDNISOLONE 03150571061 Manjinder Smith MD HYDROCODONE-AC ETAMINOPHEN 10-325 MG TABS Non-[place] HYDROCODONE-ACETAMIN OPHEN 88498079199 Adelaidemedardo Cantuuitjesusita COYNE MEDROL 4 MG TABS 1 tab daily METHYLPREDNISOLONE 56481621779 Adelaide Peralta MA NORCO 10-325 MG ORAL TABLET 1 po q 4-6 prn pain HYDROCODONE-ACETAMIN OPHEN 54654906429 Adelaide Peralta MA MEDROL 4 MG TBPK take as directed METHYLPREDNISOLONE 62441620361 Adelaide Peralta MA NORCO 5-325 MG ORAL TABLET Take 1 tab q 4-6 hrs prn pain HYDROCODONE-ACETAMIN OPHEN 84344988160 Adelaide Peralta MA PERCOCET 5-325 MG TABS 1-2 tabs po q 4-6 h prn OXYCODONE-ACETAMINOP HEN 64227532804 Adelaide Peralta MA LOVENOX 30 MG/0.3ML SUBCUTANEOUS SOLUTION Inject SQ bid ENOXAPARIN SODIUM 89931327477 Adelaide Peralta MA HEPARIN 5000U 5000U SQ BID for 2 weeks HEPARIN 5000U Adelaide Peralta MA PERCOCET 5-325 MG TABS ONE TABLET PO Q 4-6 HOURS PRN PAIN OXYCODONE-ACETAMINOP HEN 72088435525 Adelaide Peralta MA HYDROCODONE-AC ETAMINOPHEN TABS Non-[place] HYDROCODONE-ACETAMIN OPHEN TABS 24670117059 Adelaide Peralta MA MEDROL 4 MG TABS 1 tab daily METHYLPREDNISOLONE 12355858912 Manjinder Smith MD NORCO 10-325 MG ORAL TABLET 1 po q 4-6 prn pain HYDROCODONE-ACETAMIN OPHEN 24720447042 Manjinder Smith MD NORCO 10-325 MG ORAL TABLET 1 po q 4-6 prn pain 08/22 HYDROCODONE-ACETAMIN OPHEN 18894156678 Sarita Singleton TEST ADMINISTRATOR NORCO 10-325 MG ORAL TABLET 1 po q 4-6 prn pain 08/12 HYDROCODONE-ACETAMIN OPHEN 05111677213 Manjinder Smith MD NORCO 5-325 MG ORAL TABLET Take 1 tab q 4-6 hrs prn pain HYDROCODONE-ACETAMIN OPHEN 76400205311 Manjinder Smith MD MEDROL 4 MG TBPK take as directed METHYLPREDNISOLONE 01799554400 Manjinder Smith MD NORCO 5-325 MG ORAL TABLET Take 1-2 tab q 4-6 hrs prn pain 08/09 HYDROCODONE-ACETAMIN OPHEN 27345129495 Manjinder Smith MD PERCOCET 5-325 MG TABS 1-2 tabs po q 4-6 h prn 06/05 OXYCODONE-ACETAMINOP HEN 08954685264 Manjinder Smith MD LOVENOX 30 MG/0.3ML SUBCUTANEOUS SOLUTION Inject SQ bid ENOXAPARIN SODIUM 91551593106 Manjinder Smith MD HEPARIN 5000U 5000U SQ BID for 2 weeks HEPARIN 5000U Manjinder Smith MD PERCOCET 5-325 MG TABS ONE TABLET PO Q 4-6 HOURS PRN PAIN 06/05 OXYCODONE-ACETAMINOP HEN 16694418277 Manjinder Smith MD TIZANIDINE 4MG 1 po q6h prn muscle spasm 03/22 TIZANIDINE 4MG Manjinder Smith MD DICLOFENAC SODIUM [facility] 03/11 DICLOFENAC SODIUM TBEC 15692373566 Adina Dowd DICLOFENAC SODIUM TBEC [facility] 03/11 DICLOFENAC SODIUM TBEC 85587913197 Goran Patricio MD HYDROCODONE-AC ETAMINOPHEN TABS -[place] HYDROCODONE-ACETAMIN OPHEN TABS 28761051310 Goran Patricio MD Medications Administered No information available. Allergies, Adverse Reactions, Alerts Allergy Name Reaction Description Start Date Severity Statu s Provider [facility] Critical Goran cruz MD Results No information [...] Procedures Code Procedure Name Date Entry Date [id number] Flu Shot Declined 9 SCT-676299464 Flu Shot Declined 6 35041 EMG w/ NCS, Complete, 1 Extremity CPT-911 62 3954/01/18 34311 Nerve Conduction Study (3-4 studies) CPT- 48118 04216 X-Ray Sacroiliac joint, 2 views 6 [id number] [address] X-Ray Lumbar AP-Lat and Flex/Extension 20 01/01/16 [...]
--- OUTSIDE RECORDS SUMMARY | 2024-10-18 12:58 | XMS_ITS | Encounter Summary ---
Author Organization [employer] ([place], [place], [place], [place]) Address [address] [place] [address] Care Team Providers Care Fraud Representative Name Role Phone Unavailable Primary Care Provider Unavailabl e Encounter Details Date Type Department Care Team (Late st Contact Info) Description 01/04/2020 Transcribed Document [facility] [place] [facility] Family Medicine [address] [place] [address] ProviderDina MD [address] [place] [address] Social History Tobacco Use Types [...] - Dina ProviderMD - 01/04/2020 8:45 AM CIGAR INSPECTOR MARIFER Main OR IntraOp Summary Primary Physician: MARIALUISA VIRGEN MD-ORT Finalized Date/Time: 01/04/20 10:09:44 Pt. Name: CHEN MARTINEZStephen Roberts/Sex: 1965 Male Med Rec #: [id number] Physician: MARIALUISA VIRGEN MD-ORT Financial #: [id number] Pt. Type: I Room/Bed: [facility]/ Admit/Disch: 01/04/20 05:33:00 - Institution: [facility] IntraOp Case Attendance Entry 1 Entry 2 Entry 3 Case Attendee MARIALUISA VIRGEN MD-ORT RENFROE, REBECCA, SNELLING, LAUREL, PA-C HORSE RIDING COACH OR INSTRUCTOR-ANS Role Performed Surgeon/Proceduralist, HORSE RIDING COACH OR INSTRUCTOR/Nurse Hand Outside Cutter Physician nutrition assistant First Time In 01/04/20 08:07:00 01/04/20 08:07:00 01/04/20 08:07:00 Time Out 01/04/20 10:09:00 01/04/20 10:09:00 01/04/20 10:09:00 Procedure Lumbar Fusion Lumbar Fusion Lumbar Fusion Posterior(Left) Posterior(Left) Posterior(Left) Other Attendee Superficial Wound Closed By: Last Modified By: Faiza Asher RN Kiebler, Rachael A, Faiza Arcos, MERCED 01/04/20 10:09:35 01/04/20 10:09:35 01/04/20 10:09:35 Entry 4 Entry 5 Entry 6 Case Attendee Faiza Asher, Lacey Cartagena, OTHER, ATTENDEE #1 Roustabout Crew Pusher Role Performed Animal Behaviorist, First Molder Sweep Other Time In 01/04/20 08:07:00 01/04/20 08:07:00 [...] Case Attendee OTHER, ATTENDEE #2 Nettie Ramirez, Tooth Cutter Contact Wheel Role Performed Vendor Scrub, First Time In 01/04/20 08:07:00 01/04/20 08:07:00 Time Out 01/04/20 10:09:00 01/04/20 10:09:00 Procedure Lumbar Fusion Lumbar Fusion Posterior(Left) Posterior(Left) Other Attendee pearl appiah Superficial Wound Closed By: Last Modified By: Faiza Asher RN Kiebler, Rachael A, MERCED 01/04/20 08:48:15 01/04/20 10:09:35 [facility] IntraOp Case Attendance Audit 01/04/20 10:09:35 Design Assembler: [id number] Modifier: [id number] <+> Time Out 1 <*> Procedure [...] <*> Procedure Lumbar Fusion Posterior(Left) 01/04/20 08:51:25 Design Assembler: [id number] Modifier: [id number] <+> 1 Procedure 2 <*> Procedure Lumbar Fusion Posterior(Left) 3 <*> Procedure Lumbar Fusion Posterior(Left) 4 <*> Procedure Lumbar Fusion Posterior(Left) 5 <*> Procedure Lumbar Fusion Posterior(Left) 6 <*> Procedure Lumbar Fusion Posterior(Left) 7 <*> Procedure Lumbar Fusion Posterior(Left) 8 <+> Time In 8 <*> Procedure Lumbar Fusion Posterior(Left) 01/04/20 08:49:43 Design Assembler: [id number] Modifier: [id number] <+> 1 Time In 2 <+> Time [...] [facility] IntraOp Case Times Audit 01/04/20 10:09:33 Design Assembler: [id number] Modifier: [id number] <+> 1 Out Room Time 01/04/20 10:09:24 Design Assembler: [id number] Modifier: [id number] <+> 1 Stop Time 01/04/20 10:08:26 Design Assembler: [id number] Modifier: [id number] <+> 1 Stop Time [facility] IntraOp Communication Entry 1 Communication To Family/Significant other Comment start Communication By Faiza Asher RN Last Modified By: Faiza Asher RN 01/04/20 08:49:17 [facility] IntraOp Counts Verification Entry 1 Procedure Lumbar Fusion Posterior(Left) Count Info Count Type Sponge, Sharps, Miscellaneous Counts Verification Baseline/pre-procedure Sequence Counts Performed By Count Performed By Lacey Ferrera, (Scrub) Roustabout Crew Pusher Count Performed By Faiza Asher RN (RN) Last Modified By: Faiza Asher RN 01/04/20 08:49:58 [facility] IntraOp Counts Final Entry 1 Procedure Lumbar Fusion Posterior(Left) Final Count Info Count Type Sponge, Sharps, Miscellaneous Counts Verification Skin Closure/end of Sequence procedure Count Results Correct, surgeon notified Counts Performed By Count Performed By Nettie Ramirez, (Scrub) Tooth Cutter Contact Wheel Count Performed By Faiza Asher RN (RN) [...] RN 01/04/20 08:51:33 [facility] IntraOp General Case Lunchroom Food Service Supervisor 1 Case Information OR OR 01 [facility] Case Level 1 Room Verified Yes Wound [...] BONE MIS BRIANNA PLY SCRW SET Identification -[id number] [facility]-[id number] Description Implant Quantity 1 1 2 Implant Site L5-S1 L5-S1 L5-S1 Implant Identification Model Number Implant Identification Serial Number Implant [id number] Identification Lot Number Implant Identification Manager Manufacturing Name: Implant Identification Catalog Number Implant Size Implant Has an Yes Yes No Expiration Date Implant Expiration 12/13/20 03/16/20 Date Wasted Radioactive Material Time Implanted Tissue Implant Continue for Tissue Implant Documentation Tissue Identification Number Graft Prep Per Yes Yes Manager Manufacturing Instructions: Tissue Preparation Thawed N/A Method: Reconstitution Solution: Reconstitution Solution Lot Number Reconstitution Solution Expiration Date: Thawing Solution NS Thawing Solution [id number] Lot Number Thawing Solution 04/14/22 Expiration Date Preparation Materials, Other Preparation Materials, Other Lot Number Preparation Materials, Other Expiration Date Tissue Antrobus, Nettie, Antrobus, Nettie, Prepared/Processed Tooth Cutter Contact Wheel Tooth Cutter Contact Wheel By Manager Manufacturing Yes Yes Paperwork Completed Implant Type Comment Last Modified By: Faiza Asher RN Kiebler, Rachael A, RN Kiebler, Rachael A, RN 01/04/20 10:00:58 01/04/20 10:00:58 01/04/20 10:00:58 Entry 4 Entry 5 Type Implant (Synthetic) Implant (Synthetic) Implant Log Implant Type Hardware Hardware Tissue Implant Type Implant SCREW VPR POLY EMELY SPINE VIPER Identification [id number] Description Implant Quantity 2 1 Implant Site L5-S1 L5-S1 Implant Identification Model Number Implant Identification Serial Number Implant Identification Lot Number Implant Identification Manager Manufacturing Name: Implant Identification Catalog Number Implant Size Implant Has an No No Expiration Date Implant Expiration Date Wasted Radioactive Material Time Implanted Tissue Implant Continue for Tissue Implant Documentation Tissue Identification Number Graft Prep Per Manager Manufacturing Instructions: Tissue Preparation Method: Reconstitution Solution: Reconstitution Solution Lot Number Reconstitution Solution Expiration Date: Thawing Solution Thawing Solution Lot Number Thawing Solution Expiration Date Preparation Materials, Other Preparation Materials, Other Lot Number Preparation Materials, Other Expiration Date Tissue Prepared/Processed By Manager Manufacturing Paperwork Completed Implant Type Comment Last Modified By: Faiza Asher RN Kiebler, Rachael A, RN 01/04/20 10:00:58 01/04/20 10:00:58 [facility] IntraOp Implant Log Audit 01/04/20 10:00:58 Design Assembler: [id number] Modifier: [id number] <*> Implant Identification Description BONE VIVIGEN FORMABLE [id number] <*> Implant Identification Lot Number [id number] <*> Implant Expiration Date 12/13/20 1 <*> Implant Site L5-S1 1 <*> Implant Quantity 1 1 <*> Implant Type Other 1 <*> Tissue Implant Type Bone 1 <*> Graft Prep Per Manager Manufacturing Yes Instructions: 1 <*> Tissue Preparation Method: Thawed 1 <*> Thawing Solution NS 1 <*> Thawing Solution Lot Number [id number] 1 <*> Thawing Solution Expiration Date 04/14/22 1 <*> Tissue Prepared/Processed By Nettie Ramirez, Tooth Cutter Contact Wheel 1 <*> Manager Manufacturing Paperwork Completed Yes 1 <*> Implant Has an Expiration Date Yes 1 <*> Type Tissue Implant (Biologic) 2 <*> Implant Identification Description INFUSION SET BONE [id number] 2 <*> Implant Identification Lot Number [id number] 2 <*> Implant Expiration Date 03/16/20 2 <*> Implant Site L5-S1 2 <*> Implant Quantity 1 2 <*> Tissue Implant Type Bone 2 <*> Graft Prep Per Manager Manufacturing Yes Instructions: 2 <*> Tissue Preparation Method: N/A 2 <*> Tissue Prepared/Processed By Nettie Ramirez, Tooth Cutter Contact Wheel 2 <*> Manager Manufacturing Paperwork Completed Yes 2 <*> Implant Has [...] GRAFT Primary Procedure Yes Primary Surgeon MARIALUISA VIGREN MD-ORT Start 01/04/20 08:45:00 Stop 01/04/20 10:08:00 Anesthesia Type General Specialty SN Neurosurgery Wound Class I - Clean Last Modified By: Faiza Asher RN 01/04/20 08:51:24 [facility] IntraOp Surgical Procedures Audit 01/04/20 10:08:30 Design Assembler: [id number] Modifier: [id number] <+> 1 Stop [facility] IntraOp Temp Regulation Devices Entry 1 Temp Regulation Temperature Forced Air Warming Regulation Device device Temperature Upper body Regulation Site Temperature ALLISON, [place], Regulation Device HORSE RIDING COACH OR INSTRUCTOR-ANS Applied by Last Modified By: Faiza Asher [...] Yes Labeled and Displayed Last Modified By: Faiza Asher RN 01/04/20 08:52:02 [facility]IFER IntraOp X-Ray and Images Entry 1 X-Ray/Imaging Type Fluoroscopy Fluoroscopy Type C-Arm Site OPERATIVE SITE [employer] Floorperson Name Lacey Ferrera, Roustabout Crew Pusher Protective Devices Yes Used Last Modified By: Faiza Asher RN 01/04/20 08:55:26 Case Comments <None> Finalized By: Faiza Asher RN Document Signatures Signed By: Faiza Asher RN 01/04/20 10:09 documented in this encounter Plan of Treatment Not on file documented as of this encounter Visit Diagnoses Not on filedocumented in this encounter
--- OUTSIDE RECORDS SUMMARY | 2024-10-18 12:58 | XMS_ITS | Encounter Summary ---
Author Organization [employer] ([place], [place], [place], [place]) Address [address] [place] [address] Care Team Providers Care Oil Drilling Engineer Name Role Phone Unavailable Primary Care Provider Unavailabl e Encounter Details Date Type Department Care Team (Late st Contact Info) Description 02/28/2018 Transcribed Document [facility] Family Medicine [address] [place] [address] ProviderDina MD [address] [place] [address] Social History Tobacco Use Types [...] - Dina ProviderMD - 02/28/2018 8:41 AM TERRAZZO HELPER [place] [id number] Patient Copy Patient Information: Name: AD MARTINEZ Current Date: 02/28/2018 08:41:28 : 1965 Patient Address: [address] [address] Patient Attending Physician: MIKY MANCILLA MD-[facility] Primary Care Provider: HILARIO MONZON MD Primary Care Provider Discharge Diagnosis: Comment: Follow-up Instructions: With: Address: When: MIKY MANCILLA [address], [address] [place] [id number] Business (1) Within As needed Discharge Instructions: [...] any): Final Medication List: Other Medications acetaminophen-hydrocodone (Sunman 10 mg-325 mg oral tablet) 1 Tablet(s) [...] by your health care provider. ??? Take [id number]-[id number] and prescription medicines only as told by [...] Assistance with quitting is available by contacting 5-331-MXXP-NOW. This is a free resource providing counseling, [...] Be sure to sign up for the [employer] patient portal, which gives you 06/09 access to your medical information ??? including these discharge instructions ??? using your computer, smartphone, or tablet. Just go to [employer] to get started. Questions? Call . [facility] would like to thank you for allowing us to assist you with your healthcare needs. KING Fletcher TROY LEE, (or front desk representative) have received the above patient education materials/instructions and have verbalized understanding: Patient Signature _ Date/Time Patient Export Freight Clerk Signature (if needed) Date/Time Clinician/Hospital Export Freight Clerk Signature (if needed) Date/Time documented in this encounter Plan of Treatment Not on file documented as of this encounter Visit Diagnoses Not on filedocumented in this encounter
--- OUTSIDE RECORDS SUMMARY | 2024-10-18 12:58 | XMS_ITS | Encounter Summary ---
Author Organization [employer] ([place], [place], [place], [place]) Address [address] [place] [address] Care Team Providers Care Truck Body Builder Name Role Phone Unavailable Primary Care Provider Unavailabl e Encounter Details Date Type Department Care Team (Late st Contact Info) Description 06/14/2018 Transcribed Document [facility] Family Medicine [address] [place] [address] ProviderDina MD [address] [place] [address] Social History Tobacco Use Types [...] #2 Relationship : . Primary Language : Irish Communication Barrier : None Caty Umana RN [...] Scale Risk Level : 25-45 Medium Risk [place] Fall Interventions : Adequate lighting, Assistive devices [...] Smokeless Tobacco Status : Never Implant/Device Type, Agricultural Engineering Teacher and Model : metal rods back Caty [...] Source : Stated Height Entry Format : [place] Height, Feet : 6 ft(Converted to: 183 cm, 72 Inch) Height, Inches : 4 Inch(Converted to: 0 ft 4 Inch, 10.16 cm) Clinical Height : 193.04 cm Weight Source : Standing scale Weight Entry Format : [place] Clinical Dosing Weight : 107.27 kg Weight, Pounds : 236 lb Body Surface Area (BSA) : 2.38 m2 Body Mass Index : 28.8 kg/m2 (HI) [place] Body Weight : 86 kg Caty Umana [...] History Weight Entry Format Nutrition History : [place] Usual Weight, Pounds : 236 lb Clinical [...] Any Spiritual/Cultural Needs or Requests : No Moravian Preference : Other: Jehovah'S Witness Caty Umana RN - 06/14/2018 17:31 EDT Valuables and Belongings Valuables and Belongings : Clothing, Personal items Clothing : Common streetwear Clothing Disposition : With family Personal Items : Cell phone, Wallet Personal Items Disposition : With family Caty Umana RN - 06/14/2018 17:31 EDT Electronically signed by Favio [facility] Conversion Owner Operator Cerner at 06/01/2022 10:59 PM CDT documented in this encounter Plan of Treatment Not on file documented as of this encounter Visit Diagnoses Not on filedocumented in this encounter
--- OUTSIDE RECORDS SUMMARY | 2024-10-18 12:59 | XMS_ITS | Encounter Summary ---
Author Organization [facility] Address [facility] [place] [address] Care Team Providers Care Infection Control Practitioner Name Role Phone Nonstaff, Referring Primary Care Provider [phone] Leigh Ann Buckley MD, Manjinder Jones Primary Care Prov ider Clifton Melgoza MD Unavailable Encounter Details Date Type Department Care Team (Late st Contact Info) Description 09/10/2014 Abstract [facility] - Spine Surgery, [place] [address] 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
[2024-10-18 13:55] LABS: Hematocrit 50.4 % (42.0-52.0); Hemoglobin 16.8 g/dL (14.1-18.0); Immature Granulocytes % 0.3 %; Mean Corpuscular HGB Conc 33.3 g/dL (31.8-35.4); Mean Corpuscular Hemoglobin 31.0 pg (27.0-31.2); Mean Corpuscular Volume 93.0 fl (80-94); Nucleated Red Blood Cells % 0 %; Platelet Count 153 K/mm3 (142-424); Red Blood Count 5.42 M/mm3 (4.60-6.20); Red Cell Distribution Width-SD 40.5 fL; White Blood Count 3.9 K/mm3 (4.8-10.8)
[2024-10-18 14:10] LABS: Albumin Level 4.8 g/dl (3.5-5.0); Chloride 103 mmol/L (98-107); Sodium 137 mmol/L (136-145)
[2024-10-18 14:11] LABS: Potassium 4.7 mmoL/L (3.5-5.1)
[2024-10-18 14:13] LABS: Alanine Aminotransferase 32 U/L (12-78); Albumin/Globulin Ratio 2.3 (1.1-1.8); Anion Gap 8.7 mEq/L (5-15); Aspartate Amino Transferase 40 U/L (17-59); Blood Urea Nitrogen 28 mg/dl (9-20); Carbon Dioxide 30 mmol/L (22.0-30.0); Creatinine,Serum 1.00 mg/dl (0.66-1.25); Estimated Glomerular Filt Rate 77 ml/min (>60); GFR (African American) 93 ML/MIN (>60); Globulin 2.1 g/dL (1.3-3.2); Total Protein,Serum 6.9 g/dl (6.3-8.2)
[2024-10-18 14:14] LABS: Alkaline Phosphatase 62 U/L (38-126); Bilirubin,Total 1.4 mg/dl (0.2-1.3); Calcium 9.5 mg/dl (8.4-10.2); Cholesterol 133 mg/dl (140-200); Glucose 102 mg/dl (74-100); HDL Cholesterol 63 mg/dl (40-60); Triglycerides 63 mg/dl (30-150)
== END 2024-10-18 23:59 | disposition home or self-care (01) ==
LOC: LAB 18:03
PROVIDERS: PCP Internal Medicine; Visit Provider Internal Medicine
DX: E78.5 Hyperlipidemia, unspecified (principal); M47.26 Other spondylosis with radiculopathy, lumbar region; I10 Essential (primary) hypertension; R79.89 Other specified abnormal findings of blood chemistry; Z79.899 Other long term (current) drug therapy
CPT/HCPCS: 36415; 80053; 80061; 85025

== ENCOUNTER 2024-10-26 08:44 | Day surgery (SDC) | payer MEDICARE, BC, SELFPAY ==
[2024-10-26] VITALS (8 sets, daily range): BP systolic 131–160; BP diastolic 87–105; PULSE 72–100; RESP 16–18; TEMP 36.7; O2SAT 96–99; BMI 31.6
[2024-10-26] MEDS: LIDOCAINE 1% 30ML PF VIAL 30 ML (09:51)
[2024-10-26] MEDS: BUPIVACAINE 0.75% IN DEXTROSE 2ML AMP 2 ML IJ (09:51)
--- NOTE | 2024-10-26 10:53 | P.HP_ITS ---
History of Present Illness *Admission Date: 10/26/24 *Reason for visit:: Pain pump trial *History of present illness: This patient is a pleasant 59-year-old white male who we have been treating for postlaminectomy syndrome lumbar spine with lumbar radiculopathy symptoms. He presents for pain pump trial today. [facility] Disclaimer: The information contained in this section may have been updated after the patient was seen, as this information can be updated by other users. Medical History (Updated 10/26/24 @ 09:02 by Tracy Noel RN) Hypertension Social History Smoking Status: Never smoker alcohol intake: never current occupational status: other Travel in the last 8 weeks?: None Have you lived/traveled outside US in past 30 days?: No Contact w/someone who lives/traveled outside US past 30 days?: No Exposure to someone with infectious disease in past 14 days?: No Do you have a fever (greater than 100.4 F or 38 C)?: No Have you tested positive for COVID-19?: No Exposed to someone with COVID-19 in past 14 days?: No Do you have a sore throat?: No Do you have a cough?: No Do you have any weakness?: No Do you have any diarrhea?: No Are you experiencing any unusual bleeding?: No Do you have any muscle aches/pain?: No Do you have any abdominal pain?: No Are you experiencing loss of taste or smell?: No Other Medical History Have you received the Flu Vaccine for this season: No Have you received the Pneumonia Vaccine: No Review of Systems Review of Systems Review of systems:: pertinent systems reviewed and negative unless documented below Meds Home Medications and Allergies Home Medications ?Medication ?Instructions ?Recorded ?Confirmed ?Type needle (disp) 23 gauge 23 gauge x #100 ea 12/30/2302/07 Rx 1 (Hypodermic Timblin) syringe with needle 3 mL 18 x 1 #2 ea 12/30/23 5 Rx 1/2 (BD Luer-Michelle Syringe) tadalafil 10 mg tablet See Rx Instructions .Route 0 02/17/24 10/26/24 Rx .COMPLEX #30 tabs baclofen 10 mg tablet 10 mg PO HS #30 tabs 5 10/26/24 Rx meclizine 12.5 mg tablet See Rx Instructions PO TID P RN 05/17/24 10/26/24 Rx dizziness #60 tabs amlodipine 5 mg-benazepril 40 mg 1 cap PO DAILY #90 ca ps 06/21/24 10/26/24 Rx capsule loratadine 10 mg tablet 10 mg PO DAILY #90 tabs 05/0 10/0810/26/24 Rx testosterone cypionate 200 mg/mL 500 mg (2.5 mL) IM Q2 W #6 mL 06/21/24 10/26/24 Rx intramuscular oil rosuvastatin 20 mg tablet See Rx Instructions .Route 0 06/25/24 10/26/24 Rx .COMPLEX #90 tabs tamsulosin 0.4 mg capsule 0.8 mg (2 x 0.4 mg) PO HS Fo r 09/11/24 10/26/24 Rx urinary stream #180 caps ibuprofen 800 mg tablet See Rx Instructions .Route 0 09/14/24 10/26/24 Rx .COMPLEX #90 tabs hydrocodone 10 mg-acetaminophen See Rx Instructions PO Q6HP PRN 10/18/24 10/26/24 Rx 325 mg tablet pain #150 tabs New Prescriptions to Start Prescriptions: Allergies Allergy/AdvReac Type Severity Reaction Status Date / Time meloxicam ([facility] Allergy Mild Other Verified 10/26/24 08:59 Exam Data for Last 24 hours Vital signs and Labs for Last 24 Hours: Temp Pulse Resp BP Pulse Ox O2 Del Method 98.0 F 72 18 131/92 H 98 Room Air 10/26/24 10:17 10/26/24 10:46 10/26/24 10:46 10/26/24 10:46 10/26/24 10:46 10/26/24 10:46 I & O for Last 24 hours: Intake & Output 10/23/24 10/24/24 10/25/24 10/26/24 11:59 11:59 11:59 11:59 Weight 260 lb *Routine HEENT Exam Head: Present normocephalic Eye: Present EOMI ENT: Present mucous membranes moist *Routine Neck Exam Neck: Present supple and full ROM *Routine Respiratory Exam Respiratory: Present normal respiratory effort *Routine Cardiovascular Exam Cardiovascular: Present RRR *Routine Abdominal Exam Abdominal: Present soft *Routine Rectal Exam Rectal:: deferred *Routine Genitalia Exam Genitalia:: deferred *Routine Extremities Exam Extremities: Present full ROM Routine Back/Spine/Pelvis Exam Back/Spine: Present full ROM Assessment and Plan *Assessment and plan (1) Degenerative joint disease (DJD) of lumbar spine: Status: Chronic Qualifiers: Spinal osteoarthritis complication: with radiculopathy Qualified Code(s): M47.26 - Other spondylosis with radiculopathy, lumbar region Category: Medical Code(s): M47.816 - Spondylosis without myelopathy or radiculopathy, lumbar region (2) Lumbar radiculopathy, chronic: Status: Acute Category: Medical Code(s): M54.16 - Radiculopathy, lumbar region (3) Postlaminectomy syndrome of lumbar region: Status: Acute Category: Medical Code(s): M96.1 - Postlaminectomy syndrome, not elsewhere classified Plan Intrathecal pump trial
--- NOTE | 2024-10-26 10:57 | P.PCN_ITS ---
Procedure Date: 10/26/24 Time: 10:57 Anesthesiologist:: Lopez Murray MD Complications:: None Pre-procedure Diagnosis:: Postlaminectomy syndrome lumbar spine with lumbar radiculopathy symptoms Post-procedure Diagnosis:: Same Indications for Procedure:: The patient is a pleasant 59-year-old white male who we have been treating for degenerative disease of lumbar spine with lumbar radiculopathy symptoms and postlaminectomy syndrome lumbar spine. He has failed all previous conservative treatments including injections, oral medications, physical therapy and previous surgery. He has a successful psychological evaluation. He has weaned down on his hydrocodone. He is usually taking this at least 5-6 times a day. We will do an intrathecal bupivacaine pain pump trial today to see if this gives him better relief in his pain medication. Procedure Details:: Pain pump trial Informed consent was obtained and the risk and benefits of the procedure was explained to the patient. The patient was taken to the procedure room and placed prone on the procedure table. Patient was prepped and draped in sterile fashion. C-arm fluoroscopy was used to view the lumbar spine. The skin and subcutaneous tissues were anesthetized using lidocaine. I placed a 18-gauge spinal needle into the L4-5 interspace and advanced until clear CSF was obtained. After this intrathecal catheter was inserted and advanced very easily to the L1 vertebral body. The needle was withdrawn. We were able to freely withdraw clear CSF through the catheter. We then injected single shot bolus of intrathecal bupivacaine 2.5 mg followed by saline and followed by the previous CSF that was withdrawn. The needle and catheter were then removed and a Band- Aid was placed. Patient tolerated the procedure well with no complications. We reevaluated the patient after 30 minutes to 1 hour. Patient had 90 to 100% relief in pain symptoms. He was myofunctional. We will follow-up with him in 1 week to assess efficacy of trial to see if he was able to decrease his oral pain medication intake and do things that he normally could not do because of pain. Patient was discharged home neurologic intact with good relief of pain symptoms. Plan and Disposition:: Will follow-up with this patient in 1 week. This will be to assess efficacy of this trial to see if he was able to decrease his oral pain medication intake and do things that he normally cannot do because of pain. If successful then we will plan on permanent placement with intrathecal bupivacaine 5 mg/mL to start at 2.5 mg/day. Catheter tip will be at the T8 vertebral body
--- NOTE | 2024-10-26 11:27 | PC.NURSE ---
PT AMBULATING IN ROOM WITH ASSISTANCE
--- NOTE | 2024-10-26 11:53 | PC.NURSE ---
PT AMBULATING IN [place] WITHOUT DIFFICULTY
== END 2024-10-26 12:10 | disposition home or self-care (01) ==
PROVIDERS: PCP Internal Medicine; Visit Provider Anesthesiology
DX: M96.1 Postlaminectomy syndrome, not elsewhere classified (principal); M54.16 Radiculopathy, lumbar region; I10 Essential (primary) hypertension; Z88.8 Allergy status to other drugs, medicaments and biological substances; Z79.1 Long term (current) use of non-steroidal anti-inflammatories (NSAID); Z79.891 Long term (current) use of opiate analgesic; Z79.899 Other long term (current) drug therapy
CPT/HCPCS: 62323; 99221; J0665; J0690; J2003

== ENCOUNTER 2024-11-24 10:05 | Outpatient (CLI) | payer MEDICARE, BC, SELFPAY ==
--- OUTSIDE RECORDS SUMMARY | 2024-10-11 09:10 | XMS_ITS | Encounter Summary ---
Author Organization [place] [address] Care Team Providers Care Rn Training Name Role Phone Unavailable Primary Care Provider Unavailabl e Reason for Visit * Reason Comments Follow-up 6m Encounter Details Date Type Department Care Team (Latest Contact Info) Description 10/11/2024 9:10 AM EDT [place] [address] Yosvany Sanz MD [address] [place] [address] Primary hypertension (Primary Dx); Mixed hyperlipidemia; Pure [...] EDT PATIENT: Ad Martinez, :1965, , CSN: [id number] PCP: No primary care provider on file. [...] smoke does drink is Family history: Father [place] in his 50s mother also had heart [...] MARTINEZ Department: DE[facility] Room: 2126 Gender: Male Sales Order Administrator: NANCY Fang : 1965 Requested By: DEEPAK DE LEON Order Number: [id number] Bo MD: Goran Thayer MD Interpretive Statements [...] for this or any previous visit. Last [facility] No results found for this or any [...] Description 04/18/2025 9:20 AM EST Office Visit [facility] [place] [address] Yosvany Sanz MD [address] [place] [address] Scheduled Orders Name Type Priority Associated Diagnoses [...]
--- OUTSIDE RECORDS SUMMARY | 2024-11-24 10:09 | XMS_ITS | Encounter Summary ---
Author Organization [email or web address] ([place], [place], [place], [place]) Address [address] [place] [address] Care Team Providers Care Delicatessen Store Manager Name Role Phone Unavailable Primary Care Provider Unavailabl e Encounter Details Date Type Department Care Team (Late st Contact Info) Description 01/04/2020 Transcribed Document [facility] [place] [address] [place] [address] ProviderDina MD [address] [place] [address] Social History Tobacco Use Types [...] - Dina ProviderMD - 01/04/2020 5:07 PM HAMMER SHOP SUPERVISOR [address] [address] CHEN BANEGASStephen GIL :1965 Visit [...] per sx. booking sheet/order on chart-my office, [place] office, 10-14 days Activity: , minimize bending, [...] MD-ORT When 01/14/2020 01:45 PM EST Where: [address] [place] [address]- Medications What How Much When Instructions Next Dose acetaminophen-hydrocodone ([place] 10 mg-325 mg oral tablet) 1 Tablet(s) [...] through the local health department and the [place] Department for Public Health. Those organizations are [...] and need to call 911, notify the contact lens lathe operator that you have, or think you [...] clean your hands with an alcohol-based hand administrative volunteer that contains at least 60% alcohol. Clean your hands often. ??? Wash hands: Wash your hands often with soap and water for at least 20 seconds when visibly dirty. This is especially important after blowing your nose, coughing or sneezing, and going to the bathroom, and before eating or preparing food. ??? Hand administrative volunteer: Use an alcohol-based hand administrative volunteer with at least 60% alcohol, covering all [...] and water or put them in the motor block mechanic. Clean all high-touch surfaces every day. Clean [...] or body fluids on them. ??? Household logistics project manager and disinfectants: Clean the area or [...] list of disinfectants can be found here: https://www.epa.gov/pesticide-registration/qsvr-a-upyjrhcjkmcmv-tik-hmgvfaj-hu rs-cov-2 What to expect after the Procedure: [...] Barley. Bulgur wheat. Millet. Bran muffins. Popcorn. [place] wafer crackers. ??? Vegetables Sweet potatoes. Spinach. Kale. Artichokes. Cabbage. Broccoli. Green peas. Carrots. Squash. ??? Fruits Berries. Pears. Apples. Oranges. Avocados. Prunes and raisins. Dried figs. ??? Meats and Other Protein Sources [place], kidney, dimas, and soy beans. Split peas. [...] sudhir has 11 g of protein. ??? [place] seeds ??? 1 oz has 5.5 g [...] floor. ??? Place frequently used items in qzkd-nw-ttvof places ??? Keep electrical cables out of [...] ? Using the bathroom. ? Using household logistics project manager or toxic chemicals. ? Touching or [...] What is diazepam? Diazepam is a benzodiazepine (nmk-xcj-wee-AZE-eh-peen) that is used to treat anxiety disorders, [...] may report side effects to FDA at 7-381-QIV-8821. What other drugs will affect diazepam? Taking diazepam with other drugs that make you sleepy or slow your breathing can cause dangerous side effects or . Ask your doctor before taking a sleeping pill, opioid pain medicine, prescription cough medicine, a muscle relaxer, or medicine for anxiety, depression, or seizures. Other drugs may affect diazepam, including prescription and bhth-lgc-zontwsl medicines, vitamins, and herbal products. Tell your [...] to ensure that the information provided by [employer]. ('[employer]') is accurate, up-to-date, and complete, but no guarantee is made to that effect. Drug information contained herein may be time sensitive. [employer] information has been compiled for use by healthcare practitioners and consumers in the [place] and therefore [employer] does not warrant that uses outside of the [place] are appropriate, unless specifically indicated otherwise. [employer] drug information does not endorse drugs, diagnose patients or recommend therapy. [employer] drug information is an informational resource designed [...] effective or appropriate for any given patient. [employer] does not assume any responsibility for any aspect of healthcare administered with the aid of information [employer] provides. The information contained herein is not intended to cover all possible uses, directions, precautions, warnings, drug interactions, allergic reactions, or adverse effects. If you have questions about the drugs you are taking, check with your doctor, nurse or pharmacist. Copyright 0482-9445 [employer]. Version: 13.06. Revision Date: 02/01/2018. acetaminophen and [...] may report side effects to FDA at 0-712-HIK-8401. What other drugs will affect acetaminophen and [...] affect acetaminophen and oxycodone, including prescription and zczg-kmy-wigcrmh medicines, vitamins, and herbal products. Not all [...] to ensure that the information provided by [employer] ('[employer]') is accurate, up-to-date, and complete, but no guarantee is made to that effect. Drug information contained herein may be time sensitive. [employer] information has been compiled for use by healthcare practitioners and consumers in the [place] and therefore [employer] does not warrant that uses outside of the [place] are appropriate, unless specifically indicated otherwise. [employer]'s drug information does not endorse drugs, diagnose patients or recommend therapy. [employer] drug information is an informational resource designed [...] effective or appropriate for any given patient. [employer] does not assume any responsibility for any aspect of healthcare administered with the aid of information [employer] provides. The information contained herein is not intended to cover all possible uses, directions, precautions, warnings, drug interactions, allergic reactions, or adverse effects. If you have questions about the drugs you are taking, check with your doctor, nurse or pharmacist. Copyright 2594-8797 [employer]. Version: 20.. Revision Date: 03/07/2019. Emergency Awareness [...] Assistance with quitting is available by contacting 5-050-OBFB-NOW. This is a free resource providing counseling, [...] was given the opportunity to ask questions. Patient/Moisture Meter Operator Name: Patient/Moisture Meter Operator Signature: Relationship to Patient: Clinician/Hospital Moisture Meter Operator Signature: Date: Electronically signed by Favio, [facility] Conversion Contact Acid Plant Operator Helper María at 06/01/2022 10:57 PM CDT documented in this encounter Plan of Treatment Not on file documented as of this encounter Visit Diagnoses Not on filedocumented in this encounter
--- OUTSIDE RECORDS SUMMARY | 2024-11-24 10:09 | XMS_ITS | Encounter Summary ---
Author Organization [employer] ([place], [place], [place], [place]) Address [address] [place] [address] Care Team Providers Care Smoking Pipe Liner Name Role Phone Unavailable Primary Care Provider Unavailabl e Encounter Details Date Type Department Care Team (Late st Contact Info) Description 06/15/2018 Transcribed Document [facility] Family Medicine [facility] [place] [address] ProviderDina MD [address] [place] [address] Social History Tobacco Use Types [...] Wandy Nunez RN - 06/15/2018 1:42 EDT Electronically signed by Stephanie Stahl Conversion Appliance Repair Technician Cerner at 06/01/2022 11:05 PM CDT documented in this encounter Plan of Treatment Not on file documented as of this encounter Visit Diagnoses Not on filedocumented in this encounter
--- OUTSIDE RECORDS SUMMARY | 2024-11-24 10:09 | XMS_ITS | Encounter Summary ---
Author Organization [employer] ([place], [place], [place], [place]) Address [address] [place] [address] Care Team Providers Care Nonprofit Manager Name Role Phone Unavailable Primary Care Provider Unavailabl e Encounter Details Date Type Department Care Team (Late st Contact Info) Description 06/14/2018 Transcribed Document [facility] [place] [address] [place] [address] ProviderDina MD [address] [place] [address] Social History Tobacco Use Types [...] Source : Stated Height Entry Format : [place] Height, Feet : 6 ft(Converted to: 183 cm, 72 Inch) Height, Inches : 4 Inch(Converted to: 0 ft 4 Inch, 10.16 cm) Clinical Height : 193.04 cm Weight Source : Standing scale Weight Entry Format : [place] Clinical Dosing Weight : 107.27 kg Weight, Pounds : 236 lb Body Surface Area (BSA) : 2.38 m2 Body Mass Index : 28.8 kg/m2 (HI) [place] Body Weight : 86 kg LAWRENCE WEBSTER RN - 06/14/2018 12:51 EDT Health Histories Smoking Status : Never (less than 100 in lifetime; none in last 30 days), Former smoker, quit more than 30 days ago Smokeless Tobacco Status : Never Implant/Device Type, Induction Furnace Operator and Model : metal rods back LAWRENCE [...] Any Spiritual/Cultural Needs or Requests : No Scientology Preference : Other: Caodaism LAWRENCE WEBSTER RN - 06/14/2018 12:51 EDT Teaching/Learning Assessment Barriers To Learning : None evident Individuals Taught : Patient Readiness to Learn : Cooperative Baseline Knowledge of Topic : Comprehensive Readiness to Learn : Explanation Learning Style Preferences Patient : None LAWRENCE EWBSTER RN - 06/14/2018 12:51 EDT General Info [...] #2 Relationship : . Primary Language : Indonesian Communication Barrier : None LAWRENCE WEBSTER RN [...] Scale Risk Level : 0-24 Low Risk [place] Fall Interventions : Bed in low position, [...]
--- OUTSIDE RECORDS SUMMARY | 2024-11-24 10:09 | XMS_ITS | Encounter Summary ---
Author Organization [employer] ([place], [place], [place], [place]) Address [address] [place] [address] Care Team Providers Care Principal Cyber Engineer Name Role Phone Unavailable Primary Care Provider Unavailabl e Encounter Details Date Type Department Care Team (Late st Contact Info) Description 01/04/2020 Transcribed Document [facility] [place] [address] [place] [address] ProviderDina MD [address] [place] [address] Social History Tobacco Use Types [...] - Dina ProviderMD - 01/04/2020 5:05 PM HEMATOLOGY NURSE EDUCATOR Patient Education Materials Follows: FAQ - Patient [...] all positive cases are reported through the [facility] health department and the [place] Department for Public Health. Those organizations are [...] and need to call 911, notify the cloth cutting machine operator that you have, or think [...] clean your hands with an alcohol-based hand supervisor wet end that contains at least 60% alcohol. Clean your hands often. ??? Wash hands: Wash your hands often with soap and water for at least 20 seconds when visibly dirty. This is especially important after blowing your nose, coughing or sneezing, and going to the bathroom, and before eating or preparing food. ??? Hand supervisor wet end: Use an alcohol-based hand supervisor wet end with at least 60% alcohol, covering all [...] and water or put them in the automotive tire worker. Clean all high-touch surfaces every day. Clean [...] or body fluids on them. ??? Household wood strip block floor installer and disinfectants: Clean the area or item [...] list of disinfectants can be found here: https://www.epa.gov/pesticide-registration/eblx-s-rbuhrisrdmocj-fkd-hsgupew-ne rs-cov-2 What to expect after the Procedure: [...] Barley. Bulgur wheat. Millet. Bran muffins. Popcorn. [place] wafer crackers. ?? Vegetables Sweet potatoes. Spinach. Kale. Artichokes. Cabbage. Broccoli. Green peas. Carrots. Squash. ?? Fruits Berries. Pears. Apples. Oranges. Avocados. Prunes and raisins. Dried figs. ?? Meats and Other Protein Sources [place], kidney, dimas, and soy beans. Split peas. [...] sudhir has 11 g of protein. ??? [place] seeds - 1 oz has 5.5 g [...] floor. ?? Place frequently used items in bxac-wb-vfmlu places ?? Keep electrical cables out of [...] ? Using the bathroom. ? Using household wood strip block floor installer or toxic chemicals. ? Touching or taking [...] recommended as a substitute for hand washing. documented in this encounter Plan of Treatment Not on file documented as of this encounter Visit Diagnoses Not on filedocumented in this encounter
--- OUTSIDE RECORDS SUMMARY | 2024-11-24 10:09 | XMS_ITS | Encounter Summary ---
Author Organization [employer] ([place], [place], [place], [place]) Address [address] [place] [address] Care Team Providers Care Creel Operator Name Role Phone Unavailable Primary Care Provider Unavailabl e Encounter Details Date Type Department Care Team (Late st Contact Info) Description 12/20/2019 Transcribed Document [facility] [place] [address] [place] [address] ProviderDina MD [address] [place] [address] Social History Tobacco Use Types [...] - Dina ProviderMD - 12/20/2019 10:17 AM SLEEP SCIENTIST [facility] Authorization Entered On: 12/20/2019 10:20 EST Performed On: 12/20/2019 10:17 EST by ANGELICA BELTRE RN-Utilization Review Primary Insurance Authorization Authorization and Policy Numbers : Insurance 1 [facility] Policy Number: [id number] Authorization Number: Insurance Primary Name : [facility] Policy Number: [id number] Authorization Status-Primary : Admit approved Authorization Fax Number-Primary : [phone] Auth/Referral Phone Number-Primary : [phone] Reference Number-Primary : [id number] Authorization Number-Primary : [id number] Number of Days Authorized-Primary : 6 Day(s) Authorized Service Begin Date-Primary : 01/01/2020 EST Authorized Service End Date-Primary : 01/07/2020 EST Authorization Comments-Primary : Daksha approved per Nila for 7 days --- nrd 01/07 fax for d/c date [phone] Historical Authorization Comments-Primary : No Authorization Comments Found ANGELICA BELTRE RN-Utilization Review - 12/20/2019 10:17 EST Electronically signed by [facility] Conversion Director Of Distance Learning Cerner at 06/01/2022 11:14 PM CDT documented in this encounter Plan of Treatment Not on file documented as of this encounter Visit Diagnoses Not on filedocumented in this encounter
--- OUTSIDE RECORDS SUMMARY | 2024-11-24 10:09 | XMS_ITS | Encounter Summary ---
Author Organization [employer] ([place], [place], [place], [place]) Address [address] [place] [address] Care Team Providers Care Line Repairer Tower Name Role Phone Unavailable Primary Care Provider Unavailabl e Encounter Details Date Type Department Care Team (Late st Contact Info) Description 06/14/2018 Transcribed Document [facility] [place] Medicine [address] [place] [address] ProviderDina MD [address] [place] [address] Social History Tobacco Use Types [...] 06/14/2018 12:40 EDT by Mabel Bolden Patient Track Watchman Height and Weight, Clinical Dosing Height Source : Stated Height Entry Format : [place] Height, Feet : 6 ft(Converted to: 183 cm, 72 Inch) Height, Inches : 4 Inch(Converted to: 0 ft 4 Inch, 10.16 cm) Clinical Height : 193.04 cm Weight Source : Standing scale Weight Entry Format : [place] Clinical Dosing Weight : 107.27 kg Weight, Pounds : 236 lb Body Surface Area (BSA) : 2.38 m2 Body Mass Index : 28.8 kg/m2 (HI) [place] Body Weight : 86 kg Mabel Bolden Patient Track Watchman - 06/14/2018 12:40 EDT documented in this encounter Plan of Treatment Not on file documented as of this encounter Visit Diagnoses Not on filedocumented in this encounter
--- OUTSIDE RECORDS SUMMARY | 2024-11-24 10:09 | XMS_ITS | Clinical Summary ---
Author Organization Healthcare Address [address] [place] [address] Care Team Providers Care Civil Preparedness Coordinator Name Role Phone Jeromy Perez MD Primary Care Provider [phone] Allergies Active Allergy Reactions Criticality Noted Date [...] 05/29/21 Patient Instructions: 2 Active HYDROcodone-rj taminophen ([place]) 10-325 MG tablet TAKE 1 TO 2 [...] 2011 [facility]-Zoster Vaccines (1 of 2) 02/12/2016 [id number] Vaccine (3 - 2024- season) 2024 11/07/2020, 10/10/2020 [facility]-Influenza Vaccine (#1) 2024 [facility]-Pneumococcal [...] complete this topic Insurance [employer] Care Teams Civil Preparedness Coordinator Relationship Specialty Start Date End Date Jeromy Perez MD [address] [facility] [address] [place] [address] PCP - General 03/05/22
--- OUTSIDE RECORDS SUMMARY | 2024-11-24 10:09 | XMS_ITS | Encounter Summary ---
Author Organization [employer] ([place], [place], [place], [place]) Address [address] [place] [address] Care Team Providers Care Director Corporate Compliance Name Role Phone Unavailable Primary Care Provider Unavailabl e Encounter Details Date Type Department Care Team (Late st Contact Info) Description 06/14/[address] [facility] Family Medicine [address] [place] [address] ProviderDina MD [address] [place] [address] Social History Tobacco Use Types [...]
--- OUTSIDE RECORDS SUMMARY | 2024-11-24 10:09 | XMS_ITS | Clinical Summary ---
Author Organization [facility] Address [address] [place] [address] Phone Care Team Providers Care Registered Nurse Obstetrics Name Role Phone HILARIO MONZON MD Primary Care Provider [phone] Lars HAYNES, Cisco White Unavailable Reason for Referral Date Encounter Description Provider Reason for Referral 06/01/21 Follow Up Cisco Virgen MD Referral To Physician Reason for Visit and Chief Complaint The Chief Complaint is: lumbar / sacroiliac joint pain Problems Includes: Problems addressed during this encounter and other active Problems Current Visit Onset Date Resolved Date Provider Conditio n Status Lower Back Pain 10/07/2016 Cisco Virgen MD A ctive Last Documented On 7 1:13PM ; [facility] LOERA [facility] Past Visits Onset Date Resolved Date Provider Condition Status Sacroiliitis 05/22/2018 Cisco Virgen MD Acti ve Last Documented On 9 7:55PM ; [facility] Plan of Treatment I have asked the patient for the next 2-3 months, every time the pop happens, the used to lena it with a single lena the magic marker. When he comes back to see me next time I see exactly where it is, and then I want the skin marker and get an x-ray. I can feel where his pain is, although I do reveal to see or hear the pop. We then can identify better. He has no evidence of any hardware irritation hardware rubbing on the nerve root. He has no neurologic symptoms. - Last Documented On 06/01/2021 2:10PM ; [facility] Pending Tests Order Diagnosis Results Due Ordering P rovider Lab Orders - HL Pre-Op PTT 06/05/18 Bebo Virgen MD Last Documented On 9 7:53PM ; [facility] Lab Orders - HL Pre-Op PT INR 06/05/18 Bebo Virgen MD Last Documented On 9 7:53PM ; [facility] Lab Orders - HL Pre-Op CMP 06/05/18 Bebo Virgen MD Last Documented On 9 7:53PM ; [facility] Lab Orders - HL Pre-Op Clean Catch UA 06/05/18 Cisco Virgen MD Last Documented On 9 7:53PM ; [facility] Lab Orders - HL Pre-Op CBC with DIFF 06/05/18 Cisco Virgen MD Last Documented On 9 7:53PM ; [facility] Radiology - MRI MRI Lumbar Spine 06/16/20 Herbie Virgen MD Last Documented On 1 10:37AM ; [facility] Radiology - CT Scan Lumbar 06/16/20 Cisco Virgen MD Last Documented On 1 10:37AM ; [facility] Radiology - CT Scan Lumbar 08/17/21 Cisco Virgen MD Last Documented On 2 2:48PM ; [facility] Instructions to patient No intervention and counseli ng on cessation of tobacco use Last Documented On 2 12:51PM ; [facility] Lose weight Last Documented On 2 1:19PM ; [facility] Assessments Includes: Assessments from this encounter Findings Back pain with left lower extremity radiculopathy. Possible pseudoarthrosis.sacrumI think this definitely has become less symptomatic since previous visit. - Last Documented On 06/01/2021 2:10PM ; [facility], [facility] I am not to do do more for this at this time. - Last Documented On 06/01/2021 2:10PM ; [facility], [facility] I have asked him to go home and see where his symptoms are, and see if he can find that for me, marked on the skin to do this over several months, if the repetitive x-rays confirmed that indeed this is the source of his pain, he may be worked up for transitional syndrome. L2-3. - Last Documented On 06/01/2021 2:10PM ; [facility] LO[facility] I am at loss to explain his symptoms. - Last Documented On 06/01/2021 2:10PM ; [facility] LO[facility] Instructions Includes: Instructions from this encounter Instructions to patient No intervention and counselmartha ferguson on cessation of tobacco use Last Documented On 2 12:51PM ; [facility] LO[facility] Lose weight Last Documented On 2 1:19PM ; [facility] Medical Equipment - Implanted Devices Includes: Current Devices No Medical Equipment Recorded Medications Includes: Medications discussed during this encounter and other current Medications Discontinued / Stopped on this date HILARIO MONZON MD on 05/06/2021 Meclizine HCl 25 MG Oral Tablet Provider: HILARIO MONZON MD Diagnosis: Last Documented On 2 1:17PM By Trina LOERA, [facility] Lisinopril 10 MG Oral Tablet Provider: HILARIO MONZON MD Diagnosis: Last Documented On 2 1:17PM By Trina LOERA, [facility] HYDROcodone-Acetaminophen 10 -325 MG Oral Tablet Provider: HILARIO MONZON MD Diagnosis: Last Documented On 2 1:17PM By Trina Gallegos ; RORY LOERA, [facility] LORazepam 0.5 MG Oral Tablet Provider: HILARIO MONZON MD Diagnosis: Last Documented On 2 1:17PM By Trina Gallegos ; [facility] QC Tumeric Complex 500 MG Oral Capsule Pr ovider: Diagnosis: Last Documented On 2 1:17PM By Trina [facility] Tadalafil 10 MG Oral Tablet Provider: HILARIO MONZON MD Diagnosis: Last Documented On 2 1:17PM By Trina Gallegos ; [facility] Testosterone Cypionate 200 M G/ML Intramuscular Solution Provider: HILARIO MONZON MD Diagnosis: Last Documented On 2 1:17PM By Trina Gallegos ; [facility] BD Luer-Michelle Syringe 18G X 1- 1/2 3 ML Miscellaneous Provider: HILARIO MONZON MD Diagnosis: Last Documented On 2 1:17PM By Trina Gallegos ; [facility], [facility] Current Medications (continue as prescribed) methylPREDNISolone 4 MG Oral Tablet Therapy Pack 05/29/2021 Provider: HILARIO MONZON MD Diagnosis: Last Documented On 2 1:16PM By Trina Gallegos ; [facility], [facility] tiZANidine HCl 4 MG Oral Tablet 05/29/2021 Provider: HILARIO MONZON MD Diagnosis: Last Documented On 2 1:16PM By Trina Gallegos ; [facility], [facility] Testosterone Cypionate 200 M G/ML Intramuscular Solution 05/29/2021 Provider: HILARIO MONZON MD Diagnosis: Last Documented On 2 1:16PM By Trina Gallegos ; [facility], [facility] Tadalafil 10 MG Oral Tablet 05/29/2021 Provider: HILARIO MONZON MD Diagnosis: Last Documented On 2 1:16PM By Trina Gallegos ; [facility], [facility] Atorvastatin Calcium 20 MG Oral Tablet 05/29/2021 Pr ovider: HILARIO MONZON MD Diagnosis: Last Documented On 2 1:16PM By Trina Gallegos ; [facility], [facility] Diclofenac Sodium 75 MG Oral Tablet Delayed Release 05/29/2021 Provider: HILARIO MONZON MD Diagnosis: Last Documented On 2 1:16PM By Trina Gallegos ; [facility] Meclizine HCl 25 MG Oral Tablet 05/29/2021 Provider: HILARIO MONZON MD Diagnosis: Last Documented On 2 1:16PM By Trina Gallegos ; [facility] Ibuprofen 800 MG Oral Tablet 05/14/2021 Provider: HILARIO MONZON MD Diagnosis: Last Documented On 2 1:16PM By Trina Gallegos ; [facility], [facility] amLODIPine Besy-Benazepril H Cl 5-10 MG Oral Capsule 05/13/2021 Provider: ERIC MARTINEZ MD Diagnosis: Last Documented On 2 1:16PM By Trina Gallegos ; [facility], [facility] HYDROcodone-Acetaminophen 10 -325 MG Oral Tablet 05/09/2021 Provider: HILARIO MONZON MD Diagnosis: Last Documented On 2 1:16PM By Trina Gallegos ; [facility], [facility] Past Medications on file oxyCODONE-Acetaminophen 7.5- 325 MG Oral Tablet 01/14/2020 - 01/24/2020 Provider: CISCO VIRGEN MD Diagnosis: Last Documented On 0 2:32PM By Dr. Virgen ; [facility], [facility] oxyCODONE-Acetaminophen 7.5- 325 MG OR TABS 01/14/2020 - 02/03/2020 Provider: Cisco Virgen MD Diagnosis: Last Documented On 0 2:35PM By Evelyn Ronquillo ; [facility], [facility] Valium 5 MG Oral Tablet 01/03/2020 - 01/04/2020 Provid er: Cisco Virgen MD Diagnosis: take one pill by mouth 20 minuets before MRI Last Documented On 0 12:03PM By Richard [facility] Valium 5 MG Oral Tablet 12/28/2019 - 12/29/2019 Provid er: Cisco Virgen MD Diagnosis: take one pill by mouth 20 minuets before MRI Last Documented On 0 12:08PM By Bob [facility] Percocet 7.5-325MG Oral Tablet 06/19/2018 - 07/02/2018 Provider: Cisco Virgen MD Diagnosis: three times a day Last Documented On 9 11:45AM By Dr. Lars [facility] Medrol 4MG Oral Tablet Thera py Pack 06/16/2018 - 06/22/2018 Provider: Cisco Virgen MD Diagnosis: use as directed Last Documented On 9 3:15PM By Dahiana [facility], [facility] Medications Administered Includes: Administered Medications from this encounter No Administered Medications Recorded Vital Signs Includes: Vital Signs from this encounter Vital Name 06/01/2021 01:17P Blood Pressure Sitting (mmHg) 204/124 Pulse Rate-Sitting (bpm) 87 Height (in) 76 Weight (lb) 270.8 Body Mass Index (kg/m2) 33.0 Body Surface Area (m2) 2.5 Note: [facility] Last Documented: On 06/01/2021 1:19PM ; [facility], [facility] Results Includes: Results discussed during this encounter No Results Recorded For Specified Dates History of Present Illness Includes: History of Present Illness from this encounter KARINA Martinez is a 56 year old male. - Allergy list reviewed - Problem list reviewed - Medication reconciliation performed - Medication list reviewed - Yes, previous treatment. - History of Physical Therapy including dry needling - History of Physical Therapy - History of Home Exercise - History of Injections 12/06/2018 Left L2-3 Facet 10/08/2019 Left L4-5 L5-S1 Facet 10/29/2019 Left L4-5 Facet 08/05/2020 Left SI Joint Inj Symptoms are on the left side. He states 2 times every 3 days he gets a severe catching tightness in the back on the left side 3 fingerbreadths off the midline, that such severe pain, he has manipulated that if he will allow a pop can hear it and feel it, though the pain gets better. He has to be very careful the way he moves. It sounds like he has an instability pattern somewhere but have not been Identified. Recurrence of left-sided lower back pain.this is at the interval between the posterior superior iliac spine, the S1 screw, and the sacrum.back pain since the surgery is showing better. The patient has pain on a daily basis. He points to the left side of his back He says with the pain comes on so severe he has to pop his back and then the pain gets better. I just cannot find the source of his pain. I did extensively worked him up. I reexamined him today. The patient has returned to work, he states he functions approximately 1 hour the pain becomes so painful he cannot function. He feels subluxation of the lower part of the back on the left side. With an audible click.he still shows who are at the audible click is today and where it has to pop. This is not in the lower left were used to always be but now mostly towards the upper one third of his previous surgical site. Only intermittent episodes of poppinghave become more proximal prominent, No numbness no weakness Restless leg syndrome left lower extremity. Trial of epidural stimulation-no improvement. Patient states is much better since his surgery he still having pain.it is sacroiliac joint and L5-S1 pain. Takes hydrocodone between 5 and 7 times in a 24-hour period. Of level.status post CAT scan. Social History Description Last Updated No recent change in diet 04/03/2020 Last Documented On 2 12:51PM ; [facility], [facility] Not a current smoker. 04/03/2020 Last Documented On 2 12:51PM ; [facility] Not using alcohol 04/03/2020 Last Documented On 2 12:51PM ; [facility] Not using drugs 04/03/2020 Last Documented On 2 12:51PM ; [facility] Non-smoker 10/08/2019 Last Documented On 2 12:51PM ; [facility] Exercising regularly 08/06/2019 Last Documented On 2 12:51PM ; [facility] Caffeine use 10/07/2016 Last Documented On 2 12:51PM ; [facility], [facility] Not a current smoker 10/07/2016 Last Documented On 2 12:51PM ; [facility] No tobacco use 10/07/2016 Last Documented On 2 12:51PM ; [facility] Smoking status : Never smoker 10/07/2016 Last Documented On 2 12:51PM ; [facility], [facility] Procedures and Surgical History Includes: Procedures from this encounter Procedures Code Diagnosis Performing Provider Service L ocation Service Date no intervention and counseling on cessation of tobacco use 4000F Last Documented On 2 12:51PM ; [facility], [facility] use of tobacco assessment performed 1000F Last Documented On 2 12:51PM ; [facility] no influenza immunization patient refuse d Last Documented On 2 1:19PM ; [facility] referral to physician Last Documented On 2 12:51PM ; [facility] Clinical summary provided to patient Last Documented On 2 12:51PM ; [facility] history of an X-ray was perf ormed 01/14/2020 Abbe @ [facility] ~02/25/2020 Abbe @ [facility] ~04/03/2020 LSpine @ [facility] ~10/23/2020 LSpine @ [facility] [id number] Last Documented On 2 12:51PM ; [facility] a CT scan was performed 04/14 Pelvis WO @ [facility] ~06/09/2020 LSpine WO @ [facility] [id number] Last Documented On 2 12:51PM ; [facility] an MRI was performed 01/03/2020 [facility]Spine @ [facility] ~ LSpine @ [facility] [id number] Last Documented On 2 12:51PM ; [facility] Medical History Includes: Medical History addressed during this encounter Description Last Updated A recent immunization for pneumococcal p neumonia 12/16/2021 Last Documented On 2 12:51PM ; [facility] Back surgery 2007- L4-5 ~ - L5-S1 ~2014 - L3-S1 ~2018 removal of screw rods on lt side ~06/14/2018 Left SI Joint Fusion ~01/04/2020-Left side L5-S1 excision and exploration and pseudoarthrosis and fusion 06/01/2021 Last Documented On 2 2:10PM ; [facility] Blood transfusion x3 03/04/2021 Last Documented On 2 12:51PM ; [facility] Arthritis 08/19/2020 Last Documented On 2 12:51PM ; [facility] History of Blood Clots 08/19/2020 Last Documented On 2 12:51PM ; [facility] No recent immunization for flu 1 Last Documented On 2 12:51PM ; [facility] Family History Includes: Family History addressed during this encounter Description Last Updated Family history of cancer 08/06/2019 Last Documented On 2 12:51PM ; [facility] Family history of diabetes mellitus 07/16 Last Documented On 2 12:51PM ; [facility] Family history of heart disease 08/06/19 20 Last Documented On 2 12:51PM ; [facility] Family history of rheumatoid arthritis 0 08/06/2019 Last Documented On 2 12:51PM ; [facility] Family history of thromboembolic disease hx of dvt after 2015 lumbar sx 03/09/2018 Last Documented On 2 12:51PM ; [facility] Review of Systems Includes: Review of Systems from this encounter Systemic: Not feeling tired, not feeling tired, no recent weight loss, and no recent weight gain. Recent weight gain. No edema. Head: No headache and no sinus pain. Sinus pain. Eyes: No vision problems and no glaucomatous visual field defect. No Cataracts. Glasses/Contacts. No Glasses/Contacts and no Glaucoma. Otolaryngeal: No hearing loss and no tinnitus. No nasal symptoms. Cardiovascular: No chest pain or discomfort, no palpitations, no Hypertension, and no High Cholesterol. Pulmonary: No daytime asthma symptoms, no daytime asthma symptoms, no cough, and no chronic cough. No wheezing. Gastrointestinal: No heartburn, no abdominal pain, and no abdominal pain. No Indigestion, no Acid Reflux, no Peptic Ulcer, no GI Stomach Bleed, and no Ulcers. Endocrine: No hot flashes, no muscle weakness, no Diabetes, no Hypothyroid, and no Hyperthyroid. Hematologic: No easy bleeding, no tendency for easy bruising, and no Anemia. Musculoskeletal: Arthritis. No Arthritis. Lower back pain. No soft tissue swelling. Pain localized to one or more joints. No localized joint pain. Neurological: No dizziness, no convulsions, and no convulsions. Numbness. No numbness. Psychological: Anxiety. No anxiety, no emotional lability, no depression, and no insomnia. Not crying for no reason. Skin: No dry skin. No Ulcers. Scars. No Scars, no rash, and no ulcers. Allergic and Immunologic: Complaint of seasonal allergic reaction. No complaint of seasonal allergic reaction. reviewed 06/01/2021 Mental Status Includes: Mental Status from this encounter Description Anxiety Functional Status Includes: Functional Status from this encounter No Functional Status Recorded Physical Exam Includes: Physical Exam from this encounter Allergies Includes: Active Allergies Substance Type Reaction Onset Date Resolved Date Statu s Mobic Allergy 10/07/2016 Active Last Documented On 2 9:56AM ; [facility] Encounters Encounter Provider Location Date Check-In Time Check-Out Time Diagnosis Follow Up Cisco Virgen MD [facility] 2 12:50PM 1:35PM Insurance Includes: Active Insurance Policies Plan Name Member ID Group # Subscriber Relationship Effect crys Dates 1 - [facility] [id number] Ad Dave 02/15/2016 - Unknown Clinical Notes Includes: Clinical Notes from this encounter No Clinical Notes Recorded
--- OUTSIDE RECORDS SUMMARY | 2024-11-24 10:09 | XMS_ITS ---
Care Plan - [facility], [facility] Created on: November 24, 2024 King Ad L : 1965 Sex: Male Author Organization [facility] Address [address] [place] [address] Phone Care Team Providers Care Construction Technician Name Role Phone NA HAYNES, HILARIO Davies Primary Care Provider [phone] Lars HAYNES, Cisco Unavailable [phone]
--- OUTSIDE RECORDS SUMMARY | 2024-11-24 10:09 | XMS_ITS | Encounter Summary ---
Author Organization [employer] ([place], [place], [place], [place]) Address [address] [place] [address] Care Team Providers Care Etcher Enameling Name Role Phone Unavailable Primary Care Provider Unavailabl e Encounter Details Date Type Department Care Team (Late st Contact Info) Description 06/14/2018 Transcribed Document [facility] [address] [place] [address] ProviderDina MD [address] [place] [address] Social History Tobacco Use Types [...] AD MARTINEZ/Sex: 1965 Male Med Rec #: [id number] Physician: MARIALUISA VIRGEN MD-ORT Financial #: [id number] Pt. Type: O Room/Bed: Admit/Disch: 06/14/18 05:02:00 - Institution: [facility] PreOp Case Times Entry 1 In Preop 06/14/18 12:00:00 Ready for Holding n/a Room Patient Ready for 06/14/18 13:02:00 Surgery Patient Out of Preop 06/14/18 14:52:00 Patient Out of n/a Holding Room Last Modified By: SHANAE BERNSTEIN 06/14/18 15:10:56 [facility] PreOp Case Times Audit 06/14/18 15:10:56 Director Orange: SAYDA Modifier: [email or web address] <+> 1 Patient Out of Preop Finalized By: SHANAE BERNSTEIN Document Signatures Signed By: SHANAE BERNSTEIN 06/14/18 15:10 Electronically signed by [facility] Conversion Latin Teacher Cerner at 06/01/2022 11:01 PM CDT documented in this encounter Plan of Treatment Not on file documented as of this encounter Visit Diagnoses Not on filedocumented in this encounter
--- OUTSIDE RECORDS SUMMARY | 2024-11-24 10:09 | XMS_ITS | Referral Summary ---
Author Organization [employer] ([place], [place], [place], [place]) Address [address] [place] [address] Care Team Providers Care Professor Of History Name Role Phone Unavailable Primary Care Provider [...]
--- OUTSIDE RECORDS SUMMARY | 2024-11-24 10:09 | XMS_ITS | Encounter Summary ---
Author Organization [employer] ([place], [place], [place], [place]) Address [address] [place] [address] Care Team Providers Care China Decorator Name Role Phone Unavailable Primary Care Provider Unavailabl e Encounter Details Date Type Department Care Team (Late st Contact Info) Description 06/14/2018 Transcribed Document [facility] [place] Family Medicine [address] [place] [address] ProviderDina MD [address] [place] [address] Social History Tobacco Use Types [...] Dina ProviderMD - 06/14/2018 8:56 PM CDT [place] [id number] CHEN BANEGASStephen GIL :1965 Visit Time:06/14/2018 Your [...] How Much When Instructions Next Dose acetaminophen-hydrocodone ([place] 10 mg-325 mg oral tablet) 1 Tablet(s) [...] Barley. Bulgur wheat. Millet. Bran muffins. Popcorn. [place] wafer crackers. ??? Vegetables Sweet potatoes. Spinach. Kale. Artichokes. Cabbage. Broccoli. Green peas. Carrots. Squash. ??? Fruits Berries. Pears. Apples. Oranges. Avocados. Prunes and raisins. Dried figs. ??? Meats and Other Protein Sources [place], kidney, dimas, and soy beans. Split peas. [...] sudhir has 11 g of protein. ??? [place] seeds ??? 1 oz has 5.5 g [...] floor. ??? Place frequently used items in qvst-bw-pfwat places ??? Keep electrical cables out of [...] ? Using the bathroom. ? Using household policy value calculator or toxic chemicals. ? Touching or taking [...] items that you use a lot in sxec-mj-qbevv places. ??? If you need to reach something above you, use a strong step stool that has a grab bar. ??? Keep electrical cords out of the way. ??? Do notuse floor tanzanian or wax that makes floors slippery. If [...] Walk With a Standard Walker: 1. supervisor powdered metal your walker. Do not slide your standard [...] 01/31/2006 Document Revised: 06/30/2016 Document Reviewed: 08/15/2015 [employer] Interactive Patient Education ?? 2017 [employer]. acetaminophen and oxycodone (a SEET a MIN [...] may report side effects to FDA at 8-653-LAS-3659. What other drugs will affect acetaminophen and [...] affect acetaminophen and oxycodone, including prescription and ksxe-gcw-ffnhbpl medicines, vitamins, and herbal products. Not all [...] to ensure that the information provided by [employer]. ('[employer]') is accurate, up-to-date, and complete, but no guarantee is made to that effect. Drug information contained herein may be time sensitive. [employer] information has been compiled for use by healthcare practitioners and consumers in the [place] and therefore [employer] does not warrant that uses outside of the [place] are appropriate, unless specifically indicated otherwise. [employer] drug information does not endorse drugs, diagnose patients or recommend therapy. [employer] drug information is an informational resource designed [...] effective or appropriate for any given patient. [employer] does not assume any responsibility for any aspect of healthcare administered with the aid of information [employer] provides. The information contained herein is not intended to cover all possible uses, directions, precautions, warnings, drug interactions, allergic reactions, or adverse effects. If you have questions about the drugs you are taking, check with your doctor, nurse or pharmacist. Copyright 6232-4657 [employer]. Version: 18.02. Revision Date: 01/11/2018. Emergency Awareness [...] Assistance with quitting is available by contacting 7-337-MOYSNOW. This is a free resource providing counseling, support, and referral. Or you may contact your personal physician. [employer] Suicide Prevention Lifeline: The National Suicide Prevention [...] Be sure to sign up for the [facility] patient portal, which gives you 06/09 access to your medical information ??? including these discharge instructions ??? using your computer, smartphone, or tablet. Just go to [employer] to get started. Questions? Call . Test [...] range between ( 1.0 and 7.0 ) [place] #: 0.47 K/uL -- Normal range between ( 0.24 and 0.82 ) Eos #: 0.08 K/uL -- Normal range between ( 0.04 and 0.54 ) [place] %: 8.9 % -- Normal range between [...] ) Urine Bilirubin Dipstick: Negative Urine Specific Howe: 1.021 -- Normal range between ( 1.005 [...] was given the opportunity to ask questions. Patient/Lesson Instructor Name: Patient/Lesson Instructor Signature: Relationship to Patient: Clinician/Hospital Lesson Instructor Signature: Date: documented in this encounter Plan of Treatment Not on file documented as of this encounter Visit Diagnoses Not on filedocumented in this encounter
--- OUTSIDE RECORDS SUMMARY | 2024-11-24 10:09 | XMS_ITS | Encounter Summary ---
Author Organization Healthcare Address [address] [place] [address] Care Team Providers Care Food Products Sales Representative Name Role Phone Seven Diop MD Primary Care Provider [phone] Jeromy Perez MD Primary Care Provider [phone] Encounter Details Date Type Department Care Team (Late st Contact Info) Description 08/13/2021 Orders Only External Location [address] [place] [address] Cisco Sousa Social History Tobacco Use Types [...] on filedocumented in this encounter Care Teams Food Products Sales Representative Relationship Specialty Start Date End Date Seven Diop MD [address] [place] [id number] PCP - General 06/27/20 03/04/22 Jeromy Perez MD [address] [place] [address] PCP - General 03/05/22 documented as of this encounter
--- OUTSIDE RECORDS SUMMARY | 2024-11-24 10:09 | XMS_ITS | Encounter Summary ---
Author Organization [employer] ([place], [place], [place], [place]) Address [address] [place] [address] Care Team Providers Care Bridge Mechanic Name Role Phone Unavailable Primary Care Provider Unavailabl e Encounter Details Date Type Department Care Team (Late st Contact Info) Description 01/04/2020 Transcribed Document [facility] [place] [address] [place] [address] ProviderDina MD [address] [place] [address] Social History Tobacco Use Types [...] - Dina ProviderMD - 01/04/2020 8:45 AM LINE CLEANER MARIFER Main OR PreOp Summary Primary Physician: MARIALUISA VIRGEN MD-ORT Finalized Date/Time: 01/04/20 13:35:48 Pt. Name: AD BANEGAS/Sex: 1965 Male Med Rec #: [id number] Physician: MARIALUISA VIRGEN MD-ORT Financial #: [id number] Pt. Type: I Room/Bed: 403/1 Admit/Disch: 01/04/20 05:33:00 - Institution: [facility] [place] PreOp Case Times Entry 1 In Preop 01/04/20 05:40:00 Ready for Holding n/a Room Patient Ready for 01/04/20 06:49:00 Surgery Patient Out of Preop 01/04/20 08:07:00 Patient Out of n/a Holding Room Last Modified By: SHANAE BERNSTEIN 01/04/20 13:35:46 [facility] PreOp Case Times Audit 01/04/20 13:35:46 Acetylene Torch Burner: BRENDON Modifier: CATLETDD <+> 1 Patient Out of Preop Finalized By: SHANAE BERNSTEIN Document Signatures Signed By: SHANAE BERNSTEIN 01/04/20 13:35 Electronically signed by Favio [facility] Conversion Bilingual Account Manager Cerner at 06/01/2022 11:02 PM CDT documented in this encounter Plan of Treatment Not on file documented as of this encounter Visit Diagnoses Not on filedocumented in this encounter
--- OUTSIDE RECORDS SUMMARY | 2024-11-24 10:09 | XMS_ITS | Clinical Summary ---
Author Organization [facility] Address [address] [place] [address] Phone Care Team Providers Care Lbd Teacher Name Role Phone NA HAYNES, HILARIO E Primary Care Provider [phone] Lars HAYNES, Cisco White Unavailable Reason for Referral Date Encounter Description Provider Reason for Referral 03/02/21 Follow Up Cisco Virgen MD Referral To Physician Reason for Visit and Chief Complaint The Chief Complaint is: lumbar / sacroiliac joint pain Problems Includes: Problems addressed during this encounter and other active Problems Current Visit Onset Date Resolved Date Provider Conditio n Status Lower Back Pain 10/07/2016 Cisco Virgen MD A ctive Last Documented On 7 1:13PM ; [facility] Past Visits Onset Date Resolved Date Provider Condition Status Sacroiliitis 05/22/2018 Cisco Virgen MD Acti ve Last Documented On 9 7:55PM ; [facility] Plan of Treatment Continue his exercise program Both him and his , will try to identify the exact point in his back where the popping is coming from and marked on the skin Come back and see me in 3 months out reexamine him, see if I can find instability spot, and get an x-ray. - Last Documented On 03/04/2021 12:32PM ; [facility] Pending Tests Order Diagnosis Results Due Ordering P rovider Lab Orders - HL Pre-Op PTT 06/05/18 Bebo Virgen MD Last Documented On 9 7:53PM ; [facility] Lab Orders - HL Pre-Op PT INR 06/05/18 Bebo Virgen MD Last Documented On 9 7:53PM ; [facility] Lab Orders - HL Pre-Op CMP 06/05/18 Bebo Virgen MD Last Documented On 9 7:53PM ; [facility] Lab Orders - HL Pre-Op Clean Catch UA 06/05/18 Cisco Virgen MD Last Documented On 9 7:53PM ; [facility] Lab Orders - HL Pre-Op CBC with DIFF 06/05/18 Cisco Virgen MD Last Documented On 9 7:53PM ; [facility] Radiology - MRI MRI Lumbar Spine 06/16/20 Herbie Virgen MD Last Documented On 1 10:37AM ; [facility] Radiology - CT Scan Lumbar 06/16/20 Cisco Virgen MD Last Documented On 1 10:37AM ; [facility] Radiology - CT Scan Lumbar 08/17/21 Cisco Virgen MD Last Documented On 2 2:48PM ; [facility] Instructions to patient No intervention and counseli ng on cessation of tobacco use Last Documented On 2 12:37PM ; [facility] Lose weight Last Documented On 2 12:37PM ; [facility] Assessments Includes: Assessments from this encounter Findings He has audible instability in his spine. I can hear it, I can feel it, but just cannot identify what structure in the spine is doing this. I have never been able to get an x-ray actually show it. His most recent x-ray was just in October of last year, for that reason I have not repeated again today. - Last Documented On 03/04/2021 12:32PM ; [facility] Instructions Includes: Instructions from this encounter Instructions to patient No intervention and counseli ng on cessation of tobacco use Last Documented On 2 12:37PM ; [facility] Lose weight Last Documented On 2 12:37PM ; [facility] Medical Equipment - Implanted Devices Includes: Current Devices No Medical Equipment Recorded Medications Includes: Medications discussed during this encounter and other current Medications Current Medications (continue as prescribed) methylPREDNISolone 4 MG Oral Tablet Therapy Pack 05/29/2021 Provider: HILARIO MONZON MD Diagnosis: Last Documented On 2 1:16PM By Trina Gallegos ; [facility] tiZANidine HCl 4 MG Oral Tablet 05/29/2021 Provider: HILARIO MONZON MD Diagnosis: Last Documented On 2 1:16PM By Trina Gallegos ; [facility] Testosterone Cypionate 200 M G/ML Intramuscular Solution 05/29/2021 Provider: HILARIO MONZON MD Diagnosis: Last Documented On 2 1:16PM By Trina Gallegos ; [facility] Tadalafil 10 MG Oral Tablet 05/29/2021 Provider: HILARIO MONZON MD Diagnosis: Last Documented On 2 1:16PM By Trina Gallegos ; [facility] Atorvastatin Calcium 20 MG Oral Tablet 05/29/2021 Pr ovider: HILARIO MONZON MD Diagnosis: Last Documented On 2 1:16PM By Trina Gallegos ; [facility] Diclofenac Sodium 75 MG Oral Tablet Delayed Release 05/29/2021 Provider: HILARIO MONZON MD Diagnosis: Last Documented On 2 1:16PM By Trina Gallegos ; [facility] Meclizine HCl 25 MG Oral Tablet 05/29/2021 Provider: HILARIO MONZON MD Diagnosis: Last Documented On 2 1:16PM By Trina Gallegos ; [facility] Ibuprofen 800 MG Oral Tablet 05/14/2021 Provider: HILARIO MONZON MD Diagnosis: Last Documented On 2 1:16PM By Trina Gallegos ; [facility] amLODIPine Besy-Benazepril H Cl 5-10 MG Oral Capsule 05/13/2021 Provider: ERIC MARTINEZ MD Diagnosis: Last Documented On 2 1:16PM By Trina Gallegos ; [facility] HYDROcodone-Acetaminophen 10 -325 MG Oral Tablet 05/09/2021 Provider: HILARIO MONZON MD Diagnosis: Last Documented On 2 1:16PM By Trina Gallegos ; [facility] Past Medications on file oxyCODONE-Acetaminophen 7.5- 325 MG Oral Tablet 01/14/2020 - 01/24/2020 Provider: CISCO VIRGEN MD Diagnosis: Last Documented On 0 2:32PM By Dr. Virgen ; [facility] oxyCODONE-Acetaminophen 7.5- 325 MG OR TABS 01/14/2020 - 02/03/2020 Provider: Cisco Virgen MD Diagnosis: Last Documented On 0 2:35PM By Evelyn Ronquillo ; [facility] Valium 5 MG Oral Tablet 01/03/2020 - 01/04/2020 Provid er: Cisco Virgen MD Diagnosis: take one pill by mouth 20 minuets before MRI Last Documented On 0 12:03PM By Richard Reyes ; [facility] Valium 5 MG Oral Tablet 12/28/2019 - 12/29/2019 Provid er: Cisco Virgen MD Diagnosis: take one pill by mouth 20 minuets before MRI Last Documented On 0 12:08PM By Bob Quigley ; [facility] Percocet 7.5-325MG Oral Tablet 06/19/2018 - 07/02/2018 Provider: Cisco Virgen MD Diagnosis: three times a day Last Documented On 9 11:45AM By Dr. Virgen ; [facility] Medrol 4MG Oral Tablet Thera py Pack 06/16/2018 - 06/22/2018 Provider: Cisco Virgen MD Diagnosis: use as directed Last Documented On 9 3:15PM By Dahiana Patel ; [facility] Medications Administered Includes: Administered Medications from this encounter No Administered Medications Recorded Vital Signs Includes: Vital Signs from this encounter Vital Name 03/02/2021 12:42P Blood Pressure Sitting (mmHg) 139/92 Pulse Rate-Sitting (bpm) 75 Height (in) 76 Weight (lb) 261 Body Mass Index (kg/m2) 31.8 Body Surface Area (m2) 2.5 Note: ab Last Documented: On 03/04/2021 12:28P M ; [facility] Results Includes: Results discussed during this encounter No Results Recorded For Specified Dates History of Present Illness Includes: History of Present Illness from this encounter HPI Ad Martinez is a 56 year old male. - Allergy list reviewed - Problem list reviewed - Medication reconciliation performed - Medication list reviewed with patient - Yes, previous treatment. - History of Physical Therapy including dry needling - History of Home Exercise - History of Injections 12/06/2018 Left L2-3 Facet 10/08/2019 Left L4-5 L5-S1 Facet 10/29/2019 Left L4-5 Facet 08/05/2020 Left SI Joint Inj Recurrence of left-sided lower back pain.this is at the interval between the posterior superior iliac spine, the S1 screw, and the sacrum.back pain since the surgery is showing better. The patient has pain on a daily basis. He points to the left side of his back Today, the popping is in the back, on the left side, from the midline, to approximately 3 fingerbreadths off the midline, it is not above his previous fusion. He says with the pain comes on [...] one third of his previous surgical site. Mostly pain left side, without neurologic deficit. Restless leg syndrome left lower extremity. Trial of epidural stimulation-no improvement. Patient states is much better since his surgery he still having pain.it is sacroiliac joint and L5-S1 pain. Takes hydrocodone between 5 and 7 times in a 24-hour period. Of level.status post CAT scan. Social History Description Last Updated No recent change in diet 04/03/2020 Last Documented On 2 12:37PM ; [facility] Not a current smoker. 04/03/2020 Last Documented On 2 12:37PM ; [facility] Not using alcohol 04/03/2020 Last Documented On 2 12:37PM ; [facility] Not using drugs 04/03/2020 Last Documented On 2 12:37PM ; [facility] Non-smoker 10/08/2019 Last Documented On 2 12:37PM ; [facility] Exercising regularly 08/06/2019 Last Documented On 2 12:37PM ; [facility] Caffeine use 10/07/2016 Last Documented On 2 12:37PM ; [facility] Not a current smoker 10/07/2016 Last Documented On 2 12:37PM ; [facility] No tobacco use 10/07/2016 Last Documented On 2 12:37PM ; [facility] Smoking status : Never smoker 10/07/2016 Last Documented On 2 12:37PM ; [facility] Procedures and Surgical History Includes: Procedures from this encounter Procedures Code Diagnosis Performing Provider Service L ocation Service Date no intervention and counseling on cessation of tobacco use 4000F Last Documented On 2 12:37PM ; [facility] use of tobacco assessment performed 1000F Last Documented On 2 12:37PM ; [facility] referral to physician Last Documented On 2 12:37PM ; [facility] Clinical summary provided to patient Last Documented On 2 12:37PM ; [facility] history of an X-ray was perf ormed 01/14/2020 LSpine @ [facility] ~02/25/2020 LSpine @ [facility] ~04/03/2020 LSpine @ [facility] ~10/23/2020 LSpine @ [facility] [id number] Last Documented On 2 12:37PM ; [facility] a CT scan was performed 04/14 Pelvis WO @ [facility] ~06/09/2020 LSpine WO @ [facility] [id number] Last Documented On 2 12:37PM ; [facility] an MRI was performed 01/03/2020 LSpine @ [facility] ~ LSpine @ [facility] [id number] Last Documented On 2 12:37PM ; [facility] Surgical History Last Updated History of back surgery 2008 - L4-58 ~2014 - L5-S1 ~2015 - L3-S1 ~2018 removal of screw rods on lt side ~06/14/2018 Left SI Joint Fusion ~01/04/2020-Left side L5-S1 excision and exploration and pseudoarthrosis and fusion 08/04/2021 Last Documented On 2 12:37PM ; [facility] Medical History Includes: Medical History addressed during this encounter Description Last Updated A recent immunization for pneumococcal p neumonia 12/16/2021 Last Documented On 2 12:37PM ; [facility] Blood transfusion x3 03/04/2021 Last Documented On 2 12:32PM ; [facility] Arthritis 08/19/2020 Last Documented On 2 12:37PM ; [facility] History of Blood Clots 08/19/2020 Last Documented On 2 12:37PM ; [facility] No recent immunization for flu 1 Last Documented On 2 12:37PM ; [facility] Family History Includes: Family History addressed during this encounter Description Last Updated Family history of cancer 08/06/2019 Last Documented On 2 12:37PM ; [facility] Family history of diabetes mellitus 07/16 Last Documented On 2 12:37PM ; [facility] Family history of heart disease 08/06/19 20 Last Documented On 2 12:37PM ; [facility] Family history of rheumatoid arthritis 0 08/06/2019 Last Documented On 2 12:37PM ; [facility] Family history of thromboembolic disease hx of dvt after 2015 lumbar sx 03/09/2018 Last Documented On 2 12:37PM ; [facility] Review of Systems Includes: Review of Systems [...] reaction. No complaint of seasonal allergic reaction. REVIEWED W/ PATIENT 03/02/2021 Mental Status Includes: Mental Status from this encounter Description Anxiety Functional Status Includes: Functional Status from this encounter No Functional Status Recorded Physical Exam Includes: Physical Exam from this encounter Allergies Includes: Active Allergies Substance Type Reaction Onset Date Resolved Date Statu s Mobic Allergy 10/07/2016 Active Last Documented On 2 9:56AM ; [facility] Encounters Encounter Provider Location Date Check-In Time Check-Out Time Diagnosis Follow Up Cisco Virgen MD [facility] 2 12:23PM 1:14PM Insurance Includes: Active Insurance Policies Plan Name Member ID Group # Subscriber Relationship Effect crys Dates 1 - [facility] [id number] Ad Martinez Self 02/15/2016 - Unknown Clinical Notes Includes: Clinical Notes from this encounter No Clinical Notes Recorded
--- OUTSIDE RECORDS SUMMARY | 2024-11-24 10:09 | XMS_ITS | Encounter Summary ---
Author Organization [employer] ([place], [place], [place], [place]) Address [address] [place] [address] Care Team Providers Care Medicaid Billing Clerk Name Role Phone Unavailable Primary Care Provider Unavailabl e Encounter Details Date Type Department Care Team (Late st Contact Info) Description 06/14/2018 Transcribed Document [facility] [place] Family Medicine [facility] [place] [address] ProviderDina MD [address] [place] [address] Social History Tobacco Use Types [...] disruption.dysfunction, sacroiliitis, arthropathy SURGEON: Marialuisa Virgen M.D. OFFICE SUPPORT: Naveen Tapia The duties of the welder assistant are to carefully position the patient [...] it is of absolute importance that the welder assistant is present to maintain that in [...] with when 1 hour of incision. Antibiotics kwdvpw-eebad-dnpwuzyesk cephalosporin-Ancef discontinuation of antibiotics within 24 hours [...] the symptomatic side, cannot do dishes, loading poll clerk,, laundry, activity around the home. Shopping. Housecleaning, [...] test distraction, and gaze Karli's maneuver. Plain e-frcr-smaibb multilevel disc degeneration. Sacroiliac joint sclerosis,leftt side. [...] physical therapy, anti-inflammatory medication, exercises, pain medication, toddler caregiver, injection therapy. 2. Symptoms are localized, to the sacroiliac joint, on the right side. Below L5-S1. 3. Provocative testing, reproduction of clinical pain with all 5 out of 5 sacroiliac provocative test. 4. G-cdtq-iazncmwfxqj all sources of pain, that may be [...] made measuring approximately2-3 inches in length.,leftside. The welder assistant carefully retacting and suctioning and myself [...] neurologic structures. It was absolutely imperative, the welder assistant carefully hold the guide and not [...]
--- OUTSIDE RECORDS SUMMARY | 2024-11-24 10:09 | XMS_ITS | Encounter Summary ---
Author Organization [employer] ([place], [place], [place], [place]) Address [address] [place] [address] Care Team Providers Care Administrative Office Manager Name Role Phone Unavailable Primary Care Provider Unavailabl e Encounter Details Date Type Department Care Team (Late st Contact Info) Description 06/14/2018 Transcribed Document [facility] [place] Family Medicine [address] [place] [address] ProviderDina MD [address] [place] [address] Social History Tobacco Use Types [...] GIL /Sex: 1965 Male Med Rec #: [id number] Physician: MARIALUISA VIRGEN MD-ORT Financial #: [id number] Pt. Type: O Room/Bed: Admit/Disch: 06/14/18 05:02:00 - Institution: [facility] [place] IntraOp Case Attendance Entry 1 Entry 2 Entry 3 Case Attendee MARIALUISA VIRGEN MD-ORT Davis, Aleitha E, RN Vlad Cao Role Performed Surgeon/Proceduralist, Gas Load Dispatcher, First Scrub, First First Time In 06/14/18 [...] MOORE, CRUZ CLAUDIO MD Falkowski, Donald J, Processing Inspector Role Performed Physician educational program assistant Anesthesiologist Chocolate Molder Time In 06/14/18 14:55:00 06/14/18 14:55:00 06/14/18 14:55:00 Time Out 06/14/18 15:54:00 06/14/18 15:22:00 06/14/18 15:54:00 Procedure Sacroiliac Joint Fusion Sacroiliac Joint Fusion Sacroiliac Joint Fusion Other Attendee Superficial Wound Closed By: Last Modified By: Jono Zuluaga RN Davis, Aleitha E, RN Davis, Aleitha E, RN 06/14/18 15:55:54 06/14/18 15:22:51 06/14/18 15:55:54 Entry 7 Entry 8 Case Attendee OTHER, ATTENDEE #1 VONDA ARANDA, PRESS HAND Role Performed Vendor PRESS HAND/Nurse Algologist Time In 06/14/18 14:55:00 06/14/18 15:21:00 Time Out 06/14/18 15:54:00 06/14/18 15:54:00 Procedure Sacroiliac Joint Fusion Sacroiliac Joint Fusion Other Attendee JIMMY VILLA Superficial Wound Closed By: Hudson Modified By: Jono Zuluaga RN Davis, Aleitha E, RN 06/14/18 15:12:17 06/14/18 15:55:54 [facility] IntraOp Case Attendance Audit 06/14/18 15:55:54 Java Software Architect: ALEITHADAVIS Modifier: ALEITHADAVIS 1 <+> Time Out [...] <*> Procedure Sacroiliac Joint Fusion 06/14/18 15:22:51 Java Software Architect: ALEITHADAVIS Modifier: ALEITHADAVIS 5 <+> Time Out 5 <*> Procedure Sacroiliac Joint Fusion <+> 8 Case Attendee <+> 8 Role Performed <+> 8 Time In <+> 8 Procedure 06/14/18 15:21:18 Java Software Architect: ALEITHADAVIS Modifier: ALEITHADAVIS <+> 1 Procedure 2 [...] [facility] IntraOp Case Times Audit 06/14/18 15:55:53 Java Software Architect: CORNELLADAEVER Modifier: ALEITHADAVIS <+> 1 Out Room Time <+> 1 Stop Time 06/14/18 15:51:59 Java Software Architect: ALEITHADAVIS Modifier: ALEITHADAVIS <+> 1 Stop Time 06/14/18 15:22:03 Java Software Architect: ALEITHADAVIS Modifier: ALEITHADAVIS <+> 1 Start Time [...] [facility] IntraOp Counts Final Audit 06/14/18 15:37:05 Java Software Architect: ALEITHADAVIS Modifier: ALEITHADAVIS 1 <*> Procedure Sacroiliac [...] RN 06/14/18 15:19:43 [facility] IntraOp General Case Laborer Wharf 1 Case Information OR OR 01 [facility] [...] IMP IFUSE 3D IMP IFUSE 3D Identification [id number] Description Implant Quantity 1 1 1 Implant Site LEFT SI LEFT SI LEFT SI Implant Identification Model Number Implant Identification Serial Number Implant [id number] Identification Lot Number Implant [employer]Bone Inc [employer]one Inc [employer]one Inc Identification Supervisor Ship Maintenance Services Name: Implant [id number] Identification Catalog Number Implant Size Implant Has an Yes Yes Yes Expiration Date Implant Expiration 12/20/22 09/23/22 03/11/23 Date Wasted Radioactive Material Time Implanted Tissue Implant Continue for Tissue Implant Documentation Tissue Identification Number Graft Prep Per Supervisor Ship Maintenance [employer] Instructions: Tissue Preparation Method: Reconstitution Solution: Reconstitution Solution Lot Number Reconstitution Solution Expiration Date: Thawing Solution Thawing Solution Lot Number Thawing Solution Expiration Date Preparation Materials, Other Preparation Materials, Other Lot Number Preparation Materials, Other Expiration Date Tissue Prepared/Processed By Supervisor Ship Maintenance Services Paperwork Completed Implant Type Comment Last Modified By: Jono Zuluaga RN Davis, Aleitha E, RN Davis, Aleitha E, RN 06/14/18 15:20:31 06/14/18 15:20:31 06/14/18 15:20:31 [facility] IntraOp Implant Log Audit 06/14/18 15:36:30 Java Software Architect: RUPERT Modifier: ALEITHADAVIS <+> 3 Implant Identification Description <+> 3 Implant Identification Lot Number <+> 3 Implant Identification Supervisor Ship [employer] Name: <+> 3 Implant Expiration Date <+> 3 Implant Identification Catalog Number 06/14/18 15:33:04 Java Software Architect: RUPERT Modifier: ALEITHADAVIS <+> 1 Implant Identification Description <+> 1 Implant Identification Lot Number <+> 1 Implant Identification Supervisor [employer] Name: <+> 1 Implant Expiration Date <+> 1 Implant Identification Catalog Number <+> 2 Implant Identification Description <+> 2 Implant Identification Lot Number <+> 2 Implant Identification Supervisor [employer] Name: <+> 2 Implant Expiration Date <+> [...] Intra Op Sign Out Audit 06/14/18 15:52:01 Java Software Architect: RUPERT Modifier: ALEITHADAVIS <+> 1 RN Sign [...] [facility] IntraOp Surgical Procedures Audit 06/14/18 15:52:01 Java Software Architect: RUPERT Modifier: CORNELLADAVIS <+> 1 Start <+> [...] [facility] IntraOp Time Out Audit 06/14/18 15:22:23 Java Software Architect: RUPERT Modifier: ALEITHADAVIS 1 <*> Time Out Pause Time 06/14/18 15:21:00 1 <*> Procedure to be Performed Sacroiliac Joint Fusion 06/14/18 15:21:52 Java Software Architect: RUPERT Modifier: CORNELLADAVIS <+> 1 Beta Fabi Administered <+> 1 Venous Thromboembolism Prophylaxis Required <+> 1 Antibiotic Prophylaxis Administered Or In Progress Within the Last 60 Minutes <+> 1 Surgeon <+> 1 Anesthesia Provider <+> 1 Nursing Assures <+> 1 Essential Imaging Labeled and Displayed [facility] IntraOp X-Ray and Images Entry 1 X-Ray/Imaging Type Fluoroscopy Fluoroscopy Type C-Arm Piece Dyer Name Fabian Andrea, Processing Inspector Protective Devices Yes Used Last Modified By: Jono Zuluaga RN 06/14/18 15:22:12 Case Comments <None> Finalized By: Jono Zuluaga RN Document Signatures Signed By: Jono Zuluaga RN 06/14/18 15:56 Electronically signed by Favio [facility] Conversion Government Minister Cerner at 06/01/2022 11:23 PM CDT documented in this encounter Plan of Treatment Not on file documented as of this encounter Visit Diagnoses Not on filedocumented in this encounter
--- OUTSIDE RECORDS SUMMARY | 2024-11-24 10:09 | XMS_ITS | Encounter Summary ---
Author Organization Healthcare Address [address] [place] [address] Care Team Providers Care Construction Safety Consultant Name Role Phone Seven Diop MD Primary Care Provider [phone] Jeromy Perez MD Primary Care Provider [phone] Encounter Details Date Type Department Care Team (Late st Contact Info) Description 06/09/2020 Orders Only External Location [address] [place] [address] Provider, External Social History Tobacco Use Types [...] on filedocumented in this encounter Care Teams Construction Safety Consultant Relationship Specialty Start Date End Date Seven Diop MD [address] [place] [address] PCP - General 06/27/20 03/04/22 Jeromy Perez MD [address] [id number] [place] [address] PCP - General 03/05/22 documented as of this encounter
--- OUTSIDE RECORDS SUMMARY | 2024-11-24 10:09 | XMS_ITS | Encounter Summary ---
Author Organization [employer] ([place], [place], [place], [place]) Address [address] [place] [address] Care Team Providers Care Automotive Sales Associate Name Role Phone Unavailable Primary Care Provider Unavailabl e Encounter Details Date Type Department Care Team (Late st Contact Info) Description 01/04/2020 Transcribed Document [facility] [place] [address] [place] [address] ProviderDina MD [address] [place] [address] Social History Tobacco Use Types [...] - Historical ProviderMD - 01/04/2020 4:59 PM FOUNDER AND CEO On Going Discharge Planning Entered On: 01/04/2020 [...] - 01/04/2020 16:59 EST Electronically signed by [facility] Conversion Eyelet Cutter Cerner at 06/01/2022 11:04 PM CDT documented in this encounter Plan of Treatment Not on file documented as of this encounter Visit Diagnoses Not on filedocumented in this encounter
--- OUTSIDE RECORDS SUMMARY | 2024-11-24 10:09 | XMS_ITS | Encounter Summary ---
Author Organization Healthcare Address [address] [place] [address] Care Team Providers Care Class A Regional Truck Driver Name Role Phone Seven Diop MD Primary Care Provider [phone] Jeromy Perez MD Primary Care Provider Reason for Referral * Consultation (Routine) - Closed Specialty Diagnoses / Procedures Referred By Contac t Referred To Contact Orthopaedic Surgery Diagnoses Lumbar pain Mich Adams MD [address] [place] [address] Phone: tel: fax: [facility] [address] [place] [address] Phone: tel: fax: Referral ID Status Reason Start Date Expiration Date V isits Requested Visits Authorized [id number] Closed Specialty Services Required 03/01/2022 08/31/2023 1 1 Encounter Details Date Type Department Care Team (Late st Contact Info) Description 03/01/2022 Community [facility] Community Practice [address] [place] [address] Mich Adams MD [address] [place] [address] Lumbar pain (Primary Dx) Social History Tobacco [...] Lumbago documented in this encounter Care Teams Class A Regional Truck Driver Relationship Specialty Start Date End Date Seven Diop MD [address] [place] [address] PCP - General 06/27/20 03/04/22 Jeromy Perez MD [address] [place] [address] [address] [place] [address] PCP - General 03/05/22 documented as of this encounter
--- OUTSIDE RECORDS SUMMARY | 2024-11-24 10:09 | XMS_ITS | Encounter Summary ---
Author Organization [employer] ([place], [place], [place], [place]) Address [address] [place] [address] Care Team Providers Care Canopy Stringer Name Role Phone Unavailable Primary Care Provider Unavailabl e Encounter Details Date Type Department Care Team (Late st Contact Info) Description 06/14/2018 Transcribed Document [facility] [place] [address] [place] [address] ProviderDina MD [address] [place] [address] Social History Tobacco Use Types [...] 06/14/2018 20:36 EDT Electronically signed by Favio [facility] Conversion Social Welfare Clerk María at 06/01/2022 11:07 PM CDT documented in this encounter Plan of Treatment Not on file documented as of this encounter Visit Diagnoses Not on filedocumented in this encounter
--- OUTSIDE RECORDS SUMMARY | 2024-11-24 10:09 | XMS_ITS | Encounter Summary ---
Author Organization [employer] ([place], [place], [place], [place]) Address [address] [place] [address] Care Team Providers Care Transportation Manager Name Role Phone Unavailable Primary Care Provider Unavailabl e Encounter Details Date Type Department Care Team (Late st Contact Info) Description 06/14/2018 Transcribed Document [facility] [place] Family Medicine [address] [place] [address] ProviderDina MD [address] [place] [address] Social History Tobacco Use [...] #2 Relationship : . Primary Language : Danish Communication Barrier : None Caty Umana RN [...] Scale Risk Level : 25-45 Medium Risk [place] Fall Interventions : Adequate lighting, Assistive devices [...] Smokeless Tobacco Status : Never Implant/Device Type, Application Security Architect and Model : metal rods back Caty [...] Source : Stated Height Entry Format : [employer] Height, Feet : 6 ft(Converted to: 183 cm, 72 Inch) Height, Inches : 4 Inch(Converted to: 0 ft 4 Inch, 10.16 cm) Clinical Height : 193.04 cm Weight Source : Standing scale Weight Entry Format : [employer] Clinical Dosing Weight : 107.27 kg Weight, Pounds : 236 lb Body Surface Area (BSA) : 2.38 m2 Body Mass Index : 28.8 kg/m2 (HI) [place] Body Weight : 86 kg Caty Umana [...] History Weight Entry Format Nutrition History : [employer] Usual Weight, Pounds : 236 lb Clinical [...] Any Spiritual/Cultural Needs or Requests : No Advent Preference : Other: Baptism Caty Umana RN - 06/14/2018 17:31 EDT Valuables and Belongings Valuables and Belongings : Clothing, Personal items Clothing : Common streetwear Clothing Disposition : With family Personal Items : Cell phone, Wallet Personal Items Disposition : With family Caty Umana RN - 06/14/2018 17:31 EDT Electronically signed by Favio [facility] Conversion Hand Spring Former Cerner at 06/01/2022 10:59 PM CDT documented in this encounter Plan of Treatment Not on file documented as of this encounter Visit Diagnoses Not on filedocumented in this encounter
--- OUTSIDE RECORDS SUMMARY | 2024-11-24 10:09 | XMS_ITS | Encounter Summary ---
Author Organization [employer] ([place], [place], [place], [place]) Address [address] [place] [address] Care Team Providers Care Meat Loiner Name Role Phone Unavailable Primary Care Provider Unavailabl e Encounter Details Date Type Department Care Team (Late st Contact Info) Description 06/14/2018 Transcribed Document [facility] [place] [address] [place] [address] ProviderDina MD [address] [place] [address] Social History Tobacco Use Types [...] Barley. Bulgur wheat. Millet. Bran muffins. Popcorn. Follansbee wafer crackers. ?? Vegetables Sweet potatoes. Spinach. Kale. Artichokes. Cabbage. Broccoli. Green peas. Carrots. Squash. ?? Fruits Berries. Pears. Apples. Oranges. Avocados. Prunes and raisins. Dried figs. ?? Meats and Other Protein Sources [place], kidney, dimas, and soy beans. Split peas. [...] sudhir has 11 g of protein. ?? [place] seeds - 1 oz has 5.5 g [...] floor. ?? Place frequently used items in jetu-ma-bndtx places ?? Keep electrical cables out of [...] ? Using the bathroom. ? Using household tarring machine operator or toxic chemicals. ? Touching or taking [...] To Walk With a Standard Walker: 1. mock up assembler your walker. Do not slide your standard [...] 08/15/2015 [employer] Interactive Patient Education ? 2017 [employer] Preventive Medicine Fall Prevention in the [...] items that you use a lot in zmuc-jz-hwffy places. ??? If you need to reach something above you, use a strong step stool that has a grab bar. ??? Keep electrical cords out of the way. ??? Do notuse floor cypriot or wax that makes floors slippery. If [...]
--- OUTSIDE RECORDS SUMMARY | 2024-11-24 10:09 | XMS_ITS | Encounter Summary ---
Author Organization [employer] ([place], [place], [place], [place]) Address [address] [place] [address] Care Team Providers Care Oakes Machine Operator Name Role Phone Unavailable Primary Care Provider Unavailabl e Encounter Details Date Type Department Care Team (Late st Contact Info) Description 06/14/2018 Transcribed Document [facility] [place] [address] [place] [address] ProviderDina MD [address] [place] [address] Social History Tobacco Use Types [...] AD BANEGAS/Sex: 1965 Male Med Rec #: [id number] Physician: MARIALUISA VIRGEN MD-ORT Financial #: [id number] Pt. Type: O Room/Bed: [facility]/1 Admit/Disch: 06/14/18 05:02:00 - Institution: [facility] OR PACU Case Times Entry 1 In PACU I 06/14/18 15:54:00 Ready for PACU 06/14/18 16:24:00 Discharge Discharge from PACU 06/14/18 17:14:00 I Last Modified By: Ebony Dillard RN 06/14/18 17:36:08 [facility] Main OR PACU Case Times Audit 06/14/18 17:36:08 Diesel Tractor Engine Mechanic: JULIO Modifier: HELFEP <+> 1 Ready for PACU Discharge <+> 1 Discharge from PACU I [facility] Main OR PACU Acuity Entry 1 Start Time 06/14/18 16:24:00 Stop Time 06/14/18 17:14:00 Acuity Level [facility] PACU Acuity I Last Modified By: Ebony Dillard RN 06/14/18 17:36:32 Finalized By: Ebony Dillard RN Document Signatures Signed By: Ebony Dillard RN 06/14/18 17:37 Electronically signed by Favio [facility] Conversion Property Utilization Manager Cerner at 06/01/2022 11:16 PM CDT documented in this encounter Plan of Treatment Not on file documented as of this encounter Visit Diagnoses Not on filedocumented in this encounter
--- OUTSIDE RECORDS SUMMARY | 2024-11-24 10:10 | XMS_ITS | Clinical Summary ---
Author Organization [facility] Address [address] [place] [address] Phone Care Team Providers Care Deckhand Sponge Boat Name Role Phone Unavailable Primary Care Provider [...] 9:10 AM EDT [place] [address] Yosvany Sanz MD Primary hypertension (Primary Dx); [...] 9:20 AM EST Office [place] [address] Yosvany Sanz MD [address] [place] [address] Health Maintenance Due Date Last Done Comments [...] PPO MED[place]ARE [place] PART A AND B [facility] MEDICARE [place] PART A AND B Advance Directives For more information, please contact: [phone] * Full Code (Latest Code Status on File) Date Activated Date Inactivated Comments 12/29/2022 9:41 PM 12/30/2022 8:33 PM
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
--- OUTSIDE RECORDS SUMMARY | 2024-11-24 10:10 | XMS_ITS | Encounter Summary ---
Author Organization [employer] ([place], [place], [place], [place]) Address [address] [place] [address] Care Team Providers Care Front Line Supervisor Name Role Phone Unavailable Primary Care Provider Unavailabl e Encounter Details Date Type Department Care Team (Late st Contact Info) Description 02/28/2018 Transcribed Document [facility] Family Medicine [address] [place] [address] ProviderDina MD [address] [place] [address] Social History Tobacco Use Types [...] - Historical ProviderMD - 02/28/2018 8:40 AM LEAD PRINTER Nursing Discharge Summary Entered On: 02/28/2018 8:40 EST Performed On: 02/28/2018 8:40 EST by ALFREDO NICE federal java developer Documentation Discharge Date/Time : 02/28/2018 12:53 EST [...] - 02/28/2018 8:40 EST Electronically signed by [facility] Conversion Hair Machine Operator Cerner at 06/01/2022 11:16 PM CDT documented in this encounter Plan of Treatment Not on file documented as of this encounter Visit Diagnoses Not on filedocumented in this encounter
--- OUTSIDE RECORDS SUMMARY | 2024-11-24 10:10 | XMS_ITS | Encounter Summary ---
Author Organization [employer] ([place], [place], [place], [place]) Address [address] [place] [address] Care Team Providers Care Transitional Studies Instructor Name Role Phone Unavailable Primary Care Provider Unavailabl e Encounter Details Date Type Department Care Team (Late st Contact Info) Description 01/04/2020 Transcribed Document [facility] [place] Medicine [address] [place] [address] ProviderDina MD [address] [place] [address] Social History Tobacco Use Types [...] - Historical ProviderMD - 01/04/2020 6:42 AM FILLER FEEDER Pre Procedure Adult Entered On: 01/04/2020 6:48 EST Performed On: 01/04/2020 6:42 EST by MARILYN SAWANT RN Height and Weight, Clinical Dosing Height Source : Stated Height Entry Format : [place] Height, Feet : 6 ft(Converted to: 183 cm, 72 Inch) Height, Inches : 4 Inch(Converted to: 0 ft 4 Inch, 10.16 cm) Clinical Height : 193.04 cm Weight Source : Standing scale Weight Entry Format : [place] Clinical Dosing Weight : 108.64 kg Weight, Pounds : 239 lb Body Surface Area (BSA) : 2.39 m2 Body Mass Index : 29.2 kg/m2 (HI) [place] Body Weight : 86 kg MARILYN SAWANT RN - 01/04/2020 6:42 EST Health Histories Smoking Status : Never (less than 100 in lifetime; none in last 30 days) Smokeless Tobacco Status : Never Implant/Device Type, [employer] and Model : metal rods back MARILYN [...] MARILYN SAWANT RN - 01/04/2020 6:42 EST [place] Suicide Severity Rating Scale (C-SSRS) CSSRS Past [...] Obtained From : Patient Primary Language : Mohawk Communication Barrier : None Pipe Stem Repairer Needed : No MARILYN SAWANT RN - [...] Scale Risk Level : 25-45 Medium Risk [place] Fall Interventions : Adequate lighting, Bed in [...]
--- OUTSIDE RECORDS SUMMARY | 2024-11-24 10:10 | XMS_ITS | Encounter Summary ---
Author Organization [facility] ([place], [place], [place], [place]) Address [address] [place] [address] Care Team Providers Care Glass Frame Fitter Name Role Phone Unavailable Primary Care Provider Unavailabl e Encounter Details Date Type Department Care Team (Late st Contact Info) Description 02/28/2018 Transcribed Document [facility] Family Medicine [address] [place] [address] ProviderDina MD [address] [place] [address] Social History Tobacco Use Types [...] - Dina ProviderMD - 02/28/2018 12:07 PM CEO & BOARD DIRECTOR [place] [id number] Patient Copy Patient Information: Name: AD MARTINEZ Current Date: 02/28/2018 12:07:31 : 1965 Patient Address: [address] [address] Patient Attending Physician: MIKY MANCILLA MD-[facility] Primary Care Provider: HILARIO MONZON MD Primary Care Provider Discharge Diagnosis: Comment: Follow-up Instructions: With: Address: When: MIKY MANCILLA [address] [facility], [address] [place] [phone] Business (1) Within As needed Discharge Instructions: [...] any): Final Medication List: Other Medications acetaminophen-hydrocodone ([place] 10 mg-325 mg oral tablet) 1 Tablet(s) [...] by your health care provider. ??? Take [id number] and prescription medicines only as told by [...] Assistance with quitting is available by contacting 4-146-OZVU-NOW. This is a free resource providing counseling, [...] Be sure to sign up for the [employer] patient portal, which gives you 06/09 access to your medical information ??? including these discharge instructions ??? using your computer, smartphone, or tablet. Just go to [email or web address] to get started. Questions? Call . [facility] would like to thank you for allowing us to assist you with your healthcare needs. KING Fletcher TROY LEE, (or dermatology sales representative) have received the above patient education materials/instructions and have verbalized understanding: Patient Signature _ Date/Time Patient Kennel Supervisor Signature (if needed) Date/Time Clinician/Hospital Kennel Supervisor Signature (if needed) Date/Time documented in this encounter Plan of Treatment Not on file documented as of this encounter Visit Diagnoses Not on filedocumented in this encounter
--- OUTSIDE RECORDS SUMMARY | 2024-11-24 10:10 | XMS_ITS | Clinical Summary ---
Author Organization [facility] (Formerly [facility]) Address [address] [place] [address] Phone Care Team Providers Care Director Hr Communications Name Role Phone Hector HAYNES, [phone] Conditions or Problems Problem Name Problem Code Onset Date Status Entry Date Provider Comment Standard Description Annotate ARTHRODESIS STATUS 409011915 (SNOMED CT) 08/09 Active 08/09 Becki Molina H/O: arthrodesis LUMBOSACRAL RADICULOPATHY 5229274 (SNOMED CT) 07/25 Active 07/28 Chettiar Lumbosacral [...] encounter FIXATION HARDWARE IN BACK AND NECK 933482939 (SNOMED CT) 05/23 Active 05/23 Krystal Cartwright MA 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 261862073 (SNOMED CT) 03/11 Active 03/11 Krystal Cartwright MA Lumbar post-laminecto my syndrome SACROILIAC JOINT DYSFUNCTION 899838303 (SNOMED CT) 03/11 Active 03/11 Krystal Cartwright MA Sacroiliac disorder OVERWEIGHT 911574186 (SNOMED CT) 09/13 Resolved 09/13 Krystal Cartwright MA Overweight OVERWEIGHT 139266765 (SNOMED CT) 03/11 Active 03/11 Adina Dowd Overweight LUMBAR RADICULOPATHY, L1-L5 M54.16 (ICD-10-CM ) 04/04 Active 04/04 Sun [place] MA Radiculopathy, lumbar region LUMBAR RADICULOPATHY 083684905 (SNOMED CT) 03/01 Active 03/01 Sun Christopher STANFORD Lumbar radiculopathy LOW BACK PAIN 347259509 (SNOMED CT) 09/13 Active 09/13 Goran Patricio MD Low back pain LUMBAR SPONDYLOSIS, L1-L5 M47.816 (ICD-10-CM ) 09/13 Active 09/13 Goran Patricio MD Spondylosis without myelopathy or radiculopathy, lumbar region CHRONIC PAIN SYNDROME (LBP) 612910917 (SNOMED CT) 09/13 Active 09/13 Goran Patricio MD Chronic pain syndrome OVERWEIGHT 168008203 (SNOMED CT) 09/13 Removed 09/13 Goran Patricio MD Overweight Medications Medication Instructions Start Date Stop Date Generic Name NDC Provider DICLOFENAC SODIUM 75 MG TBEC 1 po BID DICLOFENAC SODIUM 01692379148 Manjinder Smith MD TIZANIDINE 4MG 1 po q6h prn muscle spasm TIZANIDINE 4MG Meredith Vanessa NORCO 10-325 MG ORAL TABLET Non-[place] HYDROCODONE-ACETAMIN OPHEN 09932080543 Meredith Mendez MEDROL 4 MG TBPK take as directed METHYLPREDNISOLONE 90447760031 Manjinder Smith MD HYDROCODONE-AC ETAMINOPHEN 10-325 MG TABS Non-[place] HYDROCODONE-ACETAMIN OPHEN 32065826512 Adelaidemedardo Cantuuitjesusita COYNE MEDROL 4 MG TABS 1 tab daily METHYLPREDNISOLONE 68256150548 Adelaide Peralta MA NORCO 10-325 MG ORAL TABLET 1 po q 4-6 prn pain HYDROCODONE-ACETAMIN OPHEN 04581023548 Adelaide Peralta MA MEDROL 4 MG TBPK take as directed METHYLPREDNISOLONE 75177726230 Adelaide Peralta MA NORCO 5-325 MG ORAL TABLET Take 1 tab q 4-6 hrs prn pain HYDROCODONE-ACETAMIN OPHEN 23087689402 Adelaide Peralta MA PERCOCET 5-325 MG TABS 1-2 tabs po q 4-6 h prn OXYCODONE-ACETAMINOP HEN 89655074416 Adelaide Peralta MA LOVENOX 30 MG/0.3ML SUBCUTANEOUS SOLUTION Inject SQ bid ENOXAPARIN SODIUM 81641453089 Adelaide Peralta MA HEPARIN 5000U 5000U SQ BID for 2 weeks HEPARIN 5000U Adelaide Peralta MA PERCOCET 5-325 MG TABS ONE TABLET PO Q 4-6 HOURS PRN PAIN OXYCODONE-ACETAMINOP HEN 31243835222 Adelaide Peralta MA HYDROCODONE-AC ETAMINOPHEN TABS Non-[place] HYDROCODONE-ACETAMIN OPHEN TABS 67850391658 Adelaide Peralta MA MEDROL 4 MG TABS 1 tab daily METHYLPREDNISOLONE 62305617297 Manjinder Smith MD NORCO 10-325 MG ORAL TABLET 1 po q 4-6 prn pain HYDROCODONE-ACETAMIN OPHEN 28409026710 aMnjinder Smith MD NORCO 10-325 MG ORAL TABLET 1 po q 4-6 prn pain 08/22 HYDROCODONE-ACETAMIN OPHEN 41764903252 Sarita Singleton OPERATIONS OFFICER TRUST DEPARTMENT NORCO 10-325 MG ORAL TABLET 1 po q 4-6 prn pain 08/12 HYDROCODONE-ACETAMIN OPHEN 36724372956 Manjinder Smith MD NORCO 5-325 MG ORAL TABLET Take 1 tab q 4-6 hrs prn pain HYDROCODONE-ACETAMIN OPHEN 29339588211 Manjinder Smith MD MEDROL 4 MG TBPK take as directed METHYLPREDNISOLONE 57991811016 Manjinder Smith MD NORCO 5-325 MG ORAL TABLET Take 1-2 tab q 4-6 hrs prn pain 08/09 HYDROCODONE-ACETAMIN OPHEN 07814655697 Manjinder Smith MD PERCOCET 5-325 MG TABS 1-2 tabs po q 4-6 h prn 06/05 OXYCODONE-ACETAMINOP HEN 49383297398 Manjinder Smith MD LOVENOX 30 MG/0.3ML SUBCUTANEOUS SOLUTION Inject SQ bid ENOXAPARIN SODIUM 59260154325 Manjinder Smith MD HEPARIN 5000U 5000U SQ BID for 2 weeks HEPARIN 5000U Manjinder Smith MD PERCOCET 5-325 MG TABS ONE TABLET PO Q 4-6 HOURS PRN PAIN 06/05 OXYCODONE-ACETAMINOP HEN 12169258128 Manjinder Smith MD TIZANIDINE 4MG 1 po q6h prn muscle spasm 03/22 TIZANIDINE 4MG Manjinder Smith MD DICLOFENAC SODIUM [facility] 03/11 DICLOFENAC SODIUM TBEC 76424817265 Adina Dowd DICLOFENAC SODIUM TBEC [facility] 03/11 DICLOFENAC SODIUM TBEC 66788104586 Goran Patricio MD HYDROCODONE-AC ETAMINOPHEN TABS -[place] HYDROCODONE-ACETAMIN OPHEN TABS 14788192886 Goran Patricio MD Medications Administered No information available. Allergies, Adverse Reactions, Alerts Allergy Name Reaction Description Start Date Severity Statu s Provider [facility] Critical Goran cruz MD Results [...] Procedures Code Procedure Name Date Entry Date [facility]-[id number] Flu Shot Declined 9 SCT-[id number] Flu Shot Declined 6 22243 EMG w/ NCS, Complete, 1 Extremity CPT-001 28 1866/01/18 56608 Nerve Conduction Study (3-4 studies) CPT- 95368 55782 X-Ray Sacroiliac joint, 2 views 6 [id number] [place] [address] X-Ray Lumbar AP-Lat and Flex/Extension 20 01/01/16 [...]
--- OUTSIDE RECORDS SUMMARY | 2024-11-24 10:10 | XMS_ITS | Encounter Summary ---
Author Organization [employer] ([place], [place], [place], [place]) Address [address] [place] [address] Care Team Providers Care Air Crew Officer Name Role Phone Unavailable Primary Care Provider Unavailabl e Encounter Details Date Type Department Care Team (Late st Contact Info) Description 01/04/2020 Transcribed Document [facility] [place] Family Medicine [address] [place] [address] ProviderDina MD [address] [place] [address] Social History Tobacco Use Types [...] - Historical ProviderMD - 01/04/2020 4:55 PM FLUE LINING DIPPER Initial Discharge Planning Entered On: 01/04/2020 16:58 [...]
--- OUTSIDE RECORDS SUMMARY | 2024-11-24 10:10 | XMS_ITS | Encounter Summary ---
Author Organization [employer] ([place], [place], [place], [place]) Address [address] [place] [address] Care Team Providers Care Fast Food Cashier Name Role Phone Unavailable Primary Care Provider Unavailabl e Encounter Details Date Type Department Care Team (Late st Contact Info) Description 01/04/2020 Transcribed Document [facility] [place] [address] [place] [address] ProviderDina MD [address] [place] [address] Social History Tobacco Use Types [...] - Dina ProviderMD - 01/04/2020 8:45 AM DISTILLERY MANAGER [facility] Main OR PACU Summary Primary Physician: MARIALUIAS VIRGEN MD-ORT Finalized Date/Time: 01/04/20 12:38:55 Pt. Name: AD MARTINEZ/Sex: 1965 Male Med Rec #: [id number] Physician: MARIALUISA VIRGEN MD-ORT Financial #: [id number] Pt. Type: I Room/Bed: [facility]/1 Admit/Disch: 01/04/20 05:33:00 - Institution: [facility] OR PACU Case Times Entry 1 In PACU I 01/04/20 10:11:00 Ready for PACU 01/04/20 10:41:00 Discharge Discharge from PACU 01/04/20 12:38:00 I Last Modified By: BASHIR Alston 01/04/20 12:38:37 [facility] Main OR PACU Case Times Audit 01/04/20 12:38:37 Software Development Analyst: VAN Modifier: [email or web address] <+> 1 Discharge from PACU I 01/04/20 12:38:33 Software Development Analyst: VAN Modifier: [email or web address] <+> 1 Ready for PACU Discharge [facility] Main OR PACU Acuity Entry 1 Start Time 01/04/20 10:42:00 Stop Time 01/04/20 12:38:00 Acuity Level [facility] PACU Acuity I Last Modified By: BASHIR Alston 01/04/20 12:38:49 Finalized By: BASHIR Alston Document Signatures Signed By: BASHIR Alston 01/04/20 12:38 Electronically signed by Jermaine Stahl Conversion Automation And Controls Supervisor Cerner at 06/01/2022 11:16 PM CDT documented in this encounter Plan of Treatment Not on file documented as of this encounter Visit Diagnoses Not on filedocumented in this encounter
--- OUTSIDE RECORDS SUMMARY | 2024-11-24 10:10 | XMS_ITS | Encounter Summary ---
Author Organization [employer] ([place], [place], [place], [place]) Address [address] [place] [address] Care Team Providers Care Template Clerk Name Role Phone Unavailable Primary Care Provider Unavailabl e Encounter Details Date Type Department Care Team (Late st Contact Info) Description 01/04/2020 Transcribed Document [facility] [place] [address] [place] [address] ProviderDina MD [address] [place] [address] Social History Tobacco Use Types [...] - Historical ProviderMD - 01/04/2020 12:55 PM SENIOR TECHNICAL SPECIALIST Evaluation, Physical Therapy Entered On: 01/04/2020 14:41 [...] Prior LOF Transfer : [facility]/04/2020 14:27 EST Upper Extremity Upper Extremity Dominance : Right Right UE Active ROM : WFL Right UE Strength : WFL Left UE Active ROM : WFL Left UE Strength : WFL Right UE Strength : WFL Left UE Strength : WFL [facility] - 01/04/2020 14:27 EST Lower [...] skilled [facility] Romi Garcias Student-Physical Therapist - 01/04/2020 14:27 [...] 01/04/2020 14:27 EST Electronically signed by [facility] Conversion Senior Stock Plan Administrator Cerner at 06/01/2022 11:08 PM CDT documented in this encounter Plan of Treatment Not on file documented as of this encounter Visit Diagnoses Not on filedocumented in this encounter
--- OUTSIDE RECORDS SUMMARY | 2024-11-24 10:10 | XMS_ITS | Encounter Summary ---
Author Organization [employer] ([place], [place], [place], [place]) Address [address] [place] [address] Care Team Providers Care Assistant Administrator Name Role Phone Unavailable Primary Care Provider Unavailabl e Encounter Details Date Type Department Care Team (Late st Contact Info) Description 02/28/[address] [facility] [place] Family Medicine [address] [place] [address] ProviderDina MD [address] [place] [address] Social History Tobacco Use Types [...] - Historical ProviderMD - 02/28/2018 8:38 AM SALON/SPA MANAGER Vital Measurements Entered On: 02/28/2018 8:39 EST [...]
--- OUTSIDE RECORDS SUMMARY | 2024-11-24 10:10 | XMS_ITS | Encounter Summary ---
Author Organization [employer] ([place], [place], [place], [place]) Address [address] [place] [address] Care Team Providers Care Media Technician Name Role Phone Unavailable Primary Care Provider Unavailabl e Encounter Details Date Type Department Care Team (Late st Contact Info) Description 01/04/2020 Transcribed Document [facility] [place] Family Medicine [address] [place] [address] ProviderDina MD [address] [place] [address] Social History Tobacco Use Types [...] - Historical ProviderMD - 01/04/2020 5:30 AM TECHNOLOGY RESOURCE TEACHER Admission History, Adult Entered On: 01/04/2020 13:38 [...] Obtained From : Patient Primary Language : Bulgarian Communication Barrier : None Spray Rig Operator Needed : No Ro Shoemaker Rn [...] Scale Risk Level : 25-[address] Interventions : Adequate lighting, Assistive devices [...] Smokeless Tobacco Status : Never Implant/Device Type, Residential Caregiver and Model : metal rods back Ro [...] Source : Stated Height Entry Format : [place] Height, Feet : 6 ft(Converted to: 183 cm, 72 Inch) Height, Inches : 4 Inch(Converted to: 0 ft 4 Inch, 10.16 cm) Clinical Height : 193.04 cm Weight Source : Standing scale Weight Entry Format : [place] Clinical Dosing Weight : 108.64 kg Weight, Pounds : 239 lb Body Surface Area (BSA) : 2.39 m2 Body Mass Index : 29.2 kg/m2 (HI) [place] Body Weight : 86 kg Ro Shoemaker [...] Ro Shoemaker Rn - 01/04/2020 13:19 EST [place] Suicide Severity Rating Scale (C-SSRS) CSSRS Past [...] - 01/04/2020 13:19 EST Electronically signed by [facility] Conversion Sulky Driver Cerner at 06/01/2022 11:17 PM CDT documented in this encounter Plan of Treatment Not on file documented as of this encounter Visit Diagnoses Not on filedocumented in this encounter
--- OUTSIDE RECORDS SUMMARY | 2024-11-24 10:10 | XMS_ITS | Encounter Summary ---
Author Organization [employer] ([place], [place], [place], [place]) Address [address] [place] [address] Care Team Providers Care Costume Design Teacher Name Role Phone Unavailable Primary Care Provider Unavailabl e Encounter Details Date Type Department Care Team (Late st Contact Info) Description 01/04/2020 Transcribed Document [facility] [place] [address] [place] [address] ProviderDina MD [address] [place] [address] Social History Tobacco Use Types [...] - Historical ProviderMD - 01/04/2020 6:37 PM FRUIT OR NUT FARMWORKER Nursing Discharge Summary Entered On: 01/04/2020 18:39 [...] 01/04/2020 18:37 EST Electronically signed by Interface, [facility] Conversion Nurses Director Cerner at 06/01/2022 11:08 PM CDT documented in this encounter Plan of Treatment Not on file documented as of this encounter Visit Diagnoses Not on filedocumented in this encounter
--- OUTSIDE RECORDS SUMMARY | 2024-11-24 10:10 | XMS_ITS | Encounter Summary ---
Author Organization Healthcare Address [address] [place] [address] Care Team Providers Care Theatrical Trouper Name Role Phone Seven Diop MD Primary Care Provider [phone] Jeromy Perez MD Primary Care Provider [phone] Encounter Details Date Type Department Care Team (Late st Contact Info) Description 06/09/2020 Orders Only External Location [address] [place] [address] [employer] Social History Tobacco Use Types [...] on filedocumented in this encounter Care Teams Theatrical Trouper Relationship Specialty Start Date End Date Seven Diop MD [address] [place] [address] PCP - General 5/14/21 1/19/23 Jeromy Perez MD [address] [place] [address] PCP - General 03/05/22 documented as of this encounter
--- OUTSIDE RECORDS SUMMARY | 2024-11-24 10:10 | XMS_ITS | Encounter Summary ---
Author Organization [employer] ([place], [place], [place], [place]) Address [address] [place] [address] Care Team Providers Care Bead Filler Name Role Phone Unavailable Primary Care Provider Unavailabl e Encounter Details Date Type Department Care Team (Late st Contact Info) Description 01/04/2020 Transcribed Document [facility] [place] Family Medicine [address] [place] [address] ProviderDina MD [address] [place] [address] Social History Tobacco Use Types [...] - Dina ProviderMD - 01/04/2020 8:45 AM LAYBOY TENDER [facility] Main OR IntraOp Summary Primary Physician: MARIALUISA VIRGEN MD-ORT Finalized Date/Time: 01/04/20 10:09:44 Pt. Name: CHEN MARTINEZStephen Roberts/Sex: 1965 Male Med Rec #: [id number] Physician: MARIALUISA VIRGEN MD-ORT Financial #: [id number] Pt. Type: I Room/Bed: [facility]/ Admit/Disch: 01/04/20 05:33:00 - Institution: [facility] IntraOp Case Attendance Entry 1 Entry 2 Entry 3 Case Attendee MARIALUISA VIRGEN MD-ORT RENFROE, REBECCA, SNELLING, LAUREL, PA-C SENIOR RESTAURANT MANAGER-ANS Role Performed Surgeon/Proceduralist, SENIOR RESTAURANT MANAGER/Nurse Yarn Preparation Supervisor Physician administrative assistant front desk First Time In 01/04/20 08:07:00 01/04/20 08:07:00 [...] Faiza Asher, Lacey Cartagena, OTHER, ATTENDEE #1 Grain And Yeast Plants Supervisor Role Performed Grades 1 Thru 6 Visiting Teacher, First Electric Well Logging Operator Other Time In 01/04/20 08:07:00 01/04/20 08:07:00 [...] Case Attendee OTHER, ATTENDEE #2 Nettie Ramirez, Wildlife Technician Role Performed Vendor Scrub, First Time In 01/04/20 08:07:00 01/04/20 08:07:00 Time Out 01/04/20 10:09:00 01/04/20 10:09:00 Procedure Lumbar Fusion Lumbar Fusion Posterior(Left) Posterior(Left) Other Attendee pearl appiah Superficial Wound Closed By: Last Modified By: Faiza Asher RN Kiebler, Rachael A, MERCED 01/04/20 08:48:15 01/04/20 10:09:35 [facility] IntraOp Case Attendance Audit 01/04/20 10:09:35 Major Case Detective: [id number] Modifier: [id number] <+> Time Out 1 <*> Procedure [...] <*> Procedure Lumbar Fusion Posterior(Left) 01/04/20 08:51:25 Major Case Detective: [id number] Modifier: [id number] <+> 1 Procedure 2 <*> Procedure Lumbar Fusion Posterior(Left) 3 <*> Procedure Lumbar Fusion Posterior(Left) 4 <*> Procedure Lumbar Fusion Posterior(Left) 5 <*> Procedure Lumbar Fusion Posterior(Left) 6 <*> Procedure Lumbar Fusion Posterior(Left) 7 <*> Procedure Lumbar Fusion Posterior(Left) 8 <+> Time In 8 <*> Procedure Lumbar Fusion Posterior(Left) 01/04/20 08:49:43 Major Case Detective: [id number] Modifier: [id number] <+> 1 Time In 2 <+> Time [...] [facility] IntraOp Case Times Audit 01/04/20 10:09:33 Major Case Detective: [id number] Modifier: [id number] <+> 1 Out Room Time 01/04/20 10:09:24 Major Case Detective: [id number] Modifier: [id number] <+> 1 Stop Time 01/04/20 10:08:26 Major Case Detective: [id number] Modifier: [id number] <+> 1 Stop Time [facility] IntraOp Communication Entry 1 Communication To Family/Significant other Comment start Communication By Faiza Asher RN Last Modified By: Faiza Asher RN 01/04/20 08:49:17 [facility] IntraOp Counts Verification Entry 1 Procedure Lumbar Fusion Posterior(Left) Count Info Count Type Sponge, Sharps, Miscellaneous Counts Verification Baseline/pre-procedure Sequence Counts Performed By Count Performed By Lacey Ferrera, (Scrub) Grain And Yeast Plants Supervisor Count Performed By Faiza Asher RN (RN) Last Modified By: Faiza Asher RN 01/04/20 08:49:58 [facility] IntraOp Counts Final Entry 1 Procedure Lumbar Fusion Posterior(Left) Final Count Info Count Type Sponge, Sharps, Miscellaneous Counts Verification Skin Closure/end of Sequence procedure Count Results Correct, surgeon notified Counts Performed By Count Performed By Nettie Ramirez, (Scrub) Wildlife Technician Count Performed By Faiza Asher RN (RN) [...] RN 01/04/20 08:51:33 [facility] IntraOp General Case Inventory Associate 1 Case Information OR OR 01 [facility] Case Level 1 Room [...] BONE MIS BRIANNA PLY SCRW SET Identification -[id number] [facility]-[id number] Description Implant Quantity 1 1 2 Implant Site L5-S1 L5-S1 L5-S1 Implant Identification Model Number Implant Identification Serial Number Implant [id number] Identification Lot Number Implant Identification Owner Oral Surgeon Name: Implant Identification Catalog Number Implant Size Implant Has an Yes Yes No Expiration Date Implant Expiration 12/13/20 03/16/20 Date Wasted Radioactive Material Time Implanted Tissue Implant Continue for Tissue Implant Documentation Tissue Identification Number Graft Prep Per Yes Yes Owner Oral Surgeon Instructions: Tissue Preparation Thawed N/A Method: Reconstitution Solution: Reconstitution Solution Lot Number Reconstitution Solution Expiration Date: Thawing Solution NS Thawing Solution [id number] Lot Number Thawing Solution 04/14/22 Expiration Date Preparation Materials, Other Preparation Materials, Other Lot Number Preparation Materials, Other Expiration Date Tissue Antrobus, Nettie, Antrobus, Nettie, Prepared/Processed Wildlife Technician Wildlife Technician By Owner Oral Surgeon Yes Yes Paperwork Completed Implant Type Comment Last Modified By: Faiza Asher RN Kiebler, Rachael A, RN Kiebler, Rachael A, RN 01/04/20 10:00:58 01/04/20 10:00:58 01/04/20 10:00:58 Entry 4 Entry 5 Type Implant (Synthetic) Implant (Synthetic) Implant Log Implant Type Hardware Hardware Tissue Implant Type Implant SCREW VPR POLY EMELY SPINE VIPER Identification [id number] Description Implant Quantity 2 1 Implant Site L5-S1 L5-S1 Implant Identification Model Number Implant Identification Serial Number Implant Identification Lot Number Implant Identification Owner Oral Surgeon Name: Implant Identification Catalog Number Implant Size Implant Has an No No Expiration Date Implant Expiration Date Wasted Radioactive Material Time Implanted Tissue Implant Continue for Tissue Implant Documentation Tissue Identification Number Graft Prep Per Owner Oral Surgeon Instructions: Tissue Preparation Method: Reconstitution Solution: Reconstitution Solution Lot Number Reconstitution Solution Expiration Date: Thawing Solution Thawing Solution Lot Number Thawing Solution Expiration Date Preparation Materials, Other Preparation Materials, Other Lot Number Preparation Materials, Other Expiration Date Tissue Prepared/Processed By Owner Oral Surgeon Paperwork Completed Implant Type Comment Last Modified By: Faiza Asher RN Kiebler, Rachael A, RN 01/04/20 10:00:58 01/04/20 10:00:58 [facility] IntraOp Implant Log Audit 01/04/20 10:00:58 Major Case Detective: [id number] Modifier: [id number] <*> Implant Identification Description BONE VIVIGEN FORMABLE [id number] <*> Implant Identification Lot Number [id number] 1 <*> Implant Expiration Date 12/13/20 1 <*> Implant Site L5-S1 1 <*> Implant Quantity 1 1 <*> Implant Type Other 1 <*> Tissue Implant Type Bone 1 <*> Graft Prep Per Owner Oral Surgeon Yes Instructions: 1 <*> Tissue Preparation Method: Thawed 1 <*> Thawing Solution NS 1 <*> Thawing Solution Lot Number [id number] 1 <*> Thawing Solution Expiration Date 04/14/22 1 <*> Tissue Prepared/Processed By Nettie Ramirez, Wildlife Technician 1 <*> Owner Oral Surgeon Paperwork Completed Yes 1 <*> Implant Has an Expiration Date Yes 1 <*> Type Tissue Implant (Biologic) 2 <*> Implant Identification Description INFUSION SET BONE [id number] <*> Implant Identification Lot Number [id number] 2 <*> Implant Expiration Date 03/16/20 2 <*> Implant Site L5-S1 2 <*> Implant Quantity 1 2 <*> Tissue Implant Type Bone 2 <*> Graft Prep Per Owner Oral Surgeon Yes Instructions: 2 <*> Tissue Preparation Method: N/A 2 <*> Tissue Prepared/Processed By Nettie Ramirez, Wildlife Technician 2 <*> Owner Oral Surgeon Paperwork Completed Yes 2 <*> Implant Has [...] [facility] IntraOp Surgical Procedures Audit 01/04/20 10:08:30 Major Case Detective: [id number] Modifier: [id number] <+> 1 Stop [facility] IntraOp Temp Regulation Devices Entry 1 Temp Regulation Temperature Forced Air Warming Regulation Device device Temperature Upper body Regulation Site Temperature ALLISON, CL[place], Regulation Device SENIOR RESTAURANT MANAGER-ANS Applied by Last Modified By: Faiza Asher [...] Fluoroscopy Fluoroscopy Type C-Arm Site OPERATIVE SITE Tax Manager Cpa Name Lacey Ferrera, Grain And Yeast Plants Supervisor Protective Devices Yes Used Last Modified By: Faiza Asher RN 01/04/20 08:55:26 Case Comments <None> Finalized By: Faiza Asher RN Document Signatures Signed By: Faiza Asher RN 01/04/20 10:09 Electronically signed by Jermaine Stahl Conversion Aluminum Molding Machine Operator Cerner at 06/01/2022 11:11 PM CDT documented in this encounter Plan of Treatment Not on file documented as of this encounter Visit Diagnoses Not on filedocumented in this encounter
--- OUTSIDE RECORDS SUMMARY | 2024-11-24 10:10 | XMS_ITS | Clinical Summary ---
Author Organization [facility] Address [address] [place] [address] Care Team Providers Care Long Haul Truck Driver Name Role Phone Jeromy Perez MD Primary Care Provider [phone] Allergies Active Allergy Reactions Criticality Noted Date [...] ANNUAL PHYSICAL 12/10/2020 HEPATITIS C SCREENING 12/10/2020 LIPID PANEL 12/31/2023 12/30/2022, 12/30/2022 INFLUENZA VACCINE 09/14/2024 Insurance [facility] PPO Care Teams Long Haul Truck Driver Relationship Specialty Start Date End Date Jeromy Perez MD [address] [facility] [address] [place] [address] PCP - General Internal Medicine 12/11/20
--- OUTSIDE RECORDS SUMMARY | 2024-11-24 10:10 | XMS_ITS ---
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 Role Phone HILARIO MONZON MD Primary Care Provider [phone] Lars HAYNES, Cisco White Unavailable Reason for Referral Date Encounter Description Provider Reason for Referral 10/12/21 Follow Up Cisco Virgen MD Referral To Physician 06/01/21 Follow Up Cisco Virgen MD Referral To Physician 03/02/21 Follow Up Cisco Virgen MD Referral To Physician 12/01/20 Follow Up Cisco Virgen MD Referral To Physician 08/25/20 Follow Up Cisco Virgen MD Referral To Physician - for elevated blood pressure and weight 08/19/20 Follow Up Cisco Virgen MD Referral To Physician - for elevated blood pressure and weight ~ 07/30/20 Follow Up Cisco Virgen MD Referral To Physician - for elevated blood pressure and weight ~ 06/16/20 Follow Up Cisco Virgen MD Referral To Physician - to see pcp for bp ~ 06/02/20 Follow Up Cisco Virgen MD Referral To Physician - to see pcp for bp ~ 04/03/20 Post Op Cisco Virgen MD Referral To Physician - to see pcp for bp ~ 02/25/20 Post Op Cisco Virgen MD Referral To Physician 01/14/20 Post Op Cisco Virgen MD Referral To Physician 12/10/19 Follow Up Cisco Virgen MD Referral To Physician 10/29/19 Follow Up Cisco Virgen MD Referral To Physician 10/08/19 Follow Up Cisco Virgen MD Referral To Physician Problems Includes: Active, inactive, and resolved Problems All Visits Onset Date Resolved Date Provider Condition S tatus Sacroiliitis 05/22/2018 Cisco Virgen MD Acti ve Last Documented On 9 7:55PM ; [facility] Lower Back Pain 10/07/2016 Cisco Virgen MD A ctive Last Documented On 7 1:13PM ; [facility] Plan of Treatment Pending Tests Order Diagnosis Results Due Ordering P rovider Lab Orders - HL Pre-Op PTT 06/05/18 Bebo Virgen MD Last Documented On 9 7:53PM ; [facility] Lab Orders - HL Pre-Op PT INR 06/05/18 Bebo Virgen MD Last Documented On 9 7:53PM ; [facility] Lab Orders - HL Pre-Op CMP 06/05/18 Bebo Virgen MD Last Documented On 9 7:53PM ; [facility], [facility] Lab Orders - HL Pre-Op Clean Catch UA 06/05/18 Cisco Virgen MD Last Documented On 9 7:53PM ; [facility] Lab Orders - HL Pre-Op CBC with DIFF 06/05/18 Cisco Virgen MD Last Documented On 9 7:53PM ; [facility] Radiology - MRI MRI Lumbar Spine 06/16/20 Herbie Virgen MD Last Documented On 1 10:37AM ; [facility] Radiology - CT Scan Lumbar 06/16/20 Cisco Virgen MD Last Documented On 1 10:37AM ; [facility] Radiology - CT Scan Lumbar 08/17/21 Cisco Virgen MD Last Documented On 2 2:48PM ; [facility] Instructions to patient Lose weight Last Documented On 2 9:57AM ; [facility] No intervention and counseli ng on cessation of tobacco use Last Documented On 2 9:49AM ; [facility] Lose weight Last Documented On 2 9:49AM ; [facility] No intervention and counseli ng on cessation of tobacco use Last Documented On 2 1:29PM ; [facility] Lose weight Last Documented On 2 1:29PM ; [facility] No intervention and counseli ng on cessation of tobacco use Last Documented On 2 12:51PM ; [facility] Lose weight Last Documented On 2 1:19PM ; [facility] No intervention and counseli ng on cessation of tobacco use Last Documented On 2 12:37PM ; [facility] Lose weight Last Documented On 2 12:37PM ; [facility] No intervention and counseli ng on cessation of tobacco use Last Documented On 1 1:53PM ; [facility] Lose weight Last Documented On 1 1:53PM ; [facility] No intervention and counseli ng on cessation of tobacco use Last Documented On 1 10:27AM ; [facility] Lose weight Last Documented On 1 10:27AM ; [facility] No intervention and counseli ng on cessation of tobacco use Last Documented On 1 8:26AM ; [facility] Lose weight Last Documented On 1 8:39AM ; [facility] No intervention and counseli ng on cessation of tobacco use Last Documented On 1 1:41PM ; [facility] No intervention and counseli ng on cessation of tobacco use Last Documented On 1 10:14AM ; [facility] Lose weight Last Documented On 1 10:14AM ; [facility] No intervention and counseli ng on cessation of tobacco use Last Documented On 1 10:39AM ; [facility] Lose weight Last Documented On 1 10:39AM ; [facility] No intervention and counseli ng on cessation of tobacco use Last Documented On 1 9:04AM ; [facility] Lose weight Last Documented On 1 9:04AM ; [facility] No intervention and counseli ng on cessation of tobacco use Last Documented On 1 10:13AM ; [facility] Lose weight Last Documented On 1 10:17AM ; [facility] No intervention and counseli ng on cessation of tobacco use Last Documented On 1 10:25AM ; [facility] No intervention and counseli ng on cessation of tobacco use Last Documented On 0 1:43PM ; [facility] No intervention and counseli ng on cessation of tobacco use Last Documented On 0 9:42AM ; [facility] No intervention and counseli ng on cessation of tobacco use Last Documented On 0 2:17PM ; [facility] No intervention and counseli ng on cessation of tobacco use Last Documented On 0 10:50AM ; [facility] No intervention and counseli ng on cessation of tobacco use Last Documented On 0 9:37AM ; [facility] No intervention and counseli ng on cessation of tobacco use Last Documented On 0 8:26AM ; [facility] No intervention and counseli ng on cessation of tobacco use Last Documented On 9 8:12PM ; [facility] No intervention and counseli ng on cessation of tobacco use Last Documented On 9 8:39AM ; [facility] No intervention and counseli ng on cessation of tobacco use Last Documented On 9 10:46AM ; [facility] No intervention and counseli ng on cessation of tobacco use Last Documented On 9 9:50AM ; [facility] No intervention and counseli ng on cessation of tobacco use Last Documented On 9 10:37AM ; [facility] No intervention and counseli ng on cessation of tobacco use Last Documented On 9 10:33AM ; [facility] No intervention and counseli ng on cessation of tobacco use Last Documented On 9 10:38AM ; [facility] No intervention and counseli ng on cessation of tobacco use Last Documented On 9 7:55PM ; [facility] No intervention and counseli ng on cessation of tobacco use Last Documented On 9 10:16AM ; [facility] No intervention and counseli ng on cessation of tobacco use Last Documented On 9 8:27AM ; [facility] Education and Decision Aids were provided during visit for: No health seminar on smoking cessation Last Documented On 1 10:14AM ; [facility] No health seminar on smoking cessation Last Documented On 1 10:39AM ; [facility] No health seminar on smoking cessation Last Documented On 1 9:04AM ; [facility] No health seminar on smoking cessation Last Documented On 1 10:13AM ; [facility] No health seminar on smoking cessation Last Documented On 1 10:25AM ; [facility] No health seminar on smoking cessation Last Documented On 0 1:43PM ; [facility] No health seminar on smoking cessation Last Documented On 0 9:42AM ; [facility] No health seminar on smoking cessation Last Documented On 0 2:17PM ; [facility] No health seminar on smoking cessation Last Documented On 0 10:50AM ; [facility] No health seminar on smoking cessation Last Documented On 0 9:37AM ; [facility] No health seminar on smoking cessation Last Documented On 0 8:26AM ; [facility] No health seminar on smoking cessation Last Documented On 9 8:12PM ; [facility] No health seminar on smoking cessation Last Documented On 9 8:39AM ; [facility] No health seminar on smoking cessation Last Documented On 9 10:46AM ; [facility] No health seminar on smoking cessation Last Documented On 9 9:50AM ; [facility] No health seminar on smoking cessation Last Documented On 9 10:37AM ; [facility] No health seminar on smoking cessation Last Documented On 9 10:33AM ; [facility] No health seminar on smoking cessation Last Documented On 9 10:38AM ; [facility] No health seminar on smoking cessation Last Documented On 9 7:55PM ; [facility] No health seminar on smoking cessation Last Documented On 9 10:16AM ; [facility] No health seminar on smoking cessation Last Documented On 9 8:27AM ; [facility] Assessments Includes: Assessments for all patient encounters No Assessments Recorded Instructions Includes: Instructions for all patient encounters Instructions to patient Lose weight Last Documented On 2 9:57AM ; [facility] No intervention and counseli ng on cessation of tobacco use Last Documented On 2 9:49AM ; [facility] Lose weight Last Documented On 2 9:49AM ; [facility] No intervention and counseli ng on cessation of tobacco use Last Documented On 2 1:29PM ; [facility] Lose weight Last Documented On 2 1:29PM ; [facility] No intervention and counseli ng on cessation of tobacco use Last Documented On 2 12:51PM ; [facility] Lose weight Last Documented On 2 1:19PM ; [facility] No intervention and counseli ng on cessation of tobacco use Last Documented On 2 12:37PM ; [facility] Lose weight Last Documented On 2 12:37PM ; [facility] No intervention and counseli ng on cessation of tobacco use Last Documented On 1 1:53PM ; [facility] Lose weight Last Documented On 1 1:53PM ; [facility] No intervention and counseli ng on cessation of tobacco use Last Documented On 1 10:27AM ; [facility] Lose weight Last Documented On 1 10:27AM ; [facility] No intervention and counseli ng on cessation of tobacco use Last Documented On 1 8:26AM ; [facility] Lose weight Last Documented On 1 8:39AM ; [facility] No intervention and counseli ng on cessation of tobacco use Last Documented On 1 1:41PM ; [facility] No intervention and counseli ng on cessation of tobacco use Last Documented On 1 10:14AM ; [facility] Lose weight Last Documented On 1 10:14AM ; [facility] No intervention and counseli ng on cessation of tobacco use Last Documented On 1 10:39AM ; [facility] Lose weight Last Documented On 1 10:39AM ; [facility] No intervention and counseli ng on cessation of tobacco use Last Documented On 1 9:04AM ; [facility] Lose weight Last Documented On 1 9:04AM ; [facility] No intervention and counseli ng on cessation of tobacco use Last Documented On 1 10:13AM ; [facility] Lose weight Last Documented On 1 10:17AM ; [facility] No intervention and counseli ng on cessation of tobacco use Last Documented On 1 10:25AM ; [facility] No intervention and counseli ng on cessation of tobacco use Last Documented On 0 1:43PM ; [facility] No intervention and counseli ng on cessation of tobacco use Last Documented On 0 9:42AM ; [facility] No intervention and counseli ng on cessation of tobacco use Last Documented On 0 2:17PM ; [facility] No intervention and counseli ng on cessation of tobacco use Last Documented On 0 10:50AM ; [facility] No intervention and counseli ng on cessation of tobacco use Last Documented On 0 9:37AM ; [facility] No intervention and counseli ng on cessation of tobacco use Last Documented On 0 8:26AM ; [facility] No intervention and counseli ng on cessation of tobacco use Last Documented On 9 8:12PM ; [facility] No intervention and counseli ng on cessation of tobacco use Last Documented On 9 8:39AM ; [facility] No intervention and counseli ng on cessation of tobacco use Last Documented On 9 10:46AM ; [facility] No intervention and counseli ng on cessation of tobacco use Last Documented On 9 9:50AM ; [facility] No intervention and counseli ng on cessation of tobacco use Last Documented On 9 10:37AM ; [facility] No intervention and counseli ng on cessation of tobacco use Last Documented On 9 10:33AM ; [facility] No intervention and counseli ng on cessation of tobacco use Last Documented On 9 10:38AM ; [facility] No intervention and counseli ng on cessation of tobacco use Last Documented On 9 7:55PM ; [facility] No intervention and counseli ng on cessation of tobacco use Last Documented On 9 10:16AM ; [facility] No intervention and counseli ng on cessation of tobacco use Last Documented On 9 8:27AM ; [facility] Education and Decision Aids were provided during visit for: No health seminar on smoking cessation Last Documented On 1 10:14AM ; [facility] No health seminar on smoking cessation Last Documented On 1 10:39AM ; [facility] No health seminar on smoking cessation Last Documented On 1 9:04AM ; [facility] No health seminar on smoking cessation Last Documented On 1 10:13AM ; [facility] No health seminar on smoking cessation Last Documented On 1 10:25AM ; [facility] No health seminar on smoking cessation Last Documented On 0 1:43PM ; [facility] No health seminar on smoking cessation Last Documented On 0 9:42AM ; [facility] No health seminar on smoking cessation Last Documented On 0 2:17PM ; [facility] No health seminar on smoking cessation Last Documented On 0 10:50AM ; [facility] No health seminar on smoking cessation Last Documented On 0 9:37AM ; [facility] No health seminar on smoking cessation Last Documented On 0 8:26AM ; [facility] No health seminar on smoking cessation Last Documented On 9 8:12PM ; [facility] No health seminar on smoking cessation Last Documented On 9 8:39AM ; [facility] No health seminar on smoking cessation Last Documented On 9 10:46AM ; [facility] No health seminar on smoking cessation Last Documented On 9 9:50AM ; [facility] No health seminar on smoking cessation Last Documented On 9 10:37AM ; [facility] No health seminar on smoking cessation Last Documented On 9 10:33AM ; [facility] No health seminar on smoking cessation Last Documented On 9 10:38AM ; [facility] No health seminar on smoking cessation Last Documented On 9 7:55PM ; [facility] No health seminar on smoking cessation Last Documented On 9 10:16AM ; [facility] No health seminar on smoking cessation Last Documented On 9 8:27AM ; [facility] Medical Equipment - Implanted Devices Includes: Current and historical Devices No Medical Equipment Recorded Medications Includes: Current and historical Medications Current Medications (continue as prescribed) methylPREDNISolone 4 MG Oral Tablet Therapy Pack 05/29/2021 Provider: HILARIO MONZON MD Diagnosis: Last Documented On 2 1:16PM By Trina Gallegos ; [facility] tiZANidine HCl 4 MG Oral Tablet 05/29/2021 Provider: HILARIO MONZON MD Diagnosis: Last Documented On 2 1:16PM By Trina Gallegos ; [facility] Testosterone Cypionate 200 M G/ML Intramuscular Solution 05/29/2021 Provider: HILARIO MONZON MD Diagnosis: Last Documented On 2 1:16PM By Trina Gallegos ; [facility] Tadalafil 10 MG Oral Tablet 05/29/2021 Provider: HILARIO MONZON MD Diagnosis: Last Documented On 2 1:16PM By Trina Gallegos ; [facility] Atorvastatin Calcium 20 MG Oral Tablet 05/29/2021 Pr ovider: HILARIO MONZON MD Diagnosis: Last Documented On 2 1:16PM By Trina Gallegos ; [facility] Diclofenac Sodium 75 MG Oral Tablet Delayed Release 05/29/2021 Provider: HILARIO MONZON MD Diagnosis: Last Documented On 2 1:16PM By Trina Gallegos ; [facility] Meclizine HCl 25 MG Oral Tablet 05/29/2021 Provider: HILARIO MONZON MD Diagnosis: Last Documented On 2 1:16PM By Trina Gallegos ; [facility] Ibuprofen 800 MG Oral Tablet 05/14/2021 Provider: HILARIO MONZON MD Diagnosis: Last Documented On 2 1:16PM By Trina Gallegos ; [facility] amLODIPine Besy-Benazepril H Cl 5-10 MG Oral Capsule 05/13/2021 Provider: ERIC MARTINEZ MD Diagnosis: Last Documented On 2 1:16PM By Trina Gallegos ; [facility] HYDROcodone-Acetaminophen 10 -325 MG Oral Tablet 05/09/2021 Provider: HILARIO MONZON MD Diagnosis: Last Documented On 2 1:16PM By Trina Gallegos ; [facility] Past Medications on file Meclizine HCl 25 MG Oral Tablet 05/06/2021 - Provider: HILARIO MONZON MD Diagnosis: Last Documented On 2 1:17PM By Trina Gallegos ; [facility] Lisinopril 10 MG Oral Tablet 11/07/2020 - 06/01/2021 P rovider: HILARIO MONZON MD Diagnosis: Last Documented On 2 1:17PM By Trina Gallegos ; [facility] HYDROcodone-Acetaminophen 10 -325 MG Oral Tablet 06/11/2020 - 06/01/2021 Provider: HILARIO MONZON MD Diagnosis: Last Documented On 2 1:17PM By Trina Gallegos ; [facility] LORazepam 0.5 MG Oral Tablet 06/05/2020 - 06/01/2021 P rovider: HILARIO MONZON MD Diagnosis: Last Documented On 2 1:17PM By Trina Gallegos ; [facility] QC Tumeric Complex 500 MG Oral Capsule 06/02/2020 - Provider: Diagnosis: Last Documented On 2 1:17PM By Trina Gallgeos ; [facility] Tadalafil 10 MG Oral Tablet 06/02/2020 - 06/12/2020 Pr ovider: HILARIO MONZON MD Diagnosis: Last Documented On 2 12:31PM By Dr. Virgen ; [facility] Tadalafil 10 MG Oral Tablet 06/02/2020 - 06/01/2021 Pr ovider: HILARIO MONZON MD Diagnosis: Last Documented On 2 1:17PM By Trina Gallegos ; [facility] Testosterone Cypionate 200 M G/ML Intramuscular Solution 06/02/2020 - 06/01/2021 Provider: HILARIO Sumner MD Diagnosis: Last Documented On 2 1:17PM By Trina Gallegos ; [facility] BD Luer-Michelle Syringe 18G X 1- 1/2 3 ML Miscellaneous 06/02/2020 - 06/01/2021 Provider: HILARIO Jacobsen Diagnosis: Last Documented On 2 1:17PM By Trina Gallegos ; [facility] oxyCODONE-Acetaminophen 7.5- 325 MG Oral Tablet 01/14/2020 - 01/24/2020 Provider: CISCO VIRGEN MD Diagnosis: Last Documented On 0 2:32PM By Dr. Virgen ; [facility] oxyCODONE-Acetaminophen 7.5- 325 MG OR TABS 01/14/2020 - 02/03/2020 Provider: Cisco Virgen MD Diagnosis: Last Documented On 0 2:35PM By Evelyn Ronquillo ; [facility] oxyCODONE-Acetaminophen 7.5- 325 MG Oral Tablet 01/04/2020 - 06/16/2020 Provider: CISCO VIRGEN MD Diagnosis: Last Documented On 1 10:59AM By Simin Gonzales ; [facility] Valium 5 MG Oral Tablet 01/03/2020 - 01/04/2020 Provid er: Cisco Virgen MD Diagnosis: take one pill by mouth 20 minuets before MRI Last Documented On 0 12:03PM By Richard Reyes ; [facility] Valium 5 MG Oral Tablet 12/28/2019 - 12/29/2019 Provid er: Cisco Virgen MD Diagnosis: take one pill by mouth 20 minuets before MRI Last Documented On 0 12:08PM By Bob Quigley ; [facility] [place] 7.5-325MG Oral Tablet 06/21/2018 - 06/16/2020 Pr ovider: Cisco Virgen MD Diagnosis: three times a day Last Documented On 1 10:59AM By Simin Gonzales ; [facility] Percocet 7.5-325MG Oral Tablet 06/19/2018 - 07/02/2018 Provider: Cisco Virgen MD Diagnosis: three times a day Last Documented On 9 11:45AM By Dr. Virgen ; [facility] Medrol 4MG Oral Tablet Thera py Pack 06/16/2018 - 06/22/2018 Provider: Cisco Virgen MD Diagnosis: use as directed Last Documented On 9 3:15PM By Dahiana Patel ; [facility] Hydrocodone-Acetaminophen 10-300 MG Tablet 10/07/2016 - 06/16/2020 Provider: Diagnosis: Last Documented On 1 10:58AM By Simin Gonzales ; [facility] Diclofenac Sodium 25 MG Tabl et Delayed Release 09/15/2016 - 06/16/2020 Provider: HILARIO Jacobsen Diagnosis: Last Documented On 1 10:58AM By Simin Gonzales ; [facility] Medications Administered Includes: Administered Medications in patient's chart No Administered Medications Recorded Results Includes: Results from 11/25/2023 through 11/24/2024 No Results Recorded For Specified Dates History of Present Illness History of Present Illness not supported for this document type No History of Present Illness Recorded Social History Description Last Updated Tobacco non-user 10/12/2021 Last Documented On 2 12:35PM ; [facility] No recent change in diet 08/03/2021 Last Documented On 2 12:40PM ; [facility] Not a current smoker. 08/03/2021 Last Documented On 2 12:40PM ; [facility] No recent change in diet 04/03/2020 Last Documented On 1 10:03AM ; [facility] Not a current smoker. 04/03/2020 Last Documented On 1 10:03AM ; [facility] Not using alcohol 04/03/2020 Last Documented On 1 10:03AM ; [facility] Not using drugs 04/03/2020 Last Documented On 1 10:03AM ; [facility] Non-smoker 10/08/2019 Last Documented On 0 11:12AM ; [facility] Exercising regularly 08/06/2019 Last Documented On 0 4:57PM ; [facility] Caffeine use 10/07/2016 Last Documented On 7 9:50AM ; [facility] Not a current smoker 10/07/2016 Last Documented On 7 9:50AM ; [facility] No tobacco use 10/07/2016 Last Documented On 7 9:50AM ; [facility] Smoking status : Never smoker 10/07/2016 Last Documented On 7 9:50AM ; [facility] Procedures and Surgical History Surgical History Last Updated History of back surgery 2008 - L4-5 ~2014 - L5-S1 ~2014 - L3-S1 ~2018 removal of screw rods on lt side ~06/14/2018 Left SI Joint Fusion ~01/04/2020-Left side L5-S1 excision and exploration and pseudoarthrosis and fusion 08/04/2021 Last Documented On 2 12:40PM ; [facility], [facility] Medical History Includes: Medical History in patient's chart Description Last Updated No recent immunization for pneumococcal pneumonia 12/16/2021 Last Documented On 2 10:34AM ; [facility] History of History of Blood Clots 2021 Last Documented On 2 10:34AM ; [facility] History of History of Blood Transfusion x3 12/16/2021 Last Documented On 2 10:34AM ; [facility] History of arthritis 12/16/2021 Last Documented On 2 10:34AM ; [facility] History of Hypertension 12/16/2021 Last Documented On 2 10:34AM ; [facility] Back surgery 2007- L4-5 ~201 4 - L5-S1 ~2014 - L3-S1 ~2018 removal of screw rods on lt side ~06/14/2018 Left SI Joint Fusion ~01/04/2020-Left side L5-S1 excision and exploration and pseudoarthrosis and fusion 06/01/2021 Last Documented On 2 2:10PM ; [facility] Blood transfusion x3 03/04/2021 Last Documented On 2 12:32PM ; [facility] Past Surgical History: 08/25/2020 Last Documented On 1 1:53PM ; [facility] Arthritis 08/19/2020 Last Documented On 1 4:44PM ; [facility] History of Blood Clots 08/19/2020 Last Documented On 1 4:44PM ; [facility] No recent immunization for flu 1 Last Documented On 1 10:03AM ; [facility] Arthritic joint problems 10/07/2016 Last Documented On 7 9:50AM ; [facility] A recent injection dry needle 10/07/2016 Last Documented On 7 9:50AM ; [facility] Family History Includes: Family History in patient's chart Description Last Updated Family history of systemic hypertension 12/16/2021 Last Documented On 2 10:34AM ; [facility] Diabetes mellitus 08/19/2020 Last Documented On 1 4:44PM ; [facility] Family history of cancer 08/06/2019 Last Documented On 0 4:57PM ; [facility] Family history of diabetes mellitus 07/16 Last Documented On 0 4:57PM ; [facility] Family history of heart disease 08/06/19 Last Documented On 0 4:57PM ; [facility] Family history of rheumatoid arthritis 0 08/06/2019 Last Documented On 0 4:57PM ; [facility] Family history of thromboembolic disease hx of dvt after 2015 lumbar sx 03/09/2018 Last Documented On 9 8:47AM ; [facility] Review of Systems Review of Systems not supported for this document type No Review of Systems Recorded Mental Status Description Anxiety Functional Status No Functional Status Recorded Physical Exam Physical Exam not supported for this document type No Physical Exam Recorded Immunizations Includes: Immunizations in patient's chart Vaccine Dose # Date Site Reaction(s) Status Source Influenza 1 08/03/2021 Complete (Refused - Patient objection) [facility] Last Documented On 2 2:49PM ; [facility] Allergies Includes: Active, inactive, and resolved Allergies Substance Type Reaction Onset Date Resolved Date Statu s Mobic Allergy 10/07/2016 Active Last Documented On 2 9:56AM ; [facility] Insurance Includes: Active Insurance Policies Plan Name Member ID Group # Subscriber Relationship Effect crys Dates [id number] Ad Dave 02/15/2016 - Unknown Clinical Notes Includes: Signed Clinical Notes starting from 01/28/2022 No Clinical Notes Recorded
--- OUTSIDE RECORDS SUMMARY | 2024-11-24 10:10 | XMS_ITS | Encounter Summary ---
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 ??? Take zyci-lzl-dnqscol and prescription medicines only as told by [...]
--- OUTSIDE RECORDS SUMMARY | 2024-11-24 10:10 | XMS_ITS | Encounter Summary ---
Author Organization [employer] ([place], [place], [place], [place]) Address [address] [place] [address] Care Team Providers Care Change Agent Name Role Phone Unavailable Primary Care Provider Unavailabl e Encounter Details Date Type Department Care Team (Late st Contact Info) Description 05/29/2018 Transcribed Document [facility] [place] [facility] [place] [address] ProviderDina MD [address] [place] [address] Social History Tobacco Use Types [...] screws and rods. Home Medications (3) Active [place] 10 mg-325 mg oral tablet 1 Tab, [...] Lymph # 1.29 K/uL 05/29/2018 11:08 EDT [place] % 8.9 % 05/29/2018 11:08 EDT [place] # 0.47 K/uL 05/29/2018 11:08 EDT Eos [...] Appearance CLEAR2 05/29/2018 11:08 EDT Urine Specific [place] 1.021 05/29/2018 11:08 EDT Urine pH Dipstick [...]
--- OUTSIDE RECORDS SUMMARY | 2024-11-24 10:10 | XMS_ITS | Encounter Summary ---
Author Organization [employer] ([place], [place], [place], [place]) Address [address] [place] [address] Care Team Providers Care Rod Mill Operator Name Role Phone Unavailable Primary Care Provider Unavailabl e Encounter Details Date Type Department Care Team (Late st Contact Info) Description 02/28/2018 Transcribed Document [facility] [place] [address] [place] [address] ProviderDina MD [address] [place] [address] Social History Tobacco Use Types [...] - Historical ProviderMD - 02/28/2018 8:40 AM PATIENT ACCESS COORDINATOR Discharge Instructions Entered On: 02/28/2018 8:41 EST [...] 02/28/2018 8:40 EST Electronically signed by Favio [facility] Conversion Dye Reel Operator Cerner at 06/01/2022 11:10 PM CDT documented in this encounter Plan of Treatment Not on file documented as of this encounter Visit Diagnoses Not on filedocumented in this encounter
--- OUTSIDE RECORDS SUMMARY | 2024-11-24 10:10 | XMS_ITS | Encounter Summary ---
Author Organization [employer] ([place], [place], [place]) Address [address] [place] [address] Care Team Providers Care Hook And Eye Machine Operator Name Role Phone Unavailable Primary Care Provider Unavailabl e Encounter Details Date Type Department Care Team (Late st Contact Info) Description 01/04/2020 Transcribed Document [facility] [place] [address] [place] [address] ProviderDina MD [address] [place] [address] Social History Tobacco Use Types [...] - Historical ProviderMD - 01/04/2020 5:07 PM INDUSTRIAL CLEANER Stroke/Warfarin Instructions Entered On: 01/04/2020 17:07 EST Performed On: 01/04/2020 17:07 EST by Jeannine Lopez RN Stroke/Warfarin Instructions Stroke/TIA Discharge Ins : N/A Warfarin Discharge Ins : N/A Jeannine Lopez RN - 01/04/2020 17:07 EST Electronically signed by Favio [facility] Conversion Jewelry Casting Model Maker Apprentice Cerner at 06/01/2022 11:18 PM CDT documented in this encounter Plan of Treatment Not on file documented as of this encounter Visit Diagnoses Not on filedocumented in this encounter
--- OUTSIDE RECORDS SUMMARY | 2024-11-24 10:10 | XMS_ITS | Encounter Summary ---
Author Organization [employer] ([place], [place], [place], [place]) Address [address] [place] [address] Care Team Providers Care Financial Specialist Name Role Phone Unavailable Primary Care Provider Unavailabl e Encounter Details Date Type Department Care Team (Late st Contact Info) Description 02/28/2018 Transcribed Document [facility] [place] Family Medicine [address] [place] [address] ProviderDina MD [address] [place] [address] Social History Tobacco Use Types [...] - Historical ProviderMD - 02/28/2018 10:33 AM FINANCIAL SALES ASSISTANT Patient: AD BANEGAS Age: 53 years Sex: [...]
--- OUTSIDE RECORDS SUMMARY | 2024-11-24 10:10 | XMS_ITS | Encounter Summary ---
Author Organization [employer] ([place], [place], [place], [place]) Address [address] [place] [address] Care Team Providers Care Spray Drier Operator Name Role Phone Unavailable Primary Care Provider Unavailabl e Encounter Details Date Type Department Care Team (Late st Contact Info) Description 01/04/2020 Transcribed Document [facility] [place] Family Medicine [address] [place] [address] ProviderDina MD [address] [place] [address] Social History Tobacco Use Types [...] - Dina ProviderMD - 01/04/2020 8:06 AM MECHANICAL LABORATORY TECHNICIAN Patient: AD MARTINEZ Age: 54 years Sex: [...] L5-S1. Thereafter exploration of fusion mass, L5-S1 [id number] -exploration of spinal fusion, L5-S1 -Excision pseudoarthrosis, previous fusion, L4-5, interbody. 60835-bkixhnthwcoigof, posterior, [id number] level, segmental instrumentation, L5-S1, Posterior lateral fusion, L5-S1 with bone graft. BMP. 04094-ymbo graft harvest for spine surgery, autograft, right iliac crest, structural graft. Left side, from pelvis 14457-xvsjqrhug, structural bone graft, for spine surgery. PREOPERATIVE DIAGNOSIS(ES): Previous spinal fusion L5-S1 area Pseudoarthrosis L5-S1. SURGEON: Marialuisa Virgen MD. TESTER EQUIPMENT: Beth The duties of the family services assistant are to assist in transferring [...] help in the popping pain. IMAGING STUDIES N-zomh-zlkkydqsxz fusion, L4 L5 S1. Instrumentation right side. Instrumentation removed on the left side. Disc degeneration above MRI study-probable pseudoarthrosis, left L5-S1. Defect identified. CT pyhi-syuhoi-ootliuqex defect L5-S1 left side. Diagnostics/therapeutic epidural L3 [...] administered within 1 hour of incision Antibiotics sckfrt-baxid-plvjrtxhyk cephalosporin, Ancef Antibiotics are discontinued within 24 [...] magnification. Timeout., antibiotics Local filtration, side, L5-S1. [id number] -Excision of pseudoarthrosis L5-S1 exploration of spinal [...] followed with bone graft, and then graft allied health teacher and allograft autograft. This was carefully placed into the pedicle screw tulips. L5 and S1 and above the facet joint. +86284-Tndpialqa harvest iliac crest right side- Separate incision [...] tables. This was mixed, with revision, graft allied health teacher.. + allograft preparation, structural bone graft The [...]
--- OUTSIDE RECORDS SUMMARY | 2024-11-24 10:10 | XMS_ITS | Clinical Summary ---
Author Organization [employer] ([place], [place], [place], [place]) Address [address] [place] [address] Care Team Providers Care Management Manager Name Role Phone Unavailable Primary Care [...]
--- OUTSIDE RECORDS SUMMARY | 2024-11-24 10:10 | XMS_ITS | Encounter Summary ---
Author Organization [employer] ([place], [place], [place], [place]) Address [address] [place] [address] Care Team Providers Care Alcohol Still Operator Name Role Phone Unavailable Primary Care Provider Unavailabl e Encounter Details Date Type Department Care Team (Late st Contact Info) Description 01/04/2020 Transcribed Document [facility] [place] [address] [place] [address] ProviderDina MD [address] [place] [address] Social History Tobacco Use Types [...] - Dina ProviderMD - 01/04/2020 4:59 PM VENEER STACKER Final Discharge Planning Entered On: 01/04/2020 17:01 [...]
--- OUTSIDE RECORDS SUMMARY | 2024-11-24 10:10 | XMS_ITS | Encounter Summary ---
Author Organization [employer] ([place], [place], [place], [place]) Address [address] [place] [address] Care Team Providers Care Studio Engineer Name Role Phone Unavailable Primary Care Provider Unavailabl e Encounter Details Date Type Department Care Team (Late st Contact Info) Description 02/28/2018 Transcribed Document [facility] [place] Family Medicine [address] [place] [address] ProviderDina MD [address] [place] [address] Social History Tobacco Use Types [...] - Dina ProviderMD - 02/28/2018 12:53 PM COUNTY SURVEYOR [place] [id number] Patient Copy Patient Information: Name: AD MARTINEZ Current Date: 02/28/2018 12:53:41 : 1965 Patient Address: [address] [place] [id number] Patient Attending Physician: MIKY MANCILLA MD-[facility] Primary Care Provider: HILARIO MONZON MD Primary Care Provider Discharge Diagnosis: Comment: Follow-up Instructions: With: Address: When: MIKY MANCILLA [address] [facility] [address], [address] [place] [phone] Business (1) Within As needed Discharge Instructions: [...] any): Final Medication List: Other Medications acetaminophen-hydrocodone ([place] 10 mg-325 mg oral tablet) 1 Tablet(s) [...] by your health care provider. ??? Take inbe-eto-jhnrwnz and prescription medicines only as told by [...] Assistance with quitting is available by contacting 5-443-FWLV-NOW. This is a free resource providing counseling, [...] Be sure to sign up for the [employer] patient portal, which gives you 06/09 access to your medical information ??? including these discharge instructions ??? using your computer, smartphone, or tablet. Just go to [employer] to get started. Questions? Call . [facility] would like to thank you for allowing us to assist you with your healthcare needs. KING Fletcher TROY LEE, (or dealer compliance representative) have received the above patient education materials/instructions and have verbalized understanding: Patient Signature _ Date/Time Patient Certified Welder Signature (if needed) Date/Time Clinician/Hospital Certified Welder Signature (if needed) Date/Time documented in this encounter Plan of Treatment Not on file documented as of this encounter Visit Diagnoses Not on filedocumented in this encounter
--- OUTSIDE RECORDS SUMMARY | 2024-11-24 10:10 | XMS_ITS | Encounter Summary ---
Author Organization [employer] ([place], [place], [place], [place]) Address [address] [place] [address] Care Team Providers Care Compensation And Benefits Analyst Name Role Phone Unavailable Primary Care Provider Unavailabl e Encounter Details Date Type Department Care Team (Late st Contact Info) Description 01/04/2020 Transcribed Document [facility] [place] [address] [place] [address] ProviderDina MD [address] [place] [address] Social History Tobacco Use Types [...] - Dina ProviderMD - 01/04/2020 3:38 PM FORENSIC EXAMINER UM Authorization Entered On: 01/04/2020 15:38 EST Performed On: 01/04/2020 15:38 EST by Melisa Morales Rn-Utilization Review Primary Insurance Authorization Authorization and Policy Numbers : Insurance 1 Health Plan: [facility] Policy Number: [id number] Authorization Number: [id number] Insurance Primary Name : [facility] Policy Number: [id number] Authorization Status-Primary : Admit approved Authorization Fax Number-Primary : [phone] Auth/Referral Phone Number-Primary : [phone] Reference Number-Primary : [id number] Authorization Number-Primary : [id number] Number of Days Authorized-Primary : 6 Day(s) Authorized Service Begin Date-Primary : 01/01/2020 EST Authorized Service End Date-Primary : 01/07/2020 EST Historical Authorization Comments-Primary : Comment 1: [place] approved per Nila for 7 days --- nrd 01/07 fax for d/c date [phone] (ANGELICA BELTRE, RN-Utilization Review 12/20/2019 10:17) Melisa Morales Rn-Utilization Review - 01/04/2020 15:38 EST Electronically signed by Stephanie Stahl Conversion Scientific Database Curator Cerner at 06/01/2022 11:20 PM CDT documented in this encounter Plan of Treatment Not on file documented as of this encounter Visit Diagnoses Not on filedocumented in this encounter
--- OUTSIDE RECORDS SUMMARY | 2024-11-24 10:10 | XMS_ITS | Encounter Summary ---
Author Organization [employer] ([place], [place], [place], [place]) Address [address] [place] [address] Care Team Providers Care Client Account Manager Name Role Phone Unavailable Primary Care Provider Unavailabl e Encounter Details Date Type Department Care Team (Late st Contact Info) Description 02/28/2018 Transcribed Document [facility] [place] Family Medicine [address] [place] [address] ProviderDina MD [address] [place] [address] Social History Tobacco Use Types [...] - Dina ProviderMD - 02/28/2018 12:41 PM INKER AND OPAQUER [place] [id number] Patient Copy Patient Information: Name: AD MARTINEZ Current Date: 02/28/2018 12:41:42 : 1965 Patient Address: [address] [place] [phone] Patient Attending Physician: MIKY MANCILLA MD-[facility] Primary Care Provider: HILARIO MONZON MD Primary Care Provider Discharge Diagnosis: Comment: Follow-up Instructions: With: Address: When: MIKY MANCILLA [address] [facility], [address] [place] [phone] Business (1) Within As needed Discharge Instructions: [...] any): Final Medication List: Other Medications acetaminophen-hydrocodone ([place] 10 mg-325 mg oral tablet) 1 Tablet(s) [...] by your health care provider. ??? Take sboh-pug-joyxzux and prescription medicines only as told by [...] Assistance with quitting is available by contacting 3-415-NKLU-NOW. This is a free resource providing counseling, [...] Be sure to sign up for the [employer] patient portal, which gives you 06/09 access to your medical information ??? including these discharge instructions ??? using your computer, smartphone, or tablet. Just go to Cover to get started. Questions? Call . [facility] would like to thank you for allowing us to assist you with your healthcare needs. KING Fletcher TROY LEE, (or auto claim representative) have received the above patient education materials/instructions and have verbalized understanding: Patient Signature _ Date/Time Patient Format Proofreader Signature (if needed) Date/Time Clinician/Hospital Format Proofreader Signature (if needed) Date/Time documented in this encounter Plan of Treatment Not on file documented as of this encounter Visit Diagnoses Not on filedocumented in this encounter
--- OUTSIDE RECORDS SUMMARY | 2024-11-24 10:10 | XMS_ITS | Encounter Summary ---
Author Organization [employer] ([place], [place], [place], [place]) Address [address] [place] [address] Care Team Providers Care Apartment Maintenance Name Role Phone Unavailable Primary Care Provider Unavailabl e Encounter Details Date Type Department Care Team (Late st Contact Info) Description 05/29/2018 Transcribed Document [facility] [place] [address] [place] [address] ProviderDina MD [address] [place] [address] Social History Tobacco Use Types [...] Source : Stated Height Entry Format : [place] Height, Feet : 6 ft(Converted to: 183 cm, 72 Inch) Height, Inches : 4 Inch(Converted to: 0 ft 4 Inch, 10.16 cm) Clinical Height : 193.04 cm Weight Source : Standing scale Weight Entry Format : [place] Clinical Dosing Weight : 113.64 kg Weight, Pounds : 250 lb Body Surface Area (BSA) : 2.44 m2 Body Mass Index : 30.5 kg/m2 (HI) [place] Body Weight : 86 kg Jenna Carroll RN - 05/29/2018 10:52 EDT Health Histories Smoking Status : Former smoker, quit more than 30 days ago Smokeless Tobacco Status : Former smokeless tobacco user, quit more than 30 days ago Implant/Device Type, Capacitor Pack Press Operator and Model : metal rods back Jenna [...] RN - 05/29/2018 10:52 EDT Spiritual/Cultural Needs Gnosticist Preference : Other: Muslim Jenna Carroll RN - 05/29/2018 10:52 EDT [...] #2 Relationship : . Primary Language : Grenadian Communication Barrier : None Jenna Carroll RN [...]
--- OUTSIDE RECORDS SUMMARY | 2024-11-24 10:10 | XMS_ITS | Clinical Summary ---
Author Organization [facility] Address [address] [place] [address] Care Team Providers Care Airplane Coverer Name Role Phone Leigh Ann Buckley MD, Manjinder Jones Primary Care Prov ider Cliftno Melgoza MD Unavailable [phone] Allergies Active Allergy Reactions Criticality Noted Date [...] (#1) 2024 Medical Devices Implanted Type Area Interpretive Naturalist Device Identifier Shelf Expiration Date Model / Serial / Lot Graft Bone Crush Canc 1-4 20ml Implanted:Qty: 1 on 11/20/2014 by Clifton Melgoza MD at [facility] [place] Spine Lumbar * LIFENET 09/15/2019 [id number] 14 / / [id number] Graft Block Mastergraft 20cc Implanted:Qty: 1 on 11/20/2014 by Clifton Melgoza MD at [facility] [place] Spine Lumbar * [employer] SOFAMOR DANEK 08/13/2017 [id number] / / [id number] Graft Bone Kt Infuse Med Implanted:Qty: 1 on 11/20/2014 by Clifton Melgoza MD at [facility] [place] Spine Lumbar * [employer] SOFAMOR DANEK 11/15/2015 [id number] / / [id number] 5.5 Ti Cp4 Ns Curv 100mm Implanted:Qty: 2 on 11/20/2014 by Clifton Melgoza MD at [facility] [place] Spine Lumbar * [employer] [id number] / / Set Scr 5.5 Ti Ns Brk Off Implanted:Qty: 6 on 11/20/2014 by Clifton Melgoza MD at [facility] [place] Spine Lumbar * [employer] [id number] / / Scr 5.5 Mas 7.5x50 Cc Implanted:Qty: 1 on 11/20/2014 by Clifton Melgoza MD at [facility] [place] Spine Lumbar * [employer] [id number] / / Scr 5.5 Mas 7.5x45mm Implanted:Qty: 5 on 11/20/2014 by Clifton Melgoza MD at [facility] [place] Spine Lumbar * [employer] [id number] / / Abebe Implant Spinal Fusion Stimulator - [id number] Implanted:Qty: 1 on 11/20/2014 by Clifton Melgoza MD at [facility] [place] Spine Lumbar * [employer] 08/22/2015 [id number] / [id number] / Graft Bone Posterolateral 10cm - [id number] Implanted:Qty: 1 on 11/20/2014 by Clifton Melgoza MD at [facility] [place] Spine Lumbar * [employer] 07/23/2016 [id number] / [id number] / Graft Block Mastergraft 20cc Implanted:Qty: 1 on 11/20/2014 by Clifton Melgoza MD at [facility] [place] Spine Lumbar * [employer] SOFAMOR DANEK 07/14/2017 [id number] / / [id number] 12degrees X 16mm X 30mm X 24mm Interbody Spacer Implanted:Qty: 1 on 11/20/2014 by Clifton Melgoza MD at [facility] [place] Spine Lumbar * [employer] 01/24/2020 [id number] / / [id number] Insurance * Guarantor: Ad Martinez Account Type Relation to Patient Date of Phone Billing Address Personal/Family Self 1965 [phone] (Work) [address] [place] [address] ANTHEM * Guarantor: Ad Martinez Account Type Relation to Patient Date of Phone Billing Address Personal/Family Self 1965 [phone] (Work) [address] [place] [address] ANTHEM Advance Directives For more information, please contact: [phone] * Full Code (Latest Code Status on File) Date Activated Date Inactivated Comments 11/20/2014 8:47 PM 11/23/2014 6:32 PM Care Teams Airplane Coverer Relationship Specialty Start Date End Date Manjinder Beltrán Jr., MD [address] [facility] [address] [place] [address] PCP - General Internal Medicine 09/19/14 Clifton Melgoza MD [address] [facility] [place] [address] 02/21/22
--- OUTSIDE RECORDS SUMMARY | 2024-11-24 10:10 | XMS_ITS | Clinical Summary ---
Author Organization [facility] Address [address] [place] [id number] Care Team Providers Care Mechanical Reliability Engineer Name Role Phone Sy Shahid MD Primary Care Provider + [phone] Source Comments This information has been disclosed [...] therelease of HIV test results or diagnoses. [id number] Allergies Active Allergy Reactions Criticality Noted Date [...] per tablet One PO Q 6-8 hours kqh-ydra-swvm must last 40 days with no exceptions [...] on file Insurance [employer] Care Teams Mechanical Reliability Engineer Relationship Specialty Start Date End Date Sy Shahid MD PCP - General Internal Medicine 01/29/15
--- OUTSIDE RECORDS SUMMARY | 2024-11-24 10:11 | XMS_ITS | Encounter Summary ---
Author Organization [employer] ([place], [place], [place], [place]) Address [address] [place] [address] Care Team Providers Care Timber Appraiser Name Role Phone Unavailable Primary Care Provider Unavailabl e Encounter Details Date Type Department Care Team (Late st Contact Info) Description 02/28/2018 Transcribed Document [facility] [place] [facility] [address] [place] [address] ProviderDina MD [address] [place] [address] Social History Tobacco Use Types [...] - Dina ProviderMD - 02/28/2018 8:41 AM TRAY CASTING MACHINE OPERATOR [place] [id number] Patient Copy Patient Information: Name: AD MARTINEZ Current Date: 02/28/2018 08:41:28 : 1965 Patient Address: [address] [address] Patient Attending Physician: MIKY MANCILLA [facility] Primary Care Provider: HILARIO MONZON MD Primary Care Provider Discharge Diagnosis: Comment: Follow-up Instructions: With: Address: When: MIKY MANCILLA [address] [facility], [phone] [place] [phone] Business (1) Within As needed Discharge Instructions: [...] any): Final Medication List: Other Medications acetaminophen-hydrocodone ([place] 10 mg-325 mg oral tablet) 1 Tablet(s) [...] by your health care provider. ??? Take xrfx-rbc-kbmotof and prescription medicines only as told by [...] Assistance with quitting is available by contacting 6-569-MJKT-NOW. This is a free resource providing counseling, [...] Be sure to sign up for the [facility] patient portal, which gives you 06/09 access to your medical information ??? including these discharge instructions ??? using your computer, smartphone, or tablet. Just go to [email or web address] to get started. Questions? Call . [facility] would like to thank you for allowing us to assist you with your healthcare needs. KING Fletcher TROY LEE, (or teleservices representative) have received the above patient education materials/instructions and have verbalized understanding: Patient Signature _ Date/Time Patient Busperson Signature (if needed) Date/Time Clinician/Hospital Busperson Signature (if needed) Date/Time documented in this encounter Plan of Treatment Not on file documented as of this encounter Visit Diagnoses Not on filedocumented in this encounter
--- OUTSIDE RECORDS SUMMARY | 2024-11-24 10:11 | XMS_ITS | Clinical Summary ---
Author Organization [facility] Address [address] [place] [address] Phone Care Team Providers Care Vacation Guide Name Role Phone NA HAYNES, HILARIO Davies Primary Care Provider [phone] Lars HAYNES, Cisco White Unavailable Reason for Visit and Chief Complaint The Chief Complaint is: lumbar / sacroiliac joint pain Problems Includes: Problems addressed during this encounter and other active Problems Current Visit Onset Date Resolved Date Provider Conditio n Status Lower Back Pain 10/07/2016 Cisco Virgen MD A ctive Last Documented On 7 1:13PM ; [facility] Past Visits Onset Date Resolved Date Provider Condition Status Sacroiliitis 05/22/2018 Cisco Virgen MD Acti ve Last Documented On 9 7:55PM ; [facility] Plan of Treatment Pain is for the right side, the L4 area. CT scan spine, rule out pseudoarthrosis. I CT scan was prior to his previous surgery. - Last Documented On 08/04/2021 12:40PM ; [facility] Pending Tests Order Diagnosis Results Due Ordering P rovider Lab Orders - HL Pre-Op PTT 06/05/18 Bebo Virgen MD Last Documented On 9 7:53PM ; [facility] Lab Orders - HL Pre-Op PT INR 06/05/18 Bebo Virgen MD Last Documented On 9 7:53PM ; [facility] Lab Orders - HL Pre-Op CMP 06/05/18 Bebo Virgen MD Last Documented On 9 7:53PM ; [facility] Lab Orders - HL Pre-Op Clean Catch UA 06/05/18 Cisco Virgen MD Last Documented On 9 7:53PM ; [facility] Lab Orders - HL Pre-Op CBC with DIFF 06/05/18 Cisco Virgen MD Last Documented On 9 7:53PM ; [facility] Radiology - MRI MRI Lumbar Spine 06/16/20 Herbie Virgen MD Last Documented On 1 10:37AM ; [facility] Radiology - CT Scan Lumbar 06/16/20 Cisco Virgen MD Last Documented On 1 10:37AM ; [facility] Radiology - CT Scan Lumbar 08/17/21 Cisco Virgen MD Last Documented On 2 2:48PM ; [facility] Instructions to patient No intervention and counseli ng on cessation of tobacco use Last Documented On 2 1:29PM ; [facility] Lose weight Last Documented On 2 1:29PM ; [facility] Assessments Includes: Assessments from this encounter Findings Back pain with left lower extremity radiculopathy. Possible pseudoarthrosis.sacrumI think this definitely has become less symptomatic since previous visit. - Last Documented On 08/04/2021 12:40PM ; [facility] I am not to do do more for this at this time.his left lower extremity radiculopathy has been the same as it was prior to me going ahead and refusing the spine. - Last Documented On 08/04/2021 12:40PM ; [facility] I am at loss to explain his symptoms. - Last Documented On 08/04/2021 12:40PM ; [facility] Instructions Includes: Instructions from this encounter Instructions to patient No intervention and counseli ng on cessation of tobacco use Last Documented On 2 1:29PM ; [facility] Lose weight Last Documented On 2 1:29PM ; [facility] Medical Equipment - Implanted Devices Includes: Current Devices No Medical Equipment Recorded Medications Includes: Medications discussed during this encounter and other current Medications Current Medications (continue as prescribed) methylPREDNISolone 4 MG Oral Tablet Therapy Pack 05/29/2021 Provider: HILARIO MONZON MD Diagnosis: Last Documented On 2 1:16PM By Trina Gallegos ; [facility] tiZANidine HCl 4 MG Oral Tablet 05/29/2021 Provider: HILARIO MONZON MD Diagnosis: Last Documented On 2 1:16PM By Trina Gallegos ; [facility] Testosterone Cypionate 200 M G/ML Intramuscular Solution 05/29/2021 Provider: HILARIO MONZON MD Diagnosis: Last Documented On 2 1:16PM By Trina Gallegos ; [facility] Tadalafil 10 MG Oral Tablet 05/29/2021 Provider: HILARIO MONZON MD Diagnosis: Last Documented On 2 1:16PM By Trina Gallegos ; [facility] Atorvastatin Calcium 20 MG Oral Tablet 05/29/2021 Pr ovider: HILARIO MONZON MD Diagnosis: Last Documented On 2 1:16PM By Trina Gallegos ; [facility] Diclofenac Sodium 75 MG Oral Tablet Delayed Release 05/29/2021 Provider: HILARIO MONZON MD Diagnosis: Last Documented On 2 1:16PM By Trina Gallegos ; [facility] Meclizine HCl 25 MG Oral Tablet 05/29/2021 Provider: HILARIO MONZON MD Diagnosis: Last Documented On 2 1:16PM By Trina Gallegos ; [facility] Ibuprofen 800 MG Oral Tablet 05/14/2021 Provider: HILARIO MONZON MD Diagnosis: Last Documented On 2 1:16PM By Trina Gallegos ; [facility] amLODIPine Besy-Benazepril H Cl 5-10 MG Oral Capsule 05/13/2021 Provider: ERIC MARTINEZ MD Diagnosis: Last Documented On 2 1:16PM By Trina Gallegos ; [facility] HYDROcodone-Acetaminophen 10 -325 MG Oral Tablet 05/09/2021 Provider: HILARIO MONZON MD Diagnosis: Last Documented On 2 1:16PM By Trina Gallegos ; [facility] Past Medications on file oxyCODONE-Acetaminophen 7.5- 325 MG Oral Tablet 01/14/2020 - 01/24/2020 Provider: CISCO VIRGEN MD Diagnosis: Last Documented On 0 2:32PM By Dr. Virgen ; [facility] oxyCODONE-Acetaminophen 7.5- 325 MG OR TABS 01/14/2020 - 02/03/2020 Provider: Cisco Virgen MD Diagnosis: Last Documented On 0 2:35PM By Evelyn Ronquillo ; [facility] Valium 5 MG Oral Tablet 01/03/2020 - 01/04/2020 Provid er: Cisco Virgen MD Diagnosis: take one pill by mouth 20 minuets before MRI Last Documented On 0 12:03PM By Richard Galeas [facility] Valium 5 MG Oral Tablet 12/28/2019 - 12/29/2019 Provid er: Cisco Vrigen MD Diagnosis: take one pill by mouth 20 minuets before MRI Last Documented On 0 12:08PM By Bob Galeas [facility] Percocet 7.5-325MG Oral Tablet 06/19/2018 - 07/02/2018 Provider: Cisco Virgen MD Diagnosis: three times a day Last Documented On 9 11:45AM By Dr. Virgen ; [facility] Medrol 4MG Oral Tablet Thera py Pack 06/16/2018 - 06/22/2018 Provider: Cisco Virgen MD Diagnosis: use as directed Last Documented On 9 3:15PM By Dahiana Patel ; [facility] Medications Administered Includes: Administered Medications from this encounter No Administered Medications Recorded Vital Signs Includes: Vital Signs from this encounter Vital Name 08/03/2021 01:34P Height (in) 76 Weight (lb) 268 Body Mass Index (kg/m2) 32.6 Body Surface Area (m2) 2.5 Note: TJunable to get BP Last Documented: On 08/03/2021 1:35PM ; [facility] Results Includes: Results discussed during this [...] pattern somewhere but have not been Identified. He said his and his sister, Vlad on his back exactly where it hurts, and today I have done an x-ray with a skin marker on that spot where he feels a popping type sensation. Recurrence of left-sided lower back pain.this is [...] Last Updated No recent change in diet 08/03/2021 Last Documented On 2 12:40PM ; [facility] Not a current smoker. 08/03/2021 Last Documented On 2 12:40PM ; [facility] No recent change in diet 04/03/2020 Last Documented On 2 1:29PM ; [facility] Not using alcohol 04/03/2020 Last Documented On 2 1:29PM ; [facility] Not using drugs 04/03/2020 Last Documented On 2 1:29PM ; [facility] Non-smoker 10/08/2019 Last Documented On 2 1:29PM ; [facility] Exercising regularly 08/06/2019 Last Documented On 2 1:29PM ; [facility] Caffeine use 10/07/2016 Last Documented On 2 1:29PM ; [facility] Not a current smoker 10/07/2016 Last Documented On 2 1:29PM ; [facility] No tobacco use 10/07/2016 Last Documented On 2 1:29PM ; [facility] Smoking status : Never smoker 10/07/2016 Last Documented On 2 1:29PM ; [facility] Procedures and Surgical History Includes: Procedures from this encounter Procedures Code Diagnosis Performing Provider Service L ocation Service Date no intervention and counseling on cessation of tobacco use 4000F Last Documented On 2 1:29PM ; [facility] use of tobacco assessment performed 1000F Last Documented On 2 1:29PM ; [facility] no influenza immunization patient refuse d Last Documented On 2 1:29PM ; [facility] Clinical summary provided to patient Last Documented On 2 1:29PM ; [facility] history of an X-ray was perf ormed 01/14/2020 Abbe @ [facility] ~02/25/2020 Abbe @ [facility] ~04/03/2020 LSpine @ [facility] ~10/23/2020 LSpine @ [facility] ~06/01/2021 LSpine @ [facility] ~08/03/2021 LSpine @ [facility] [id number] Last Documented On 2 2:48PM ; [facility] a CT scan was performed 04/14 Pelvis WO @ [facility] ~06/09/2020 LSpine WO @ [facility] [id number] Last Documented On 2 1:29PM ; [facility] an MRI was performed 01/03/2020 LSpine @ [facility] ~ LSpine @ [facility] [id number] Last Documented On 2 1:29PM ; [facility] Surgical History Last Updated History of back surgery 2007 - L4-5 ~2013 - L5-S1 ~2014 - L3-S1 ~2017 removal of screw rods on lt side ~06/14/2018 Left SI Joint Fusion ~01/04/2020-Left side L5-S1 excision and exploration and pseudoarthrosis and fusion 08/04/2021 Last Documented On 2 12:40PM ; [facility] Medical History Includes: Medical History addressed during this encounter Description Last Updated A recent immunization for pneumococcal p neumonia 12/16/2021 Last Documented On 2 1:29PM ; [facility] Blood transfusion x3 03/04/2021 Last Documented On 2 1:29PM ; [facility] Arthritis 08/19/2020 Last Documented On 2 1:29PM ; [facility] History of Blood Clots 08/19/2020 Last Documented On 2 1:29PM ; [facility] No recent immunization for flu Last Documented On 2 1:29PM ; [facility] Family History Includes: Family History addressed during this encounter Description Last Updated Diabetes mellitus 08/19/2020 Last Documented On 2 12:40PM ; [facility] Family history of cancer 08/06/2019 Last Documented On 2 1:29PM ; [facility] Family history of heart disease 08/06/19 20 Last Documented On 2 1:29PM ; [facility] Family history of rheumatoid arthritis 0 08/06/2019 Last Documented On 2 1:29PM ; [facility] Family history of thromboembolic disease hx of dvt after 2015 lumbar sx 03/09/2018 Last Documented On 2 1:29PM ; [facility] Review of Systems Includes: Review of [...] No complaint of seasonal allergic reaction. reviewed 08/03/2021 Mental Status Includes: Mental Status from this encounter Description Anxiety Functional Status Includes: Functional Status from this encounter No Functional Status Recorded Physical Exam Includes: Physical Exam from this encounter Immunizations Includes: Immunizations addressed during this encounter Vaccine Dose # Date Site Reaction(s) Status Source Influenza 1 08/03/2021 Complete (Refused - Patient objection) [facility] Last Documented On 2 2:49PM ; [facility] Allergies Includes: Active Allergies Substance Type Reaction Onset Date Resolved Date Statu s Mobic Allergy 10/07/2016 Active Last Documented On 2 9:56AM ; [facility] Encounters Encounter Provider Location Date Check-In Time Check-Out Time Diagnosis Follow Up Cisco Virgen MD [facility] 2 1:26PM 2:19PM Insurance Includes: Active Insurance Policies Plan Name Member ID Group # Subscriber Relationship Effect crys Dates 1 - [facility] [id number] Ad Dave 02/15/2016 - Unknown Clinical Notes Includes: Clinical Notes from this encounter No Clinical Notes Recorded
--- OUTSIDE RECORDS SUMMARY | 2024-11-24 10:11 | XMS_ITS | Clinical Summary ---
Author Organization [facility] Address [address] [place] [address] Phone Care Team Providers Care Blood Splatter Analyst Name Role Phone NA HAYNES, HILARIO Davies Primary Care Provider [phone] Lars HAYNES, Cisco White Unavailable Reason for [...] ctive Last Documented On 7 1:13PM ; [facility] Past Visits Onset Date Resolved Date Provider Condition Status Sacroiliitis 05/22/2018 Cisco Virgen MD Acti ve Last Documented On 9 7:55PM ; [facility] Plan of Treatment Reevaluation in 3 months, hopefully with repetitive examination I can identify the source of his pain is treated but without identifying that source, I will not be able to help him. - Last Documented On 10/12/2021 12:35PM ; [facility] Pending Tests Order Diagnosis Results Due Ordering P rovider Lab Orders - HL Pre-Op PTT 06/05/18 Bebo Virgen MD Last Documented On 9 7:53PM ; [facility] Lab Orders - HL Pre-Op PT INR 06/05/18 Bebo Virgen MD Last Documented On 9 7:53PM ; [facility] Lab Orders - HL Pre-Op CMP 06/05/18 Lagunas daiana Virgen MD Last Documented On 9 7:53PM ; [facility], [facility] Lab Orders - HL Pre-Op Clean Catch UA 06/05/18 Cisco Virgen MD Last Documented On 9 7:53PM ; [facility], [facility] Lab Orders - HL Pre-Op CBC with DIFF 06/05/18 Cisco Virgen MD Last Documented On 9 7:53PM ; [facility], [facility] Radiology - MRI MRI Lumbar Spine 06/16/20 Herbie Virgen MD Last Documented On 1 10:37AM ; [facility], [facility] Radiology - CT Scan Lumbar 06/16/20 Cisco Virgen MD Last Documented On 1 10:37AM ; [facility], [facility] Radiology - CT Scan Lumbar 08/17/21 Cisco Virgen MD Last Documented On 2 2:48PM ; [facility], [facility] Instructions to patient No intervention and counseli ng on cessation of tobacco use Last Documented On 2 9:49AM ; [facility], [facility] Lose weight Last Documented On 2 9:49AM ; [facility], [facility] Assessments Includes: Assessments from this encounter Findings Back pain with left lower extremity radiculopathy. Possible pseudoarthrosis.sacrumI think this definitely has become less symptomatic since previous visit. - Last Documented On 10/12/2021 12:35PM ; [facility], [facility] I am not to do do more for this at this time.his left lower extremity radiculopathy has been the same as it was prior to me going ahead and refusing the spine. - Last Documented On 10/12/2021 12:35PM ; [facility], [facility] I am at loss to explain his symptoms.my suspicion is he has a pseudoarthrosis but I cannot identify the exact site of the pseudoarthrosis are, therefore I do not think surgical treatment at this time is appropriate. - Last Documented On 10/12/2021 12:35PM ; [facility], [facility] Instructions Includes: Instructions from this encounter Instructions to patient No intervention and counseli ng on cessation of tobacco use Last Documented On 2 9:49AM ; [facility] Lose weight Last Documented On 2 9:49AM ; [facility], [facility] Medical Equipment - Implanted Devices Includes: Current Devices No Medical Equipment Recorded Medications Includes: Medications discussed during this encounter and other current Medications Current Medications (continue as prescribed) methylPREDNISolone 4 MG Oral Tablet Therapy Pack 05/29/2021 Provider: HILARIO MONZON MD Diagnosis: Last Documented On 2 1:16PM By Trina Gallegos ; [facility], [facility] tiZANidine HCl 4 MG Oral Tablet 05/29/2021 Provider: HILARIO MONZON MD Diagnosis: Last Documented On 2 1:16PM By Trina Gallegos ; [facility], [facility] Testosterone Cypionate 200 M G/ML Intramuscular Solution 05/29/2021 Provider: HILARIO MONZON MD Diagnosis: Last Documented On 2 1:16PM By Trina Gallegos ; [facility], [facility] Tadalafil 10 MG Oral Tablet 05/29/2021 Provider: HILARIO MONZON MD Diagnosis: Last Documented On 2 1:16PM By Trina Gallegos ; [facility], [facility] Atorvastatin Calcium 20 MG Oral Tablet 05/29/2021 Pr ovider: HILARIO MONZON MD Diagnosis: Last Documented On 2 1:16PM By Trina Gallegos ; [facility], [facility] Diclofenac Sodium 75 MG Oral Tablet Delayed Release 05/29/2021 Provider: HILARIO MONZON MD Diagnosis: Last Documented On 2 1:16PM By Trina Gallegos ; [facility], [facility] Meclizine HCl 25 MG Oral Tablet 05/29/2021 Provider: HILARIO MONZON MD Diagnosis: Last Documented On 2 1:16PM By Trina Gallegos ; [facility], [facility] Ibuprofen 800 MG Oral Tablet 05/14/2021 Provider: HILARIO MONZON MD Diagnosis: Last Documented On 2 1:16PM By Trina Gallegos ; [facility], [facility] amLODIPine Besy-Benazepril H Cl 5-10 MG Oral Capsule 05/13/2021 Provider: ERIC MARTINEZ MD Diagnosis: Last Documented On 2 1:16PM By Trina Gallegos ; [facility], [facility] HYDROcodone-Acetaminophen 10 -325 MG Oral Tablet 05/09/2021 Provider: HILARIO MONZON MD Diagnosis: Last Documented On 2 1:16PM By Trina Gallegos ; [facility], [facility] Past Medications on file oxyCODONE-Acetaminophen 7.5- 325 MG Oral Tablet 01/14/2020 - 01/24/2020 Provider: CISCO VIRGEN MD Diagnosis: Last Documented On 0 2:32PM By Dr. Virgen ; [facility], [facility] oxyCODONE-Acetaminophen 7.5- 325 MG OR TABS 01/14/2020 - 02/03/2020 Provider: Cisco Virgen MD Diagnosis: Last Documented On 0 2:35PM By Evelyn Ronquillo ; [facility] Valium 5 MG Oral Tablet 01/03/2020 - 01/04/2020 Provid er: Cisco Virgen MD Diagnosis: take one pill by mouth 20 minuets before MRI Last Documented On 0 12:03PM By Richard Reyes ; [facility], [facility] Valium 5 MG Oral Tablet 12/28/2019 - 12/29/2019 Provid er: Cisco Virgen MD Diagnosis: take one pill by mouth 20 minuets before MRI Last Documented On 0 12:08PM By Bob Quigley ; [facility], [facility] Percocet 7.5-325MG Oral Tablet 06/19/2018 - 07/02/2018 Provider: Cisco Virgen MD Diagnosis: three times a day Last Documented On 9 11:45AM By Dr. Virgen ; [facility] Medrol 4MG Oral Tablet Thera py Pack 06/16/2018 - 06/22/2018 Provider: Cisco Virgen MD Diagnosis: use as directed Last Documented On 9 3:15PM By Dahiana Patel ; [facility], [facility] Medications Administered Includes: Administered Medications from this encounter No Administered Medications Recorded Vital Signs Includes: Vital Signs from this encounter Vital Name 10/12/2021 09:54A Blood Pressure Sitting R 144/85 Pulse Rate-Sitting (bpm) 78 Height (in) 76 Weight (lb) 260 Body Mass Index (kg/m2) 31.6 Body Surface Area (m2) 2.5 Note: bb Last Documented: On 10/12/2021 9:54AM ; [facility], [facility] Results Includes: Results discussed during this [...] pattern somewhere but have not been Identified. The patient states, that after 1 of the pops, that he had that since then, the pain he is having in his spine has shown some improvement. But is still present on a daily basis. This is mostly on the left side, in the area of his fusion. He said his and his sister, Vlad [...] CAT scan. Social History Description Last Updated Tobacco non-user 10/12/2021 Last Documented On 2 12:35PM ; [facility], [facility] No recent change in diet 08/03/2021 Last Documented On 2 9:49AM ; [facility] Not a current smoker. 08/03/2021 Last Documented On 2 9:49AM ; [facility] No recent change in diet 04/03/2020 Last Documented On 2 9:49AM ; [facility] Not a current smoker. 04/03/2020 Last Documented On 2 9:49AM ; [facility] Not using alcohol 04/03/2020 Last Documented On 2 9:49AM ; [facility] Not using drugs 04/03/2020 Last Documented On 2 9:49AM ; [facility] Non-smoker 10/08/2019 Last Documented On 2 9:49AM ; [facility] Exercising regularly 08/06/2019 Last Documented On 2 9:49AM ; [facility] Caffeine use 10/07/2016 Last Documented On 2 9:49AM ; [facility] Not a current smoker 10/07/2016 Last Documented On 2 9:49AM ; [facility] No tobacco use 10/07/2016 Last Documented On 2 9:49AM ; [facility] Smoking status : Never smoker 10/07/2016 Last Documented On 2 9:49AM ; [facility] Procedures and Surgical History Includes: Procedures from this encounter Procedures Code Diagnosis Performing Provider Service L ocation Service Date no intervention and counseling on cessation of tobacco use 4000F Last Documented On 2 9:49AM ; [facility] use of tobacco assessment performed 1000F Last Documented On 2 9:49AM ; [facility] no influenza immunization patient refuse d Last Documented On 2 9:49AM ; [facility] patient screened for future fall risk: no documentation of any fall with injury in past year 1100F Last Documented On 2 12:33PM ; [facility] follow-up visit in one month Last Documented On 2 12:33PM ; [facility] referral to physician Last Documented On 2 12:33PM ; [facility] Clinical summary provided to patient Last Documented On 2 9:49AM ; [facility] history of an X-ray was perf ormed 01/14/2020 LSpine @ [facility] ~02/25/2020 [facility]Spine @ [facility] ~04/03/2020 [facility] @ [facility] ~10/23/2020 [facility]ine @ [facility] ~06/01/2021 [facility]Spine @ [facility] ~08/03/2021 LSpine @ [facility] [id number] Last Documented On 2 9:49AM ; [facility] a CT scan was performed 04/14 Pelvis WO @ [facility] ~06/09/2020 LSpine WO @ [facility] ~08/13/2021 LSpine @ [facility] [id number] Last Documented On 2 12:35PM ; [facility] an MRI was performed 01/03/2020 LSpine @ [facility] ~ LSpine @ [facility] [id number] Last Documented On 2 9:49AM ; [facility] Surgical History Last Updated History of back surgery 2007 - L4-5 ~2013 - L5-S1 ~2014 - L3-S1 ~2018 removal of screw rods on lt side ~06/14/2018 Left SI Joint Fusion ~01/04/2020-Left side L5-S1 excision and exploration and pseudoarthrosis and fusion 08/04/2021 Last Documented On 2 9:49AM ; [facility] Medical History Includes: Medical History addressed during this encounter Description Last Updated A recent immunization for pneumococcal p neumonia 12/16/2021 Last Documented On 2 9:49AM ; [facility] Blood transfusion x3 03/04/2021 Last Documented On 2 9:49AM ; [facility] Past Surgical History: 08/25/2020 Last Documented On 2 9:49AM ; [facility] Arthritis 08/19/2020 Last Documented On 2 9:49AM ; [facility] History of Blood Clots 08/19/2020 Last Documented On 2 9:49AM ; [facility] No recent immunization for flu Last Documented On 2 9:49AM ; [facility] Family History Includes: Family History addressed during this encounter Description Last Updated Diabetes mellitus 08/19/2020 Last Documented On 2 9:49AM ; [facility] Family history of cancer 08/06/2019 Last Documented On 2 9:49AM ; [facility] Family history of diabetes mellitus 07/16 Last Documented On 2 9:49AM ; [facility] Family history of heart disease 08/06/19 20 Last Documented On 2 9:49AM ; [facility] Family history of rheumatoid arthritis 0 08/06/2019 Last Documented On 2 9:49AM ; [facility] Family history of thromboembolic disease hx of dvt after 2015 lumbar sx 03/09/2018 Last Documented On 2 9:49AM ; [facility] Review of Systems Includes: Review [...] No complaint of seasonal allergic reaction. reviewed 10-12-2021 Mental Status Includes: Mental Status from this encounter Description Anxiety Functional Status Includes: Functional Status from this encounter No Functional Status Recorded Physical Exam Includes: Physical Exam from this encounter Allergies Includes: Active Allergies Substance Type Reaction Onset Date Resolved Date Statu s Mobic Allergy 10/07/2016 Active Last Documented On 2 9:56AM ; [facility] Encounters Encounter Provider Location Date Check-In Time Check-Out Time Diagnosis Follow Up Cisco Virgen MD [facility] 2 9:42AM 10:20AM Insurance Includes: Active Insurance Policies Plan Name Member ID Group # Subscriber Relationship Effect crys Dates - [facility] [id number] Ad Martinez Self 02/15/2016 - Unknown Clinical Notes Includes: Clinical Notes from this encounter No Clinical Notes Recorded
--- OUTSIDE RECORDS SUMMARY | 2024-11-24 10:11 | XMS_ITS | Encounter Summary ---
Author Organization [facility] Address [facility] [place] [address] Care Team Providers Care Splunk Consultant Name Role Phone Nonstaff, Referring Primary Care Provider [phone] Leigh Ann Buckley MD, Manjinder Jones Primary Care Prov ider Clifton Melgoza MD Unavailable [phone] Encounter Details Date Type Department Care Team (Late st Contact Info) Description 09/10/2014 Abstract [facility] Physicians - Spine Surgery, [place] [address] 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
--- OUTSIDE RECORDS SUMMARY | 2024-11-24 10:11 | XMS_ITS | Encounter Summary ---
Author Organization [facility] [place] [id number] Care Team Providers Care Visual Educator Name Role Phone Unavailable Primary Care Provider [...] 9:20 AM EST Office Visit [facility] [address] [address] Yosvany Sanz MD [address] [place] [address] [place] [address] documented as of this encounter Visit Diagnoses Not on filedocumented in this encounter Additional Health Concerns Assessment Noted Time PHQ-9 Depression Total Score: 1 12/30/19 23 9:15 PM EST PHQ-2 Depression Total Score: 1 12/30/19 23 9:15 PM EST documented as of this encounter
== END 2024-11-24 23:59 | disposition home or self-care (01) ==
LOC: LAB 10:07
PROVIDERS: PCP Internal Medicine; Visit Provider Internal Medicine
DX: R79.89 Other specified abnormal findings of blood chemistry (principal)